=== PATIENT | female | born 1955 | race Caucasian/White ===

== ENCOUNTER → 2018-03-12 08:56 | Outpatient (CLI) | payer BC, SELFPAY ==
[2018-03-12 09:20] LABS: Absolute Neutrophil Count 3.8 X10^3/uL (2.0-7.7); Basophil# 0.16 X10^3/uL; Basophil% 2.2 % (0-1); Eosinophils% 18.2 % (0-5); Hematocrit 46.7 % (37-47); Hemoglobin 15.8 g/dl (12.0-15.0); Lymphocyte % 18.2 % (19-41); Mean Corp Hgb Conc 33.8 g/gl (32-36); Mean Corpuscular Hgb 32.2 pg (27.0-32.0); Mean Corpuscular Volume 95.1 fL (81-99); Mean Platelet Vol. 8.9 fl (6.2-12.0); Monocyte# 0.56 X10^3/uL; Monocyte% 7.9 % (0-10); Neutrophil % 53.4 % (47-70); POSITIVE COUNT NO; POSITIVE DIFFERENTIAL NO; POSITIVE MORPHOLOGY NO; Platelet Count 294 K/mm3 (150-450); RBC Distribution Width CV 12.6 % (11.6-14.6); RBC Distribution Width SD 42.9 fl (35.1-43.9); Red Blood Count 4.91 M/mm3 (4.2-5.4); White Blood Count 7.1 K/mm3 (4.4-11.0)
[2018-03-15 12:07] LABS: Alternaria tenuis <0.10 kU/L (Class 0); Ash, White <0.10 kU/L (Class 0); Aspergillus fumigatus <0.10 kU/L (Class 0); Bermuda Grass <0.10 kU/L (Class 0); Birch <0.10 kU/L (Class 0); Black Walnut <0.10 kU/L (Class 0); Cat Hair / Dander,Stand 0.15 kU/L (Class 0/I); Cedar, Mountain <0.10 kU/L (Class 0); Cladosporium herbarum <0.10 kU/L (Class 0); Cockroach, American <0.10 kU/L (Class 0); Cottonwood <0.10 kU/L (Class 0); D farinae Mite 0.23 kU/L (Class 0/I); D pteronyssinus 0.32 kU/L (Class I); Elm, American White <0.10 kU/L (Class 0); Immunoglobulin E 508 IU/mL (0-100); Maple/Box Elder <0.10 kU/L (Class 0); Mulberry, White <0.10 kU/L (Class 0); Oak, White <0.10 kU/L (Class 0); Pecan <0.10 kU/L (Class 0); Penicillium Notatum <0.10 kU/L (Class 0); Pigweed, Rough <0.10 kU/L (Class 0); Russian Thistle <0.10 kU/L (Class 0); Sheep Sorrel <0.10 kU/L (Class 0); Sycamore, American <0.10 kU/L (Class 0); Timothy Grass <0.10 kU/L (Class 0)
[2018-03-15 20:08] LABS: Aspirgillus flavus Negative (Neg:<1:1); Aspirgillus fumigatus Negative (Neg:<1:1); Aspirgillus niger Negative (Neg:<1:1)
[2018-03-17 11:45] LABS: Immunoglobulin E 531 IU/mL (0-100)
[2018-03-17 11:54] LABS: Mouse Urine <0.10 kU/L (Class 0)
== END ==
PROVIDERS: Family Provider Family Medicine; PCP Family Medicine; Referring Provider Internal Medicine Critical Care Medicine; Visit Provider Internal Medicine Critical Care Medicine
DX: J45.909 Unspecified asthma, uncomplicated (principal)
CPT/HCPCS: 36415; 82785; 85025; 86003; 86606

== ENCOUNTER → 2018-03-19 07:35 | Outpatient (CLI) | payer BC, SELFPAY ==
--- NOTE | 2018-03-19 13:18 | PFT ---
INTRODUCTION: The patient is a 62-year-old female that presents for pulmonary function testing secondary to a diagnosis of asthma. Respiratory therapy reports good patient effort. Bronchodilators were used during testing. INTERPRETATION: Forced expiration spirometry demonstrates the presence of a severe large airways obstructive ventilatory defect. There was a significant response to aerosolized bronchodilators. Spirograms are of good quality and do not plateau indicating slow emptying of the lungs. Body plethysmography was performed and reveals lung volumes to be within normal limits. Diffusing capacity by single breath CO is also within normal limits at 73% of predicted. IMPRESSION: These pulmonary function studies demonstrate the presence of a partially reversible severe large airways obstructive ventilatory defect. Lung volumes and diffusing capacity are within normal limits.
== END ==
PROVIDERS: Family Provider Family Medicine; PCP Family Medicine; Referring Provider Internal Medicine Critical Care Medicine; Visit Provider Internal Medicine Critical Care Medicine
DX: J45.909 Unspecified asthma, uncomplicated (principal)
CPT/HCPCS: 94060; 94726; 94729

== ENCOUNTER → 2018-04-08 08:50 | Outpatient (CLI) | payer BC, SELFPAY ==
[2018-03-12 08:05] VITALS: BMI 38.0
--- OUTSIDE RECORDS SUMMARY | 2018-06-04 09:25 | XMS RPT_ITS ---
:1955 Author Organization [facility] Care Team Providers Name Role Phone Dharmesh Ray D.O. Attending Unavailable STENCEL, ALBERT Referring Unavailable Dharmesh Ray D.O. Attending Unavailable Dharmesh Ray D.O. Referring Unavailable STENCEL, ALBERT Primary Care Unavailable Dharmesh Ray D.O. Attending Unavailable Dharmesh Ray D.O. Referring Unavailable STENCEL, ALBERT Primary Care Unavailable Dharmesh Ray D.O. Attending Unavailable Dharmesh Ray D.O. Referring Unavailable Yusuf Mccabe Attending Unavailable Estelle, Yusuf Referring Unavailable STENCEL, ALBERT Primary Care Unavailable Dharmesh Ray D.O. Attending Unavailable STENCEL, ALBERT Referring Unavailable Stencel, Albert Attending Unavailable Stencel, Albert Primary Care Unavailable Gatito Marcano Consulting Unavailable RosycelAlbert Admitting Unavailable Stencel, Albert Attending Unavailable Stencel, Albert Primary Care Unavailable Stencel, Albert Attending Unavailable Stencel, Albert Primary Care Unavailable Stencel, Albert Primary Care Unavailable Stencel, Albert Admitting Unavailable Stencel, Albert Attending Unavailable Gatito Marcano Attending Unavailable Stencel, Albert Referring Unavailable Stencel, Albert Primary Care Unavailable ThomaeGatito R Admitting Unavailable Stencel, Albert Attending Unavailable Stencel, Albert Primary Care Unavailable Furness, Harsh Beatty Attending Unavailable Stencel, Albert Primary Care Unavailable PROBLEMS PROBLEMS DATE TYPE CONDITION / CODE ATTENDING STATUS SOURCE 03/31/2018 Unknown J45.909 - Debra Gao Unspecified asthma, D.O. [facility] J45.909(ICD-10) Repository PROCEDURES PROCEDURES No Procedure Records FoundRESULTS RESULTS PULMONARY VISIT REPORT Observed: 04/10/2018 Status: F Source: [place] 2:23 PM [facility] REPOSITORY [facility] [place] [address] [place] [address] OFFICE VISIT Date of Service: 04/10/18 MR#: [id number] Acct: [id number] Name: SAMEER CHOWDHURY Rep #: [id number] : 1955 Provider: Dharmesh Ray D.O. Age/Sex: 62/F Location: [facility] Status: Signed Assessment AND Plan 1. Severe persistent asthma, unspecified whether complicated J45.50 Plan The patient has severe persistent asthma with frequent exacerbations and is already on maximal therapy. Her recent workup included an elevated peripheral eosinophil count along with a significantly elevated IgE level. Given the patient's lack of current control, I recommended that we proceed with adding Xolair to the patient's current treatment regimen. I would favor maintaining the patient on her current regimen for at least 3-6 months after being started on Xolair. After that time, I would strongly recommend the discontinuation of theophylline, if the patient is controlled. Paperwork has been submitted to obtain Xolair on the patient's behalf. She will have short interval follow-up with us accordingly. Plan Detail Other Medications New: Follow Up 3 Months (CSM) HPI HPI Comments Details: The patient is a 62-year-old female that presents to the clinic today for a routine scheduled follow-up office visit. If you recall, the patient initially presented to me in February 2018 for evaluation of asthma. She reported that she was initially diagnosed in her 20s. She also has allergic rhinitis and follows with Dr. Mccabe of ENT for weekly allergy shots. The patient reported that her asthma has never been under good control. At the time of her initial office visit, she was prescribed high-dose Advair, Singulair, pro-air and theophylline. She experiences a great deal of exacerbations throughout the year. The patient is a lifelong non-smoker, but does report some secondhand smoke exposure as a child. She does keep a parakeet as a pet in her home environment. She has hardwood floors throughout her home with little dust noted. Readily identifiable precipitating factors for worsening of her breathing quality include dust and exposure to strong odors and perfumes. Patient did have recent lab work done including CBC in February 2018 that had a noted white blood cell count of 8300 with 13% eosinophils noted on differential. Previous exhaled nitric oxide testing revealed a level of 19 ppb. Pulmonary function testing completed in March 2018 revealed evidence of a partially reversible severe large airways obstructive ventilatory defect with preserved lung volumes and diffusing capacity. Laboratory Tests WBC 7.1 Eos % (Auto) 18.2 H D. farinae Allergen 0.23 H D. pteronyssinus IgE 0.32 H Common Ragweed Allergen 3.30 H Today, the patient reports that she is currently receiving doxycycline by Dr. Mccabe for a sinus infection. She also has plans for upcoming repeat skin testing. She is currently utilizing her rescue inhaler on average 2 times per day. She does report the presence of clear/yellow nasal discharge. She continues to have shortness of breath with activity along with intermittent wheezing and chest tightness. She does have a cough which has been productive of clear to yellow sputum as well. Intake Vital Signs04/10/18 Height 5 ft 2 in 04/10/18 Weight: 205 lb Intake Visit Reasons: 1 M FU Network Technical Analyst Required: No Accompanied by: Self Is patient in pain?: No Allergies aspirin Adverse Reaction (Intermediate, Verified 04/10/18 13:51) asthma exacerbation cromolyn [From Intal] Adverse Reaction (Intermediate, Verified 04/10/18 13:51) asthma exacerbation levofloxacin [From Levaquin] Adverse Reaction (Intermediate, Verified 04/10/18 13:40) joint pain amoxicillin [From Augmentin] Adverse Reaction (Mild, Verified 04/10/18 13:40) itchy clavulanic acid [From Augmentin] Adverse Reaction (Mild, Verified 04/10/18 13:40) itchy Sulfa (Sulfonamide Antibiotics) Adverse Reaction (Mild, Verified 04/10/18 13:51) Rash Medications fluticasone 500 mcg-salmeterol 50 mcg/dose blistr powdr for inhalation 1 inh INHALATION BID 03/12/18 [History Confirmed 04/10/18] albuterol sulfate HFA 90 mcg/actuation aerosol inhaler 2 puff INHALATION Q6H PRN 04/10/18 [History Confirmed 04/10/18] doxycycline hyclate 100 mg capsule 100 mg PO BID 04/10/18 [History Confirmed 04/10/18] fluticasone 50 mcg/actuation nasal spray,suspension 2 spray INTRANASAL DAILY 04/10/18 [History Confirmed 04/10/18] irbesartan 150 mg tablet 150 mg PO DAILY 04/10/18 [History Confirmed 04/10/18] loratadine 10 mg tablet 10 mg PO DAILY 04/10/18 [History Confirmed 04/10/18] montelukast 10 mg tablet 10 mg PO QPM 04/10/18 [History Confirmed 04/10/18] multivitamin tablet 1 tab PO DAILY 04/10/18 [History Confirmed 04/10/18] theophylline ER 300 mg capsule,extended release 24 hr 300 mg PO BID cap 04/10/18 [History Confirmed 04/10/18] PFSH Medical History Asthma (Chronic) Surgical History History of hysterectomy (Resolved) History of sinus surgery (Resolved) Family History Father Sudden cardiac Social History Smoking Status: Never smoker Review of Systems Const CONSTITUTIONAL: Negative anorexia, body ache, chills, daytime sleepiness, fever(s), night sweats, oral thrush, stops breathing during sleep, weight loss, sleeping in chair, fatigue, weight loss, weight gain, frequent colds, seasonal allergies, other, headache(s) or orthopnea EETM Ear Nose Throat Mouth: Positive hearing normal and nasal discharge; negative hard of hearing, hoarseness, dry mouth in morning, change in vision, itchy eyes, eye pain, swallowing Difficulty, ear pain, nose bleed, headache(s), mouth pain, nasal congestion, post nasal drip, sinus pain, sinus pressure, sore throat or other Cardio Cardiovascular: Negative chest pain, chest pain at rest, chest pain with activity, irregular heart rhythm, edema, shortness of breath when lying down, palpitations, murmur or other Resp Respiratory: Positive as per HPI, shortness of breath, wheezing, cough cough: Positive productive color: Positive yellow and clear, chest tightness and inhalers; negative pain with cough, chest congestion, pain on inspiration, increase use of rescue inhalers, snoring, apnea or other Gastro Gastrointestional: Negative bloody stools, change in appetite, difficulty swallowing, reflux, hematemesis, melena stool, loose stool, constipation or other Genitourinary: Negative blood in urine, nocturia, pain with urination or other Musc Musculoskeletal: Negative body pain, back pain, neck pain or other Skin/Breast Skin/Breast: Negative dry skin, itching, rash, unusual bruising, breast lump or other Neuro Neurological: Negative restless legs, confusion, weakness or other Psych Psychocological: Negative abnormal sleep pattern, anxiety, thoughts of hurting self/others, hopelessness or other Lymph Lymphatic: Negative easy bleeding, easy bruising, swollen lymph nodes or other Exam Const Constitutional: Positive conversant, cooperative, in no acute respiratory distress, well developed, well nourished, good hygiene and obese Head Head: Positive normocephalic and atraumatic; negative cyanosis of lips/distal nose Eyes Eye: Positive clear conjunctiva; negative nystagmus or scleral abnormality Ears Ear: Positive hearing normal and external ears normal; negative hard of hearing Nose Nose: Positive external nose normal; negative epistaxis Mouth Mouth: Positive oral mucosae normal and posterior oropharynx is adequate; negative no lesions or post nasal drip Mallampati Score: II: Mallampati Score Neck Neck: Positive normal visual inspection and trachea midline; negative lymphadenopathy Chest Wall Chest: Positive symmetric chest movement Normal AP diameter. Resp lung sounds: Positive wheezes, rhonchi and good air exchange; negative rales Cardio Cardiac: Positive regular rate, regular rhythm, S1 normal and S2 normal; negative rub, gallop or murmur GI GI: Positive normal bowel sounds and obese Soft without distention Genitourinary: Positive deferred Musc Musculoskeletal: Positive steady gait Skin Pulmonary Skin Exam: Positive intact; negative lesion, ulcers, dermal atrophy or rash Pulses Pulse: Yes Pedal pulses present: Extremities Extremities: No clubbing, No cyanosis, No edema Neuro Neurologic: Yes conversant, Yes no focal neuro deficits, Yes cooperative Lymph Lymphatic: No lymphadenopathy Psych Appearance: Positive grossly normal Mental Status: Positive mental status grossly normal Mood: Positive congruent mood Affect: Positive normal affect Coding Level of Care Code Off vis,est,level 4 Diagnoses Severe persistent asthma, unspecified whether complicated J45.50 Asthma complication type: unspecified Asthma persistence: persistent Asthma severity: severe 04/10/18 1423 <Electronically signed by Dharmesh Ray DO> Date Dharmesh Ray DO Cosigner Signature: Date (if applicable) CC: Albert Maria MD Observed: 04/08/2018 Status: F Source: [place] CULTURE, NOSE 8:50 [facility] REPOSITORY Gram Stain Gram Stain 2+ White Blood Cells Rare Gram positive cocci Nasoph. Cult RESULTS CALLED TO [facility] 04/11/18 0751 Vaishali Alicea. Copy of report sent to Infection Control Printer [id number] 04/11/18 0752 CLAUS. ORGANISM 1: Meth. resistant Staph. aureus Amount Growth Rare Meth. resistant Staph. aureus: REACTION Benzylpenicillin NF >=0.5 R Cefoxitin *NF + Clindamycin $$ >=8 R Inducable Clindamycin Resistan - Erythromycin $ >=8 R Gentamicin $ <=0.5 S Levofloxacin $ >=8 R Linezolid $$$$ 2 S Oxacillin NF >=4 R Tigecycline $$$$ <=0.12 S Rifampin $$ <=0.5 S Tetracycline NF <=1 S Trimethoprim/Sulfametho $ <=10 S Vancomycin $ 1 S (NF) indicates non-formulary drug at [facility]. Approval by Infectious Disease Specialist required before non-formulary drugs may be ordered and/or dispensed. * CLSI guidelines does not recommend testing of cephalosporins. This interpretation is deduced from Beta-lactam/penicillin results. Performed By: #### M100.0900 #### [facility] [address] [place], [address] PULMONARY FUNCTION Observed: 03/19/2018 Status: F Source: [place] TEST 1:20 PM [facility] REPOSITORY [facility] Pulmonary Services/Neurology [address] [place] [address] MR#: [id number] Acct: [id number] Name: SAMEER CHOWDHURY Rep #: [id number] : 1955 62 From: Dharmesh Ray DO Referring Dr: Dharmesh Ray D.O. Status: REG CLI Ordering Dr: Date: Location: [facility] Sex: F C INTRODUCTION: The patient is a 62-year-old female that presents for pulmonary function testing secondary to a diagnosis of asthma. Respiratory therapy reports good patient effort. Bronchodilators were used during testing. INTERPRETATION: Forced expiration spirometry demonstrates the presence of a severe large airways obstructive ventilatory defect. There was a significant response to aerosolized bronchodilators. Spirograms are of good quality and do not plateau indicating slow emptying of the lungs. Body plethysmography was performed and reveals lung volumes to be within normal limits. Diffusing capacity by single breath CO is also within normal limits at 73% of predicted. IMPRESSION: These pulmonary function studies demonstrate the presence of a partially reversible severe large airways obstructive ventilatory defect. Lung volumes and diffusing capacity are within normal limits. 03/19/18 1320 <Electronically signed by Dharmesh Ray DO> Date Dharmesh Ray DO CC: Dharmesh Ray D.O.; Albert Maria MD Date Dictated: 03/19/181317 Date Transcribed: 03/19/181317 Account Auditor: ELENA Signed PULMONARY VISIT REPORT Observed: 03/12/2018 Status: F Source: [place] 9:17 AM [facility] REPOSITORY [facility] [place] [address] [place] [address] OFFICE VISIT Date of Service: 03/12/18 MR#: [id number] Acct: [id number] Name: SAMEER CHOWDHURY Rep #: [id number] : 1955 Provider: Dharmesh Ray D.O. Age/Sex: 62/F [place] [facility] Status: Signed Assessment AND Plan 1. Severe persistent asthma, unspecified whether complicated J45.50 Plan The patient has a history of severe persistent asthma, which has not been under optimal control. She is currently prescribed high-dose Advair, Singulair, theophylline and an albuterol rescue inhaler. Exhaled nitric oxide testing performed in office today revealed a level of 19. The patient did have a recent CBC with differential which did reveal an elevated eosinophil count. At this time, I would recommend that the patient go through pulmonary function testing. I am also going to obtain baseline laboratory values including serum IgE level, Aspergillus antibodies and zone 5 RAST. Patient will have short interval follow-up with me to discuss the results of her testing. My preference would be to discontinue her theophylline and potentially qualify her for some form of immunotherapy, including Xolair or Nucala, depending on the results of her laboratory testing. 2. Allergic rhinitis J30.9 Plan Continue Flonase and Singulair as prescribed. Continue follow- up with ENT for weekly allergy immunotherapy. Plan Detail Other Orders Orders: Follow Up 4-6 weeks w/ DMB HPI HPI Comments Details: The patient is a 62-year-old female who presents to the clinic today in referral for evaluation of asthma. The patient is currently followed by Dr. Maria at in [place]. The patient endorses a long-standing history of asthma, initially diagnosed in her 20s. She also has allergic rhinitis and follows with Dr. King of ENT for weekly allergy shots. The patient reports that her asthma has never been under great control. She is currently prescribed high-dose Advair Diskus, Singulair, pro-air, and theophylline. The experiences a great number of exacerbations throughout the year. She last received a prednisone burst several months ago. At the current time, her breathing quality is stable. She was previously trialed on both Breo and Dulera. The patient is a lifelong non-smoker, but does report some secondhand smoke exposure as a child. She does keep a parakeet as a pet in her home environment. She has hardwood floors throughout her home with little dust noted. Readily identifiable precipitating factors for worsening in her breathing quality include dust and exposure to strong odors and perfumes. She reports that she utilizes her rescue inhaler on a daily basis. She denies any nocturnal symptoms. She does have an intermittent nonproductive cough without significant chest tightness or wheezing. She denies the presence of exertional shortness of breath. The patient did have recent lab work done including CBC on February 10, 2018. The patient had a noted white blood cell count of 8300 with 13% eosinophils noted on differential. Her weight has been stable. She denies fevers, chills or night sweats. In office exhaled nitric oxide testing performed today revealed a level of 19. Intake Vital Signs03/12/18 Height 5 ft 2 in 03/12/18 Weight: 208 lb Intake Visit Reasons: Asthma Accompanied by: Self Medications fluticasone 500 mcg-salmeterol 50 mcg/dose blistr powdr for inhalation 1 inh INHALATION BID 03/12/18 [History Confirmed 03/12/18] [facility] Medical History Asthma (Chronic) Surgical History History of hysterectomy (Resolved) History of sinus surgery (Resolved) Family History Father Sudden cardiac Social History Smoking Status: Never smoker Review of Systems Const CONSTITUTIONAL: Positive fatigue and seasonal allergies; negative anorexia, body ache, chills, daytime sleepiness, fever(s), night sweats, oral thrush, stops breathing during sleep, weight loss, sleeping in chair, weight loss, weight gain, frequent colds, other, headache(s) or orthopnea EETM Ear Nose Throat Mouth: Positive hearing normal, ear pain (Currently has a tube in her Lt ear), nasal congestion and nasal discharge; negative hard of hearing, hoarseness, dry mouth in morning, change in vision, itchy eyes, eye pain, swallowing Difficulty, nose bleed, headache(s), mouth pain, post nasal drip, sinus pain, sinus pressure, sore throat or other Cardio Cardiovascular: Negative chest pain, chest pain at rest, chest pain with activity, irregular heart rhythm, edema, shortness of breath when lying down, palpitations, murmur or other Resp Respiratory: Positive as per HPI, shortness of breath shortness of breath: Positive with activity, wheezing, cough cough: Positive productive (upon rising ) color: Positive thick, white and clear and snoring; negative pain with cough, chest congestion, chest tightness, pain on inspiration, inhalers, increase use of rescue inhalers, apnea or other Gastro Gastrointestional: Negative bloody stools, change in appetite, difficulty swallowing, reflux, hematemesis, melena stool, loose stool, constipation or other Genitourinary: Negative blood in urine, nocturia, pain with urination or other Musc Musculoskeletal: Negative body pain, back pain, neck pain or other Skin/Breast Skin/Breast: Negative dry skin, itching, rash, unusual bruising, breast lump or other Neuro Neurological: Negative restless legs, confusion, weakness or other Psych Psychocological: Negative abnormal sleep pattern, anxiety, thoughts of hurting self/others, hopelessness or other Lymph Lymphatic: Negative easy bleeding, easy bruising, swollen lymph nodes or other Exam Const Constitutional: Positive conversant, cooperative, in no acute respiratory distress, well developed, well nourished and good hygiene Head Head: Positive normocephalic and atraumatic; negative cyanosis of lips/distal nose Eyes Eye: Positive clear conjunctiva; negative nystagmus or scleral abnormality Ears Ear: Positive hearing normal and external ears normal; negative hard of hearing Nose Nose: Positive external nose normal; negative epistaxis Mouth Mouth: Positive oral mucosae normal and posterior oropharynx is adequate; negative no lesions or post nasal drip Mallampati Score: II: Mallampati Score Neck Neck: Positive normal visual inspection and trachea midline; negative lymphadenopathy Chest Wall Chest: Positive symmetric chest movement Normal AP diameter. Resp lung sounds: Positive clear to auscultation, good air exchange and normal expiratory time; negative wheezes, rhonchi or rales Cardio Cardiac: Positive regular rate, regular rhythm, S1 normal and S2 normal; negative rub, gallop or murmur GI GI: Positive normal bowel sounds Soft without distention Genitourinary: Positive deferred Musc Musculoskeletal: Positive steady gait Skin Pulmonary Skin Exam: Positive intact; negative lesion, ulcers, dermal atrophy or rash Pulses Pulse: Yes Pedal pulses present: Extremities Extremities: No clubbing, No cyanosis, No edema Neuro Neurologic: Yes conversant, Yes no focal neuro deficits, Yes cooperative Lymph Lymphatic: No lymphadenopathy Psych Appearance: Positive grossly normal Mental Status: Positive mental status grossly normal Mood: Positive congruent mood Affect: Positive normal affect Office Procedures NIOX NIOX Result NIOX: 19 Coding Level of Care Code Off vis,new,level 4 Diagnoses Severe persistent asthma, unspecified whether complicated J45.50 Asthma severity: severe Asthma persistence: persistent Asthma complication type: unspecified Allergic rhinitis J30.9 03/12/18 0917 <Electronically signed by Dharmesh Ray DO> Date Dharmesh Ray DO Cosigner Signature: Date (if applicable) CC: Albert Maria MD CBC W/DIFF, AUTOMATED Collected: 03/12/2018 Status: F Source: [place] 9:04 AM [facility] REPOSITORY TYPE CODE TESTS RESULT OUT OF RANGE REFERENCE UNITS LAB L100.1000 4.4-11.0 K/mm3 Normal WBC 7.1 LAB L100.1200 4.2-5.4 M/mm3 Normal RBC 4.91 LAB L100.1300 12.0-15.0 g/dl High HGB 15.8 LAB L100.1400 37-47 % Normal HCT 46.7 LAB L100.1500 81-99 fL Normal MCV 95.1 LAB L100.1600 27.0-32.0 pg High MCH 32.2 LAB L100.1700 32-36 g/gl Normal MCHC 33.8 LAB L100.1810 11.6-14.6 % Normal RDW CV 12.6 LAB L100.1820 35.1-43.9 fl Normal RDW SD 42.9 LAB L100.1900 150-450 K/mm3 Normal PLT 294 LAB L100.2000 6.2-12.0 fl Normal MPV 8.9 LAB L100.2100 47-70 % Normal NEUT% 53.4 LAB L100.2200 19-41 % Low LY% 18.2 LAB L100.2300 0-10 % Normal MONO% 7.9 LAB L100.2400 0-5 % High EO% 18.2 LAB L100.2500 0-1 % High BASO% 2.2 LAB L100.2550 0.0-0.9 % Normal IM GRAN % 0.100 Result Comment: IG% - Immature Granulocytes (promyelocytes, myelocytes and metamyelocytes) > 1% indicates that a LEFT SHIFT is Present. LAB L100.2620 2.0-7.7 X10 3/uL Normal Absolute Neut 3.8 LAB L100.2720 0.83-4.51 X10 3/ul Normal Absolute Lymph 1.30 Performed By: #### L100.0100 #### [facility] [address] [place], [address] IMMUNOGLOBULIN E Collected: 03/12/2018 Status: F Source: [place] 9:04 [facility] REPOSITORY TYPE CODE TESTS RESULT OUT OF REFERENCE UNITS RANGE LAB L3200.1600 0-100 IU/mL High IMMUNO E 531 Result Comment: Performed at: [address] [id number] [employer] Contact Printer: Varsha Tucker MD, Phone: [phone] Performed By: #### L3200.1600, L3500.3600 #### [facility] (refer to report for specific site) refer to report for address and phone number ASPERGILLUS ANTIBODIES Collected: 03/12/2018 Status: F Source: [place] 9:04 [facility] REPOSITORY TYPE CODE TESTS RESULT OUT OF RANGE REFERENCE UNITS LAB L3500.3700 Neg:<1:1 Asp. Normal fumigatus Negative LAB L3500.3800 Neg:<1:1 Asp. Normal flavus Negative LAB L3500.3900 Neg:<1:1 Asp. Normal niger Negative Performed By: #### L3200.1600, L3500.3600 #### [facility] (refer to report for specific site) refer to report for address and phone number ALLERGEN RESP. AREA 5 Collected: 03/12/2018 Status: F Source: [place] 9:04 [facility] REPOSITORY Order Comment: Reason for Exam: Allergic Asthma Reason for exam? Allergic Asthma TYPE CODE TESTS RESULT OUT OF RANGE REFERENCE UNITS LAB L5500.8000 0-100 IU/mL High TOTAL igE 508 LAB L5500.9900 . Normal RAST COMMENT Comment Result Comment: Levels of Specific IgE Class Description of Class ----- < 0.10 0 Negative 0.10 - 0.31 0/I Equivocal/Low 0.32 - 0.55 I Low 0.56 - 1.40 II Moderate 1.41 - 3.90 III High 3.91 - 19.00 IV Very High 19.01 - 100.00 V Very High >100.00 Very High LAB L5510.0040 Class 0/I kU/L High CAT HAIR/DANDER 0.15 LAB L5510.0070 Class I kU/L High DOG EPITHELIA 0.50 LAB L5520.0020 Class 0/I kU/L High D FARINAE MITE 0.23 LAB L5520.0030 Class I kU/L High D PTERONYSSINUS 0.32 LAB L5540.0020 Class 0 kU/L BERMUDA GRASS Normal <0.10 LAB L5540.0190 Class 0 kU/L LISANDRA GRASS Normal <0.10 LAB L5550.0020 Class 0 kU/L ALTERNARIA TEN Normal <0.10 LAB L5550.0040 Class 0 kU/L ASPERGILLUS FUM Normal <0.10 LAB L5550.0140 Class 0 kU/L CLADOSPOR HERB Normal <0.10 LAB L5550.0340 Class 0 kU/L PEN Notatum Normal <0.10 LAB L5555.0380 Class 0 kU/L COCKROACH,AMER Normal <0.10 LAB L5555.0410 Class 0 kU/L Mouse Urine Normal <0.10 Result Comment: Performed at: [address] [id number] [employer] Contact Printer: Varsha Tucker MD, Phone: [phone] LAB L5560.0050 Class 0 kU/L ARIADNA, Normal WHITE <0.10 LAB L5560.0100 Class 0 kU/L BIRCH Normal <0.10 LAB L5560.0110 Class 0 kU/L CEDAR, Normal MOUNTAIN <0.10 LAB L5560.0140 Class 0 kU/L Normal COTTONWOOD <0.10 LAB L5560.0170 Class 0 kU/L ELM,AMER Normal WHITE <0.10 LAB L5560.0310 Class 0 kU/L Normal MAPLE/BOX ELDER <0.10 LAB L5560.0371 Class 0 kU/L Normal MULBERRY, WHITE <0.10 LAB L5560.0400 Class 0 kU/L OAK, Normal WHITE <0.10 LAB L5560.0440 Class 0 kU/L PECAN Normal <0.10 LAB L5560.0550 Class 0 kU/L Normal SYCAMORE, AMER <0.10 LAB L5560.0570 Class 0 kU/L BLACK Normal WALNUT <0.10 LAB L5580.0210 Class 0 kU/L PIGWEED, Normal ROUGH <0.10 LAB L5580.0260 Class III kU/L High RAGWEED SH/COM 3.30 LAB L5580.0320 Class 0 kU/L SHEEP Normal SORREL <0.10 LAB L5580.0360 Class 0 kU/L DOMINICAN Normal THISTLE <0.10 Performed By: #### L5500.0700 #### [facility] (refer to report for specific site) refer to report for address and phone number CBC W/ AUTO DIFF Collected: 02/10/2018 Status: F Source: [facility] 7:32 AM [facility] REPOSITORY TYPE CODE TESTS RESULT OUT OF RANGE REFERENCE UNITS LAB 34613796(L 3.6-11.0 E3/mcL OINC) Normal WBC 8.3 LAB 34093291(L 3.90-5.40 E6/mcL OINC) Normal RBC 4.60 LAB 13441199(L 12.0-16.0 G/DL OINC) Normal Hgb 15.0 LAB 68463244(L 36.0-48.0 % OINC) Normal Hct 44.1 LAB 11298769(L 11.5-14.5 % OINC) Normal RDW 12.8 LAB 39479486(L 27.0-31.0 pg OINC) High MCH 32.6 LAB 69660067(L 33.0-37.0 G/DL OINC) Normal MCHC 33.9 LAB 82332692(L 78.0-100.0 fL OINC) Normal MCV 96.0 LAB 21571584(L 7.4-11.0 fL OINC) Normal MPV 7.5 LAB 93889294(L 130-400 E3/mcL OINC) Normal Platelet 293 Performed By: #### [id number] #### RENNYDavon SheppardDanieldioni [address] [place] [address] AUTO DIFF Collected: 02/10/2018 Status: F Source: [facility] 7:32 AM [facility] REPOSITORY Order Comment: Order Added by Discern Expert. TYPE CODE TESTS RESULT OUT OF RANGE REFERENCE UNITS LAB 61804568(L 37.0-75.0 % OINC) Normal Neutro Auto 56.0 LAB 55996978(L 20.0-55.0 % OINC) Low Lymph Auto 19.1 LAB 70765274(L 0.0-10.0 % OINC) High Bee Auto 10.5 LAB 80260797(L 0.0-11.0 % OINC) High Eos Auto 13.0 LAB 29272207(L 0.0-2.0 % OINC) Normal Basophil Auto 1.4 LAB 21319103(L 1.4-6.5 E3/mcL OINC) Normal Neutro 4.6 Absolute LAB 04028261(L 1.2-3.4 E3/mcL OINC) Normal Lymph Absolute 1.6 LAB 57925977(L 0.0-0.7 E3/mcL OINC) High Bee Absolute 0.9 LAB 79717691(L 0.0-0.7 E3/mcL OINC) High Eos Absolute 1.1 LAB 72319960(L 0.0-0.2 E3/mcL OINC) Normal Basophil 0.1 Absolute Performed By: #### [id number] #### RENNYDavon SheppardHemdioni [address] [place], [place] [id number] CMP Collected: 02/10/2018 Status: C Source: [facility] 7:32 AM [facility] REPOSITORY TYPE CODE TESTS RESULT OUT OF RANGE REFERENCE UNITS LAB 87137717(L 70-99 mg/dL OINC) Glucose Normal Lvl 94 LAB 91516508(L 6-23 mg/dL OINC) BUN Normal 18 LAB 8079544(LO 0.6-1.3 mg/dL INC) Normal Creatinine 0.7 LAB 89422011(L 8.6-10.3 mg/dL OINC) Calcium Normal Lvl 9.3 LAB 98940970(L 136-145 mEq/L OINC) Sodium Normal Lvl 138 LAB 98051382(L 3.5-5.3 mEq/L OINC) Normal Potassium Lvl 4.1 LAB 29592877(L 98-107 mEq/L OINC) Chloride Normal 106 LAB 50639356(L 21.0-32.0 mEq/L OINC) CO2 Normal 26.0 LAB 04086768(L 33-136 Int._Unit/ OINC) L Alk Phos Normal 65 LAB 33670481(L 0.0-1.2 mg/dL OINC) Bili Normal Total 0.5 LAB 30025868(L 3.4-5.0 G/DL OINC) Albumin Normal Lvl 4.0 LAB 74127990(L 6.4-8.3 G/DL OINC) Total Normal Protein 6.4 LAB 33374049(L 7-45 Int._Unit/ OINC) L ALT Normal 19 LAB 40612581(L 9-39 Int._Unit/ OINC) L AST Normal 18 LAB 03335569(L 5.4-30.0 ratio OINC) Normal BUN/Creat Ratio 25.7 LAB 28742372(L 1.1-1.9 ratio OINC) A/G Normal Ratio 1.7 LAB 50121071(L 2.0-4.0 G/DL OINC) Globulin Normal 2.4 Performed By: #### [id number] #### RENNY [facility] [facility] [place] [address] EGFR Collected: 02/10/2018 Status: F Source: [facility] 7:32 AM [facility] REPOSITORY Order Comment: Order added by Discern Expert. TYPE CODE TESTS RESULT OUT OF RANGE REFERENCE UNITS LAB 41786824(LO mL/min/1.73 INC) m2 Normal eGFR >60 LAB 67918209(LO mL/min/1.73 INC) m2 Normal eGFR AA >60 Performed By: #### [id number] #### RENNY [employer] [address] [place] [address] LIPID PROFILE Collected: 02/10/2018 Status: F Source: [facility] 7:32 AM [facility] REPOSITORY TYPE CODE TESTS RESULT OUT OF RANGE REFERENCE UNITS LAB 83559527(LO 120-200 mg/dL INC) Normal Chol 193 LAB 41184058(LO mg/dL INC) Normal HDL 43 LAB 03733173(LO 0-130 mg/dL INC) Normal LDL 107 LAB 39375604(LO 0-150 mg/dL INC) High Trig 213 Result Comment: AGE DESIRABLE BORDELINE HIGH 91 D - 9 Y 0 - 74 75 - 99 > 100 10 - 19 Y 0 - 89 90 - 129 > 130 20 - 24 Y 0 - 114 115 - 149 > 150 > 25 Y 0 - 149 150 - 199 200 - 499 LAB 09299072(LOINC) Normal VLDL 43 Performed By: #### [id number] #### RENNY [facility] [place] [address] MA MAMM SCREEN W/CAD Observed: 08/20/2017 Status: F Source: MARILYN IF PERFORMED BILAT 11:33 AM [facility] REPOSITORY Exam Date/Time: 08/20/2017 11:50 EDT Reason for Exam: SCREENING;Screening Report BILATERAL DIGITAL SCREENING MAMMOGRAMS WITH CAD [employer] V2.1.3.1 HISTORY: Screening. COMPARISON: None. Baseline study. FINDINGS: The glandular pattern is bilaterally symmetrical. There is no spiculated density, clustered microcalcification, or mass lesion seen. No architectural distortion is seen. The skin thickness is normal. IMPRESSION: No evidence of a neoplastic process. No prior studies. BI-RADS 2 - Benign, no evidence of malignancy. Normal interval followup is recommended in 12 months. OVERALL ASSESSMENT- BENIGN A letter of notification will be sent to the patient regarding the results. Assessment / Recommendation: 2-1 Normal interval follow-up Breast density: Scattered Fibroglandular Density Recall interval: 012 months FINAL REPORT Dictated: 08/20/2017 5:35 pm Dre Reid MD Signed (Electronic Signature): 08/20/2017 5:35 pm Signed by: Dre Reid MD Technologist: AHMET Assessment: BI-RADS Category 2-Benign finding Recommendation: Normal interval follow-up ALLERGIES ALLERGIES DATE TYPE / NAME / CODE REACTION SEVERITY SOURCE CODE 04/10/2018 Drug Sulfa Rash [place] Allergy/41 (Sulfonamide Community 7289436(SN Antibiotics)/F[address]) 2118893(RXNORM) Repository 04/10/2018 Drug aspirin/V1747182 asthma [place] Allergy/41 87(RXNORM) exacerbation Community 4437456([facility]) Repository 04/10/2018 Drug clavulanic ITCHY [place] Allergy/41 acid/A221049206( Community 1393074( RXNORM) [facility]) Repository 04/10/2018 Drug amoxicillin/F006 ITCHY [place] Allergy/41 088293(RXNORM) Community 5805081([facility]) Repository 04/10/2018 Drug cromolyn/Q866201 asthma [place] Allergy/41 808(RXNORM) exacerbation Community 1345058([facility]) Repository 04/10/2018 Drug levofloxacin/F00 JOINT PAIN [place] Allergy/41 3924699(RXNORM) Community 9454915([facility]) Repository Drug/42531 aspirin 343958366 [place] 1003([facility]) System Repository Drug/80322 Cough Syrup [id number] [place] 1003([facility] -[id number] [facility]) System Repository Food/51249 Tomatoes Mild [place] 1000([facility]) System Repository Drug/80700 sulfa drugs 774044256 [place] 1003([facility]) System Repository Drug/49819 Augmentin [id number] [place] 1003([facility] -[id number] [facility]) System Repository Drug/70428 Ceftin 8918261911 [place] 1003([facility]) System Repository Drug/32280 Intal 480649164 [place] 1003([facility]) System Repository Drug/99011 Levaquin 88236927 [place] 1003([facility]) System Repository [facility] [place] [id number] Mild [place] t/75821173 [place], Melon -[id number] [place] [address](SNOMED and Vitamin E System CT) Repository ENCOUNTERS ENCOUNTERS ADMIT/DISCHARGE ACCOUNT NUMBER ADMITTING ENCOUNTER LOCATION SOURCE CLASS 04/10/2018/04/10/20 [id number] Ambulatory BMSBuilding:[place] 18 [place] Repository 04/08/2018 [id number] Ambulatory [facility] Hospital ing:LABSPEC Repository 03/21/2018/03/21/20 [id number] Ambulatory [facility] [place] [facility] [place]oc 03/19/2018 [id number] [facility] ing:PSN Repository 03/19/2018 [id number] Ambulatory BMSBuilding:W [facility] Repository 03/12/2018 [id number] Ambulatory [facility] Hospital ing:PAVLAB Repository 03/12/2018/03/12/20 [id number] Ambulatory BMSBuilding:B [place] 18 [place] Repository 02/17/2018/02/18/20 [id number] Ambulatory Medical [place] [address] [place] [address] [place] Repository Med Assoc 02/10/2018/02/11/20 [id number] [place], Ambulatory [place] [address] [place] [address] ing:[facility] Repository 02/10/2018 [id number] Ambulatory [address] [facility] Repository 11/11/2017/11/12/19 [id number] Ambulatory Medical [place] [facility] [place] Repository Med AssocRoom: Room 3 11/04/2017/11/05/19 [id number] Gatito Marcano Ambulatory [place] [facility] 11/04/2017 [id number] Ambulatory [address] [place] [address] Repository 08/20/2017/08/21/19 [id number] [place], Ambulatory [place] [address] [place] [address] ing:[facility] Repository 08/16/2017/08/17/19 [id number] Ambulatory Medical [place] 18 [facility] [place] Repository Med AssocRoom: Room 3 PAYERS PAYERS ENCOUNTER GUARANTOR PAYER SUBSCRIBER SOURCE 04/10/[id number] Insurance:ANTHEMPolic AmbroseDOB: Community [place], y Number: [id number] [facility] [address]Ygr: [id number] Repository Date:6117-26-24TR [address] () [address]HDNBNXT, [place] [address]LT: 04/10/2018 Secondary NOT GIVENUNK Monae Insurance:SELF PAY [facility] Number: Effective Repository Date:2018-04-07 04/08/2018 SAMEER J Primary SAMEER J [place] [id number] TR Insurance:ANTHEMPolic AMBROSEDOB: Community [address], y Number: [id number] Indian Medical Center [address]Jzk: [id number] Repository Date:0848-66-07XL [address] ) [address]KFKSICC, [place] [address]BD: 04/08/2018 Secondary NOT GIVENUNK [place] Insurance:SELF PAY [facility] Number: Effective Repository Date:2018-04-08 03/19/2018 SAMEER J Primary SAMEER J [place] [id number] TR Insurance:ANTHEMPolic AMBROSEDOB: Community [address], y Number: [id number] Indian Medical Center [address]Jlo: [id number] Repository Date:2558-99-97XN [address] () [address]90[address]DSFJBOI, [place] [address]GT: 03/19/2018 Secondary NOT GIVENUNK [place] Insurance:SELF PAY [facility] Number: Effective Repository Date:2018-03-12 03/19/2018 SAMEER J Primary SAMEER J [place] [id number] TR Insurance:ANTHEMPolic AMBROSEDOB: Community [address], y Number: [id number] Indian Medical Center [address]Gdt: [id number] Repository Date:7956-11-92CJ [address] () [address]AIFMXCT, [place] [address]JL: 03/19/2018 Secondary NOT GIVENUNK Mon[place] Insurance:SELF PAY [facility] Number: Effective Repository Date:2018-03-19 03/12/2018 SAMEER SHAHID Primary SAMEER Allenoster [id number] TR Insurance:ANTHEMPolic AMBROSEDOB: Community [facility] y Number: [id number] Indian Medical Center [address]Nux: [id number] Repository Date:6102-71-80ZZ [address] () [address]KYXBENS[address] [place] [address]SM: 03/12/2018 Secondary NOT GIVENUNK [place] Insurance:SELF PAY [facility] Number: Effective Repository Date:2018-03-12 03/12/2018 Bryant Primary Bryant Monae [id number] Insurance:ANTHEMPolic AmbroseDOB: [facility] y Number: [id number] Indian Medical Center [address]Ion: [id number] Repository Date:1356-36-31QR [address] () [address]SBQDKCB[address] [place] [address]ZK: 03/12/2018 Secondary NOT GIVENUNK [place] Insurance:SELF PAY [facility] Number: Effective Repository Date:2018-03-05 02/17/2018 SAMEER J Primary SAMEER J [place] AMBROSEDOB: Insurance:1500 AMBROSEDOB: [facility] ANTHEMPolicy Number: [id number] Effective [address] Repository [address], Date:2017-08-[place]103[place], [place] [id number]: [id number] [place] [id number]: Name:[id number] O () [address]JHOSRWCYONI STEPHEN ()Tel: [phone]: ([phone] 02/10/2018 SAMEER J Primary SAMEER J [place] AMBROSEDOB: Insurance:1500 AMBROSEDOB: [facility] ANTHEMPolicy Number: [id number] System [address] Effective [address] Repository [place], Date:2017-08-16 - [place] [id number]: [id number] [place] [id number]: Name:CD:[id number] O (HP) [address] [place] ()Tel: [phone]: (WP) [phone] 02/10/2018 [facility] AMBROSEDOB: Insurance:AnthemPolic AMBROSEDOB: Hospitals y Number: [id number] Repository [address] [id number] [address], Date:Plan Name:[facility] [address] [place] [id number]: [place] [id number]: () () 11/04/2017 [facility] AMBROSEDOB: Insurance:ANTHEMPolic AMBROSEDOB: [facility] y Number: Effective [id number] System [address] Date:2017-08-16 - [facility] Repository [place], [id number] [place] [id number]: Name:Lyle HookerBROWN DOMINIQUE [place] [id number]: YONI HICKEY (HP) [id number]: [phone]) (HP) [phone] (WP) 11/04/2017 [facility] AMBROSEDOB: Insurance:AnthemPolic AMBROSEDOB: [facility] y Number: [id number] Repository [address] [id number] [address], Date:Plan Name:[address] [id number]: [place] [id number]: (HP) (HP) 08/20/2017 SAMEER J Primary SAMEER J Marilyn GARCIAROSEDOB: Insurance:ANTHEMPolic AMBROSEDOB: [facility] y Number: Effective [id number] [facility] Date:2017-08-16 - [facility] [address] Repository [place], [id number] 210[place] [id number]: Name:Lyle Hooker [address] [place] [id number]: YONI HICKEY () [address]YR: [phone] (HP) [phone] (WP) 08/16/2017 SAMEER J Primary SAMEER J [place] AMBROSEDOB: Insurance:1500 AMBROSEDOB: [facility] ANTHEMPolicy Number: [id number] Effective [address] Repository [place]GEL, Date:2017-02-15 - [address] [id number]: [id number] [place] [id number]: Name:[id number] O () [address]SLUKIYV, [place] ()Tel: [phone]: ([phone]
== END ==
PROVIDERS: Family Provider Family Medicine; PCP Family Medicine; Referring Provider Otolaryngology; Visit Provider Otolaryngology
DX: J01.90 Acute sinusitis, unspecified (principal)
CPT/HCPCS: 87070; 87077; 87186; 87205

== ENCOUNTER → 2018-05-02 12:48 | Outpatient (CLI) | payer BC, SELFPAY ==
[2018-04-10 13:38] VITALS: BMI 37.5
--- NOTE | 2018-05-02 12:52 | CT_ITS ---
STUDY: CT MAXILLOFACIAL SINUSES REASON FOR EXAM: Female, 62 years old. Chronic sinusitis worse on the left with history of prior sinus surgery RADIATION DOSAGE (If Supplied By Facility): CTDIvol = ( 33.06 ) mGy, DLP = ( 813.19 ) mGycm TECHNIQUE: The patient was scanned in a multi detector CT scanner. High resolution axial imaging was performed without the administration of intravenous contrast material. Sagittal and coronal images were reconstructed. Individualized dose optimization techniques were used for this CT. COMPARISON: None. FINDINGS: FRONTAL SINUSES: There is mucosal thickening of the left more than right frontal sinuses. ETHMOIDAL SINUSES: There is mucosal thickening in the ethmoid air cells anteriorly. MAXILLARY SINUSES: Operative defects of the medial bilateral maxillary sinuses with significant mucoperiosteal thickening involving the left more than right maxillary sinuses. SPHENOIDAL SINUSES: Mild mucosal thickening of the sphenoid sinuses but no air-fluid levels are demonstrated. Portions of the middle turbinates have been surgically removed. Normal bilateral inferior turbinates. Normal midline nasal septum. There is patency of the bilateral nasal airways. The visualized osseous structures are normal. The visualized bilateral orbital contents are normal. Partially empty sella turcica noted with mild CSF expansion. There is mild fluid within the left mastoid air cells and inner ear chamber. CT/Sinus/Facial Bone IMPRESSION: 1. 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 2. Moderate chronic sinusitis predominantly involving the maxillary, ethmoid and frontal sinuses. No bertrand bony erosion identified. 3. Left mastoiditis with left inner ear effusion. Electronically Signed: Jan Parikh MD at 10:53 EST , Service support ,
== END ==
PROVIDERS: Family Provider Family Medicine; PCP Family Medicine; Referring Provider Otolaryngology; Visit Provider Otolaryngology
DX: J32.9 Chronic sinusitis, unspecified (principal)
CPT/HCPCS: 70486

== ENCOUNTER → 2020-06-20 10:16 | Outpatient (CLI) | payer MEDICARE, BC, SELFPAY ==
[2020-01-22 10:26] VITALS: BMI 36.6
[2020-06-20 10:27] VITALS: BP 148/93; PULSE 86; RESP 16; TEMP 36.7; O2SAT 98; BMI 38.4
[2020-06-20] MEDS: Omalizumab 150 MG/ML Syringe SQ ×2 (10:34)
[2020-06-20 10:40] VITALS: BP 146/86; PULSE 83; RESP 16; TEMP 36.6; O2SAT 96
== END ==
PROVIDERS: PCP Family Medicine; Referring Provider Nurse Practitioner Acute Care; Visit Provider Nurse Practitioner Acute Care
DX: J45.50 Severe persistent asthma, uncomplicated (principal)
CPT/HCPCS: 96372; J2357

== ENCOUNTER 2020-07-18 08:52 | Outpatient (CLI) | payer MEDICARE, BC, SELFPAY ==
[2020-01-22 10:26] VITALS: BMI 36.6
[2020-06-20 10:27] VITALS: BMI 38.4
[2020-07-18 09:03] VITALS: BP 156/87; PULSE 89; RESP 16; TEMP 36.2; O2SAT 96; BMI 36.6
[2020-07-18] MEDS: Omalizumab 150 MG/ML Syringe 300 MG SQ (09:08)
[2020-07-18 09:16] VITALS: BP 125/74; PULSE 83; RESP 16; TEMP 36.2; O2SAT 98
== END 2020-07-18 09:54 | disposition home or self-care (01) ==
LOC: MEDOUTP 08:56
PROVIDERS: PCP Family Medicine; Referring Provider Nurse Practitioner Acute Care; Visit Provider Nurse Practitioner Acute Care
DX: J45.50 Severe persistent asthma, uncomplicated (principal)
CPT/HCPCS: 96372; J2357

== ENCOUNTER 2020-08-16 08:51 | Outpatient (CLI) | payer MEDICARE, BC, SELFPAY ==
[2020-06-20 10:27] VITALS: BMI 38.4
[2020-08-16 08:57] VITALS: BP 163/75; PULSE 75; RESP 16; TEMP 36.4; O2SAT 97; BMI 36.6
[2020-08-16] MEDS: Omalizumab 150 MG/ML Syringe 300 MG SQ (09:02)
[2020-08-16 09:23] VITALS: BP 143/82; PULSE 71
== END 2020-08-16 11:00 | disposition home or self-care (01) ==
LOC: MEDOUTP 08:51
PROVIDERS: PCP Family Medicine; Referring Provider Nurse Practitioner Acute Care; Visit Provider Nurse Practitioner Acute Care
DX: J45.50 Severe persistent asthma, uncomplicated (principal)
CPT/HCPCS: 96372; J2357

== ENCOUNTER → 2020-09-13 08:46 | Outpatient (CLI) | payer MEDICARE, BC, SELFPAY ==
[2020-08-16 08:57] VITALS: BMI 36.6
[2020-09-13 08:51] VITALS: BP 153/85; PULSE 78; RESP 18; TEMP 35.7; O2SAT 95; BMI 36.6
[2020-09-13] MEDS: Omalizumab 150 MG/ML Syringe 300 MG SQ (09:01)
== END ==
PROVIDERS: PCP Family Medicine; Referring Provider Nurse Practitioner Acute Care; Visit Provider Nurse Practitioner Acute Care
DX: J45.50 Severe persistent asthma, uncomplicated (principal)
CPT/HCPCS: 96372; J2357

== ENCOUNTER → 2020-10-11 09:16 | Outpatient (CLI) | payer MEDICARE, BC, SELFPAY ==
[2020-09-13 08:51] VITALS: BMI 36.6
[2020-10-11] MEDS: Omalizumab 150 MG/ML Syringe 300 MG SQ (09:26)
[2020-10-11 09:30] VITALS: BP 147/80; PULSE 75; RESP 16; TEMP 36.2; O2SAT 98; BMI 36.6
== END ==
PROVIDERS: PCP Family Medicine; Referring Provider Nurse Practitioner Acute Care; Visit Provider Nurse Practitioner Acute Care
DX: J45.50 Severe persistent asthma, uncomplicated (principal)
CPT/HCPCS: 96372; J2357

== ENCOUNTER → 2020-11-10 09:24 | Outpatient (CLI) | payer MEDICARE, BC, SELFPAY ==
[2020-09-13 08:51] VITALS: BMI 36.6
[2020-10-11 09:30] VITALS: BMI 36.6
[2020-11-10 09:37] VITALS: BP 135/80; PULSE 77; RESP 16; TEMP 36.3; O2SAT 96; BMI 36.6
[2020-11-10] MEDS: Omalizumab 150 MG/ML Syringe 300 MG SQ (09:44)
== END ==
PROVIDERS: PCP Family Medicine; Referring Provider Nurse Practitioner Acute Care; Visit Provider Nurse Practitioner Acute Care
DX: J45.50 Severe persistent asthma, uncomplicated (principal)
CPT/HCPCS: 96372; J2357

== ENCOUNTER → 2020-12-08 09:17 | Outpatient (CLI) | payer MEDICARE, BC, SELFPAY ==
[2020-10-11 09:30] VITALS: BMI 36.6
[2020-11-10 09:37] VITALS: BMI 36.6
[2020-12-08 09:22] VITALS: BP 153/80; PULSE 77; RESP 16; TEMP 35.8; O2SAT 97; BMI 36.6
[2020-12-08] MEDS: Omalizumab 150 MG/ML Syringe 300 MG SQ (09:24)
== END ==
PROVIDERS: PCP Family Medicine; Referring Provider Nurse Practitioner Acute Care; Visit Provider Nurse Practitioner Acute Care
DX: J45.50 Severe persistent asthma, uncomplicated (principal)
CPT/HCPCS: 96372; J2357

== ENCOUNTER → 2021-01-05 09:20 | Outpatient (CLI) | payer MEDICARE, BC, SELFPAY ==
[2020-11-10 09:37] VITALS: BMI 36.6
[2021-01-05 09:25] VITALS: BP 147/76; PULSE 81; RESP 16; TEMP 35.9; O2SAT 96; BMI 36.6
[2021-01-05] MEDS: Omalizumab 150 MG/ML Syringe 300 MG SQ (09:29)
== END ==
PROVIDERS: PCP Family Medicine; Referring Provider Nurse Practitioner Acute Care; Visit Provider Nurse Practitioner Acute Care
DX: J45.50 Severe persistent asthma, uncomplicated (principal)
CPT/HCPCS: 96372; J2357

== ENCOUNTER → 2021-02-02 09:18 | Outpatient (CLI) | payer MEDICARE, BC, SELFPAY ==
[2021-02-02 09:23] VITALS: BP 129/60; PULSE 87; RESP 16; TEMP 36.2; O2SAT 96; BMI 36.6
[2021-02-02] MEDS: Omalizumab 150 MG/ML Syringe 300 MG SQ (09:46)
== END ==
PROVIDERS: PCP Family Medicine; Referring Provider Nurse Practitioner Acute Care; Visit Provider Nurse Practitioner Acute Care
DX: J45.50 Severe persistent asthma, uncomplicated (principal)
CPT/HCPCS: 96372; J2357

== ENCOUNTER → 2021-03-02 09:16 | Outpatient (CLI) | payer MEDICARE, BC, SELFPAY ==
[2021-03-02 09:24] VITALS: BP 150/83; PULSE 80; RESP 16; TEMP 36.3; O2SAT 96; BMI 37.5
[2021-03-02] MEDS: Omalizumab 150 MG/ML Syringe 300 MG SQ (09:31)
== END ==
PROVIDERS: PCP Family Medicine; Referring Provider Nurse Practitioner Acute Care; Visit Provider Nurse Practitioner Acute Care
DX: J45.50 Severe persistent asthma, uncomplicated (principal)
CPT/HCPCS: 96372; J2357

== ENCOUNTER → 2021-03-31 09:26 | Outpatient (CLI) | payer MEDICARE, BC, SELFPAY ==
[2021-03-31 09:35] VITALS: BP 124/81; PULSE 77; RESP 16; TEMP 35.7; O2SAT 97
[2021-03-31] MEDS: Omalizumab 150 MG/ML Syringe 300 MG SQ (09:38)
== END ==
PROVIDERS: PCP Family Medicine; Referring Provider Nurse Practitioner Acute Care; Visit Provider Nurse Practitioner Acute Care
DX: J45.50 Severe persistent asthma, uncomplicated (principal)
CPT/HCPCS: 96372; J2357

== ENCOUNTER → 2021-04-28 09:19 | Outpatient (CLI) | payer MEDICARE, BC, SELFPAY ==
[2021-04-28 09:22] VITALS: BP 155/81; PULSE 83; RESP 16; TEMP 36.4; O2SAT 97
[2021-04-28] MEDS: Omalizumab 150 MG/ML Syringe 300 MG SQ (09:26)
== END ==
PROVIDERS: PCP Family Medicine; Referring Provider Nurse Practitioner Acute Care; Visit Provider Nurse Practitioner Acute Care
DX: J45.50 Severe persistent asthma, uncomplicated (principal)
CPT/HCPCS: 96372; J2357

== ENCOUNTER 2021-05-26 09:23 | Outpatient (CLI) | payer MEDICARE, BC, SELFPAY ==
[2021-05-26 09:32] VITALS: BP 142/77; PULSE 76; RESP 18; TEMP 36.1; O2SAT 98; BMI 36.6
[2021-05-26] MEDS: Omalizumab 150 MG/ML Syringe 300 MG SQ (09:37)
== END 2021-05-26 23:59 | disposition short-term general hospital (02) ==
LOC: MEDOUTP 09:25
PROVIDERS: PCP Family Medicine; Referring Provider Nurse Practitioner Acute Care; Visit Provider Nurse Practitioner Acute Care
DX: J45.50 Severe persistent asthma, uncomplicated (principal)
CPT/HCPCS: 96372; J2357

== ENCOUNTER 2021-06-23 09:17 | Outpatient (CLI) | payer MEDICARE, BC, SELFPAY ==
[2021-06-23 09:24] VITALS: BP 146/79; PULSE 80; RESP 16; TEMP 35.8; O2SAT 95; BMI 36.6
[2021-06-23] MEDS: Omalizumab 150 MG/ML Syringe 300 MG SQ (09:34)
== END 2021-06-23 23:59 | disposition home or self-care (01) ==
LOC: MEDOUTP 09:17
PROVIDERS: PCP Family Medicine; Referring Provider Nurse Practitioner Acute Care; Visit Provider Nurse Practitioner Acute Care
DX: J45.50 Severe persistent asthma, uncomplicated (principal)
CPT/HCPCS: 96372; J2357

== ENCOUNTER 2021-07-20 15:06 | Outpatient (CLI) | payer MEDICARE, BC, SELFPAY | END 2021-07-20 23:59 | disposition home or self-care (01) | LOC: LABSPEC 15:08 | PROVIDERS: PCP Family Medicine; Visit Provider Otolaryngology | DX: J01.90 Acute sinusitis, unspecified (principal) | CPT/HCPCS: 87070; 87077; 87186; 87205 ==

== ENCOUNTER 2021-07-21 09:24 | Outpatient (CLI) | payer MEDICARE, BC, SELFPAY ==
[2021-07-21 09:28] VITALS: BP 130/71; PULSE 86; RESP 16; TEMP 36.1; O2SAT 96
[2021-07-21] MEDS: Omalizumab 150 MG/ML Syringe 300 MG SQ (09:32)
== END 2021-07-21 23:59 | disposition home or self-care (01) ==
LOC: MEDOUTP 09:24
PROVIDERS: PCP Family Medicine; Referring Provider Nurse Practitioner Acute Care; Visit Provider Nurse Practitioner Acute Care
DX: J45.50 Severe persistent asthma, uncomplicated (principal)
CPT/HCPCS: 96372; J2357

== ENCOUNTER 2021-08-18 08:49 | Outpatient (CLI) | payer MEDICARE, BC, SELFPAY ==
[2021-08-18 09:05] VITALS: BP 141/78; PULSE 85; RESP 12; TEMP 35.7; O2SAT 97; BMI 36.6
[2021-08-18] MEDS: Omalizumab 150 MG/ML Syringe 300 MG SQ (09:12)
== END 2021-08-18 23:59 | disposition home or self-care (01) ==
LOC: MEDOUTP 08:49
PROVIDERS: PCP Family Medicine; Referring Provider Nurse Practitioner Acute Care; Visit Provider Nurse Practitioner Acute Care
DX: J45.50 Severe persistent asthma, uncomplicated (principal)
CPT/HCPCS: 96372; J2357

== ENCOUNTER → 2021-09-15 | Outpatient (CLI) | payer MEDICARE, BC, SELFPAY ==
[2021-09-15 09:12] VITALS: BP 146/76; PULSE 84; RESP 16; TEMP 36.2; O2SAT 93
[2021-09-15] MEDS: Omalizumab 150 MG/ML Syringe 300 MG SQ (09:15)
== END | disposition home or self-care (01) ==
LOC: MEDOUTP 08:53
PROVIDERS: PCP Family Medicine; Referring Provider Nurse Practitioner Acute Care; Visit Provider Nurse Practitioner Acute Care
DX: J45.50 Severe persistent asthma, uncomplicated (principal)
CPT/HCPCS: 96372; J2357

== ENCOUNTER → 2021-10-13 | Outpatient (CLI) | payer MEDICARE, BC, SELFPAY ==
[2021-10-13 09:07] VITALS: BP 136/88; PULSE 81; RESP 16; TEMP 36.4; O2SAT 97; BMI 36.6
[2021-10-13] MEDS: Omalizumab 150 MG/ML Syringe 300 MG SQ (09:40)
[2021-10-13 09:44] VITALS: BP 132/80; PULSE 72; RESP 16; TEMP 36.2; O2SAT 97
== END | disposition home or self-care (01) ==
LOC: MEDOUTP 09:01
PROVIDERS: PCP Family Medicine; Referring Provider Nurse Practitioner Acute Care; Visit Provider Nurse Practitioner Acute Care
DX: J45.50 Severe persistent asthma, uncomplicated (principal)
CPT/HCPCS: 96372; J2357

== ENCOUNTER → 2021-11-10 | Outpatient (CLI) | payer MEDICARE, BC, SELFPAY ==
[2021-11-10 09:24] VITALS: BP 148/69; PULSE 83; RESP 12; TEMP 36.3; O2SAT 95; BMI 36.6
[2021-11-10] MEDS: Omalizumab 150 MG/ML Syringe 300 MG SQ (09:28)
== END | disposition home or self-care (01) ==
LOC: MEDOUTP 09:17
PROVIDERS: PCP Family Medicine; Referring Provider Nurse Practitioner Acute Care; Visit Provider Nurse Practitioner Acute Care
DX: J45.50 Severe persistent asthma, uncomplicated (principal)
CPT/HCPCS: 96372; J2357

== ENCOUNTER → 2021-12-08 | Outpatient (CLI) | payer MEDICARE, BC, SELFPAY ==
[2021-12-08] MEDS: Omalizumab 150 MG/ML Syringe 300 MG SQ (09:56)
[2021-12-08 10:04] VITALS: BP 133/73; PULSE 81; RESP 16; TEMP 36.1; O2SAT 95
== END | disposition home or self-care (01) ==
LOC: MEDOUTP 09:46
PROVIDERS: PCP Family Medicine; Referring Provider Nurse Practitioner Acute Care; Visit Provider Nurse Practitioner Acute Care
DX: J45.50 Severe persistent asthma, uncomplicated (principal)
CPT/HCPCS: 96372; J2357

== ENCOUNTER → 2022-01-05 | Outpatient (CLI) | payer MEDICARE, BC, SELFPAY ==
[2022-01-05 08:26] VITALS: BP 138/63; PULSE 80; RESP 16; TEMP 36; O2SAT 95; BMI 36.6
[2022-01-05] MEDS: Omalizumab 150 MG/ML Syringe 300 MG SQ (08:34)
== END | disposition home or self-care (01) ==
LOC: MEDOUTP 08:21
PROVIDERS: PCP Family Medicine; Referring Provider Nurse Practitioner Acute Care; Visit Provider Nurse Practitioner Acute Care
DX: J45.50 Severe persistent asthma, uncomplicated (principal)
CPT/HCPCS: 96372; J2357

== ENCOUNTER → 2022-02-02 | Outpatient (CLI) | payer MEDICARE, BC, SELFPAY ==
[2022-02-02 08:30] VITALS: BP 142/79; PULSE 80; TEMP 35.7; O2SAT 98
[2022-02-02] MEDS: Omalizumab 150 MG/ML Syringe 300 MG SQ (08:32)
--- NOTE | 2022-02-02 08:39 | NURSING ---
Pt. declines observation following Xolair injections.
== END | disposition home or self-care (01) ==
LOC: MEDOUTP 08:23
PROVIDERS: PCP Family Medicine; Referring Provider Nurse Practitioner Acute Care; Visit Provider Nurse Practitioner Acute Care
DX: J45.50 Severe persistent asthma, uncomplicated (principal)
CPT/HCPCS: 96372; J2357

== ENCOUNTER → 2022-03-01 | Outpatient (CLI) | payer MEDICARE, BC, SELFPAY ==
[2022-03-01 10:21] VITALS: BP 135/79; PULSE 65; RESP 16; TEMP 35.6; O2SAT 96
[2022-03-01] MEDS: Omalizumab 150 MG/ML Syringe 300 MG SC (10:28)
== END | disposition home or self-care (01) ==
LOC: MEDOUTP 10:18
PROVIDERS: PCP Family Medicine; Referring Provider Nurse Practitioner Acute Care; Visit Provider Nurse Practitioner Acute Care
DX: J45.50 Severe persistent asthma, uncomplicated (principal)
CPT/HCPCS: 96372; J2357

== ENCOUNTER → 2022-03-30 | Outpatient (CLI) | payer MEDICARE, BC, SELFPAY ==
[2022-03-30 10:17] VITALS: BP 123/86; PULSE 89; RESP 18; TEMP 35.6
[2022-03-30] MEDS: Omalizumab 150 MG/ML Syringe 300 MG SQ (10:19)
== END | disposition home or self-care (01) ==
LOC: MEDOUTP 10:07
PROVIDERS: PCP Family Medicine; Referring Provider Nurse Practitioner Acute Care; Visit Provider Nurse Practitioner Acute Care
DX: J45.50 Severe persistent asthma, uncomplicated (principal)
CPT/HCPCS: 96372; J2357

== ENCOUNTER → 2022-04-27 | Outpatient (CLI) | payer MEDICARE, BC, SELFPAY ==
[2022-04-27 10:29] VITALS: BP 160/80; PULSE 63; RESP 12; TEMP 36.1; O2SAT 99; BMI 36.6
[2022-04-27] MEDS: Omalizumab 150 MG/ML Syringe 300 MG SQ (10:34)
== END | disposition home or self-care (01) ==
LOC: MEDOUTP 10:16
PROVIDERS: PCP Family Medicine; Referring Provider Nurse Practitioner Acute Care; Visit Provider Nurse Practitioner Acute Care
DX: J45.50 Severe persistent asthma, uncomplicated (principal)
CPT/HCPCS: 96372; J2357

== ENCOUNTER → 2022-05-25 | Outpatient (CLI) | payer MEDICARE, BC, SELFPAY ==
[2022-05-25 10:29] VITALS: BP 130/77; PULSE 84; RESP 16; TEMP 36; BMI 36.6
[2022-05-25] MEDS: Omalizumab 150 MG/ML Syringe 300 MG SQ (10:33)
== END | disposition home or self-care (01) ==
LOC: MEDOUTP 10:23
PROVIDERS: PCP Family Medicine; Referring Provider Nurse Practitioner Acute Care; Visit Provider Nurse Practitioner Acute Care
DX: J45.50 Severe persistent asthma, uncomplicated (principal)
CPT/HCPCS: 96372; J2357

== ENCOUNTER → 2022-06-22 | Outpatient (CLI) | payer MEDICARE, BC, SELFPAY ==
[2022-06-22 10:46] VITALS: BP 136/73; PULSE 78; RESP 16; TEMP 36.1; O2SAT 98; BMI 36.6
[2022-06-22] MEDS: Omalizumab 150 MG/ML Syringe 300 MG SQ (10:49)
== END | disposition home or self-care (01) ==
LOC: MEDOUTP 10:39
PROVIDERS: PCP Family Medicine; Referring Provider Nurse Practitioner Acute Care; Visit Provider Nurse Practitioner Acute Care
DX: J45.50 Severe persistent asthma, uncomplicated (principal)
CPT/HCPCS: 96372; J2357

== ENCOUNTER → 2022-07-20 | Outpatient (CLI) | payer MEDICARE, BC, SELFPAY ==
[2022-07-20 10:50] VITALS: BP 141/84; PULSE 79; RESP 18; TEMP 35.8; O2SAT 97; BMI 36.6
[2022-07-20] MEDS: Omalizumab 150 MG/ML Syringe 300 MG SC (11:00)
== END | disposition home or self-care (01) ==
LOC: MEDOUTP 10:46
PROVIDERS: PCP Family Medicine; Referring Provider Nurse Practitioner Acute Care; Visit Provider Nurse Practitioner Acute Care
DX: J45.50 Severe persistent asthma, uncomplicated (principal)
CPT/HCPCS: 96372; J2357

== ENCOUNTER → 2022-08-17 | Outpatient (CLI) | payer MEDICARE, BC, SELFPAY ==
[2022-08-17 10:55] VITALS: BP 140/77; PULSE 75; RESP 16; TEMP 36.2; O2SAT 96; BMI 36.6
[2022-08-17] MEDS: Omalizumab 150 MG/ML Syringe 300 MG SQ (10:58)
== END | disposition home or self-care (01) ==
LOC: MEDOUTP 10:51
PROVIDERS: PCP Family Medicine; Referring Provider Nurse Practitioner Acute Care; Visit Provider Nurse Practitioner Acute Care
DX: J45.50 Severe persistent asthma, uncomplicated (principal)
CPT/HCPCS: 96372; J2357

== ENCOUNTER 2022-09-14 10:11 | Outpatient (CLI) | payer MEDICARE, BC, SELFPAY ==
[2022-09-14 10:20] VITALS: BP 132/70; PULSE 87; RESP 16; TEMP 35.9; O2SAT 96; BMI 36.6
[2022-09-14] MEDS: Omalizumab 150 MG/ML Syringe 300 MG SQ (10:23)
== END 2022-09-14 10:12 | disposition home or self-care (01) ==
LOC: MEDOUTP 10:12
PROVIDERS: PCP Family Medicine; Referring Provider Nurse Practitioner Acute Care; Visit Provider Nurse Practitioner Acute Care
DX: J45.50 Severe persistent asthma, uncomplicated (principal)
CPT/HCPCS: 96372; J2357

== ENCOUNTER 2022-10-12 10:25 | Outpatient (CLI) | payer MEDICARE, BC, SELFPAY ==
[2022-10-12 10:32] VITALS: BP 104/69; PULSE 81; RESP 16; TEMP 36.1; O2SAT 94; BMI 36.6
[2022-10-12] MEDS: Omalizumab 150 MG/ML Syringe 300 MG SQ (10:37)
== END 2022-10-12 10:26 | disposition home or self-care (01) ==
LOC: MEDOUTP 10:25
PROVIDERS: PCP Family Medicine; Referring Provider Nurse Practitioner Acute Care; Visit Provider Nurse Practitioner Acute Care
DX: J45.50 Severe persistent asthma, uncomplicated (principal)
CPT/HCPCS: 96372; J2357

== ENCOUNTER 2022-11-09 09:55 | Outpatient (CLI) | payer MEDICARE, BC, SELFPAY ==
[2022-11-09 10:25] VITALS: BP 140/77; PULSE 78; RESP 16; TEMP 36; O2SAT 97; BMI 36.6
[2022-11-09] MEDS: Omalizumab 150 MG/ML Syringe 300 MG SQ (10:35)
== END 2022-11-09 09:56 | disposition home or self-care (01) ==
LOC: MEDOUTP 09:55
PROVIDERS: PCP Family Medicine; Referring Provider Nurse Practitioner Acute Care; Visit Provider Nurse Practitioner Acute Care
DX: J45.50 Severe persistent asthma, uncomplicated (principal)
CPT/HCPCS: 96372; J2357

== ENCOUNTER 2022-12-07 10:17 | Outpatient (CLI) | payer MEDICARE, BC, SELFPAY ==
[2022-12-07 10:42] VITALS: BP 140/78; PULSE 80; RESP 16; TEMP 36; O2SAT 92; BMI 36.6
[2022-12-07] MEDS: Omalizumab 150 MG/ML Syringe 300 MG SQ (10:45)
== END 2022-12-07 10:18 | disposition home or self-care (01) ==
LOC: MEDOUTP 10:18
PROVIDERS: PCP Family Medicine; Referring Provider Nurse Practitioner Acute Care; Visit Provider Nurse Practitioner Acute Care
DX: J45.50 Severe persistent asthma, uncomplicated (principal)
CPT/HCPCS: 96372; J2357

== ENCOUNTER 2023-01-04 11:40 | Outpatient (CLI) | payer MEDICARE, BC, SELFPAY ==
[2023-01-04 12:13] VITALS: BP 119/73; PULSE 73; RESP 16; TEMP 35.6; O2SAT 95; BMI 36.6
[2023-01-04] MEDS: Omalizumab 150 MG/ML Syringe 300 MG SC (12:16)
== END 2023-01-04 11:41 | disposition home or self-care (01) ==
LOC: MEDOUTP 11:40
PROVIDERS: PCP Family Medicine; Referring Provider Nurse Practitioner Acute Care; Visit Provider Nurse Practitioner Acute Care
DX: J45.50 Severe persistent asthma, uncomplicated (principal)
CPT/HCPCS: 96372; J2357

== ENCOUNTER 2023-02-01 09:47 | Outpatient (CLI) | payer MEDICARE, BC, SELFPAY ==
[2023-02-01 09:58] VITALS: BP 123/73; PULSE 79; RESP 16; TEMP 36; O2SAT 96; BMI 36.6
[2023-02-01] MEDS: Omalizumab 150 MG/ML Syringe 300 MG SC (10:00)
== END 2023-02-01 09:48 | disposition home or self-care (01) ==
LOC: MEDOUTP 09:47
PROVIDERS: PCP Family Medicine; Referring Provider Nurse Practitioner Acute Care; Visit Provider Nurse Practitioner Acute Care
DX: J45.50 Severe persistent asthma, uncomplicated (principal)
CPT/HCPCS: 96372; J2357

== ENCOUNTER 2023-03-01 09:38 | Outpatient (CLI) | payer MEDICARE, BC, SELFPAY ==
[2023-03-01 10:02] VITALS: BP 129/62; PULSE 75; RESP 16; TEMP 36.1; O2SAT 93; BMI 36.6
[2023-03-01] MEDS: Omalizumab 150 MG/ML Syringe 300 MG SQ (10:04)
== END 2023-03-01 09:39 | disposition home or self-care (01) ==
LOC: MEDOUTP 09:38
PROVIDERS: PCP Family Medicine; Referring Provider Nurse Practitioner Acute Care; Visit Provider Nurse Practitioner Acute Care
DX: J45.50 Severe persistent asthma, uncomplicated (principal)
CPT/HCPCS: 96372; J2357

== ENCOUNTER 2023-03-29 10:22 | Outpatient (CLI) | payer MEDICARE, BC, SELFPAY ==
[2023-03-29 10:30] VITALS: BP 105/70; PULSE 89; RESP 16; TEMP 35.8; O2SAT 95
[2023-03-29] MEDS: Omalizumab 150 MG/ML Syringe 300 MG SQ (10:33)
== END 2023-03-29 10:23 | disposition home or self-care (01) ==
PROVIDERS: PCP Family Medicine; Referring Provider Nurse Practitioner Acute Care; Visit Provider Nurse Practitioner Acute Care
DX: J45.50 Severe persistent asthma, uncomplicated (principal)
CPT/HCPCS: 96372; J2357

== ENCOUNTER 2023-04-26 10:22 | Outpatient (CLI) | payer MEDICARE, BC, SELFPAY ==
[2023-04-26 10:57] VITALS: BP 121/76; PULSE 74; RESP 16; TEMP 36.2; O2SAT 97; BMI 36.6
[2023-04-26] MEDS: Omalizumab 150 MG/ML Syringe 300 MG SQ (11:09)
== END 2023-04-26 10:23 | disposition home or self-care (01) ==
LOC: MEDOUTP 10:22
PROVIDERS: PCP Family Medicine; Referring Provider Nurse Practitioner Acute Care; Visit Provider Nurse Practitioner Acute Care
DX: J45.50 Severe persistent asthma, uncomplicated (principal)
CPT/HCPCS: 96372; J2357

== ENCOUNTER 2023-05-24 10:21 | Outpatient (CLI) | payer MEDICARE, BC, SELFPAY ==
[2023-05-24 10:35] VITALS: BP 128/72; PULSE 88; RESP 16; TEMP 35.8; O2SAT 94; BMI 36.6
[2023-05-24] MEDS: Omalizumab 150 MG/ML Syringe 300 MG SQ (10:37)
--- OUTSIDE RECORDS SUMMARY | 2023-05-24 10:51 | XMS RPT_ITS | CCD ---
Author Name Unknown Address [id number] [place] [address] Organization [facility] Care Team Providers Care Supervisor Case Loading Name Role Phone Bruce Mead Unavailable Unavailable Bruce Mead Unavailable Unavailable Bruce Mead Unavailable [phone] Unavailable Unavailable Unavailable Unavailable Bruce Mead Referring Unavailab le Stencel, Bruce Mendoza Attending Unavailab le Stencel, Bruce Mendoza Primary Care Unavailab le Stencel, Bruce Mendoza Primary Care Unavailab le Stencel, Bruce Mendoza Referring Unavailab le Stencel, Bruce Mendoza Attending Unavailab le Stencel, Dr. Bruce Mendoza Referring Unava ilable Gatito Marcano Admitting Unavailable Gatito Marcano Attending Unavailable Stenpamela, Dr. Bruce Mendoza Primary Care Unava ilable Stencel, Dr. Bruce Mendoza Primary Care Unava ilable Stencel, Dr. Bruce Mendoza Attending Unava ilable Stencel, Dr. Bruce Mendoza Referring Unava ilable Stencel Bruce MÉNDEZ Primary Care Provider Bruce Mead MD Unavailable [phone] BRUCE MEAD Primary Care Unavailable Bruce Mead MD Primary Care Provider [phone] Bruce Mead MD Unavailable [phone] BRUCE MEAD Attending Unavailable BRUCE MEAD Referring Unavailable BRUCE MEAD Primary Care Unavailable BRUCE MEAD Attending Unavailable BRUCE MEAD Primary Care Unavailable BRUCE MEAD Referring Unavailable BRUCE MEAD Primary Care Unavailable Allergies Allergy Classification Reported Allergen(s) Allergy Type Date of Onset Reaction(s) Facility (10 sources) Amoxicillin / Clavulanate; Translations: [Augmentin] Drug Allergy [facility]: (15 sources) Aspirin; Translations: [aspirin] Drug Allergy 3 Shortness of breath [facility] Work Phone: (10 sources) Cefuroxime; Translations: [Ceftin] Drug Allergy [facility] Work Phone: (10 sources) Cromolyn; Translations: [Intal] Drug Allergy [facility] Work Phone: (10 sources) guaiFENesin; Translations: [Cough Syrup SYRP] Drug Allergy Wheezing [facility] Work Phone: (10 sources) levoFLOXacin; Translations: [Levaquin] Drug Allergy [facility] Work Phone: (10 sources) Sulfonamides (Antibiotic); Translations: [Sulfa Drugs] drug allergy [facility] Work Phone: (5 sources) Amoxicillin / Clavulanate; Translations: [AMOXICILLIN-POT CLAVULANATE] Drug Allergy 3 Itching [facility] (5 sources) Cefuroxime; Translations: [CEFUROXIME] Drug Allergy 3 Itching [facility] Work Phone: (5 sources) Cromolyn; Translations: [CROMOLYN] Drug Allergy 3 Unknown [facility] Work Phone: (5 sources) levoFLOXacin; Translations: [LEVOFLOXACIN] Drug Allergy 3 Other [facility] Work Phone: (5 sources) Sulfonamides (Antibiotic); Translations: [SULFA (SULFONAMIDE ANTIBIOTICS)] Drug Allergy 3 Hives [facility] Work Phone: Medications Current Medications Medication Drug Class(es) Dates Sig (Normalized) Sig (Original) [id number] 200 actuat albuterol 0.09 mg/actuat metered dose inhaler (12 sources) beta2-Adrenergic Agonist Start: 03-26-2018 take 2 puff(s) by inhalation every four hours albuterol 90 mcg/actuation inhaler Inhale 2 puffs every 4 hours if needed. 0 03/26/2018 Active Completed/Discontinued Medications Medication Drug Class(es) Dates Sig (Normalized) Sig (Original) Budesonide (10 sources) Corticosteroid Pulmicort SUSP U SE DIRECTED. Quantity: 0 Refills: 0 Ordered: 17-Feb-2019 DO Active Problems Active Problems Problem Classification Problem Date Documented Date Episodic/Chronic Asthma (16 sources) Asthma; Translations: [Asthma, unspecified type, unspecified] Onset: 11-22-2021 09-04-2022 Chronic Diverticulosis and diverticulitis (1 source) Diverticulosis of large intestine without perforation or abscess without bleeding; Translations: [Dvrtclos of lg int w/o perforation or abscess w/o bleeding] Onset: 11-22-2021 Chronic Essential hypertension (19 sources) Hypertensive disorder; Translations: [Unspecified essential hypertension] Onset: 11-22-2021 09-04-2022 Chronic Immunizations and screening for infectious disease (20 sources) Patient encounter status; Translations: [Other specified vaccination] Onset: 03-20-2023 03-20-2023 Episodic Other nutritional; endocrine; and metabolic disorders (14 sources) Obesity; Translations: [Obesity, unspecified] Onset: 09-04-2022 09-04-2022 Chronic Other nutritional; endocrine; and metabolic disorders (6 sources) Body mass index 30+ - obesity; Translations: [Body Mass Index 39.0-39.9, adult] Chronic Other screening for suspected conditions (not mental disorders or infectious disease) (10 sources) Encounter for screening mammogram for malignant neoplasm of breast; Translations: [Encounter for screening for malignant neoplasm of colon] Onset: 11-22-2021 Episodic Residual codes; unclassified (1 source) Menopause present; Translations: [Menopause] Chronic Residual codes; unclassified (6 sources) Menopause present; Translations: [Symptomatic menopausal or female climacteric states] Episodic Past or Other Problems Problem Classification Problem Date Documented Da te Episodic/Chronic Allergic reactions (1 source) Allergy status to sulfonamides status; Translations: [Allergy status to sulfonamides] Onset: 11-22-2021 Episodic Disorders of lipid metabolism (13 sources) Hyperlipidemia; Translations: [Other and unspecified hyperlipidemia] Onset: 11-22-2021 Resolved: 09-04-2022 09-04-2022 Chronic Other and unspecified benign neoplasm (3 sources) Personal history of colonic polyps; Translations: [Personal history of colonic polyps] Onset: 11-22-2021 Episodic Other and unspecified benign neoplasm (1 source) Benign neoplasm of sigmoid colon; Translations: [Benign neoplasm of sigmoid colon] Onset: 11-22-2021 Episodic Unclassified (1 source) Patient encounter status; Translations: [Screening for breast cancer] Unclassified (2 sources) Onset: 09-04-2022 09-04-2022 NEGATED: Highlighted row has not occurred!Residual codes; unclassified (3 sources) Disease Episodic Results Test Name Value Interpretation Reference Range Facil ity Vital Signs Date Time Vital Sign Value Performing Clinician Facility 03-20-2023 09:44-0500 Body height 157.5 cm Bruce Mead MD Work Phone: [facility] 03-20-2023 09:44-0500 Body mass index (BMI) [Ratio] 39.58 kg/m2 Bruce Mead MD Work Phone: [facility] 03-20-2023 09:44-0500 Body weight 98.16 kg Bruce Mead MD Work Phone: [facility] 03-20-2023 09:44-0500 Diastolic blood pressure 78 mm[Hg] Bruce Mead MD Work Phone: [facility] 03-20-2023 09:44-0500 Heart rate 62 /min Bruce Mead MD Work Phone: [facility] 03-20-2023 09:44-0500 SaO2% (BldA) [Mass fraction] 93 % Bruce Mead MD Work Phone: [facility] 03-20-2023 09:44-0500 Systolic blood pressure 126 mm[Hg] Bruce Mead MD Work Phone: [facility] 09-04-2022 09:07-0400 Body height 157.5 cm Bruce Mead MD Work Phone: [facility] 09-04-2022 09:07-0400 Body mass index (BMI) [Ratio] 39.36 kg/m2 Bruce Mead MD Work Phone: [facility] 09-04-2022 09:07-0400 Body weight 97.61 kg Bruce Mead MD Work Phone: [facility] 09-04-2022 09:07-0400 Diastolic blood pressure 80 mm[Hg] Bruce Mead MD Work Phone: [facility] 09-04-2022 09:07-0400 Heart rate 82 /min Bruce Mead MD Work Phone: [facility] 09-04-2022 09:07-0400 SaO2% (BldA) [Mass fraction] 95 % Bruce Mead MD Work Phone: [facility] 09-04-2022 09:07-0400 Systolic blood pressure 132 mm[Hg] Bruce Mead MD Work Phone: [facility] 02-28-2022 09:37-0400 Diastolic blood pressure 74 mm[Hg] Bruce Meda Work Phone: [facility] Work Phone: 02-28-2022 09:37-0400 Systolic blood pressure 118 mm[Hg] Bruce Mead Work Phone: [facility] Work Phone: 02-28-2022 09:04-0400 Body height 157.48 cm Bruce Mead Work Phone: [facility] Work Phone: 02-28-2022 09:04-0400 Body mass index (BMI) [Ratio] 39.18 kg/m2 Bruce Mead Work Phone: [facility] Work Phone: 02-28-2022 09:04-0400 Body surface area Derived from formula 1.97 m2 Bruce Gallegoscel Work Phone: [facility] Work Phone: 02-28-2022 09:04-0400 Body weight 97.16 kg Bruce Gallegoscel Work Phone: [facility] Work Phone: 02-28-2022 09:04-0400 Diastolic blood pressure 84 mm[Hg] Bruce Gallegoscel Work Phone: [facility] Work Phone: 02-28-2022 09:04-0400 Heart rate 75 /min Bruce Mead Work Phone: [facility] Work Phone: 02-28-2022 09:04-0400 SaO2% (BldA) [Mass fraction] 96 % Bruce Mead Work Phone: [facility] [facility] Work Phone: 02-28-2022 09:04-0400 Systolic blood pressure 148 mm[Hg] Bruce Gallegoscel Work Phone: [facility] Work Phone: 08-29-2021 09:04-0400 Body height 157.48 cm Bruce Mead Work Phone: [facility] Work Phone: 08-29-2021 09:04-0400 Body mass index (BMI) [Ratio] 38.96 kg/m2 Bruce Gallegoscel Work Phone: [facility] Work Phone: 08-29-2021 09:04-0400 Body surface area Derived from formula 1.96 m2 Bruce Gallegoscel Work Phone: [facility] Work Phone: 08-29-2021 09:04-0400 Body weight 96.62 kg Bruce Gallegoscel Work Phone: [facility] Work Phone: 08-29-2021 09:04-0400 Diastolic blood pressure 76 mm[Hg] Bruce Gallegoscel Work Phone: [facility] Work Phone: 08-29-2021 09:04-0400 Heart rate 83 /min Bruce Gallegoscel Work Phone: [facility] Work Phone: 08-29-2021 09:04-0400 SaO2% (BldA) [Mass fraction] 95 % Bruce Gallegoscel Work Phone: [facility] Work Phone: 08-29-2021 09:04-0400 Systolic blood pressure 132 mm[Hg] Bruce Gallegoscel Work Phone: [facility] Work Phone: 02-27-2021 09:42-0400 Diastolic blood pressure 76 mm[Hg] Bruce Gallegoscel Work Phone: [facility] Work Phone: 02-27-2021 09:42-0400 Systolic blood pressure 136 mm[Hg] Bruce Gallegoscel Work Phone: [facility] Work Phone: 02-27-2021 08:58-0400 Body height 157.48 cm Bruce Gallegoscel Work Phone: [facility] Work Phone: 02-27-2021 08:58-0400 Body mass index (BMI) [Ratio] 37.5 kg/m2 Bruce Gallegoscel Work Phone: [facility] Work Phone: 02-27-2021 08:58-0400 Body surface area Derived from formula 1.93 m2 Bruce Gallegoscel Work Phone: [facility] Work Phone: 02-27-2021 08:58-0400 Body temperature 96.9 [degF] Bruce Mead Work Phone: [facility] Work Phone: 02-27-2021 08:58-0400 Body weight 92.99 kg Bruce Mead Work Phone: [facility] Work Phone: 02-27-2021 08:58-0400 Diastolic blood pressure 88 mm[Hg] Bruce Mead Work Phone: [facility] Work Phone: 02-27-2021 08:58-0400 Heart rate 76 /min Bruce Mead Work Phone: [facility] Work Phone: 02-27-2021 08:58-0400 SaO2% (BldA) [Mass fraction] 92 % Bruce Mead Work Phone: [facility] Work Phone: 02-27-2021 08:58-0400 Systolic blood pressure 148 mm[Hg] Bruce Mead Work Phone: [facility] Work Phone: 02-25-2020 10:49-0400 BP Diastolic 88 mm[Hg] Bruce Mead [facility] Work Phone: 02-25-2020 10:49-0400 BP Systolic 138 mm[Hg] Bruce Mead [facility] Work Phone: 02-25-2020 10:43-0400 BMI (Body Mass Index) 40.24 kg/m2 Bruce Rosypamela [facility] Work Phone: 02-25-2020 10:43-0400 Body Temperature 95.7 [degF] Bruce Mead [facility] Work Phone: 02-25-2020 10:43-0400 Body weight 99.79 kg Bruce Mead [facility] Work Phone: 02-25-2020 10:43-0400 BSA (Body Surface Area) 1.99 m2 Bruce [facility] Work Phone: 02-25-2020 10:43-0400 Height 157.48 cm Bruce Mead [facility] Work Phone: 02-25-2020 10:43-0400 Pulse (Heart Rate) 82 /min Bruce Mead [facility] Work Phone: 02-25-2020 10:43-0400 Pulse Oximetry 92 % Bruce Mead [facility] Work Phone: 02-17-2019 10:09-0400 BMI (Body Mass Index) 38.57 kg/m2 Bruce Mead [facility] Work Phone: 02-17-2019 10:09-0400 Body weight 95.65 kg Bruce Mead [facility] Work Phone: 02-17-2019 10:09-0400 BP Diastolic 82 mm[Hg] Bruce Mead [facility] Work Phone: 02-17-2019 10:09-0400 BP Systolic 148 mm[Hg] Bruce Mead [facility] Work Phone: 02-17-2019 10:09-0400 BSA (Body Surface Area) 1.95 m2 Bruce Mead [facility] Work Phone: 02-17-2019 10:09-0400 Height 157.48 cm Bruce Mead [facility] Work Phone: 02-17-2019 10:09-0400 Pulse (Heart Rate) 68 /min Bruce Mead [facility] Work Phone: Encounters Encounter Date Encounter Type Care Provider Facility Start: 04-02-2023 End: 04-03-2023 ambulatory BRUCE MEAD [facility] Start: 03-20-2023 End: 03-20-2023 ambulatory BRUCE Arreguin [facility] Start: 03-20-2023 End: 03-20-2023 Office outpatient visit 25 minutes Bruce Mead MD Work Phone: [facility] Procedures Date Procedure Procedure Detail Performing Clinician Start: 04-02-2023 BI MAMMO BILATERAL SCREENING TOMOSYNTHESIS BRUCE MEAD Start: 03-20-2023 FOLLOW UP IN FAMILY MEDICINE BRUCE MEAD Start: 03-13-2023 CBC panel - Blood by Automated count BRUCE MEAD Start: 03-13-2023 Comprehensive metabo lic 2000 panel - Serum or Plasma BRUCE MEAD Start: 03-27-2022 Mammography Bruce Kim MD Work Phone: Start: 11-22-2021 End: 11-22-2021 Colonoscopy Bruce Mead Work Phone: Start: 02-20-2021 Lipid 1996 panel - S ruth or Plasma Bruce Mead MD Work Phone: Start: 02-25-2020 MG Breast screening Shaheed hatyrell Mead Start: 02-25-2020 Xray Bone Density, D exa 1 or More Sites Bruce Mead Colonoscopy Bruce Mead Plan of Treatment Date Care Activity Detail Author Start: 11-23-2031 Screening for malignant neoplasm of colon [facility] Start: 11-22-2026 Screening for malignant neoplasm of colon [facility] Start: 02-20-2026 Lipid panel Lipid Panel [facility] Start: 09-06-2023 Medicare Annual Wellness Visit Medicare Annual Wellness Visit (AWV) [facility] Start: 04-04-2023 COVID-19 Vaccine (6 - Moderna series) COVID-19 Vaccine (6 - Moderna series) [facility] Start: 03-27-2023 Screening for malignant neoplasm of breast Mammogram [facility] Start: 03-20-2023 End: 05-20-2024 DBT Breast - bilateral BI mammo bilateral screening tomosynthesis Imaging Routine Breast cancer screening by mammogram Expected: 03/20/2023, Expires: 05/20/2024 [facility] Service Area Work Phone: Immunizations Immunization Date Immunization Notes Care Provider Florence santo 03-08-2022 influenza virus vaccine, unspecified formulation Bruce Mead MD Work Phone: [facility] Work Phone: 02-06-2022 Moderna COVID-19 Vaccine 100 MCG/0.5ML Intramuscular Suspension Bruce Mead Work Phone: [facility] Work Phone: Payers Date Payer Category Payer Medicare [id number] 2020 Medicare MEDICARE MEDICAR E PART A AND B [id number] 2020-Present [address] [place] [address] [id number] 2020 Unknown 2020 Unknown [id number] 1955 Unknown [id number] 1955 Unknown [id number] 1955 Unknown [id number] 1955 Unknown [id number] 1955 Unknown [id number] 1955 Unknown [id number] 1955 Unknown [id number] 1955 Unknown [id number] Social History Date Type Detail Facility Start: 09-04-2022 End: 03-20-2023 No alcohol use No alcohol use [facility] Work Phone: Start: 09-04-2022 Tobacco smoking status NHIS Never smoked tobacco [facility] Start: 09-04-2022 Tobacco use and exposure Smokeless tobacco non-user [facility] Work Phone: Start: 09-04-2022 End: 03-20-2023 Alcohol intake Lifetime non-drinker (finding) [facility] Work Phone: Start: 09-04-2022 End: 03-20-2023 Tobacco use panel [facility] Work Phone: Start: 1955 Sex Assigned At Not on file [facility] Work Phone: Start: 08-25-2022 End: 03-20-2023 Exposure to SARS-CoV-2 (event) Not sure [facility] NEGATED: Highlighted row - - -[facility] Work Phone: Functional Status Date Assessment Result Facility NEGATED: Highlighted row Functional performance Functional status health issues are not documented [facility] Work Phone: Mental Status Date Assessment Result Facility NEGATED: Highlighted row Cognitive function [Interpretation] Cognitive status health issues are not documented [facility] Work Phone: History of Present illness Narrative 03-20-2023 Bruce Mead MD - 03/20/2023 9:20 AM EST Note Date & Type Note Facility 03-20-2023 History of Present illness Narrative Subjective Patient ID: Zaynab Chowdhury is a 67 y.o. female who presents for Follow-up (6 mo rev labs). HPI Since the last office visit there have been no interval operations, hospitalizations, important illnesses or injuries. HTN-Takes and tolerates meds without side effects. No alcohol. no tobacco. no exercise. low salt. Reviewed recommendation for 150 minutes of exercise per week including 2 days of weight training if over age 50 copd- no exacerbations since last ov. Got flu and covid. Review of Systems General-no fatigue weight to within 10 pounds ENT no problems with vision swallowing Cardiac no chest pains palpitations change in exercise tolerance or capacity Pulmonary no cough shortness of breath GI no heartburn or abdominal pain Musculoskeletal no joint pains Objective BP 126/78 Pulse 62 Ht 1.575 m (5' 2 ) Wt 98.2 kg (216 lb 6.4 oz) SpO2 93% BMI 39.58 kg/m Physical Exam General: Alert, No acute distress. Appears stated age Eye: Pupils are equal, round and reactive to light, Extraocular movements are intact, Normal conjunctiva. Neck: Supple, Non-tender, No carotid bruit, No jugular venous distention, No lymphadenopathy, No thyromegaly. Respiratory: Lungs are clear to auscultation, Respirations are non-labored, Breath sounds are equal. Cardiovascular: Normal rate, Regular rhythm, No murmur. Gastrointestinal: Soft, Non-tender, No organomegaly. No solid or pulsatile mass Integumentary: Warm, Dry. No concerning lesions on exposed areas Neurologic: Alert, Oriented. Gross and fine motor intact, CN 2-12 intact Psychiatric: Cooperative, Appropriate mood & affect. Assessment/Plan Problem List Items Addressed This Visit ICD-10-CM Hypertension - Primary I10 Encounter for screening mammogram for malignant neoplasm of breast Z12.31 Other Visit Diagnoses Codes Breast cancer screening by mammogram Z12.31 documented in this encounter [facility] Work Phone: History of Present illness Narrative 09-04-2022 Bruce Mead MD - 09/04/2022 9:00 AM EDT Note Date & Type Note Facility 09-04-2022 History of Present illness Narrative Subjective Reason for Visit: Zaynab Chowdhury is an 67 y.o. female here for a Medicare Wellness visit. Past Medical, Surgical, and Family History reviewed and updated in chart. Reviewed all medications by prescribing practitioner or clinical pharmacist (such as prescriptions, OTCs, herbal therapies and supplements) and documented in the medical record. HPI Asthma- no exacerbations, rare albuterol since xolair and immunotherapy HTN-Takes and tolerates meds without side effects. No alcohol. no tobacco. reg exercise. low salt. Reviewed recommendation for 150 minutes of exercise per week including 2 days of weight training if over age 50 Patient Care Team: Bruce Mead MD as PCP - General Bruce Mead [facility] Att[facility] Provider Review of Systems General-no fatigue weight to within 10 pounds ENT no problems with vision swallowing Cardiac no chest pains palpitations change in exercise tolerance or capacity Pulmonary no cough shortness of breath GI no heartburn or abdominal pain Musculoskeletal no joint pains Objective Vitals: BP 132/80 Pulse 82 Ht 1.575 m (5' 2 ) Wt 97.6 kg (215 lb 3.2 oz) SpO2 95% BMI 39.36 kg/m Physical Exam General: Alert, No acute distress. Appears stated age Eye: Pupils are equal, round and reactive to light, Extraocular movements are intact, Normal conjunctiva. Neck: Supple, Non-tender, No carotid bruit, No jugular venous distention, No lymphadenopathy, No thyromegaly. Respiratory: Lungs are clear to auscultation, Respirations are non-labored, Breath sounds are equal. Cardiovascular: Normal rate, Regular rhythm, No murmur. Gastrointestinal: Soft, Non-tender, No organomegaly. No solid or pulsatile mass Integumentary: Warm, Dry. No concerning lesions on exposed areas Neurologic: Alert, Oriented. Gross and fine motor intact, CN 2-12 intact Psychiatric: Cooperative, Appropriate mood & affect. Assessment/Plan Problem List Items Addressed This Visit Respiratory Asthma Circulatory Hypertension Other Visit Diagnoses Routine general medical examination at health care facility - Primary documented in this encounter [facility] Work Phone: Evaluation note Note Date & Type Note Facility documented in this encounter [facility] Work Phone: Evaluation note Note Date & Type Note Facility documented in this encounter [facility] Work Phone: History of Present illness Narrative Note Date & Type Note Facility History of Present illness Narrative Since the last office visit there have been no interval operations, hospitalizations, important illnesses or injuries.copd- no exacerbations since last ov. doing really good . sees dr self. huge diff [place]-Takes and tolerates meds without side effects. No alcohol. no tobacco. no exercise. low salt. Reviewed recommendation for 150 minutes of exercise per week including 2 days of weight training if over age 50.Hyperlipidemia- is not on statin and a prudent diet. [facility] Work Phone: History of Present illness Narrative Note Date & Type Note Facility History of Present illness Narrative The patient is being seen for the subsequent annual wellness visit.Past Medical, Surgical and Family History: reviewed and updated in chart.Interval History: Patient has not been hospitalized previously.Medications and Supplements: Review of all medications by a prescribing practitioner or clinical pharmacist (such as prescriptions, OTCs, herbal therapies and supplements) documented in the medical record.No, the patient is not using opioids.Patient Self Assessment of Health Status: good.Tobacco use: Non-UserAlcohol use: Non-User, As noted in social historyIllicit drug use: Non-UserCurrent diet: well balanced diet.Exercise Frequency: regularly.Depression/Suicide Screening: .During the past 2 weeks, the patient has not felt down, depressed or hopeless.During the past 2 weeks, the patient has not felt little interest or pleasure in doing things.Hearing Impairment: none.Cognitive Impairment: No cognitive impairment observed.Bathing: performs independently.Dressing: performs independently.Walking: performs independently.Toileting: performs independently.Feeding: performs independently.Personal Hygiene: performs independently.Bowels: continent.Bladder: continent.Managing Finances: performs independently.Shopping: performs independently.Managing Medications: performs independently.Housework / Basic Home Maintenance: performs independently.Handling Transportation: performs independently.Preparing Meals: performs independently.Using the Telephone/ Communication Devices: performs independently.Falls Risk Screening:. ZAYNAB has not fallen in the last 6 months.Home safety risk factors: no grab bars in the bathroom.Advance directives:. Advance Care Planning discussed and documented in the medical record, patient did not wish or was not able to name a surrogate decision maker or provide an advance care plan. Patient has no living will. Patient has no healthcare POA.Since the last office visit there have been no interval operations, hospitalizations, important illnesses or injuries.uses pulmicort in nasal saline irrigations, sinus dz remains aa challenge to control.HTN-Takes and tolerates meds without side effects. No alcohol. no tobacco. no exercise. low salt. Reviewed recommendation for 150 minutes of exercise per week including 2 days of weight training if over age 50currelt sinus inf, had doxy in jun. allergies noted. C+S fronm jun with SA doxy Sdue for 3 yr colon, if no call by november let me know [facility] Work Phone: History of Present illness Narrative Note Date & Type Note Facility History of Present illness Narrative Since the last office visit there have been no interval operations, hospitalizations, important illnesses or injuries.copd- no exacerbations since last ov.ear and sinus pressure and congestion L side only has sseen kelsey and toroen doxyHTN-Takes and tolerates meds without side effects. No alcohol. no tobacco. no exercise. low salt. Reviewed recommendation for 150 minutes of exercise per week including 2 days of weight training if over age 50 [facility] Work Phone: Reason for referral (narrative) Consultation (Routine) - Authorized Note Date & Type Note Facility Referral ID Status Reason Start Date Expiration Date V isits Requested Visits Authorized [id number] Authorized 09/04/2022 03/03/2023 1 1 [facility] Work Phone: Reason for referral (narrative) Consultation (Routine) - Authorized Note Date & Type Note Facility Referral ID Status Reason Start Date Expiration Date V isits Requested Visits Authorized [id number] Authorized 03/20/2023 03/19/2024 1 1 * Imaging (Routine) - Authorized Specialty Diagnoses / Procedures Referred By Contac t Referred To Contact Radiology Diagnoses Breast cancer screening by mammogram Procedures BI mammo bilateral screening tomosynthesis Bruce Mead MD [address] [place] [address] Referral ID Status Reason Start Date Expiration Date Visits Requested Visits Authorized [id number] Authorized Perform Procedure 03/20/2023 03/19/2024 1 1 [facility] Work Phone: Summary Purpose Family History No Family History Records Found Mother Name Dates Details Family history of asthma(V17 .5, Z82.5) Status:Active Father Name Dates Details Family history of hypertensi on(V17.49, Z82.49) Status:Active Family history of myocardial infarction(V17.3, Z82.49) Status:Active Family history of coronary a rtery disease(V17.3, Z82.49) Status:Active Brother Name Dates Details Family history of hypertensi on(V17.49, Z82.49) Status:Active Family history of diabetes m ellitus(V18.0, Z83.3) Status:Active Mother Name Dates Details Family history of asthma(V17 .5, Z82.5) Status:Active Father Name Dates Details Family history of hypertensi on(V17.49, Z82.49) Status:Active Family history of myocardial infarction(V17.3, Z82.49) Status:Active Family history of coronary a rtery disease(V17.3, Z82.49) Status:Active Brother Name Dates Details Family history of hypertensi on(V17.49, Z82.49) Status:Active Family history of diabetes m ellitus(V18.0, Z83.3) Status:Active Mother Name Dates Details Family history of asthma(V17 .5, Z82.5) Status:Active Father Name Dates Details Family history of hypertensi on(V17.49, Z82.49) Status:Active Family history of myocardial infarction(V17.3, Z82.49) Status:Active Family history of coronary a rtery disease(V17.3, Z82.49) Status:Active Brother Name Dates Details Family history of hypertensi on(V17.49, Z82.49) Status:Active Family history of diabetes m ellitus(V18.0, Z83.3) Status:Active Unknown Family Member Name Dates Details Family history of hypertensi on: Father, Brother(V17.49, Z82.49) Status:Active Family history of diabetes m ellitus: Brother(V18.0, Z83.3) Status:Active Family history of asthma: Mo ther(V17.5, Z82.5) Status:Active Family history of myocardial infarction: Father(V17.3, Z82.49) Status:Active Family history of coronary a rtery disease: Father(V17.3, Z82.49) Status:Active Unknown Family Member Name Dates Details Family history of hypertensi on: Father, Brother(V17.49, Z82.49) Status:Active Family history of diabetes m ellitus: Brother(V18.0, Z83.3) Status:Active Family history of asthma: Mo ther(V17.5, Z82.5) Status:Active Family history of myocardial infarction: Father(V17.3, Z82.49) Status:Active Family history of coronary a rtery disease: Father(V17.3, Z82.49) Status:Active Unknown Family Member Name Dates Details Family history of hypertensi on: Father, Brother(V17.49, Z82.49) Status:Active Family history of diabetes m ellitus: Brother(V18.0, Z83.3) Status:Active Family history of asthma: Mo ther(V17.5, Z82.5) Status:Active Family history of myocardial infarction: Father(V17.3, Z82.49) Status:Active Family history of coronary a rtery disease: Father(V17.3, Z82.49) Status:Active Unknown Family Member Name Dates Details Family history of hypertensi on: Father, Brother(V17.49, Z82.49) Status:Active Family history of diabetes m ellitus: Brother(V18.0, Z83.3) Status:Active Family history of asthma: Mo ther(V17.5, Z82.5) Status:Active Family history of myocardial infarction: Father(V17.3, Z82.49) Status:Active Family history of coronary a rtery disease: Father(V17.3, Z82.49) Status:Active Unknown Family Member Name Dates Details Family history of hypertensi on: Father, Brother(V17.49, Z82.49) Status:Active Family history of diabetes m ellitus: Brother(V18.0, Z83.3) Status:Active Family history of asthma: Mo ther(V17.5, Z82.5) Status:Active Family history of myocardial infarction: Father(V17.3, Z82.49) Status:Active Family history of coronary a rtery disease: Father(V17.3, Z82.49) Status:Active Unknown Family Member Name Dates Details Family history of hypertensi on: Father, Brother(V17.49, Z82.49) Status:Active Family history of diabetes m ellitus: Brother(V18.0, Z83.3) Status:Active Family history of asthma: Mo ther(V17.5, Z82.5) Status:Active Family history of myocardial infarction: Father(V17.3, Z82.49) Status:Active Family history of coronary a rtery disease: Father(V17.3, Z82.49) Status:Active Advance Directives No Advanced Directives Records FoundNo Advanced Directives Records FoundNo Advanced Directives Records FoundNo Advanced Directives Records FoundNo Advanced Directives Records FoundNo Advanced Directives Records FoundNo Advanced Directives Records Found Chief Complaint 6 MO HL HTN CK REV LABSMCW. 6 MO FU HTN, HL. HAS DRAINAGE, RUNNY NOSE, AND CONGESTION X 1 WK6 MO FU. REV LABS Additional Source Comments INFORMATION SOURCE (unrecogn ized section and content) DATE CREATED AUTHOR AUTHOR'S ORGANIZ ATION 03/05/2022 [facility] DATE CREATED AUTHOR AUTHOR'S ORGANIZ ATION 03/05/2022 [employer] DATE CREATED AUTHOR AUTHOR'S ORGANIZ ATION 08/05/2022 [facility] DATE CREATED AUTHOR AUTHOR'S ORGANIZ ATION 03/17/2023 [facility] DATE CREATED AUTHOR AUTHOR'S ORGANIZ ATION 03/21/2023 [facility] DATE CREATED AUTHOR AUTHOR'S ORGANIZ ATION 04/06/2023 [facility] Reason for Visit (unrecogniz ed section and content) Reason Comments Follow-up 6 mo rev labs Specialty Diagnoses / Procedures Referred By Contyeison t Referred To Contact Primary Care Diagnoses Primary hypertension Procedures Follow Up In Primary Care Bruce Mead MD [address] [place] [address] Referral ID Status Reason Start Date Expiration Date Visits Re quested Visits Authorized [id number] Closed 09/04/2022 03/03/2023 1 1 Care Teams (unrecognized sec tion and content) Supervisor Case Loading Relationship Specialty Start Date End Date Bruce Mead MD [address] [id number] PCP - General 01/13/19 Bruce Mead MD [address] [id number] PCP - MSSP ACO Attributed Provider 05/13/21 FOR RECORDS PERTAINING TO PATIENTS WHO ARE OR HAVE BEEN ENROLLED IN A CHEMICAL DEPENDENCY/SUBSTANCEABUSE PROGRAM, SOME INFORMATION MAY BE OMITTED. This clinical summary was aggregated from multiple sources. Caution should be exercised in using it in the provision of clinical care. This summary normalizes information from multiple sources, and as a consequence, information in this document may materially change the coding, format and clinical context of patient data. In addition, data may be omitted in some cases. CLINICAL DECISIONS SHOULD BE BASED ON THE PRIMARY CLINICAL RECORDS. [employer] provides no warranty or guarantee of the accuracy or completeness of information in this document.
== END 2023-05-24 10:22 | disposition home or self-care (01) ==
LOC: MEDOUTP 10:22
PROVIDERS: PCP Family Medicine; Referring Provider Nurse Practitioner Acute Care; Visit Provider Nurse Practitioner Acute Care
DX: J45.50 Severe persistent asthma, uncomplicated (principal)
CPT/HCPCS: 96372; J2357

== ENCOUNTER 2023-06-21 10:12 | Outpatient (CLI) | payer MEDICARE, BC, SELFPAY ==
[2023-06-21 10:37] VITALS: BP 142/77; PULSE 75; RESP 16; TEMP 35.9; O2SAT 95; BMI 36.6
[2023-06-21] MEDS: Omalizumab 150 MG/ML Syringe 300 MG SC (10:40)
== END 2023-06-21 10:13 | disposition home or self-care (01) ==
LOC: MEDOUTP 10:12
PROVIDERS: PCP Family Medicine; Referring Provider Nurse Practitioner Acute Care; Visit Provider Nurse Practitioner Acute Care
DX: J45.50 Severe persistent asthma, uncomplicated (principal)
CPT/HCPCS: 96372; J2357

== ENCOUNTER 2023-07-19 10:14 | Outpatient (CLI) | payer MEDICARE, BC, SELFPAY ==
[2023-07-19 10:22] VITALS: BP 123/68; PULSE 84; RESP 16; TEMP 35.5; O2SAT 97; BMI 36.6
[2023-07-19] MEDS: Omalizumab 150 MG/ML Syringe 300 MG SQ (10:27)
--- OUTSIDE RECORDS SUMMARY | 2023-07-19 10:30 | XMS RPT_ITS | CCD ---
Author Name Unknown Address [id number] [place] [address] Organization [facility] Care Team Providers Care Extruder Tender Name Role Phone Bruce Mead Unavailable Unavailable Bruce Mead Unavailable Unavailable Bruce Mead Unavailable [phone] Unavailable Unavailable Unavailable Unavailable Bruce Mead [...] ilable Stencel Bruce MÉNDEZ Primary Care Provider rBuce Mead MD Unavailable [phone] BRUCE MEAD Primary Care Unavailable Bruce Mead MD Primary Care Provider [phone] Bruce Mead MD Unavailable [phone] BRUCE MEAD Attending Unavailable BRUCE MEAD Referring Unavailable BRUCE MEAD Primary Care Unavailable BRUCE MEAD Attending Unavailable BRUCE MEAD Primary Care Unavailable BRUCE MEAD Referring Unavailable BRUCE MEAD Primary Care Unavailable Allergies Allergy Classification Reported Allergen(s) Allergy Type Date of Onset Reaction(s) Facility (10 sources) Amoxicillin / Clavulanate; Translations: [Augmentin] Drug Allergy [facility] Work Phone: (15 sources) Aspirin; Translations: [aspirin] Drug Allergy 3 Shortness of breath [facility] [place]: (10 sources) Cefuroxime; Translations: [Ceftin] Drug Allergy [facility] [place]: (10 sources) Cromolyn; Translations: [Intal] Drug Allergy [facility] [place]: (10 sources) guaiFENesin; Translations: [Cough Syrup SYRP] Drug Allergy Wheezing [facility] [place]: (10 sources) levoFLOXacin; Translations: [Levaquin] Drug Allergy [facility] [place]: (10 sources) Sulfonamides (Antibiotic); Translations: [Sulfa Drugs] drug allergy [facility] [place]: (5 sources) Amoxicillin / Clavulanate; Translations: [AMOXICILLIN-POT CLAVULANATE] Drug Allergy 3 Itching [facility] (5 sources) Cefuroxime; Translations: [CEFUROXIME] Drug Allergy 3 Itching [facility] Work Phone: (5 sources) Cromolyn; Translations: [CROMOLYN] Drug Allergy 3 Unknown [facility] Work Phone: (5 sources) levoFLOXacin; Translations: [LEVOFLOXACIN] Drug Allergy 3 Other [facility] Work Phone: (5 sources) Sulfonamides (Antibiotic); Translations: [SULFA (SULFONAMIDE ANTIBIOTICS)] Drug Allergy 3 Hives [facility] Work Phone: Medications Current Medications Medication Drug Class(es) Dates Sig (Normalized) Sig (Original) [id number] 200 actuat albuterol 0.09 mg/actuat metered dose [...] 157.5 cm Bruce Mead MD Work Phone: [facility] 03-20-2023 09:44-0500 Body mass index (BMI) [Ratio] 39.58 kg/m2 Bruce Mead MD Work Phone: [facility] 03-20-2023 09:44-0500 Body weight 98.16 kg Bruce Mead MD Work Phone: [facility] 03-20-2023 09:44-0500 Diastolic blood pressure 78 mm[Hg] Bruce Mead MD Work Phone: [facility] 03-20-2023 09:44-0500 Heart rate 62 /min Bruce Mead MD Work Phone: [facility] 03-20-2023 09:44-0500 SaO2% (BldA) [Mass fraction] 93 % Bruce Mead MD Work Phone: [facility] 03-20-2023 09:44-0500 Systolic blood pressure 126 mm[Hg] Bruce Mead MD Work Phone: [facility] 09-04-2022 09:07-0400 Body height 157.5 cm Bruce Mead MD Work Phone: [facility] 09-04-2022 09:07-0400 Body mass index (BMI) [Ratio] 39.36 kg/m2 Bruce Mead MD Work Phone: [facility] 09-04-2022 09:07-0400 Body weight 97.61 kg Bruce Mead MD Work Phone: [facility] 09-04-2022 09:07-0400 Diastolic blood pressure 80 mm[Hg] Bruce Mead MD Work Phone: [facility] 09-04-2022 09:07-0400 Heart rate 82 /min Bruce Mead MD Work Phone: [facility] 09-04-2022 09:07-0400 SaO2% (BldA) [Mass fraction] 95 % Bruce Mead MD Work Phone: [facility] 09-04-2022 09:07-0400 Systolic blood pressure 132 mm[Hg] Bruce Mead MD Work Phone: [facility] 02-28-2022 09:37-0400 Diastolic blood pressure 74 mm[Hg] Bruce Mead Work Phone: [facility] Work Phone: 02-28-2022 09:37-0400 Systolic blood pressure 118 mm[Hg] Bruce Mead Work Phone: [facility] Work Phone: 02-28-2022 09:04-0400 Body height 157.48 cm Bruce Mead Work Phone: [facility] Work Phone: 02-28-2022 09:04-0400 Body mass index (BMI) [Ratio] 39.18 kg/m2 Bruce Mead Work Phone: [facility] Work Phone: 02-28-2022 09:04-0400 Body surface area Derived from formula 1.97 m2 Bruce Gallegoscel Work Phone: [facility] Work Phone: 02-28-2022 09:04-0400 Body weight 97.16 kg Bruce Gallegoscel Work Phone: [facility] Work Phone: 02-28-2022 09:04-0400 Diastolic blood pressure 84 mm[Hg] Bruce Gallegoscel Work Phone: [facility] Work Phone: 02-28-2022 09:04-0400 Heart rate 75 /min Bruce Mead Work Phone: [facility] [facility] Work Phone: 02-28-2022 09:04-0400 SaO2% (BldA) [Mass fraction] 96 % Bruce Mead Work Phone: [facility] [employer] [facility] Work Phone: 02-28-2022 09:04-0400 Systolic blood pressure 148 mm[Hg] Bruce Gallegoscel Work Phone: [employer] Work Phone: 08-29-2021 09:04-0400 Body height 157.48 cm Bruce Mead Work Phone: [facility] [employer] [facility] Work Phone: 08-29-2021 09:04-0400 Body mass index (BMI) [Ratio] 38.96 kg/m2 Bruce Gallegoscel Work Phone: [facility] [employer] [facility] Work Phone: 08-29-2021 09:04-0400 Body surface area Derived from formula 1.96 m2 Bruce Gallegoscel Work Phone: [facility] Work Phone: 08-29-2021 09:04-0400 Body weight 96.62 kg Bruce Gallegoscel Work Phone: [facility] Work Phone: 08-29-2021 09:04-0400 Diastolic blood pressure 76 mm[Hg] Bruce Gallegoscel Work Phone: [facility] Work Phone: 08-29-2021 09:04-0400 Heart rate 83 /min Bruce Gallegoscel Work Phone: [facility] Work Phone: 08-29-2021 09:04-0400 SaO2% (BldA) [Mass fraction] 95 % Bruce Gallegoscel Work Phone: [facility] Work Phone: 08-29-2021 09:04-0400 Systolic blood pressure 132 mm[Hg] Bruce Gallegoscel Work Phone: [facility] Work Phone: 02-27-2021 09:42-0400 Diastolic blood pressure 76 mm[Hg] Bruce Gallegoscel Work Phone: [facility] Work Phone: 02-27-2021 09:42-0400 Systolic blood pressure 136 mm[Hg] Bruce Gallegoscel Work Phone: [facility] Work Phone: 02-27-2021 08:58-0400 Body height 157.48 cm Bruce Gallegoscel Work Phone: [facility] Work Phone: 02-27-2021 08:58-0400 Body mass index (BMI) [Ratio] 37.5 kg/m2 Bruce Gallegoscel Work Phone: [facility] Work Phone: 02-27-2021 08:58-0400 Body surface area Derived from formula 1.93 m2 Bruce Gallegoscel Work Phone: [facility] Work Phone: 02-27-2021 08:58-0400 Body temperature 96.9 [degF] Bruce Mead Work Phone: [facility] Work Phone: 02-27-2021 08:58-0400 Body weight 92.99 kg Bruce Mead Work Phone: [facility] Work Phone: 02-27-2021 08:58-0400 Diastolic blood pressure 88 mm[Hg] Bruce Mead Work Phone: [facility] Work Phone: 02-27-2021 08:58-0400 Heart rate 76 /min Bruce Mead Work Phone: [facility] Work Phone: 02-27-2021 08:58-0400 SaO2% (BldA) [Mass fraction] 92 % Bruce Mead Work Phone: [facility] Work Phone: 02-27-2021 08:58-0400 Systolic blood pressure 148 mm[Hg] Bruce Mead Work Phone: [facility] Work Phone: 02-25-2020 10:49-0400 BP Diastolic 88 mm[Hg] Bruce Mead [facility] Work Phone: 02-25-2020 10:49-0400 BP Systolic 138 mm[Hg] Bruce Mead [facility] Work Phone: 02-25-2020 10:43-0400 BMI (Body Mass Index) 40.24 kg/m2 Bruce Rosypamela [facility] Work Phone: 02-25-2020 10:43-0400 Body Temperature 95.7 [degF] Bruce Mead [facility] Work Phone: 02-25-2020 10:43-0400 Body weight 99.79 kg Bruce Mead [facility] Work Phone: 02-25-2020 10:43-0400 BSA (Body Surface Area) 1.99 m2 Bruce [facility] [employer] [facility] Work Phone: 02-25-2020 10:43-0400 Height 157.48 cm Bruce Mead [facility] Work Phone: 02-25-2020 10:43-0400 Pulse (Heart Rate) 82 /min Bruce Mead [facility] [employer] [facility] Work Phone: 02-25-2020 10:43-0400 Pulse Oximetry 92 % Bruce Mead [facility] Work Phone: 02-17-2019 10:09-0400 BMI (Body Mass Index) 38.57 kg/m2 Bruce Mead [facility] Work Phone: 02-17-2019 10:09-0400 Body weight 95.65 kg Bruce Mead [facility] Work Phone: 02-17-2019 10:09-0400 BP Diastolic 82 mm[Hg] Bruce Mead [facility] Work Phone: 02-17-2019 10:09-0400 BP Systolic 148 mm[Hg] Bruce Mead [facility] Work Phone: 02-17-2019 10:09-0400 BSA (Body Surface Area) 1.95 m2 Bruce Mead [facility] Work Phone: 02-17-2019 10:09-0400 Height 157.48 cm Bruce Mead [facility] Work Phone: 02-17-2019 10:09-0400 Pulse (Heart Rate) 68 /min Bruce Mead [facility] Work Phone: Encounters Encounter Date Encounter Type Care Provider Facility Start: 04-02-2023 End: 04-03-2023 ambulatory BRUCE MEAD [facility] Start: 03-20-2023 End: 03-20-2023 ambulatory BRUCE Arreguin ALYCE [facility] Start: 03-20-2023 End: 03-20-2023 Office outpatient visit 25 minutes Bruce Mead MD Work Phone: [facility] Procedures Date Procedure Procedure Detail Performing Clinician [...] 11-23-2031 Screening for malignant neoplasm of colon [facility] Start: 11-22-2026 Screening for malignant neoplasm of colon [facility] Start: 02-20-2026 Lipid panel Lipid Panel [facility] Start: 09-06-2023 Medicare Annual Wellness Visit Medicare Annual Wellness Visit (AWV) [facility] Start: 04-04-2023 COVID-19 Vaccine (6 - Moderna series) COVID-19 Vaccine (6 - Moderna series) [facility] Start: 03-27-2023 Screening for malignant neoplasm of breast Mammogram [facility] Start: 03-20-2023 End: 05-20-2024 DBT Breast - bilateral BI mammo bilateral screening tomosynthesis Imaging Routine Breast cancer screening by mammogram Expected: 03/20/2023, Expires: 05/20/2024 [facility] Service Area Work Phone: Immunizations Immunization Date Immunization Notes Care Provider Florence santo 03-08-2022 influenza virus vaccine, unspecified formulation Bruce Mead MD Work Phone: [facility] Work Phone: 02-06-2022 Moderna COVID-19 Vaccine 100 MCG/0.5ML Intramuscular Suspension Bruce Mead Work Phone: [facility] Work Phone: Payers Date Payer Category Payer Medicare [id number] 2020 Medicare MEDICARE MEDICAR E PART A AND B [id number] 2020-Present [address] [place] [address] [id number] 2020 Unknown 2020 Unknown [id number] 1955 Unknown [id number] 1955 Unknown [id number] 1955 Unknown [id number] 1955 Unknown [id number] 1955 Unknown [id number] 1955 Unknown [id number] 1955 Unknown [id number] 1955 Unknown [id number] Social History Date Type Detail Facility Start: 09-04-2022 End: 03-20-2023 No alcohol use No alcohol use [facility] Work Phone: Start: 09-04-2022 Tobacco smoking status NHIS Never smoked tobacco [facility] Start: 09-04-2022 Tobacco use and exposure Smokeless tobacco non-user [facility] Work Phone: Start: 09-04-2022 End: 03-20-2023 Alcohol intake Lifetime non-drinker (finding) [facility] Work Phone: Start: 09-04-2022 End: 03-20-2023 Tobacco use panel [facility] Work Phone: Start: 1955 Sex Assigned At Not on file [facility] Work Phone: Start: 08-25-2022 End: 03-20-2023 Exposure to SARS-CoV-2 (event) Not sure [facility] NEGATED: Highlighted row - - [facility] Work Phone: Functional Status Date Assessment Result Facility NEGATED: Highlighted row Functional performance Functional status health issues are not documented [facility] Work Phone: Mental Status Date Assessment Result Facility NEGATED: Highlighted row Cognitive function [Interpretation] Cognitive status health issues are not documented [facility] Work Phone: History of Present illness [...] by mammogram Z12.31 documented in this encounter [facility] Work Phone: History of Present illness Narrative [...] General Bruce Mead MD as PCP - [facility] Attributed Provider Review of Systems General-no [...] facility - Primary documented in this encounter [facility] Work Phone: Evaluation note Note Date & Type Note Facility documented in this encounter [facility] Work Phone: Evaluation note Note Date & Type Note Facility documented in this encounter [facility] Work Phone: History of Present illness Narrative [...] and a prudent diet. [facility] Work Phone: History of Present illness [...] no call by november let me know [facility] [facility] Work Phone: History of Present illness [...] of weight training if over age 50 [facility] [facility] Work Phone: Reason for referral (narrative) Consultation (Routine) - Authorized Note Date & Type Note Facility Referral ID Status Reason Start Date Expiration Date V isits Requested Visits Authorized [id number] Authorized 09/04/2022 03/03/2023 1 1 [facility] Work Phone: Reason for referral (narrative) Consultation (Routine) - Authorized Note Date & Type Note Facility Referral ID Status Reason Start Date Expiration Date V isits Requested Visits Authorized [id number] Authorized 03/20/2023 03/19/2024 1 1 * Imaging (Routine) - Authorized Specialty Diagnoses / Procedures Referred By Contac t Referred To Contact Radiology Diagnoses Breast cancer screening by mammogram Procedures BI mammo bilateral screening tomosynthesis Bruce Mead MD [address] [place] [address] Referral ID Status Reason Start Date Expiration Date Visits Requested Visits Authorized [id number] Authorized Perform Procedure 03/20/2023 03/19/2024 1 1 [facility] Work Phone: Summary Purpose Family History No [...] DATE CREATED AUTHOR AUTHOR'S ORGANIZ ATION 03/05/2022 [facility] DATE CREATED AUTHOR AUTHOR'S ORGANIZ ATION 03/05/2022 [facility] DATE CREATED AUTHOR AUTHOR'S ORGANIZ ATION 08/05/2022 [facility] DATE CREATED AUTHOR AUTHOR'S ORGANIZ ATION 03/17/2023 [facility] DATE CREATED AUTHOR AUTHOR'S ORGANIZ ATION 03/21/2023 [facility] DATE CREATED AUTHOR AUTHOR'S ORGANIZ ATION 04/06/2023 [facility] Reason for Visit (unrecogniz ed section and content) Reason Comments Follow-up 6 mo rev labs Specialty Diagnoses / Procedures Referred By Contyeison t Referred To Contact Primary Care Diagnoses Primary hypertension Procedures Follow Up In Primary Care Bruce Mead MD [address] [place] [address] Referral ID Status Reason Start Date Expiration Date Visits Re quested Visits Authorized [id number] Closed 09/04/2022 03/03/2023 1 1 Care Teams (unrecognized sec tion and content) Extruder Tender Relationship Specialty Start Date End Date Bruce Mead MD [id number] PCP - General 01/13/19 Bruce Mead MD [phone] PCP - [facility] Attributed Provider 05/13/21 [...] BE BASED ON THE PRIMARY CLINICAL RECORDS. [employer] provides no warranty or guarantee of the accuracy or completeness of information in this document.
== END 2023-07-19 10:15 | disposition home or self-care (01) ==
LOC: MEDOUTP 10:15
PROVIDERS: PCP Family Medicine; Referring Provider Nurse Practitioner Acute Care; Visit Provider Nurse Practitioner Acute Care
DX: J45.50 Severe persistent asthma, uncomplicated (principal)
CPT/HCPCS: 96372; J2357

== ENCOUNTER 2023-08-16 09:41 | Outpatient (CLI) | payer MEDICARE, BC, SELFPAY ==
[2023-08-16 09:58] VITALS: BP 130/73; PULSE 72; RESP 14; TEMP 36.4; O2SAT 97; BMI 36.6
[2023-08-16] MEDS: Omalizumab 150 MG/ML Syringe 300 MG SQ (10:11)
== END 2023-08-16 09:42 | disposition home or self-care (01) ==
LOC: MEDOUTP 09:41
PROVIDERS: PCP Family Medicine; Referring Provider Nurse Practitioner Acute Care; Visit Provider Nurse Practitioner Acute Care
DX: J45.50 Severe persistent asthma, uncomplicated (principal)
CPT/HCPCS: 96372; J2357

== ENCOUNTER 2023-09-13 09:47 | Outpatient (CLI) | payer MEDICARE, BC, SELFPAY ==
[2023-09-13 09:52] VITALS: BP 130/80; PULSE 79; RESP 16; TEMP 35.7; O2SAT 97
[2023-09-13] MEDS: Omalizumab 150 MG/ML Syringe 300 MG SC (09:54)
== END 2023-09-13 09:48 | disposition home or self-care (01) ==
LOC: MEDOUTP 09:47
PROVIDERS: PCP Family Medicine; Referring Provider Nurse Practitioner Acute Care; Visit Provider Nurse Practitioner Acute Care
DX: J45.50 Severe persistent asthma, uncomplicated (principal)
CPT/HCPCS: 96372; J2357

== ENCOUNTER 2023-10-11 09:43 | Outpatient (CLI) | payer MEDICARE, BC, SELFPAY ==
[2023-10-11 09:57] VITALS: BP 123/73; PULSE 75; RESP 16; TEMP 35.7; O2SAT 96; BMI 36.6
[2023-10-11] MEDS: Omalizumab 150 MG/ML Syringe 300 MG SQ (10:00)
== END 2023-10-11 23:59 | disposition home or self-care (01) ==
LOC: MEDOUTP 09:43
PROVIDERS: PCP Family Medicine; Referring Provider Nurse Practitioner Acute Care; Visit Provider Nurse Practitioner Acute Care
DX: J45.50 Severe persistent asthma, uncomplicated (principal)
CPT/HCPCS: 96372; J2357

== ENCOUNTER 2023-11-08 09:20 | Outpatient (CLI) | payer MEDICARE, BC, SELFPAY ==
[2023-11-08 09:34] VITALS: BP 130/65; PULSE 81; RESP 16; TEMP 35.5; O2SAT 97; BMI 36.6
[2023-11-08] MEDS: Omalizumab 150 MG/ML Syringe 300 MG SQ (09:35)
== END 2023-11-08 23:59 | disposition home or self-care (01) ==
LOC: MEDOUTP 09:20
PROVIDERS: PCP Family Medicine; Referring Provider Nurse Practitioner Acute Care; Visit Provider Nurse Practitioner Acute Care
DX: J45.50 Severe persistent asthma, uncomplicated (principal)
CPT/HCPCS: 96372; J2357

== ENCOUNTER 2023-12-06 09:24 | Outpatient (CLI) | payer MEDICARE, BC, SELFPAY ==
[2023-12-06 09:30] VITALS: BP 142/76; PULSE 77; RESP 16; TEMP 36.1; O2SAT 97
[2023-12-06] MEDS: Omalizumab 150 MG/ML Syringe 300 MG SQ (09:32)
== END 2023-12-06 23:59 | disposition home or self-care (01) ==
LOC: MEDOUTP 09:24
PROVIDERS: PCP Family Medicine; Referring Provider Nurse Practitioner Acute Care; Visit Provider Nurse Practitioner Acute Care
DX: J45.50 Severe persistent asthma, uncomplicated (principal)
CPT/HCPCS: 96372; J2357

== ENCOUNTER 2024-01-03 09:20 | Outpatient (CLI) | payer MEDICARE, BC, SELFPAY ==
[2024-01-03 09:29] VITALS: BP 140/90; PULSE 77; RESP 16; TEMP 35.9; O2SAT 93; BMI 36.6
[2024-01-03] MEDS: Omalizumab 150 MG/ML Syringe 300 MG SQ (09:36)
== END 2024-01-03 23:59 | disposition home or self-care (01) ==
LOC: MEDOUTP 09:20
PROVIDERS: PCP Family Medicine; Referring Provider Nurse Practitioner Acute Care; Visit Provider Nurse Practitioner Acute Care
DX: J45.50 Severe persistent asthma, uncomplicated (principal)
CPT/HCPCS: 96372; J2357

== ENCOUNTER 2024-01-31 09:17 | Outpatient (CLI) | payer MEDICARE, BC, SELFPAY ==
[2024-01-31 09:21] VITALS: BP 143/76; PULSE 74; RESP 16; TEMP 36.4; O2SAT 95; BMI 36.6
[2024-01-31] MEDS: Omalizumab 150 MG/ML Syringe 300 MG SQ (09:30)
== END 2024-01-31 23:59 | disposition home or self-care (01) ==
LOC: MEDOUTP 09:17
PROVIDERS: PCP Family Medicine; Referring Provider Nurse Practitioner Acute Care; Visit Provider Nurse Practitioner Acute Care
DX: J45.50 Severe persistent asthma, uncomplicated (principal)
CPT/HCPCS: 96372; J2357

== ENCOUNTER 2024-02-28 09:20 | Outpatient (CLI) | payer MEDICARE, BC, SELFPAY ==
[2024-02-28 09:26] VITALS: BP 129/75; PULSE 76; RESP 16; TEMP 36.3; O2SAT 97
[2024-02-28] MEDS: Omalizumab 150 MG/ML Syringe 300 MG SQ (09:37)
== END 2024-02-28 23:59 | disposition home or self-care (01) ==
LOC: MEDOUTP 09:20
PROVIDERS: PCP Family Medicine; Referring Provider Nurse Practitioner Acute Care; Visit Provider Nurse Practitioner Acute Care
DX: J45.50 Severe persistent asthma, uncomplicated (principal)
CPT/HCPCS: 96372; J2357

== ENCOUNTER 2024-03-27 09:21 | Outpatient (CLI) | payer MEDICARE, BC, SELFPAY ==
[2024-03-27 09:40] VITALS: BP 128/77; PULSE 93; RESP 16; TEMP 36.3; O2SAT 95
[2024-03-27] MEDS: Omalizumab 150 MG/ML Syringe 300 MG SQ (09:46)
== END 2024-03-27 23:59 | disposition home or self-care (01) ==
LOC: MEDOUTP 09:21
PROVIDERS: PCP Family Medicine; Referring Provider Nurse Practitioner Acute Care; Visit Provider Nurse Practitioner Acute Care
DX: J45.50 Severe persistent asthma, uncomplicated (principal)
CPT/HCPCS: 96372; J2357

== ENCOUNTER 2024-04-24 09:20 | Outpatient (CLI) | payer MEDICARE, BC, SELFPAY ==
[2024-04-24 09:42] VITALS: BP 129/80; PULSE 72; RESP 16; TEMP 35.7; O2SAT 100
[2024-04-24] MEDS: Omalizumab 150 MG/ML Syringe 300 MG SQ (09:48)
== END 2024-04-24 23:59 | disposition home or self-care (01) ==
LOC: MEDOUTP 09:20
PROVIDERS: PCP Family Medicine; Referring Provider Nurse Practitioner Acute Care; Visit Provider Nurse Practitioner Acute Care
DX: J45.50 Severe persistent asthma, uncomplicated (principal)
CPT/HCPCS: 96372; J2357

== ENCOUNTER 2024-05-22 09:19 | Outpatient (CLI) | payer MEDICARE, BC, SELFPAY ==
[2024-05-22 09:33] VITALS: BP 129/79; PULSE 78; RESP 16; TEMP 36.1; O2SAT 95
[2024-05-22] MEDS: Omalizumab 150 MG/ML Syringe 300 MG SQ (09:36)
== END 2024-05-22 23:59 | disposition home or self-care (01) ==
PROVIDERS: PCP Family Medicine; Referring Provider Nurse Practitioner Acute Care; Visit Provider Nurse Practitioner Acute Care
DX: J45.50 Severe persistent asthma, uncomplicated (principal)
CPT/HCPCS: 96372; J2357

== ENCOUNTER 2024-06-19 09:48 | Outpatient (CLI) | payer MEDICARE, BC, SELFPAY ==
[2024-06-19 10:04] VITALS: BP 127/74; PULSE 74; RESP 16; TEMP 36.1; O2SAT 96; BMI 36.6
[2024-06-19] MEDS: Omalizumab 150 MG/ML Syringe 300 MG SQ (10:05)
== END 2024-06-19 23:59 | disposition home or self-care (01) ==
LOC: MEDOUTP 09:48
PROVIDERS: PCP Family Medicine; Referring Provider Nurse Practitioner Acute Care; Visit Provider Nurse Practitioner Acute Care
DX: J45.50 Severe persistent asthma, uncomplicated (principal)
CPT/HCPCS: 96372; J2357

== ENCOUNTER 2024-07-17 09:52 | Outpatient (CLI) | payer MEDICARE, BC, SELFPAY ==
[2024-07-17 10:15] VITALS: BP 145/76; PULSE 72; RESP 16; TEMP 35.9; O2SAT 97
[2024-07-17] MEDS: Omalizumab 150 MG/ML Syringe 300 MG SQ (10:36)
== END 2024-07-17 23:59 | disposition home or self-care (01) ==
LOC: MEDOUTP 09:53
PROVIDERS: PCP Family Medicine; Referring Provider Nurse Practitioner Acute Care; Visit Provider Nurse Practitioner Acute Care
DX: J45.50 Severe persistent asthma, uncomplicated (principal)
CPT/HCPCS: 96372; J2357

== ENCOUNTER 2024-08-14 09:19 | Outpatient (CLI) | payer MEDICARE, BC, SELFPAY ==
[2024-08-14 09:23] VITALS: BP 142/84; PULSE 75; RESP 16; TEMP 35.9; O2SAT 97; BMI 36.6
[2024-08-14] MEDS: Omalizumab 150 MG/ML Syringe 300 MG SQ (09:36)
== END 2024-08-14 23:59 | disposition home or self-care (01) ==
LOC: MEDOUTP 09:19
PROVIDERS: PCP Family Medicine; Referring Provider Nurse Practitioner Acute Care; Visit Provider Nurse Practitioner Acute Care
DX: J45.50 Severe persistent asthma, uncomplicated (principal)
CPT/HCPCS: 96372; J2357

== ENCOUNTER 2024-09-11 09:32 | Outpatient (CLI) | payer MEDICARE, BC, SELFPAY ==
[2024-09-11 09:39] VITALS: BP 155/76; PULSE 74; RESP 16; TEMP 36; O2SAT 94; BMI 36.6
[2024-09-11] MEDS: Omalizumab 150 MG/ML Syringe 300 MG SQ (09:52)
== END 2024-09-11 23:59 | disposition home or self-care (01) ==
LOC: MEDOUTP 09:32
PROVIDERS: PCP Family Medicine; Referring Provider Nurse Practitioner Acute Care; Visit Provider Nurse Practitioner Acute Care
DX: J45.50 Severe persistent asthma, uncomplicated (principal)
CPT/HCPCS: 96372; J2357

== ENCOUNTER 2024-10-09 10:11 | Outpatient (CLI) | payer MEDICARE, BC, SELFPAY ==
[2024-10-09 10:21] VITALS: PULSE 74; RESP 16; TEMP 36.1; O2SAT 96; BMI 36.6
[2024-10-09] MEDS: Omalizumab 150 MG/ML Syringe 300 MG SQ (10:39)
== END 2024-10-09 23:59 | disposition home or self-care (01) ==
LOC: MEDOUTP 10:11
PROVIDERS: PCP Family Medicine; Referring Provider Nurse Practitioner Acute Care; Visit Provider Nurse Practitioner Acute Care
DX: J45.50 Severe persistent asthma, uncomplicated (principal)
CPT/HCPCS: 96372; J2357

== ENCOUNTER 2024-11-10 14:47 | Outpatient (CLI) | payer MEDICARE, BC, SELFPAY ==
[2024-11-10 15:20] VITALS: BP 126/74; PULSE 77; RESP 16; TEMP 35.8; O2SAT 95; BMI 36.6
== END 2024-11-10 23:59 | disposition home or self-care (01) ==
LOC: MEDOUTP 14:47
PROVIDERS: PCP Family Medicine; Referring Provider Nurse Practitioner Acute Care; Visit Provider Nurse Practitioner Acute Care
DX: J45.50 Severe persistent asthma, uncomplicated (principal)
CPT/HCPCS: 96372; J2357

== ENCOUNTER 2024-12-08 12:44 | Outpatient (CLI) | payer MEDICARE, BC, SELFPAY ==
[2024-12-08 13:06] VITALS: BP 129/72; PULSE 74; RESP 16; TEMP 35.7; O2SAT 96; BMI 36.6
== END 2024-12-08 23:59 | disposition home or self-care (01) ==
LOC: MEDOUTP 12:44
PROVIDERS: PCP Family Medicine; Referring Provider Nurse Practitioner Acute Care; Visit Provider Nurse Practitioner Acute Care
DX: J45.50 Severe persistent asthma, uncomplicated (principal)
CPT/HCPCS: 96372; J2357

== ENCOUNTER 2025-01-05 13:05 | Outpatient (CLI) | payer MEDICARE, BC, SELFPAY ==
[2025-01-05 13:16] VITALS: BP 157/83; PULSE 77; RESP 16; TEMP 35.7; O2SAT 97; BMI 36.6
--- OUTSIDE RECORDS SUMMARY | 2025-01-05 21:01 | XMS RPT_ITS | CCD ---
Author Organization [facility] Care Team Providers Care Co Supervisor [employer] Name Role Phone Albert Maria Unavailable Unavailable Albert Maria Unavailable Unavailable Crow, Albert Arreguin Unavailable [phone] Unavailable Unavailable Unavailable Unavailable Albert Maria Referring Unavailab le Stencel, Albert Mendoza Attending Unavailab le Stencel, Albert Mendoza Primary Care Unavailab le Stencel, Albert Mendoza Primary Care Unavailab le Stencel, Albert Mendoza Referring Unavailab le Stencel, Albert Mendoza Attending Unavailab le Stencamilla, Dr. Barrera Primary Care Provider [phone] Marcell PLATE CONDITIONER, PLATE CONDITIONER-C Macy Attending Provider [phone] Marcell PLATE CONDITIONER, PLATE CONDITIONER-C Macy Referring Provider Crow, Dr. Albert Mendoza Referring Unava ilable Gatito Purcell Admitting Unavailable Gatito Purcell Attending Unavailable Stencamilla, Dr. Albert Mendoza Primary Care Unava ilable Stencel, Dr. Albert Mendoza Primary Care Unava ilable Stencel, Dr. Albert Mendoza Attending Unava ilable Stencel, Dr. Albert Mendoza Referring Unava ilable Stencel Albert MÉNDEZ Primary Care Provider Albert Maria MD [phone] Albert Maria MD Primary Care Provider Albert Maria MD Unavailable [phone] Crow, Dr. Barrera Primary Care Provider Dr. Albert Maria Referring Provider [phone] Marcell PLATE CONDITIONER, PLATE CONDITIONER-C Macy Attending Provider ALBERT MARIA Primary Care Unavailable Albert Maria MD Primary Care Provider Albert Maria MD Unavailable [phone] Albert Maria MD Primary Care Provider [phone] ALBERT MARIA Referring Unavailable STENCEL, ALBERT Arreguin Primary Care Unavailable Dr. Albert Maria MD Primary Care Provider Marcell PLATE CONDITIONER-C, Macy Attending Provider Marcell PLATE CONDITIONER-C, Macy Referring Provider Dr. Albert Maria MD Referring Provider [phone] Kennedy PLATE CONDITIONER-C, Pricilla Díaz Attending Provider Dr. Albert Maria MD Primary Care Provider [phone] Marcell PLATE CONDITIONER-C, Macy Attending Provider Marcell PLATE CONDITIONER-C, Macy Referring Provider Dr. Albert Maria MD Referring Provider [phone] Kennedy PLATE CONDITIONER-C, Pricilla Díaz Attending Provider Albert Maria MD Unavailable [phone] Albert Maria MD Primary Care Provider [phone] ALBERT MARIA Attending Unavailable STENCEL, ALBERT Arreguin Referring Unavailable STENCEL, ALBERT Arreguin Primary Care Unavailable STENCEL, ALBERT Arreguin Attending Unavailable STENCEL, ALBERT Arreguin Referring Unavailable STENCEL, ALBERT Arreguin Primary Care Unavailable Dr. Albert Maria MD Primary Care Provider Marcell PLATE CONDITIONER-C, Macy Attending Provider Marcell PLATE CONDITIONER-C, Macy Referring Provider Dr. Albert Maria MD Primary Care Provider Marcell PLATE CONDITIONER-C, Macy Attending Provider Marcell PLATE CONDITIONER-C, Macy Referring Provider Dr. Albert Maria MD Primary Care Provider Marcell PLATE CONDITIONER-C, Macy Attending Provider Marcell PLATE CONDITIONER-C, Macy Referring Provider Marcell PLATE CONDITIONER, Macy Attending Unavailable Marcell PLATE CONDITIONER, Macy Referring Unavailable Stencamilla, Albert Primary Care Unavailable Marcell PLATE CONDITIONER, Macy Attending Unavailable Marcell PLATE CONDITIONER, Macy Referring Unavailable Stencel, Albert Primary Care Unavailable Faith PLATE CONDITIONER, Macy Attending Unavailable Faith PLATE CONDITIONER, Macy Referring Unavailable Stencel, Albert Primary Care Unavailable Pricilla Benavides Attending Unavailable Stencel, Albert Referring Unavailable Stencel, Albert Primary Care Unavailable Faith PLATE CONDITIONER, Macy Attending Unavailable Stencel, Albert Primary Care Unavailable Faith PLATE CONDITIONER, Macy Referring Unavailable Faith PLATE CONDITIONER, Macy Attending Unavailable Stencel, Albert Primary Care Unavailable Faith PLATE CONDITIONER, Macy Referring Unavailable Faith PLATE CONDITIONER, Macy Attending Unavailable Stencel, Albert Primary Care Unavailable Faith PLATE CONDITIONER, Macy Referring Unavailable Faith PLATE CONDITIONER, Macy Referring Unavailable Faith PLATE CONDITIONER, Macy Attending Unavailable Stencel, Albert Primary Care Unavailable Faith PLATE CONDITIONER, Macy Referring Unavailable Stencel, Albert Primary Care Unavailable Faith PLATE CONDITIONER, Macy Attending Unavailable Faith PLATE CONDITIONER, Macy Referring Unavailable Stencel, Albert Primary Care Unavailable Faith PLATE CONDITIONER, Macy Attending Unavailable Faith PLATE CONDITIONER, Macy Attending Unavailable Faith PLATE CONDITIONER, Macy Referring Unavailable Stencel, Albert Primary Care Unavailable Faith PLATE CONDITIONER, Macy Attending Unavailable Faith PLATE CONDITIONER, Macy Referring Unavailable Stencel, Albert Primary Care Unavailable Faith PLATE CONDITIONER, Macy Attending Unavailable Faith PLATE CONDITIONER, Macy Referring Unavailable Stencel, Albert Primary Care Unavailable Faith PLATE CONDITIONER, Macy Attending Unavailable Faith PLATE CONDITIONER, Macy Referring Unavailable Stencel, Albert Primary Care Unavailable Faith PLATE CONDITIONER, Macy Referring Unavailable Stencel, Albert Primary Care Unavailable Faith PLATE CONDITIONER, Macy Attending Unavailable Allergies Allergy Classification Reported Allergen(s) Allergy Type Date of Onset Reaction(s) Facility (10 sources) Amoxicillin / Clavulanate; Translations: [Augmentin] Drug Allergy [facility] [place]: (20 sources) Aspirin; Translations: [aspirin] Drug Allergy 2 Shortness of breath [facility] (10 sources) Cefuroxime; Translations: [Ceftin] Drug Allergy [facility] [place] Work Phone: (10 sources) Cromolyn; Translations: [Intal] Drug Allergy [facility] [place] Work Phone: (10 sources) guaiFENesin; Translations: [Cough Syrup SYRP] Drug Allergy Wheezing [facility] [place] Work Phone: (10 sources) levoFLOXacin; Translations: [Levaquin] Drug Allergy [facility] [place] Work Phone: (10 sources) Sulfonamides (Antibiotic); Translations: [Sulfa Drugs] drug allergy [facility] [place] Work Phone: (20 sources) Amoxicillin Drug Allergy 2 itchy [facility] (20 sources) Clavulanate Drug Allergy 2 itchy [facility] (20 sources) Cromolyn; Translations: [CROMOLYN] Drug Allergy 2 Unknown [facility] (20 sources) levoFLOXacin; Translations: [LEVOFLOXACIN] Drug Allergy 2 Other [facility] (20 sources) Sulfonamides (Antibiotic); Translations: [SULFA (SULFONAMIDE ANTIBIOTICS)] Propensity to adverse reactions 2 Hives [facility] (9 sources) Amoxicillin / Clavulanate; Translations: [AMOXICILLIN-POT CLAVULANATE] Drug Allergy 3 Itching [facility] (9 sources) Cefuroxime; Translations: [CEFUROXIME] Drug Allergy 3 Itching [facility] Work Phone: (1 source) Amoxicillin Drug Allergy 5 [facility] Repository (1 source) Clavulanate Drug Allergy 5 [facility] Repository (1 source) Cromolyn Drug Allergy 5 [facility] Repository (1 source) levoFLOXacin Drug Allergy 5 [facility] Repository Medications Current Medications Medication Drug Class(es) Dates Sig (Normalized) Sig (Original) Albuterol Sulfate (20 sources) beta2-Adrenergic Agonist Start: 04-10-2018 take 1 puff(s) by inhalation every six hours Albuterol Sulfate (Ventolin Hfa) 90 mcg/actuation HFA aerosol inhaler Active 2 PUFF INHALATION EVERY 6 HOURS April 10, 2018 2:43pm Start: 04-10-2018 Albuterol Sulf ate (Ventolin Hfa) 90 mcg/actuation HFA aerosol inhaler Active 2 NMA INHALATION EVERY 6 HOURS as needed for Asthma April 10, 2018 1:00am Start: 04-10-2018 take 1 puff(s) by in halation every six hours Albuterol Sulfate (Ventolin Hfa) 90 mcg/actuation HFA aerosol inhaler Active 2 PUFF INHALATION EVERY 6 HOURS April 10, 2018 1:00am Start: 03-26-2018 take 2 puff(s) by in halation every four hours albuterol 90 mcg/actuation inhaler Inhale 2 puffs every 4 hours if needed. 03/26/2018 Active Start: 03-26-2018 take 2 puff(s) by in halation every four hours as needed Albuterol Sulfate HFA 108 (90 Base) MCG/ACT Inhalation Aerosol Solution INHALE 2 PUFFS EVERY 4 HOURS NEEDED Quantity: 1 Refills: 3 Ordered: 27-Feb-2021 Albert Maria MD Start : 26-Mar-2018 Active Start: 03-26-2018 take 2 puff(s) by in halation every four hours as needed ProAir HFA 108 (90 Base) MCG/ACT Inhalation Aerosol Solution INHALE 2 PUFFS EVERY 4 HOURS NEEDED Refills: 0 Start : 26-Mar-2018 Active 8.5 GM Inhaler azelastine hydrochloride 0.206 mg/actuat metered dose nasal spray (19 sources) Histamine-1 Receptor Antagonist Start: 05-20-2018 take 2 spray(s) nasal route once daily azelastine 205.5 mcg (0.15 %) spray,non-aerosol Administer 2 sprays into affected nostril(s) once daily. 05/20/2018 Active Start: 05-20-2018 Azelastine HCl - 0.15 % Nasal Solution 2 sprays nasal daily for allergy symptoms Quantity: 0 Refills: 0 Ordered: 20-May-2018 DO Start : 20-May-2018 Active Start: 05-20-2018 Azelastine HCl - 0.15 % Nasal Solution 2 sprays nasal daily for allergy symptoms Refills: 0 Start : 20-May-2018 Active 30 ML Grady Btl Start: 05-20-2018 Azelastine HCl - 0.15 % Nasal Solution 2 sprays nasal daily for allergy symptoms Refills: 0 Start : 20-May-2018 Active 30 ML Grady Btl take 2 spray(s) nasa l route once daily Azelastine HCl SOLN INSTILL 2 SPRAYS IN EACH NOSTRIL ONCE DAILY Refills: 0 Active 30 ML Bottle cetirizine hydrochloride 10 mg oral tablet (13 sources) Histamine-1 Receptor Antagonist take 1 tablet by mouth once daily cetirizine (ZyrTEC) 10 mg tablet Take 1 tablet (10 mg) by mouth once daily. Active Zyrtec TABS Leandro tity: 0 Refills: 0 Ordered: 25-Feb-2020 DO Active Zyrtec TABS Refi lls: 0 Active doxycycline hyclate 100 mg oral tablet (20 sources) Tetracycline-class Drug Start: 08-29-2021 take 1 tablet by mouth every twelve hours doxycycline (Vibra-Tabs) 100 mg tablet Take 1 tablet (100 mg) by mouth every 12 hours. 08/29/2021 Active Start: 08-29-2021 take 1 tablet by tj th every twelve hours doxycycline (Vibra-Tabs) 100 mg tablet Take 1 tablet (100 mg) by mouth in the morning and 1 tablet (100 mg) in the evening. 08/29/2021 Active Start: 02-02-2021 take 100 mg by mouth twice daily Doxycycline Hyclate Active 100 MG PO TWICE A DAY February 02, 2021 9:20am Start: 04-10-2018 End: 10-21-2018 take 1 capsule by mouth twice daily Doxycycline Hyclate 100 mg capsule Discontinued 100 mg PO TWICE A DAY April 10, 2018 1:00am October 21, 2018 8:29am fluticasone propionate 0.05 mg/actuat metered dose nasal spray (20 sources) Corticosteroid Start: 02-28-2022 take 2 spray(s) nasal route once daily fluticasone (Flonase) 50 mcg/actuation nasal spray Administer 2 sprays into affected nostril(s) once daily. 02/28/2022 Active Start: 02-28-2022 take 2 spray(s) nasa l route once daily Fluticasone Propionate 50 MCG/ACT Nasal Suspension USE 2 SPRAYS IN EACH NOSTRIL ONCE DAILY Quantity: 1 Refills: 11 Ordered: 28-Feb-2022 Albert Maria MD Start : 28-Feb-2022 Active Start: 04-10-2018 Fluticasone Pr opionate (Flonase Allergy Relief) 50 mcg/actuation spray,suspension Active 2 NMA INTRANASAL DAILY April 10, 2018 1:00am Start: 04-10-2018 Fluticasone Pr opionate (Flonase Allergy Relief) 50 mcg/actuation spray,suspension Active 2 SPRAY INTRANASAL DAILY April 10, 2018 1:00am Start: 03-26-2018 take 2 spray(s) nasa l route twice daily Fluticasone Propionate 50 MCG/ACT Nasal Suspension USE 2 SPRAYS IN EACH NOSTRIL TWICE DAILY. Quantity: 3 Refills: 3 Albert Maria MD Start : 26-Mar-2018 Active 9.9 ML Bottle Fluticasone Propion-Salmeterol (20 sources) Corticosteroid, beta2-Adrenergic Agonist Start: 05-27-2024 Fluticasone Propion-Salmeterol 500-50 mcg/dose blister with device Active 1 NMA INHALATION TWICE A DAY 3 May 27, 2024 11:44am Start: 05-27-2024 Fluticasone Pr opion-Salmeterol 500-50 mcg/dose blister with device Active 1 NMA INHALATION TWICE A DAY May 27, 2024 11:44am Start: 05-27-2024 Fluticasone Pr opion-Salmeterol 500-50 mcg/dose blister with device Active 1 NMA INHALATION TWICE A DAY May 27, 2024 10:44am Start: 06-03-2023 take 1 puff(s) by in halation twice daily fluticasone propion-salmeteroL (Advair Diskus) 500-50 mcg/dose diskus inhaler Indications: Severe persistent asthma without complication (Multi) Inhale 1 puff 2 times a day. 3 each 3 06/03/2023 Active Start: 06-03-2023 End: 06-02-2024 take 1 puff(s) by inhalation twice daily fluticasone propion-salmeteroL (Advair Diskus) 500-50 mcg/dose diskus inhaler Indications: Severe persistent asthma without complication (Multi) Inhale 1 puff 2 times a day. 3 each 3 06/03/2023 06/02/2024 Active Start: 09-04-2022 End: 09-04-2023 take 1 puff(s) by inhalation in the morning fluticasone propion-salmeteroL (Advair Diskus) 500-50 mcg/dose diskus inhaler Indications: Severe persistent asthma without complication Inhale 1 puff in the morning and 1 puff in the evening. 3 each 3 09/04/2022 09/04/2023 Active Start: 06-20-2020 take 1 puff(s) by in halation twice daily Fluticasone Propion-Salmeterol Active 1 PUFF INHALATION TWICE A DAY June 20, 2020 11:30am Start: 06-20-2020 End: 05-27-2024 take 1 dose by inhalation twice daily Fluticasone Propion-Salmeterol 1 EACH blister with device Discontinued 1 NMA INHALATION TWICE A DAY June 20, 2020 1:00am May 27, 2024 5:14pm Start: 06-20-2020 End: 05-27-2024 take 1 dose by inhalation twice daily Fluticasone Propion-Salmeterol 1 EACH blister with device Discontinued 1 NMA INHALATION TWICE A DAY June 20, 2020 12:00am May 27, 2024 4:14pm Start: 06-20-2020 take 1 puff(s) by in halation twice daily Fluticasone Propion-Salmeterol Active 1 PUFF INHALATION TWICE A DAY June 20, 2020 12:00am Start: 06-20-2020 take 1 puff(s) by in halation twice daily Fluticasone Propion-Salmeterol Active 1 PUFF INHALATION TWICE A DAY June 20, 2020 1:00am Start: 03-12-2018 Fluticasone Pr opion-Salmeterol (Advair Diskus) 500-50 mcg/dose blister with device Active 1 INH INHALATION TWICE A DAY March 12, 2018 8:18am Start: 03-12-2018 End: 05-27-2024 Fluticasone Propion-Salmeter ol (Advair Diskus) 500-50 mcg/dose blister with device Discontinued 1 NMA INHALATION TWICE A DAY March 12, 2018 12:00am May 27, 2024 11:11am Start: 03-12-2018 End: 05-27-2024 Fluticasone Propion-Salmeter ol (Advair Diskus) 500-50 mcg/dose blister with device Discontinued 1 NMA INHALATION TWICE A DAY March 11, 2018 11:00pm May 27, 2024 10:11am Start: 03-12-2018 Fluticasone Pr opion-Salmeterol (Advair Diskus) 500-50 mcg/dose blister with device Active 1 INH INHALATION TWICE A DAY March 11, 2018 11:00pm Start: 03-12-2018 Fluticasone Pr opion-Salmeterol (Advair Diskus) 500-50 mcg/dose blister with device Active 1 INH INHALATION TWICE A DAY March 12, 2018 12:00am Start: 03-05-2018 End: 09-04-2022 take 1 puff(s) by inhalation in the morning fluticasone propion-salmeteroL (Advair Diskus) 500-50 mcg/dose diskus inhaler Inhale 1 puff in the morning and 1 puff in the evening. 0 03/05/2018 09/04/2022 Discontinued (Reorder) Start: 03-05-2018 take 1 puff(s) by in halation twice daily Wixela Inhub 500-50 MCG/ACT Inhalation Aerosol Powder Breath Activated INHALE ONE PUFF TWICE A DAY Quantity: 3 Refills: 3 Ordered: 29-Aug-2021 Albert Maria MD Start : 05-Mar-2018 Active 12 hr guaiFENesin 600 mg extended release oral tablet (5 sources) Start: 05-27-2024 take 1 tablet by mouth every twelve hours as needed for cough Guaifenesin 600 mg tablet extended release 12hr Active 600 mg PO Q12H as needed for cough May 27, 2024 1:00am irbesartan 150 mg oral tablet (20 sources) Angiotensin 2 Receptor Dorita Start: 03-26-2018 End: 05-28-2025 take 1 tablet by mouth once daily Irbesartan (Avapro) 150 mg tablet Active 150 mg PO DAILY April 10, 2018 1:00am Multivitamin (Multiple Vitamins) tablet (20 sources) Start: 04-10-2018 take 1 tablet by mouth once daily Multivitamin (Multiple Vitamins) tablet Active 1 TABLET PO DAILY April 10, 2018 2:43pm Start: 04-10-2018 Multivitamin ( Multiple Vitamins) tablet Active 1 {tbl} PO DAILY April 10, 2018 1:00am Start: 04-10-2018 Multivitamin ( Multiple Vitamins) tablet Active 1 {tbl} PO DAILY April 10, 2018 12:00am Start: 04-10-2018 take 1 tablet by tj th once daily Multivitamin (Multiple Vitamins) tablet Active 1 TABLET PO DAILY April 10, 2018 12:00am Start: 04-10-2018 take 1 tablet by tj th once daily Multivitamin (Multiple Vitamins) tablet Active 1 TABLET PO DAILY April 10, 2018 1:00am Completed/Discontinued Medications Medication Drug Class(es) Dates Sig (Normalized) Sig (Original) Budesonide (10 sources) Corticosteroid Pulmicort SUSP U SE DIRECTED. Quantity: 0 Refills: 0 Ordered: 17-Feb-2019 DO Active Pulmicort SUSP U SE DIRECTED. Refills: 0 Active 30 x 2 ML Plas Cont loratadine 10 mg oral tablet (20 sources) Start: 04-10-2018 End: 03-21-2023 take 1 tablet by mouth once daily Loratadine (Claritin) 10 mg tablet Discontinued 10 mg PO DAILY April 10, 2018 1:00am March 21, 2023 11:19am montelukast 10 mg oral tablet (20 sources) Leukotriene Receptor Antagonist Start: 03-26-2018 End: 06-02-2024 take 1 tablet by mouth once daily in the evening Montelukast (Singulair) 10 mg tablet Discontinued 10 mg PO EVERY EVENING April 10, 2018 1:00am May 27, 2024 5:14pm omalizumab 150 mg injection (20 sources) Anti-IgE Start: 05-23-2020 End: 05-23-2020 inject 150 mg by subcutaneous injection once omalizumab 150 mg subcutaneous solution Discontinued 150 MG SC ONCE May 23, 2020 9:46am May 23, 2020 10:13am Start: 04-25-2020 End: 04-25-2020 inject 150 mg by subcutaneous injection once omalizumab 150 mg subcutaneous solution Discontinued 150 MG SC ONCE April 25, 2020 10:49am April 25, 2020 12:54pm Start: 03-18-2020 End: 03-18-2020 inject 150 mg by subcutaneous injection once omalizumab 150 mg subcutaneous solution Discontinued 150 MG SC ONCE March 18, 2020 10:00am March 18, 2020 10:08am Start: 02-19-2020 End: 02-19-2020 inject 150 mg by subcutaneous injection once omalizumab 150 mg subcutaneous solution Discontinued 150 MG SC ONCE February 19, 2020 8:51am February 19, 2020 9:14am Start: 01-22-2020 End: 01-22-2020 inject 150 mg by subcutaneous injection once omalizumab 150 mg subcutaneous solution Discontinued 150 MG SC ONCE January 22, 2020 9:45am January 22, 2020 10:26am Start: 12-25-2019 End: 12-25-2019 inject 150 mg by subcutaneous injection once omalizumab 150 mg subcutaneous solution Discontinued 150 MG SC ONCE December 25, 2019 8:51am December 25, 2019 9:34am Start: 11-27-2019 End: 11-27-2019 inject 150 mg by subcutaneous injection once omalizumab 150 mg subcutaneous solution Discontinued 150 MG SC ONCE November 27, 2019 8:45am November 27, 2019 9:25am Start: 10-30-2019 End: 10-30-2019 inject 150 mg by subcutaneous injection once omalizumab 150 mg subcutaneous solution Discontinued 150 MG SC ONCE October 30, 2019 8:47am October 30, 2019 9:07am Start: 10-02-2019 End: 10-02-2019 inject 150 mg by subcutaneous injection once omalizumab 150 mg subcutaneous solution Discontinued 150 MG SC ONCE October 02, 2019 8:49am October 02, 2019 9:09am Start: 09-04-2019 End: 09-04-2019 inject 150 mg by subcutaneous injection once omalizumab 150 mg subcutaneous solution Discontinued 150 MG SC ONCE September 04, 2019 8:49am September 04, 2019 9:08am Start: 08-07-2019 End: 08-07-2019 inject 150 mg by subcutaneous injection once omalizumab 150 mg subcutaneous solution Discontinued 150 MG SC ONCE August 07, 2019 8:48am August 07, 2019 9:13am Start: 07-10-2019 End: 07-10-2019 inject 150 mg by subcutaneous injection once omalizumab 150 mg subcutaneous solution Discontinued 150 MG SC ONCE July 10, 2019 9:51am July 10, 2019 10:16am Start: 06-12-2019 End: 06-12-2019 inject 150 mg by subcutaneous injection once omalizumab 150 mg subcutaneous solution Discontinued 150 MG SC ONCE June 12, 2019 9:54am June 12, 2019 10:27am Start: 05-15-2019 End: 05-15-2019 inject 150 mg by subcutaneous injection once omalizumab 150 mg subcutaneous solution Discontinued 150 MG SC ONCE May 15, 2019 9:49am May 15, 2019 10:31am Start: 04-14-2019 End: 04-14-2019 inject 150 mg by subcutaneous injection once omalizumab 150 mg subcutaneous solution Discontinued 300 MG SC ONCE April 14, 2019 10:00am April 14, 2019 9:40am Start: 04-14-2019 End: 04-14-2019 inject 150 mg by subcutaneous injection once omalizumab 150 mg subcutaneous solution Discontinued 300 MG SC ONCE April 14, 2019 10:00am April 14, 2019 9:40am Start: 04-14-2019 End: 04-14-2019 inject 150 mg by subcutaneous injection once omalizumab 150 mg subcutaneous solution Discontinued 300 MG SC ONCE April 14, 2019 10:00am April 14, 2019 9:40am Start: 04-14-2019 End: 04-14-2019 inject 150 mg by subcutaneous injection once omalizumab 150 mg subcutaneous solution Discontinued 300 MG SC ONCE April 14, 2019 10:00am April 14, 2019 9:40am Start: 03-17-2019 End: 03-17-2019 inject 150 mg by subcutaneous injection once omalizumab 150 mg subcutaneous solution Discontinued 300 MG SC ONCE March 17, 2019 10:00am March 17, 2019 9:40am Start: 03-17-2019 End: 03-17-2019 inject 150 mg by subcutaneous injection once omalizumab 150 mg subcutaneous solution Discontinued 300 MG SC ONCE March 17, 2019 10:00am March 17, 2019 9:40am Start: 03-17-2019 End: 03-17-2019 inject 150 mg by subcutaneous injection once omalizumab 150 mg subcutaneous solution Discontinued 300 MG SC ONCE March 17, 2019 10:00am March 17, 2019 9:40am Start: 03-17-2019 End: 03-17-2019 inject 150 mg by subcutaneous injection once omalizumab 150 mg subcutaneous solution Discontinued 300 MG SC ONCE March 17, 2019 10:00am March 17, 2019 9:40am Start: 02-11-2019 End: 02-11-2019 inject 150 mg by subcutaneous injection once omalizumab 150 mg subcutaneous solution Discontinued 150 MG SC ONCE February 11, 2019 8:51am February 11, 2019 9:21am Start: 01-13-2019 End: 01-13-2019 inject 150 mg by subcutaneous injection once omalizumab 150 mg subcutaneous solution Discontinued 300 MG SC ONCE January 13, 2019 9:00am January 13, 2019 7:52am Start: 01-13-2019 End: 01-13-2019 inject 150 mg by subcutaneous injection once omalizumab 150 mg subcutaneous solution Discontinued 300 MG SC ONCE January 13, 2019 9:00am January 13, 2019 7:52am Start: 01-13-2019 End: 01-13-2019 inject 150 mg by subcutaneous injection once omalizumab 150 mg subcutaneous solution Discontinued 300 MG SC ONCE January 13, 2019 9:00am January 13, 2019 7:52am Start: 01-13-2019 End: 01-13-2019 inject 150 mg by subcutaneous injection once omalizumab 150 mg subcutaneous solution Discontinued 300 MG SC ONCE January 13, 2019 9:00am January 13, 2019 7:52am Start: 12-16-2018 End: 12-16-2018 inject 150 mg by subcutaneous injection once omalizumab 150 mg subcutaneous solution Discontinued 150 MG SC ONCE December 16, 2018 9:00am December 16, 2018 8:16am Start: 12-16-2018 End: 12-16-2018 inject 150 mg by subcutaneous injection once omalizumab 150 mg subcutaneous solution Discontinued 150 MG SC ONCE December 16, 2018 9:00am December 16, 2018 8:16am Start: 12-16-2018 End: 12-16-2018 inject 150 mg by subcutaneous injection once omalizumab 150 mg subcutaneous solution Discontinued 150 MG SC ONCE December 16, 2018 9:00am December 16, 2018 8:16am Start: 12-16-2018 End: 12-16-2018 inject 150 mg by subcutaneous injection once omalizumab 150 mg subcutaneous solution Discontinued 150 MG SC ONCE December 16, 2018 9:00am December 16, 2018 8:16am Start: 11-18-2018 End: 11-18-2018 inject 150 mg by subcutaneous injection once omalizumab 150 mg subcutaneous solution Discontinued 300 MG SC ONCE November 18, 2018 9:00am November 18, 2018 7:06am Start: 11-18-2018 End: 11-18-2018 inject 150 mg by subcutaneous injection once omalizumab 150 mg subcutaneous solution Discontinued 300 MG SC ONCE November 18, 2018 9:00am November 18, 2018 7:06am Start: 11-18-2018 End: 11-18-2018 inject 150 mg by subcutaneous injection once omalizumab 150 mg subcutaneous solution Discontinued 300 MG SC ONCE November 18, 2018 9:00am November 18, 2018 7:06am Start: 11-18-2018 End: 11-18-2018 inject 150 mg by subcutaneous injection once omalizumab 150 mg subcutaneous solution Discontinued 300 MG SC ONCE November 18, 2018 9:00am November 18, 2018 7:06am Start: 10-21-2018 End: 10-21-2018 inject 150 mg by subcutaneous injection once omalizumab 150 mg subcutaneous solution Discontinued 300 MG SC ONCE October 21, 2018 9:00am October 21, 2018 8:35am Start: 10-21-2018 End: 10-21-2018 inject 150 mg by subcutaneous injection once omalizumab 150 mg subcutaneous solution Discontinued 300 MG SC ONCE October 21, 2018 9:00am October 21, 2018 8:35am Start: 10-21-2018 End: 10-21-2018 inject 150 mg by subcutaneous injection once omalizumab 150 mg subcutaneous solution Discontinued 300 MG SC ONCE October 21, 2018 9:00am October 21, 2018 8:35am Start: 10-21-2018 End: 10-21-2018 inject 150 mg by subcutaneous injection once omalizumab 150 mg subcutaneous solution Discontinued 300 MG SC ONCE October 21, 2018 9:00am October 21, 2018 8:35am Start: 09-23-2018 End: 09-23-2018 inject 150 mg by subcutaneous injection once omalizumab 150 mg subcutaneous solution Discontinued 300 MG SC ONCE September 23, 2018 7:15am September 23, 2018 6:13am Start: 09-23-2018 End: 09-23-2018 inject 150 mg by subcutaneous injection once omalizumab 150 mg subcutaneous solution Discontinued 300 MG SC ONCE September 23, 2018 7:15am September 23, 2018 6:13am Start: 09-23-2018 End: 09-23-2018 inject 150 mg by subcutaneous injection once omalizumab 150 mg subcutaneous solution Discontinued 300 MG SC ONCE September 23, 2018 7:15am September 23, 2018 6:13am Start: 09-23-2018 End: 09-23-2018 inject 150 mg by subcutaneous injection once omalizumab 150 mg subcutaneous solution Discontinued 300 MG SC ONCE September 23, 2018 7:15am September 23, 2018 6:13am Start: 08-25-2018 End: 08-25-2018 inject 150 mg by subcutaneous injection once omalizumab 150 mg subcutaneous solution Discontinued 300 MG SC ONCE August 25, 2018 9:00am August 25, 2018 8:22am Start: 08-25-2018 End: 08-25-2018 inject 150 mg by subcutaneous injection once omalizumab 150 mg subcutaneous solution Discontinued 300 MG SC ONCE August 25, 2018 9:00am August 25, 2018 8:22am Start: 08-25-2018 End: 08-25-2018 inject 150 mg by subcutaneous injection once omalizumab 150 mg subcutaneous solution Discontinued 300 MG SC ONCE August 25, 2018 9:00am August 25, 2018 8:22am Start: 08-25-2018 End: 08-25-2018 inject 150 mg by subcutaneous injection once omalizumab 150 mg subcutaneous solution Discontinued 300 MG SC ONCE August 25, 2018 9:00am August 25, 2018 8:22am Start: 07-28-2018 End: 07-28-2018 inject 150 mg by subcutaneous injection once omalizumab 150 mg subcutaneous solution Discontinued 300 MG SC ONCE July 28, 2018 9:00am July 28, 2018 7:50am Start: 07-28-2018 End: 07-28-2018 inject 150 mg by subcutaneous injection once omalizumab 150 mg subcutaneous solution Discontinued 300 MG SC ONCE July 28, 2018 9:00am July 28, 2018 7:50am Start: 07-28-2018 End: 07-28-2018 inject 150 mg by subcutaneous injection once omalizumab 150 mg subcutaneous solution Discontinued 300 MG SC ONCE July 28, 2018 9:00am July 28, 2018 7:50am Start: 07-28-2018 End: 07-28-2018 inject 150 mg by subcutaneous injection once omalizumab 150 mg subcutaneous solution Discontinued 300 MG SC ONCE July 28, 2018 9:00am July 28, 2018 7:50am Start: 06-30-2018 End: 06-30-2018 inject 150 mg by subcutaneous injection once omalizumab 150 mg subcutaneous solution Discontinued 300 MG SC ONCE June 30, 2018 10:08am June 30, 2018 10:57am Start: 06-06-2018 End: 06-06-2018 inject 150 mg by subcutaneous injection once omalizumab 150 mg subcutaneous solution Discontinued 300 MG SC ONCE June 06, 2018 11:00am June 06, 2018 9:25am Start: 06-06-2018 End: 06-06-2018 inject 150 mg by subcutaneous injection once omalizumab 150 mg subcutaneous solution Discontinued 300 MG SC ONCE June 06, 2018 11:00am June 06, 2018 9:25am Start: 06-06-2018 End: 06-06-2018 inject 150 mg by subcutaneous injection once omalizumab 150 mg subcutaneous solution Discontinued 300 MG SC ONCE June 06, 2018 11:00am June 06, 2018 9:25am Start: 06-06-2018 End: 06-06-2018 inject 150 mg by subcutaneous injection once omalizumab 150 mg subcutaneous solution Discontinued 300 MG SC ONCE June 06, 2018 11:00am June 06, 2018 9:25am Start: 05-29-2018 omalizumab (Xo lair) 150 mg injection Inject 150 mg under the skin every 28 (twenty-eight) days. INJECT 150 MG SUBCUTANEOUSLY EVERY 4 WEEKS 05/29/2018 Active Start: 05-29-2018 Xolair 150 MG Subcutaneous Solution Reconstituted INJECT 150 MG SUBCUTANEOUSLY EVERY 4 WEEKS. Quantity: 0 Refills: 0 Ordered: 29-May-2018 DO Start : 29-May-2018 Active Start: 05-07-2018 End: 05-07-2018 inject 150 mg by subcutaneous injection once omalizumab 150 mg subcutaneous solution Discontinued 300 MG SC ONCE May 07, 2018 11:00am May 07, 2018 11:02am theophylline 300 mg extended release oral capsule (20 sources) Methylxanthine Start: 04-10-2018 End: 09-23-2018 take 1 capsule by mouth twice daily Theophylline 300 mg capsule,extended release 24hr Discontinued 300 mg PO TWICE A DAY April 10, 2018 1:00am September 23, 2018 7:34am Problems Active Problems Problem Classification Problem Date Documented Date Episodic/Chronic Asthma (20 sources) Asthma; Translations: [Asthma, unspecified type, unspecified] Onset: 11-22-2021 Chronic Diverticulosis and diverticulitis (1 source) Diverticulosis of large intestine without perforation or abscess without bleeding; Translations: [Dvrtclos of lg int w/o perforation or abscess w/o bleeding] Onset: 11-22-2021 Chronic Essential hypertension (20 sources) Hypertensive disorder; Translations: [Unspecified essential hypertension] [...] [Body Mass Index 39.0-39.9, adult] Chronic Other nutritional; endocrine; and metabolic disorders (6 sources) Morbid obesity; Translations: [Morbid (severe) obesity due to excess calories] Onset: 09-04-2022 09-18-2023 Chronic Residual codes; unclassified (1 source) Menopause present; Translations: [Menopause] Chronic Residual codes; unclassified (6 sources) Menopause present; Translations: [Symptomatic menopausal or female climacteric states] Episodic Residual codes; unclassified (20 sources) History of nasal sinus surgery; Translations: [Other specified postprocedural states] 03-12-2018 Episodic Unclassified (5 sources) Patient encounter status; Translations: [Screening for breast cancer] 03-23-2024 Past or Other Problems Problem Classification Problem Date Documented Da te Episodic/Chronic Allergic reactions (1 source) Allergy status to sulfonamides status; Translations: [Allergy status to sulfonamides] Onset: 11-22-2021 Episodic Disorders of lipid metabolism (17 sources) Hyperlipidemia; Translations: [Other and unspecified hyperlipidemia] Onset: 11-22-2021 Resolved: 09-04-2022 09-04-2022 Chronic Other and unspecified benign neoplasm (3 sources) Personal history of colonic polyps; Translations: [Personal history of colonic polyps] Onset: 11-22-2021 Episodic Other and unspecified benign neoplasm (1 source) Benign neoplasm of sigmoid colon; Translations: [Benign neoplasm of sigmoid colon] Onset: 11-22-2021 Episodic Other screening for suspected conditions (not mental disorders or infectious disease) (10 sources) Encounter for screening mammogram for malignant neoplasm of breast; Translations: [Encounter for screening for malignant neoplasm of colon] Onset: 11-22-2021 Episodic Unclassified (6 sources) Onset: 09-04-2022 Resolved: 09-21-2024 09-04-2022 NEGATED: Highlighted row has not occurred!Residual codes; unclassified (3 sources) Disease Episodic Results Test Name Value Interpretation Reference Range Facility Pulmonary Visit Reporton Pulmonary Visit Report [facility] of [address] [place] [address] OFFICE VISIT Date of Service: 05/27/24 MR#: [id number] Acct: [id number] Name: SAMEER CHOWDHURY Rep #: [id number] : 1955 Provider: Pricilla Benavides NP Age/Sex: 68/F [place] [facility] [place] Status: Signed Assessment and Plan Assessment and Plan (1) Severe persistent asthma: Status: Chronic Qualifiers: Asthma complication type: uncomplicated Qualified Code(s): J45.50 - Severe persistent asthma, uncomplicated Plan: Last PFT was from 2018. I recommend repeating at this time, the patient does not want to proceed. She would like to consider decreasing her Advair dosing but I do not feel comfortable proceeding with de-escalating therapy without a current PFT. The patient reports understanding. I have recommended continuing with all maintenance medications, including Xolair injections. Refills were provided today. Use albuterol on an as-needed basis. The sick policy was reviewed with patient today and she understands to contact the office with any signs of new or worsening symptoms. RSV vaccine was discussed at length with patient today and is recommended. Medications: New montelukast (Singulair) 10 mg PO QPM 90 tabs 3RF Changed From fluticasone propion-salmeterol 500-50 mcg/dose 1 puff inhalation BID To fluticasone propion-salmeterol 500-50 mcg/dose 1 ea inhalation BID 3 ea 3RF Plan Details Follow Up: 1 Year (LMR) HPI HPI Comments Details: This 68 year old female patient presents to the office today for follow-up of her severe persistent asthma. She is ambulatory and currently on room air. She has not been seen in the ED or urgent care for respiratory illness. She has required antibiotics for sinus infection and did not have respiratory symptoms. She did not require prednisone for any breathing problems. She continues with use of Advair twice daily. She denies any medication side effect such as sore throat or thrush as she is rinsing her mouth out after use. She is also compliant with Flonase, Claritin, Singulair daily and Xolair monthly injections. She has not had difficulty with injection site reaction. 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 She has not recently needed to use her albuterol rescue inhaler. She denies shortness of breath, cough. She denies any wheezing, chest tightness, chest pain or palpitations. She denies fever, chills or body aches. She denies headache but does experience occasional dry mouth. She has received her COVID and influenza vaccine. [employer] Rx [facility] Intake Vital Signs 03/21/23 09:10 11/08/23 09:34 03/27/24 09:40 05/22/24 09:33 05/27/24 06:26 Height 5 ft 2 in 5 ft 2 in 5 ft 2 in 5 ft 2 in 5 ft 2 in Weight: 216 lb BMI 39.4 BP 121/72 H Blood Pressure Location Lt brachial Position Sitting Respiration 14 Pulse 85 Pulse Source Monitor Temp 97.3 F L Temperature Source Temporal Artery Pulse Oximetry (%) 99 Oxygen Delivery Method room air Intake Visit Reasons: 1 Y FU Supervisor Chemical Required: No DME Vendor: None Accompanied by: Self Is patient in pain?: No Allergies aspirin Adverse Reaction (Intermediate, Verified 05/27/24 10:11) asthma exacerbation cromolyn (From Intal) Adverse Reaction (Intermediate, Verified 05/27/24 10:11) asthma exacerbation levofloxacin (From Levaquin) Adverse Reaction (Intermediate, Verified 05/27/24 10:11) joint pain amoxicillin (From Augmentin) Adverse Reaction (Mild, Verified 05/27/24 10:11) itchy clavulanic acid (From Augmentin) Adverse Reaction (Mild, Verified 05/27/24 10:11) itchy Sulfa (Sulfonamide Antibiotics) Adverse Reaction (Mild, Verified 05/27/24 10:11) Rash Medications ???Medication ???Instructions ???Recorded ???Confirmed ???Type albuterol sulfate 90 mcg/actuation 2 puff inhalation Q6H PRN Asthma 04/10/18 05/27/24 History aerosol inhaler (Ventolin HFA) fluticasone propionate 50 2 spray intranasal DAILY 04/10/18 05/27/24 History mcg/actuation nasal spray,suspension (Flonase Allergy Relief) irbesartan 150 mg tablet (Avapro) 150 mg PO DAILY 04/10/18 05/27/24 History multivitamin (Multiple Vitamins 1 tab PO DAILY 04/10/18 05/27/24 History tablet) fluticasone 500 mcg-salmeterol 50 1 ea inhalation BID #3 ea 05/27/24 05/27/24 Rx mcg/dose blistr powdr for inhalation guaifenesin 600 mg tablet, 600 mg PO Q12H PRN 05/27/24 05/27/24 History extended release 12 hr montelukast 10 mg tablet 10 mg PO QPM #90 tabs 05/27/24 05/27/24 Rx (Singulair) Have you fallen in the past year?: No PFSH Medical History Severe persistent asthma Asthma Surgical History (Re (more content not included)... Normal [facility] BI MAMMO BILATERAL SCREENING TOMOSYNTHESISon 04-13-2024 BI MAMMO BILATERAL SCREENING TOMOSYNTHESIS Interpreted By: Mickie Gutierrez, STUDY: BI MAMMO BILATERAL SCREENING TOMOSYNTHESIS; 04/13/2024 8:53 am ACCESSION NUMBER(S): [id number] ORDERING CLINICIAN: ALBERT MARIA INDICATION: Screening. COMPARISON: Digital mammograms dated 04/02/2023 FINDINGS: CC and MLO 2D digital mammograms and digital breast tomosynthesis images were obtained of the bilateral breasts. 3-D volume images were reconstructed in 4 views at an independent workstation as 1 mm slices through the breasts in both the CC and MLO projections. Density: There are scattered areas of fibroglandular density. No discrete mass or focal asymmetry is identified. No suspicious microcalcifications or foci of architectural distortion are seen. There has been no significant change. This study was interpreted with CAD. IMPRESSION: No mammographic evidence of malignancy. BI-RADS CATEGORY: BI-RADS Category: 1 Negative. Recommendation: Annual Screening. Recommended Date: 1 Year. Laterality: Bilateral. MACRO: None Signed by: Mickie Gutierrez 04/13/2024 10:40 AM Dictation workstation: [id number] [facility] DBT Breast - bilateralon No mammographic evidence of malignancy. BI-RADS CATEGORY: BI-RADS Category: 1 Negative. Recommendation: Annual Screening. Recommended Date: 1 Year. Laterality: Bilateral. MACRO: None Signed by: Mickie Gutierrez 04/13/2024 10:40 AM Dictation workstation: [id number] MMODAL Interpreted By: Mickie Gutierrez, STUDY: BI MAMMO BILATERAL SCREENING TOMOSYNTHESIS; 04/13/2024 8:53 am ACCESSION NUMBER(S): [id number] ORDERING CLINICIAN: ALBERT MARIA INDICATION: Screening. COMPARISON: Digital mammograms dated 04/02/2023 FINDINGS: CC and MLO 2D digital mammograms and digital breast tomosynthesis images were obtained of the bilateral breasts. 3-D volume images were reconstructed in 4 views at an independent workstation as 1 mm slices through the breasts in both the CC and MLO projections. Density: There are scattered areas of fibroglandular density. No discrete mass or focal asymmetry is identified. No suspicious microcalcifications or foci of architectural distortion are seen. There has been no significant change. This study was interpreted with CAD. [facility] MMODAL Mickie Gutierrez MD - 04/13/2024 Interpreted By: Mickie Gutierrez, STUDY: BI MAMMO BILATERAL SCREENING TOMOSYNTHESIS; 04/13/2024 8:53 am ACCESSION NUMBER(S): [id number] ORDERING CLINICIAN: ALBERT MARIA INDICATION: Screening. COMPARISON: Digital mammograms dated 04/02/2023 FINDINGS: CC and MLO 2D digital mammograms and digital breast tomosynthesis images were obtained of the bilateral breasts. 3-D volume images were reconstructed in 4 views at an independent workstation as 1 mm slices through the breasts in both the CC and MLO projections. Density: There are scattered areas of fibroglandular density. No discrete mass or focal asymmetry is identified. No suspicious microcalcifications or foci of architectural distortion are seen. There has been no significant change. This study was interpreted with CAD. IMPRESSION: No mammographic evidence of malignancy. BI-RADS CATEGORY: BI-RADS Category: 1 Negative. Recommendation: Annual Screening. Recommended Date: 1 Year. Laterality: Bilateral. MACRO: None Signed by: Mickie Gutierrez 04/13/2024 10:40 AM Dictation workstation: [id number] [facility] Work Phone: Radiology Study observation (narrative) [facility] Work Phone: DBT Breast - bilateralOrdere d By: Mickie Gutierrez on 04-13-2024 [facility] Work Phone: CBC panel Auto (Bld)on 03-17 Erythrocyte distribution width (RBC) [Ratio] 12.7 % Normal 11.5-14.5 [facility] Comment on above: Performed By: #### 5 8410-2 #### YOLIS YOUNG ([id number]) [facility] ([facility]) [address] [place] [address] 45624 Hematocrit (Bld) [Volume fraction] 47.1 % High 36.0-46.0 [facility] Comment on above: Performed By: #### 5 8410-2 #### YOLIS YOUNG ([id number]) [facility] ([facility]) [address] [place] [address] 88481 Hemoglobin (Bld) [Mass/Vol] 14.9 g/dL Normal 12.0-16.0 [facility] Comment on above: Performed By: #### 5 8410-2 #### YOLIS YOUNG ([id number]) [facility] ([facility]) [address] [place] [address] 30653 MCH (RBC) [Entitic mass] 31.4 pg Normal 26.0-34.0 [facility] Comment on above: Performed By: #### 5 8410-2 #### YOLIS YOUNG ([id number]) [facility] ([facility]) [address] [place] [address] 68776 MCHC (RBC) [Mass/Vol] 31.6 g/dL Low 32.0-36.0 [facility] Comment on above: Performed By: #### 5 8410-2 #### YOLIS YOUNG ([id number]) [facility] ([facility]) [address] [place] [address] 50530 MCV (RBC) [Entitic vol] 99 fL Normal 80-100 [facility] Comment on above: Performed By: #### 5 8410-2 #### YOLIS YOUNG ([id number]) [facility] ([facility]) [address] [place] [address] 85898 Nucleated RBC/100 WBC (Bld) [Ratio] 0.0 /100 WBCs Normal 0.0-0.0 [facility] Comment on above: Performed By: #### 5 8410-2 #### YOLIS YOUNG ([id number]) [facility] ([facility]) [address] [place] [address] 64883 Platelets (Bld) [#/Vol] 276 x10*3/uL Normal 150-450 [facility] Comment on above: Performed By: #### 5 8410-2 #### YOLIS YOUNG ([id number]) [facility] ([facility]) [address] [place] [address] 47018 RBC (Bld) [#/Vol] 4.75 x10*6/uL Normal 4.00-5.20 [facility] Comment on above: Performed By: #### 5 8410-2 #### YOLIS YOUNG ([id number]) [facility] ([facility]) [address] [place] [address] 62068 WBC (Bld) [#/Vol] 6.6 x10*3/uL Normal 4.4-11.3 [facility] Comment on above: Performed By: #### 5 8410-2 #### YOLIS YOUNG ([id number]) [facility] ([facility]) [address] [place] [address] Comprehensive metabolic 2000 panelon 03-17-2024 Albumin BCP dye [Mass/Vol] 4.0 g/dL Normal 3.4-5.0 [facility] Comment on above: Performed By: #### 2 4323-8 #### YOLIS YOUNG ([id number]) [facility] ([facility]) [address] [place] [address] 71244 ALP [Catalytic activity/Vol] 56 U/L Normal 33-136 [facility] Comment on above: Performed By: #### 2 4323-8 #### YOLIS YOUNG ([id number]) [facility] ([facility]) [address] [place] [address] 47791 ALT With P-5'-P [Catalytic activity/Vol] 25 U/L Normal 7-45 [facility] Comment on above: Result Comment: Monie ents treated with Sulfasalazine may generate falsely decreased results for ALT. Performed By: #### 2 4323-8 #### YOLIS YOUNG ([id number]) [facility] ([facility]) [address] [place] [address] 85461 Anion gap [Moles/Vol] 10 mmol/L Normal 10-20 [facility] Comment on above: Performed By: #### 2 4323-8 #### YOLIS YOUNG ([id number]) [facility] ([facility]) [address] [place] [address] 79781 AST With P-5'-P [Catalytic activity/Vol] 23 U/L Normal 9-39 [facility] Comment on above: Performed By: #### 2 4323-8 #### YOLIS YOUNG ([id number]) [facility] ([facility]) [address] [place] [address] 12501 Bilirubin [Mass/Vol] 0.7 mg/dL Normal 0.0-1.2 [facility] Comment on above: Performed By: #### 2 4323-8 #### YOLIS YOUNG ([id number]) [facility] ([facility]) [address] [place] [address] 86255 Calcium [Mass/Vol] 9.0 mg/dL Normal 8.6-10.3 [facility] Comment on above: Performed By: #### 2 4323-8 #### YOLIS YOUNG ([id number]) [facility] ([facility]) [address] [place] [address] 20341 Chloride [Moles/Vol] 105 mmol/L Normal 98-107 [facility] Comment on above: Performed By: #### 2 4323-8 #### YOLIS YOUNG ([id number]) [facility] ([facility]) [address] [place] [address] 81303 CO2 [Moles/Vol] 28 mmol/L Normal 21-32 [facility] Comment on above: Performed By: #### 2 4323-8 #### YOLIS YOUNG ([id number]) [facility] ([facility]) [address] [place] [address] 18934 Creatinine [Mass/Vol] 0.72 mg/dL Normal 0.50-1.05 [facility] Comment on above: Performed By: #### 2 4323-8 #### YOLIS YOUNG ([id number]) [facility] ([facility]) [address] [place] [address] 51208 GFR/1.73 sq M.predicted MDRD (S/P/Bld) [Vol rate/Area] mL/min/{1.73_m2} Normal >60 [facility] Comment on above: Result Comment: Calc ulations of estimated GFR are performed using the 2020 CKD-EPI Study Refit equation without the race variable for the IDMS-Traceable creatinine methods. https://jasn.asnjournals.org/content//ASN.8682243 988 Performed By: #### 2 4323-8 #### YOLIS YOUNG ([id number]) [facility] ([facility]) [address] [place] [address] 51402 Glucose [Mass/Vol] 91 mg/dL Normal 74-99 [facility] Comment on above: Performed By: #### 2 4323-8 #### YOLIS YOUNG ([id number]) [facility] ([facility]) [address] [place] [address] 61378 Potassium [Moles/Vol] 4.2 mmol/L Normal 3.5-5.3 [facility] Comment on above: Performed By: #### 2 4323-8 #### YOLIS YOUNG ([id number]) [facility] ([facility]) [address] [place] [address] 59245 Protein [Mass/Vol] 6.3 g/dL Low 6.4-8.2 [facility] Comment on above: Performed By: #### 2 4323-8 #### YOLIS YOUNG ([id number]) [facility] ([facility]) [address] [place] [address] 52506 Sodium [Moles/Vol] 139 mmol/L Normal 136-145 [facility] Comment on above: Performed By: #### 2 4323-8 #### YOLIS YOUNG ([id number]) [facility] ([facility]) [address] [place] [address] 09049 Urea nitrogen [Mass/Vol] 18 mg/dL Normal 6-23 [facility] Comment on above: Performed By: #### 2 4323-8 #### YOLIS YOUNG ([id number]) [facility] ([facility]) [address] [place] [address] 43763 Mamm - Screening Mammogram w / Tomosynthesison 03-27-2022 MG Breast Screening Normal [facility] Work Phone: Office Visit (Primary Care T xt/Forms)on 02-28-2022 Follow-up visit Diagnoses/Problems Assessed Encounter for immunization (V03.89) (Z23) Breast cancer screening by mammogram (V76.12) (Z12.31) Asthma (493.90) (J45.909) Hypertension (401.9) (I10) Class 2 obesity with body mass index (BMI) of 39.0 to 39.9 in adult (278.00,V85.39) (E66.9,Z68.39) Orders Asthma Start: Fluticasone Propionate 50 MCG/ACT Nasal Suspension; USE 2 SPRAYS IN EACH NOSTRIL ONCE DAILY Renew: Albuterol Sulfate HFA 108 (90 Base) MCG/ACT Inhalation Aerosol Solution (ProAir HFA); INHALE 2 PUFFS EVERY 4 HOURS NEEDED Breast cancer screening by mammogram Mamm - Screening Mammogram w/ Tomosynthesis; Status:Hold For - Scheduling; Requested for:[id number]; Radiologist to Determine Optimal Study : Y What are the patient's signs and symptoms ? : Annual Screening Mammogram Patient Discussion/Summary 6 month appointment Chief Complaint 6 MO FU. REV LABS History of Present Illness Since the last office visit there have been no interval operations, hospitalizations, important illnesses or injuries. copd- no exacerbations since last ov. ear and sinus pressure and congestion L side only has aysha cole and heber russell HTN-Takes and tolerates meds without side effects. No alcohol. no tobacco. no exercise. low salt. Reviewed recommendation for 150 minutes of exercise per week including 2 days of weight training if over age 50 Review of Systems General-no fatigue weight to within 10 pounds ENT no problems with vision swallowing Cardiac no chest pains palpitations change in exercise tolerance or capacity Pulmonary no cough shortness of breath GI no heartburn or abdominal pain Musculoskeletal no joint pains Active Problems Problems Asthma (493.90) (J45.909) Body mass index (BMI) of 39.0 to 39.9 in adult (V85.39) (Z68.39) Breast cancer screening by mammogram (V76.12) (Z12.31) Encounter for immunization (V03.89) (Z23) Extreme obesity (278.00) (E66.8) Hyperlipemia (272.4) (E78.5) Hypertension (401.9) (I10) Menopause (627.2) (Z78.0) Screening for breast cancer (V76.10) (Z12.39) Surgical History Problems History of Colonoscopy History of Hysterectomy History of Myringotomy History of Sinus surgery History of Surgery Family History Mother Family history of asthma (V17.5) (Z82.5) Father Family history of coronary artery disease (V17.3) (Z82.49) Family history of hypertension (V17.49) (Z82.49) Family history of myocardial infarction (V17.3) (Z82.49) Brother Family history of diabetes mellitus (V18.0) (Z83.3) Family history of hypertension (V17.49) (Z82.49) Social History Problems Denied: History of Drug use Never a smoker Never smoked cigarettes (V49.89) (Z78.9) No alcohol use Current Meds Medication NameInstruction Albuterol Sulfate HFA 108 (90 Base) MCG/ACT Inhalation Aerosol SolutionINHALE 2 PUFFS EVERY 4 HOURS NEEDED Azelastine HCl - 0.15 % Nasal Solution2 sprays nasal daily for allergy symptoms Doxycycline Hyclate 100 MG Oral TabletTAKE 1 TABLET EVERY 12 HOURS DAILY. Irbesartan 150 MG Oral TabletTAKE 1 TABLET DAILY. Montelukast Sodium 10 MG Oral TabletTAKE 1 TABLET DAILY. Pulmicort SUSPUSE DIRECTED. Wixela Inhub 500-50 MCG/ACT Inhalation Aerosol Powder Breath ActivatedINHALE ONE PUFF TWICE A DAY Xolair 150 MG Subcutaneous Solution ReconstitutedINJECT 150 MG SUBCUTANEOUSLY EVERY 4 WEEKS. Zyrtec TABS Allergies Medication Cough Syrup SYRP aspirin Augmentin Ceftin Intal Levaquin Sulfa Drugs Vitals Vital Signs Recorded: 28Feb2022 09:37AM Systolic: 118 Diastolic: 74 Recorded: [id number] 09:04AM Heart Rate: 75 Systolic: 148 Diastolic: 84 Height: 5 ft 2 in Weight: 214 lb 3 oz BMI Calculated: 39.18 kg/m2 BSA Calculated: 1.97 Tobacco Use: b) No Falls Screening (Age 18+): a) No falls within the last year O2 Saturation: 96 Physical Exam General: Alert, No acute distress. Appears stated age Eye: Pupils are equal, round and reactive to light, Extraocular movements are intact, Normal conjunctiva. Neck: Supple, Non-tender, No carotid bruit, No jugular venous distention, No lymphadenopathy, No thyromegaly. Respiratory: Lungs few wheezes auscultation, Respirations are non-labored, Breath sounds are equal. Cardiovascular: Normal rate, Regular rhythm, No murmur. Gastrointestinal: Soft, Non-tender, No organomegaly. No solid or pulsatile mass Integumentary: Warm, Dry. No concerning lesions on exposed areas Neurologic: Alert, Oriented. Gross and fine motor intact, CN 2-12 intact Psychiatric: Cooperative, Appropriate mood AND affect. Results/Data cbc cmp Signatures Electronically signed by : Albert Maria MD; Feb 28 2022 9:44AM EST (Author) Normal [employer] Tobacco Screening.on 022 Fall risk assessment a) No falls within the last year [facility] Work Phone: Tobacco use status CPHS b) No [facility] Work Phone: CBCon 02-12-2022 Erythrocyte distribution width (RBC) [Ratio] 13.1 % Normal 11.5 - 14.5 [facility] Comment on above: Performed By: #### C BC #### [address] [address] Hematocrit (Bld) [Volume fraction] 45.0 % Normal 36.0 - 46.0 [facility] Comment on above: Performed By: #### C BC #### [address] [address] Hemoglobin (Bld) [Mass/Vol] 14.9 g/dL Normal 12.0 - 16.0 [facility] Comment on above: Performed By: #### C BC #### [address] [address] MCHC (RBC) [Mass/Vol] 33.2 g/dL Normal 32.0 - 36.0 [facility] Comment on above: Performed By: #### C BC #### [address] [address] MCV (RBC) [Entitic vol] 96 fL Normal 80 - 100 [facility] Comment on above: Performed By: #### C BC #### [address] [address] Platelets (Bld) [#/Vol] 286 10*3/uL Normal 150 - 450 [facility] Comment on above: Performed By: #### C BC #### [address] [address] RBC 4.69 x10E12/L Normal 4.00 - 5.20 [facility] Comment on above: Performed By: #### C BC #### [address] [address] WBC (Bld) [#/Vol] 7.7 10*3/uL Normal 4.4 - 11.3 [facility] Comment on above: Performed By: #### C BC #### [address] [address] COMPREHENSIVE PANELon 2021 Albumin [Mass/Vol] 4.1 g/dL Normal 3.4 - 5.0 [facility] Comment on above: Performed By: #### C MP #### [address] [address] ALP [Catalytic activity/Vol] 68 U/L Normal 33 - 136 [facility] Comment on above: Performed By: #### C MP #### [address] [address] ALT [Catalytic activity/Vol] 24 U/L Normal 7 - 45 [facility] Comment on above: Result Comment: Monie ents treated with Sulfasalazine may generate falsely decreased results for ALT. Performed By: #### C MP #### [address] [address] Anion gap [Moles/Vol] 11 mmol/L Normal 10 - 20 [facility] Comment on above: Performed By: #### C MP #### [address] [address] AST [Catalytic activity/Vol] 21 U/L Normal 9 - 39 [facility] Comment on above: Performed By: #### C MP #### [address] [address] Bilirubin [Mass/Vol] 0.6 mg/dL Normal 0.0 - 1.2 [facility] [place] Comment on above: Performed By: #### C MP #### [address] [address] Calcium [Mass/Vol] 9.1 mg/dL Normal 8.6 - 10.3 [facility] Comment on above: Performed By: #### C MP #### [address] [address] Chloride [Moles/Vol] 105 mmol/L Normal 98 - 107 [facility] [place] Comment on above: Performed By: #### C MP #### [address] [address] Creatinine [Mass/Vol] 0.62 mg/dL Normal 0.50 - 1.05 [facility] Comment on above: Performed By: #### C MP #### [address] [address] eGFR FEMALE >90 Normal >90 [facility] Comment on above: Result Comment: CALC ULATIONS OF ESTIMATED GFR ARE PERFORMED USING THE 2020 CKD-EPI STUDY REFIT EQUATION WITHOUT THE RACE VARIABLE FOR THE IDMS-TRACEABLE CREATININE METHODS. https://jasn.asnjournals.org/content/early//ASN.6319369 988 Performed By: #### C MP #### [address] [address] Glucose [Mass/Vol] 88 mg/dL Normal 74 - 99 [facility] Comment on above: Performed By: #### C MP #### [address] [address] HCO3 (Bld) [Moles/Vol] 29 mmol/L Normal 21 - 32 [facility] Comment on above: Performed By: #### C MP #### [address] [address] Potassium [Moles/Vol] 4.5 mmol/L Normal 3.5 - 5.3 [facility] Comment on above: Performed By: #### C MP #### [address] [address] Protein [Mass/Vol] 7.0 g/dL Normal 6.4 - 8.2 [facility] Comment on above: Performed By: #### C MP #### [address] [address] Sodium [Moles/Vol] 140 mmol/L Normal 136 - 145 [facility] Comment on above: Performed By: #### C MP #### [address] [place] [address] Urea nitrogen [Mass/Vol] 22 mg/dL Normal 6 - 23 [facility] Comment on above: Performed By: #### C #### [address] [address] Laboratory - Chemistry and C hemistry - challengeon 02-12-2022 Albumin BCP dye [Mass/Vol] 4.1 g/dL 3.4 - 5.0 [facility] Work Phone: ALP [Catalytic activity/Vol] 68 U/L 33 - 136 [facility] Work Phone: ALT With P-5'-P [Catalytic activity/Vol] 24 U/L 7 - 45 [facility] Work Phone: Comment on above: Patients treated wit h Sulfasalazine may generate falsely decreased results for ALT. Anion gap [Moles/Vol] 11 mmol/L 10 - 20 [facility] Work Phone: AST With P-5'-P [Catalytic activity/Vol] 21 U/L 9 - 39 [facility] Work Phone: Bilirubin [Mass/Vol] 0.6 mg/dL 0.0 - 1.2 [facility] Work Phone: Calcium [Mass/Vol] 9.1 mg/dL 8.6 - 10.3 [employer] [facility] Work Phone: Chloride [Moles/Vol] 105 mmol/L 98 - 107 [employer] [facility] Work Phone: CO2 [Moles/Vol] 29 mmol/L 21 - 32 [employer] [facility] Work Phone: Creatinine [Mass/Vol] 0.62 mg/dL See Below [facility] Work Phone: Comment on above: Reference Range: 0.5 0 - 1.05 Glucose [Mass/Vol] 88 mg/dL 74 - 99 [employer] [facility] Work Phone: Potassium [Moles/Vol] 4.5 mmol/L 3.5 - 5.3 [facility] Work Phone: Protein [Mass/Vol] 7.0 g/dL 6.4 - 8.2 [facility] Work Phone: Sodium [Moles/Vol] 140 mmol/L 136 - 145 [facility] Work Phone: Urea nitrogen [Mass/Vol] 22 mg/dL 6 - 23 [facility] Work Phone: Laboratory - Hematology and Cell countson 02-12-2022 Erythrocyte distribution width (RBC) [Ratio] 13.1 % See Below [facility] Work Phone: Comment on above: Reference Range: 11. 5 - 14.5 Hematocrit (Bld) [Volume fraction] 45.0 % See Below [facility] Work Phone: Comment on above: Reference Range: 36. 0 - 46.0 Hemoglobin (Bld) [Mass/Vol] 14.9 g/dL See Below [facility] Work Phone: Comment on above: Reference Range: 12. 0 - 16.0 MCHC (RBC) [Mass/Vol] 33.2 g/dL See Below [facility] Work Phone: Comment on above: Reference Range: 32. 0 - 36.0 MCV (RBC) [Entitic vol] 96 fL 80 - 100 [facility] Work Phone: Platelets (Bld) [#/Vol] 286 10*3/uL 150 - 450 [facility] [employer] [facility] Work Phone: RBC (Bld) [#/Vol] 4.69 {x10E12/L} See Below [facility] Work Phone: Comment on above: Reference Range: 4.0 0 - 5.20 WBC (Bld) [#/Vol] 7.7 10*3/uL 4.4 - 11.3 [facility] [place] [facility] Work Phone: No Panel Informationon 02-12 >90 >90 [employer] Work Phone: Comment on above: CALCULATIONS OF NERISSA MATED GFR ARE PERFORMED USING THE 2020 CKD-EPI STUDY REFIT EQUATION WITHOUT THE RACE VARIABLE FOR THE IDMS-TRACEABLE CREATININE METHODS.https://jasn.asnjournals.org/content/early//ASN .0888201426 Colonoscopyon 11-22-2021 Colonoscopy PATIENTNAME Patient Name: Sameer Chowdhury EXAMDATE Procedure Date: 11/22/2021 9:11 AM PATIENTID PATIENTACCOUNTNUM PATIENTDOB Date of : 1955 ADMITTYPE Admit Type: Outpatient PATIENTROOM Site: [place] [address] ETHNICITY Ethnicity: Not or RACE Race: White PROVDR Attending MD: Gatito Purcell DO ENDOPROCEDURENAME Procedure: Colonoscopy INDICATION Indications: Surveillance: Personal history of colonic polyps (unknown histology) on last colonoscopy more than 3 years ago PRIMARYPROVIDER Providers: Gatito Purcell DO (Doctor), Brook Wilde RN (Nurse), Tracie Bush RN (Nurse) EDREFPROVIDER Referring: Albert Maria MD CURRENT_MEDS Medicines: Midazolam 5 mg IV, Meperidine 50 mg IV COMPLIC Complications: No immediate complications. ENDOPROCEDURETEXT Procedure: Pre-Anesthesia Assessment: - Prior to the procedure, a History and Physical was performed, and patient medications and allergies were reviewed. The patient is competent. The risks and benefits of the procedure and the sedation options and risks were discussed with the patient. All questions were answered and informed consent was obtained. Patient identification and proposed procedure were verified by the physician in the pre-procedure area. Mental Status Examination: alert and oriented. Airway Examination: normal oropharyngeal airway and neck mobility. Respiratory Examination: clear to auscultation. CV Examination: normal. Prophylactic Antibiotics: The patient does not require prophylactic antibiotics. Prior Anticoagulants: The patient has taken no anticoagulant or antiplatelet agents. ASA Grade Assessment: II - A patient with mild systemic disease. After reviewing the risks and benefits, the patient was deemed in satisfactory condition to undergo the procedure. The anesthesia plan was to use moderate sedation / analgesia (conscious sedation). Immediately prior to administration of medications, the patient was re-assessed for adequacy to receive sedatives. The heart rate, respiratory rate, oxygen saturations, blood pressure, adequacy of pulmonary ventilation, and response to care were monitored throughout the procedure. The physical status of the patient was re-assessed after the procedure. After I obtained informed consent, the scope was passed under direct vision. Throughout the procedure, the patient's blood pressure, pulse, and oxygen saturations were monitored continuously. The pediatric colonoscope was introduced through the anus and advanced to the cecum, identified by appendiceal orifice and ileocecal valve. The colonoscopy was performed without difficulty. The patient tolerated the procedure well. The quality of the bowel preparation was excellent. The ileocecal valve, appendiceal orifice, and rectum were photographed. FINDING Findings: The perianal and digital rectal examinations were normal. Pertinent negatives include normal sphincter tone and no palpable rectal lesions. Three sessile polyps were found in the sigmoid colon. The polyps were 3 to 6 mm in size. These polyps were removed with a hot snare. Resection and retrieval were complete. Many small-mouthed diverticula were found in the sigmoid colon and descending colon. No additional abnormalities were found on retroflexion. SEDATION Moderate Sedation: Moderate (conscious) sedation was administered by the endoscopy nurse and supervised by the endoscopist. The following parameters were monitored: oxygen saturation, heart rate, blood pressure, and response to care. Total physician intraservice time was 22 minutes. EBL Estimated Blood Loss: Estimated blood loss: none. IMPRESS Impression: - Three 3 to 6 mm polyps in the sigmoid colon, removed with a hot snare. Resected and retrieved. - Diverticulosis in the sigmoid colon and in the descending colon. ENDORECOMMENDATION Recommendation: - Patient has a contact number available for emergencies. The signs and symptoms of potential delayed complications were discussed with the patient. Return to normal activities tomorrow. Written discharge instructions were provided to the patient. - Resume previous diet. - Continue present medications. - Repeat colonoscopy in 5 years for surveillance based on pathology results. CPT_CODES Procedure Code(s): --- Professional --- 49538, Colonoscopy, flexible; with removal of tumor(s), polyp(s), or other lesion(s) by snare technique G0500, Moderate sedation services provided by the same physician or other qualified health healthcare representative performing a gastrointestinal endoscopic service that sedation supports, requiring the presence of an independent trained observer to assist in the monitoring of the patient's level of consciousness and physiological status; initial 15 minutes of intra-service time; patient age 5 y (more content not included)... Normal [facility] No Panel Informationon 11-22 [facility] Work Phone: [email or web address] [facility] Work Phone: [facility] Surgical Pathology Depar tmenton 11-22-2021 [facility] Surgical Pathology Department Name SAMEER CHOWDHURY Pathologist: MAURICE JARAMILLO MD Date of Procedure: 11/22/2021 Date Received: 11/22/2021 Date Reported 11/24/2021 Submitting Physician: GATITO PURCELL DO Location: [facility] Copy To/Referring/Attending: ALBERT MARIA MD Other External # FINAL DIAGNOSIS A. SIGMOID COLON, POLYPECTOMY MOVED TO BOTTOM --FRAGMENTS OF TUBULAR ADENOMA.: Electronically Signed Out By MAURICE JARAMILLO MD/[facility] By the signature on this report, the individual or group listed as making the Final Interpretation/Diagnosi s certifies that they have reviewed this case. Diagnostic interpretation performed at [facility] [address] [facility] [address] Clinical History: Physician Contact Number: [phone] Fixative (A): Formalin Clinical Diagnosis History PERSONL HX COLON POLYPS Specimens Submitted As: A: SIGMOID COLON POLYP Gross Description: Received in formalin, labeled with the patient's name and hospital number and sigmoid colon, are multiple fragments of saleem, soft tissue aggregating to 1.5 x 0.2 x 0.2 cm. The specimen is submitted in toto in one cassette. [facility]/11/23/2021 [facility] Department of Pathology [address] [place] [address] Normal [facility] Comment on above: Performed By: #### U [facility] #### [facility] Surgical Pathology Department [id number] [place] [address] Medicare Annual Wellness Vis glennn 08-29-2021 Medicare Annual Wellness Visit *Chief Complaint MCW. 6 MO FU HTN, HL. HAS DRAINAGE, RUNNY NOSE, AND CONGESTION X 1 WK History of Present Illness The patient is being seen for the subsequent annual wellness visit. Past Medical, Surgical and Family History: reviewed and updated in chart. Interval History: Patient has not been hospitalized previously. Medications and Supplements: Review of all medications by a prescribing practitioner or clinical pharmacist (such as prescriptions, OTCs, herbal therapies and supplements) documented in the medical record. No, the patient is not using opioids. Patient Self Assessment of Health Status: good. Tobacco use: Non-User Alcohol use: Non-User, As noted in social history Illicit drug use: Non-User Current diet: well balanced diet. Exercise Frequency: regularly. Depression/Suicide Screening: . During the past 2 weeks, the patient has not felt down, depressed or hopeless. During the past 2 weeks, the patient has not felt little interest or pleasure in doing things. Hearing Impairment: none. Cognitive Impairment: No cognitive impairment observed. Bathing: performs independently. Dressing: performs independently. Walking: performs independently. Toileting: performs independently. Feeding: performs independently. Personal Hygiene: performs independently. Bowels: continent. Bladder: continent. Managing Finances: performs independently. Shopping: performs independently. Managing Medications: performs independently. Housework / Basic Home Maintenance: performs independently. Handling Transportation: performs independently. Preparing Meals: performs independently. Using the Telephone/ Communication Devices: performs independently. Falls Risk Screening:. SAMEER has not fallen in the last 6 months. Home safety risk factors: no grab bars in the bathroom. Advance directives:. Advance Care Planning discussed and documented in the medical record, patient did not wish or was not able to name a surrogate decision maker or provide an advance care plan. Patient has no living will. Patient has no healthcare POA. Since the last office visit there have been no interval operations, hospitalizations, important illnesses or injuries. uses pulmicort in nasal saline irrigations, sinus dz remains aa challenge to control. HTN-Takes and tolerates meds without side effects. No alcohol. no tobacco. no exercise. low salt. Reviewed recommendation for 150 minutes of exercise per week including 2 days of weight training if over age 50 currelt sinus inf, had doxy in jun. allergies noted. C+S fronm jun with SA doxy S due for 3 yr colon, if no call by november let me know Review of Systems General-no fatigue weight to within 10 pounds ENT no problems with vision swallowing Cardiac no chest pains palpitations change in exercise tolerance or capacity Pulmonary no cough shortness of breath GI no heartburn or abdominal pain Musculoskeletal no joint pains *Active Problems Asthma (493.90) (J45.909) Body mass index (BMI) of 39.0 to 39.9 in adult (V85.39) (Z68.39) Breast cancer screening by mammogram (V76.12) (Z12.31) Encounter for immunization (V03.89) (Z23) Extreme obesity (278.00) (E66.8) Hyperlipemia (272.4) (E78.5) Hypertension (401.9) (I10) Menopause (627.2) (Z78.0) Screening for breast cancer (V76.10) (Z12.39) Surgical History History of Colonoscopy 2018 dr purcell History of Hysterectomy History of Myringotomy History of Sinus surgery x3 History of Surgery Family History Family history of asthma (V17.5) (Z82.5) Family history of coronary artery disease (V17.3) (Z82.49) Family history of hypertension (V17.49) (Z82.49) Family history of myocardial infarction (V17.3) (Z82.49) Family history of diabetes mellitus (V18.0) (Z83.3) Family history of hypertension (V17.49) (Z82.49) Social History Denied: History of Drug use Never a smoker Never smoked cigarettes (V49.89) (Z78.9) No alcohol use *Allergies Cough Syrup SYRP Wheezing;; Recorded By: Tere Santiago; 02/17/2019 8:11:59 AM Additional reactions - Dyspnea.... allergic to the dyes aspirin Recorded By: Tere Santiago; 02/17/2019 8:11:59 AM Additional reactions - Exacerbation of asthma Augmentin Recorded By: Tere Santiago; 02/17/2019 8:11:59 AM Additional reactions - Itching.... Ceftin Recorded By: Tere Santiago; 02/17/2019 8:11:59 AM Additional reactions - Pruritus Intal Recorded By: Tere Santiago; 02/17/2019 8:11:59 AM Additional reactions - Exacerbation of asthma Levaquin Recorded By: Tere Santiago; 02/17/2019 8:12:00 AM Additional reactions - Tendon pain Sulfa Drugs Recorded By: Tere Santiago; 02/17/2019 8:12:00 AM Additional reactions - Pruritus of skin *Current Meds Medication NameInstruction Albuterol Sulfate HFA 108 (90 Base) MCG/ACT Inhalation Aerosol SolutionINHALE 2 PUFFS EVERY 4 HOURS NEEDED Azelastine HCl - 0.15 % Nasal Solution2 sprays nasal daily for allergy s (more content not included)... Normal [employer] Tobacco Screening.on 022 Adult depression screening assessment No [facility] Work Phone: Fall risk assessment a) No falls within the last year [facility] Work Phone: Tobacco use status CPHS b) No [facility] Work Phone: Gram stain for investigation of transfusion reactionon 07-20-2021 Microscopic observation Gram stain Nom (Unsp spec) [facility] Work Phone: No Panel Informationon 07-20 Nasopharyngeal Culture Staphylococcus aureus [facility] Work Phone: Mamm - Screening Mammogram w / Tomosynthesison 03-17-2021 MG Breast Screening FINAL REPORT Interpreted by: MICKIE GUTIERREZ CHRISTOPHER, MD 03/17/21 09:09 Patient Name: SAMEER CHOWDHURY STUDY: Digital mammography screening with grace; 03/17/2021 9:06 am ACCESSION NUMBER(S): [id number] ORDERING CLINICIAN: AISHA RAMIRES Normal [facility] Work Phone: Tobacco Screening.on 021 Fall risk assessment a) No falls within the last year -[facility] [employer] [facility] Work Phone: Tobacco use status CPHS b) No -[employer] [facility] Work Phone: Laboratory - Chemistry and C hemistry - challengeon 02-20-2021 Albumin BCP dye [Mass/Vol] 3.7 g/dL 3.4 - 5.0 [employer] [facility] Work Phone: ALP [Catalytic activity/Vol] 64 U/L 33 - 136 [employer] [facility] Work Phone: ALT With P-5'-P [Catalytic activity/Vol] 21 U/L 7 - 45 [employer] [facility] Work Phone: Comment on above: Patients treated wit h Sulfasalazine may generate falsely decreased results for ALT. Anion gap [Moles/Vol] 8 mmol/L below low threshold 10 - 20 [facility] Work Phone: AST With P-5'-P [Catalytic activity/Vol] 23 U/L 9 - 39 [facility] Work Phone: Bilirubin [Mass/Vol] 0.7 mg/dL 0.0 - 1.2 [employer] [facility] Work Phone: Calcium [Mass/Vol] 9.0 mg/dL 8.6 - 10.3 [employer] [facility] Work Phone: Chloride [Moles/Vol] 107 mmol/L 98 - 107 [employer] [facility] Work Phone: CO2 [Moles/Vol] 28 mmol/L 21 - 32 [employer] [facility] Work Phone: Creatinine [Mass/Vol] 0.67 mg/dL See Below [employer] [facility] Work Phone: Comment on above: Reference Range: 0.5 0 - 1.05 Glucose [Mass/Vol] 84 mg/dL 74 - 99 [employer] [facility] Work Phone: Potassium [Moles/Vol] 4.4 mmol/L 3.5 - 5.3 [facility] Work Phone: Protein [Mass/Vol] 6.4 g/dL 6.4 - 8.2 [facility] Work Phone: Sodium [Moles/Vol] 139 mmol/L 136 - 145 [facility] Work Phone: Urea nitrogen [Mass/Vol] 16 mg/dL 6 - 23 [facility] Work Phone: Laboratory - Hematology and Cell countson 02-20-2021 Erythrocyte distribution width (RBC) [Ratio] 13.0 % See Below [facility] [place] Work Phone: Comment on above: Reference Range: 11. 5 - 14.5 Hematocrit (Bld) [Volume fraction] 43.7 % See Below [facility] Work Phone: Comment on above: Reference Range: 36. 0 - 46.0 Hemoglobin (Bld) [Mass/Vol] 14.2 g/dL See Below [facility] [place] Work Phone: Comment on above: Reference Range: 12. 0 - 16.0 MCHC (RBC) [Mass/Vol] 32.6 g/dL See Below [facility] Work Phone: Comment on above: Reference Range: 32. 0 - 36.0 MCV (RBC) [Entitic vol] 96 fL 80 - 100 [facility] Work Phone: Platelets (Bld) [#/Vol] 353 10*3/uL 150 - 450 [facility] Work Phone: RBC (Bld) [#/Vol] 4.54 {x10E12/L} See Below [facility] Work Phone: Comment on above: Reference Range: 4.0 0 - 5.20 WBC (Bld) [#/Vol] 7.4 10*3/uL 4.4 - 11.3 [facility] [place]: Lipid Panelon 02-20-2021 Cholesterol [Mass/Vol] 193 mg/dL 0 - 199 [employer] [facility] Work Phone: Comment on above: . AGE DESIRABLE BORD DOMENIC HIGH HIGH 0-19 Y 0 - 169 170 - 199 >/= 200 20-24 Y 0 - 189 190 - 224 >/= 225 >24 Y 0 - 199 200 - 239 >/= 240 All ranges are based on fasting samples. Specific therapeutic targets will vary based on patient-specific cardiac risk.. Pediatric guidelines reference:Pediatrics 2011, 128(S5). Adult guidelines reference: NCEP ATPIII Guidelines, ROSALIO 2001, 258:2486-97. Venipuncture immediately after or during the administration of Metamizole may lead to falsely low results. Testing should be performed immediately prior to Metamizole dosing. Cholesterol in HDL [Mass/Vol] 40.0 mg/dL [employer] [facility] Work Phone: Comment on above: . AGE VERY LOW LOW N ORMAL HIGH 0-19 Y < 35 < 40 40-45 ---- 20- 24 Y ---- < 40 >45 ---- >24 Y ---- < 40 40-60 >60. Cholesterol in LDL [Mass/Vol] 103 mg/dL above high threshold 0 - 99 [facility] Work Phone: Comment on above: . NEAR BORD AGE EFREN RABLE OPTIMAL HIGH HIGH VERY HIGH 0-19 Y 0 - 109 --- 110-129 >/= 130 ---- 20-24 Y 0 - 119 --- 120-159 >/= 160 ---- >24 Y 0 - 99 100-129 130-159 160-189 >/=190. Cholesterol non HDL [Mass/Vol] 153 mg/dL [employer] [facility] Work Phone: Comment on above: AGE DESIRABLE BORDER LINE HIGH HIGH VERY HIGH 0-19 Y 0 - 119 120 - 144 >/= 145 >/= 160 20-24 Y 0 - 149 150 - 189 >/= 190 ---- >24 Y 30 MG/DL ABOVE LDL CHOLESTEROL GOAL. Cholesterol.total/Ch olesterol in HDL [Mass ratio] 4.8 {ratio} [employer] [facility] Work Phone: Comment on above: REF VALUESDESIRABLE < 3.4HIGH RISK > 5.0 Triglyceride [Mass/Vol] 249 mg/dL above high threshold 0 - 149 [facility] Work Phone: Comment on above: . AGE DESIRABLE BORD DOMENIC HIGH HIGH VERY HIGH 0 D-90 D 19 - 174 ---- ---- ----91 D- 9 Y 0 - 74 75 - 99 >/= 100 ---- 10-19 Y 0 - 89 90 - 129 >/= 130 ---- 20-24 Y 0 - 114 115 - 149 >/= 150 ---- >24 Y 0 - 149 150 - 199 200- 499 >/= 500. Venipuncture immediately after or during the administration of Metamizole may lead to falsely low results. Testing should be performed immediately prior to Metamizole dosing. Lipid Panel 50 mg/dL above high threshold 0 - 40 [facility] Work Phone: No Panel Informationon 02-20 >60 >60 [facility] Work Phone: Comment on above: CALCULATIONS OF NERISSA MATED GFR ARE PERFORMED USING THE MDRD STUDY EQUATION FOR THE IDMS-TRACEABLE CREATININE METHODS. CLIN CHEM 2007;53:766-72 Hematologyon 02-15-2020 Hematocrit (Bld) [Volume fraction] 47.2 % above high threshold See Below [facility] [facility] Work Phone: Comment on above: Reference Range: 36. 0 - 46.0 Hemoglobin (Bld) [Mass/Vol] 15.5 g/dL See Below [facility] [facility] Work Phone: Comment on above: Reference Range: 12. 0 - 16.0 MCV (RBC) [Entitic vol] 98 fL 80 - 100 [facility] Work Phone: Platelets (Bld) [#/Vol] 274 {x10E9/L} 150 - 450 [facility] Work Phone: RBC (Bld) [#/Vol] 4.84 {x10E12/L} See Below [facility] Work Phone: Comment on above: Reference Range: 4.0 0 - 5.20 WBC (Bld) [#/Vol] 6.5 {x10E9/L} 4.4 - 11.3 [employer] [facility] Work Phone: Lipid Panelon 02-15-2020 Cholesterol [Mass/Vol] 198 mg/dL 0 - 199 [facility] Work Phone: Comment on above: . AGE DESIRABLE BORD DOMENIC HIGH HIGH 0-19 Y 0 - 169 170 - 199 >/= 200 20-24 Y 0 - 189 190 - 224 >/= 225 >24 Y 0 - 199 200 - 239 >/= 240 All ranges are based on fasting samples. Specific therapeutic targets will vary based on patient-specific cardiac risk.. Pediatric guidelines reference:Pediatrics 2011, 128(S5). Adult guidelines reference: NCEP ATPIII Guidelines, ROSALIO 2001, 258:2486-97. Venipuncture immediately after or during the administration of Metamizole may lead to falsely low results. Testing should be performed immediately prior to Metamizole dosing. Cholesterol in HDL [Mass/Vol] 35.0 mg/dL Abnormal [employer] [facility] Work Phone: Comment on above: . AGE VERY LOW LOW N ORMAL HIGH 0-19 Y < 35 < 40 40-45 ---- 20- 24 Y ---- < 40 >45 ---- >24 Y ---- < 40 40-60 >60. Cholesterol in LDL [Mass/Vol] 112 mg/dL above high threshold 0 - 99 [employer] [facility] Work Phone: Comment on above: . NEAR BORD AGE EFREN RABLE OPTIMAL HIGH HIGH VERY HIGH 0-19 Y 0 - 109 --- 110-129 >/= 130 ---- 20-24 Y 0 - 119 --- 120-159 >/= 160 ---- >24 Y 0 - 99 100-129 130-159 160-189 >/=190. Cholesterol non HDL [Mass/Vol] 163 mg/dL [facility] Work Phone: Comment on above: AGE DESIRABLE BORDER LINE HIGH HIGH VERY HIGH 0-19 Y 0 - 119 120 - 144 >/= 145 >/= 160 20-24 Y 0 - 149 150 - 189 >/= 190 ---- >24 Y 30 MG/DL ABOVE LDL CHOLESTEROL GOAL. Cholesterol.total/Ch olesterol in HDL [Mass ratio] 5.7 {ratio} Abnormal [facility] Work Phone: Comment on above: REF VALUESDESIRABLE < 3.4HIGH RISK > 5.0 Triglyceride [Mass/Vol] 257 mg/dL above high threshold 0 - 149 [facility] Work Phone: Comment on above: . AGE DESIRABLE BORD DOMENIC HIGH HIGH VERY HIGH 0 D-90 D 19 - 174 ---- ---- ----91 D- 9 Y 0 - 74 75 - 99 >/= 100 ---- 10-19 Y 0 - 89 90 - 129 >/= 130 ---- 20-24 Y 0 - 114 115 - 149 >/= 150 ---- >24 Y 0 - 149 150 - 199 200- 499 >/= 500. Venipuncture immediately after or during the administration of Metamizole may lead to falsely low results. Testing should be performed immediately prior to Metamizole dosing. Lipid Panel 51 mg/dL above high threshold 0 - 40 [facility] Work Phone: Metabolic Panelon 02-15-2020 ALP [Catalytic activity/Vol] 60 U/L 33 - 136 [facility] Work Phone: Anion gap [Moles/Vol] 14 mmol/L 10 - 20 [employer] [facility] Work Phone: Bilirubin [Mass/Vol] 1.0 mg/dL 0.0 - 1.2 - [employer] [facility] Work Phone: Calcium [Mass/Vol] 8.0 mg/dL below low threshold 8.6 - 10.3 [facility] Work Phone: Chloride [Moles/Vol] 103 mmol/L 98 - 107 [facility] [employer] [facility] Work Phone: CO2 [Moles/Vol] 26 mmol/L 21 - 32 -[facility] Work Phone: Creatinine [Mass/Vol] 0.64 mg/dL See Below [facility] Work Phone: Comment on above: Reference Range: 0.5 0 - 1.05 Glucose [Mass/Vol] 77 mg/dL 74 - 99 [facility]ERT[facility] ical [employer] [facility] Work Phone: Potassium [Moles/Vol] 4.2 mmol/L 3.5 - 5.3 [facility] Work Phone: Protein [Mass/Vol] 6.6 g/dL 6.4 - 8.2 -[employer] [facility] Work Phone: Sodium [Moles/Vol] 139 mmol/L 136 - 145 [facility] [employer] [facility] Work Phone: Urea nitrogen [Mass/Vol] 14 mg/dL 6 - 23 [facility] Work Phone: Other 02-15-2020 Albumin BCP dye [Mass/Vol] 3.8 g/dL 3.4 - 5.0 [facility] Work Phone: ALT With P-5'-P [Catalytic activity/Vol] 22 U/L 7 - 45 [facility] Work Phone: Comment on above: Patients treated wit h Sulfasalazine may generate falsely decreased results for ALT. AST With P-5'-P [Catalytic activity/Vol] 18 U/L 9 - 39 [facility] Work Phone: Erythrocyte distribution width (RBC) [Ratio] 12.9 % See Below -[facility] [place] Work Phone: Comment on above: Reference Range: 11. 5 - 14.5 MCHC (RBC) [Mass/Vol] 32.8 g/dL See Below -[facility] [place] Work Phone: Comment on above: Reference Range: 32. 0 - 36.0 >60 >60 -[facility] [place] Work Phone: Comment on above: CALCULATIONS OF NERISSA MATED GFR ARE PERFORMED USING THE MDRD STUDY EQUATION FOR THE IDMS-TRACEABLE CREATININE METHODS. CLIN CHEM 2007;53:766-72 Auto Diffon 02-10-2019 Basophils (Bld) [#/Vol] 0.1 E3/mcL Normal 0.0-0.2 [facility] Comment on above: Order Comment: Order Added by Discern Expert. Performed By: #### 2 [id number] #### RENNY RemHemo [facility] [place] [address] Basophils/100 WBC (Bld) 1.4 % Normal 0.0-2.0 [facility] Comment on above: Order Comment: Order Added by Discern Expert. Performed By: #### 2 [id number] #### RENNY RemHemo [address] [place] [address] Eos Absolute 1.2 E3/mcL High 0.0-0.7 [facility] Comment on above: Order Comment: Order Added by Discern Expert. Performed By: #### 2 [id number] #### RENNY RemHemo [address] [place] [address] Eosinophils/100 WBC (Bld) 17.7 % High 0.0-11.0 [facility] Comment on above: Order Comment: Order Added by Discern Expert. Performed By: #### 2 [id number] #### RENNY RemHemo [facility] [place] [address] Lymphocytes (Bld) [#/Vol] 1.7 E3/mcL Normal 1.2-3.4 [facility] Comment on above: Order Comment: Order Added by Discern Expert. Performed By: #### 2 [id number] #### RENNY SheppardHemo [address] [place] [address] Lymphocytes/100 WBC (Bld) 24.2 % Normal 20.0-55.0 [facility] Comment on above: Order Comment: Order Added by Discern Expert. Performed By: #### 2 [id number] #### RENNY SheppardHemo [address] [place] [address] Iron Absolute 0.6 E3/mcL Normal 0.0-0.7 [facility] Comment on above: Order Comment: Order Added by Discern Expert. Performed By: #### 2 [id number] #### RENNY SheppardHemo [address] [place] [address] Monocytes/100 WBC (Bld) 8.1 % Normal 0.0-10.0 [facility] Comment on above: Order Comment: Order Added by Discern Expert. Performed By: #### 2 [id number] #### RENNY SheppardHemo [address] [place] [address] Neutro Absolute 3.3 E3/mcL Normal 1.4-6.5 [facility] Comment on above: Order Comment: Order Added by Discern Expert. Performed By: #### 2 [id number] #### RENNY SheppardHemo [address] [place] [address] Neutro Auto 48.6 % Normal 37.0-75.0 [facility] Comment on above: Order Comment: Order Added by Discern Expert. Performed By: #### 2 [id number] #### RENNY SheppardHemo [address] [place] [address] CBC w/ Auto Diffon Erythrocyte distribution width (RBC) [Ratio] 13.1 % Normal 11.5-14.5 [facility] Comment on above: Performed By: #### 2 [id number] #### RENNY SheppardHemo [facility] [place] [address] Hematocrit (Bld) [Volume fraction] 44.5 % Normal 36.0-48.0 [facility] Comment on above: Performed By: #### 2 [id number] #### RENNY ValarieHemo [facility] [place] [address] Hemoglobin (Bld) [Mass/Vol] 14.9 g/dL Normal 12.0-16.0 [facility] Comment on above: Performed By: #### 2 [id number] #### RENNY SheppardHemo [facility] [place] [address] MCH (RBC) [Entitic mass] 32.5 pg High 27.0-31.0 [facility] Comment on above: Performed By: #### 2 [id number] #### RENNY ValarieHemo [address] [place] [address] MCHC (RBC) [Mass/Vol] 33.6 g/dL Normal 33.0-37.0 [facility] Comment on above: Performed By: #### 2 [id number] #### RENNY ValarieHemo [address] [place] [address] MCV (RBC) [Entitic vol] 96.7 fL Normal 78.0-100.0 [facility] Comment on above: Performed By: #### 2 [id number] #### RENNY ValarieHemo [address] [place] [address] Platelet mean volume (Bld) [Entitic vol] 8.0 fL Normal 7.4-11.0 [facility] Comment on above: Performed By: #### 2 [id number] #### RENNY SheppardHemo [address] [place] [address] Platelets (Bld) [#/Vol] 260 E3/mcL Normal 130-400 [facility] Comment on above: Performed By: #### 2 [id number] #### RENNY ValarieHemo [address] [place] [address] RBC (Bld) [#/Vol] 4.60 E6/mcL Normal 3.90-5.40 [facility] Comment on above: Performed By: #### 2 [id number] #### RENNY RemHemo [facility] [place] [address] WBC (Bld) [#/Vol] 6.8 E3/mcL Normal 3.6-11.0 [facility] Comment on above: Performed By: #### 2 [id number] #### RENNY RemHemo [address] [place] [address] CMPon 02-10-2019 Albumin [Mass/Vol] 3.9 g/dL Normal 3.4-5.0 [facility] Comment on above: Performed By: #### 2 [id number] #### RENNY [employer] [address] [place] [address] Albumin/Globulin [Mass ratio] 1.4 {ratio} Normal 1.1-1.9 [facility] Comment on above: Performed By: #### 2 [id number] #### RENNY [employer] [address] [place] [address] Alk Phos 62 Int._Unit/L Normal 33-136 [facility] Comment on above: Performed By: #### 2 [id number] #### RENNY [employer] [address] [place], [place] [id number] ALT [Catalytic activity/Vol] 22 Int._Unit/L Normal 7-45 [facility] Comment on above: Performed By: #### 2 [id number] #### RENNY [employer] [address] [place], [place] [phone] Anion gap [Moles/Vol] 11 mmol/L Normal 10-20 [facility] Comment on above: Performed By: #### 2 [id number] #### [facility] [employer] [address] [place], [place] [phone] AST [Catalytic activity/Vol] 18 Int._Unit/L Normal 9-39 [facility] Comment on above: Performed By: #### 2 [id number] #### RENNY [employer] [address] [place] [address] Bili Total 0.94 mg/dL Normal 0.00-1.20 [facility] Comment on above: Performed By: #### 2 [id number] #### RENNY [employer] [address] [place] [address] Calcium [Mass/Vol] 9.3 mg/dL Normal 8.6-10.3 [facility] Comment on above: Performed By: #### 2 [id number] #### RENNY [employer] [address] [place] [address] Chloride [Moles/Vol] 106 mmol/L Normal 98-107 [facility] Comment on above: Performed By: #### 2 [id number] #### RENNY [employer] [address] [place] [address] CO2 [Moles/Vol] 28.0 mmol/L Normal 21.0-32.0 [facility] Comment on above: Performed By: #### 2 [id number] #### RENNY [employer] [address] [place] [address] Creatinine [Mass/Vol] 0.6 mg/dL Normal 0.5-1.1 [facility] Comment on above: Performed By: #### 2 [id number] #### RENNY [employer] [address] [place] [address] Globulin (S) [Mass/Vol] 3.0 g/dL Normal 2.0-4.0 [facility] Comment on above: Performed By: #### 2 [id number] #### RENNY [employer] [address] [place] [address]266 Glucose [Mass/Vol] 87 mg/dL Normal 70-99 [facility] Comment on above: Performed By: #### 2 [id number] #### RENNY [employer] [address] [place] [address] Potassium [Moles/Vol] 4.4 mmol/L Normal 3.5-5.3 [facility] Comment on above: Performed By: #### 2 [id number] #### [facility] [employer] [address] [place] [address] Protein [Mass/Vol] 6.6 g/dL Normal 6.4-8.2 [facility] Comment on above: Performed By: #### 2 [id number] #### RENNY [employer] [address] [place] [address] Sodium [Moles/Vol] 140 mmol/L Normal 136-145 [facility] Comment on above: Performed By: #### 2 [id number] #### RENNY [employer] [address] [place] [address] Urea nitrogen [Mass/Vol] 18 mg/dL Normal 6-23 [facility] Comment on above: Performed By: #### 2 [id number] #### RENNY [employer] [address] [place] [address] Urea nitrogen/Creatinine [Mass ratio] 30.0 ratio Normal 5.4-30.0 [facility] Comment on above: Performed By: #### 2 [id number] #### RENNY [employer] [address] [place] [address] eGFRon 02-10-2019 GFR/1.73 sq M predicted among non-blacks MDRD (S/P/Bld) [Vol rate/Area] mL/min/{1.73_m2} Normal [facility] Comment on above: Order Comment: Order added by Discern Expert. Performed By: #### 1 [id number] #### RENNY [employer] [facility] [place] [address] [place] Mamm Screen w/CAD if perf and 3D Bilon 12-04-2018 Bilirubin.direct [Mass/Vol] Exam Date/Time: 12/03/2018 11:15 EDT Reason for Exam: SCREENING 3D;Screening Report STUDY: Digital mammography screening with grace; 12/03/2018 11:15 am ACCESSION NUMBER(S): [id number] ORDERING CLINICIAN: Albert Maria INDICATION: Screening. COMPARISON: Comparison is made to prior digital mammograms dated08/20/2017 FINDINGS: CC and MLO 2D digital mammograms and digital breast tomosynthesis images were obtained of the bilateral breasts. 3-D volume images were reconstructed in 4 views at an independent workstation as 1 mm slices through the breasts in both the CC and MLO projections. There are areas of scattered fibroglandular tissue. No discrete mass or focal asymmetry is identified. No suspicious microcalcifications or foci of architectural distortion are seen. There has been no significant change. This study was interpreted with CAD. IMPRESSION: No mammographic evidence of malignancy. BI-RADS CATEGORY: Category: 1 - Negative. Recommendation: Normal Interval Follow-up, Over Age 40. Recall Interval: 12 Months. Breast Density: Scattered Fibroglandular Density. FINAL REPORT Dictated: 12/04/2018 8:31 am Mickie Gutierrez MD Signed (Electronic Signature): 12/04/2018 8:31 am Signed by: Mickie Gutierrez MD Technologist: JOSE Assessment: BI-RADS Category 1-Negative Recommendation: Normal interval follow-up Normal [facility] Gram stain for investigation of transfusion reaction Microscopic observation Gram stain Nom (Unsp spec) [facility] Work Phone: No Panel Information Nasopharyngeal Culture Staphylococcus aureus [facility] Work Phone: Vital Signs Date Time Vital Sign Value Performing Clinician Facility 12-08-2024 13:06-0400 Body height 157.[address] Albert Maria MD Work Phone: [facility] 12-08-2024 13:06-0400 Body mass index (BMI) [Ratio] 36.6 kg/m2 Dr. Albert Maria MD Work Phone: [facility] 12-08-2024 13:06-0400 Body temperature 96.3 [degF] Dr. Albert Maria MD Work Phone: 1(758)[phone] [place] [address] 12-08-2024 13:06-0400 Body weight 90.[address] Albert Maria MD Work Phone: 9(905)981-812220 [place] [address] 12-08-2024 13:06-0400 Diastolic blood pressure 72 mm[Hg] Dr. Albert Maria MD Work Phone: [facility] 12-08-2024 13:06-0400 Heart rate 74 /min Dr. Albert Maria MD Work Phone: [facility] 12-08-2024 13:06-0400 Respiratory rate 16 /min Dr. Albert Maria MD Work Phone: [facility] 12-08-2024 13:06-0400 SaO2% (BldA) [Mass fraction] 96 % Dr. Albert Maria MD Work Phone: [facility] 12-08-2024 13:06-0400 Systolic blood pressure 129 mm[Hg] Dr. Albert Maria MD Work Phone: [facility] 11-10-2024 15:20-0400 Body height 157.[address] Albert Maria MD Work Phone: [facility] 11-10-2024 15:20-0400 Body mass index (BMI) [Ratio] 36.6 kg/m2 Dr. Albert Maria MD Work Phone: [facility] 11-10-2024 15:20-0400 Body temperature 96.5 [degF] Dr. Albert Maria MD Work Phone: [facility] 11-10-2024 15:20-0400 Body weight 90.[address] Albert Maria MD Work Phone: [facility] 11-10-2024 15:20-0400 Diastolic blood pressure 74 mm[Hg] Dr. Albert Maria MD Work Phone: 7(650)300-416920 [place] [address] 11-10-2024 15:20-0400 Heart rate 77 /min Dr. Albert Maria MD Work Phone: 2(278)725-174720 [place] [address] 11-10-2024 15:20-0400 Respiratory rate 16 /min Dr. Albert Maria MD Work Phone: 8(497)[phone] [place] [address] 11-10-2024 15:20-0400 SaO2% (BldA) [Mass fraction] 95 % Dr. Albert Maria MD Work Phone: 7(171)[phone] [place] [address] 11-10-2024 15:20-0400 Systolic blood pressure 126 mm[Hg] Dr. Albert Maria MD Work Phone: 2(242)[phone] [place] [address] 10-09-2024 10:21-0400 Body height 157.[address] Albert Maria MD Work Phone: 9(277)[phone] [place] [address] 10-09-2024 10:21-0400 Body mass index (BMI) [Ratio] 36.6 kg/m2 Dr. Albert Maria MD Work Phone: [facility] 10-09-2024 10:21-0400 Body temperature 97 [degF] Dr. Albert Maria MD Work Phone: 3(505)298-928920 [place] [address] 10-09-2024 10:21-0400 Body weight 90.[address] Albert Maria MD Work Phone: [facility] 10-09-2024 10:21-0400 Heart rate 74 /min Dr. Albert Maria MD Work Phone: [facility] 10-09-2024 10:21-0400 Respiratory rate 16 /min Dr. Albert Maria MD Work Phone: [facility] 10-09-2024 10:21-0400 SaO2% (BldA) [Mass fraction] 96 % Dr. Albert Maria MD Work Phone: [facility] 09-21-2024 10:11-0400 Body height 157.5 cm Albert Maria MD Work Phone: [facility] 09-21-2024 10:11-0400 Body mass index (BMI) [Ratio] 39.03 kg/m2 Albert Maria MD Work Phone: [facility] 09-21-2024 10:11-0400 Body weight 96.8 kg Albert Maria MD Work Phone: [facility] 09-21-2024 10:11-0400 Diastolic blood pressure 72 mm[Hg] Albert Maria MD Work Phone: [facility] 09-21-2024 10:11-0400 Heart rate 70 /min Albert Maria MD Work Phone: [facility] 09-21-2024 10:11-0400 SaO2% (BldA) [Mass fraction] 96 % Albert Maria MD Work Phone: [facility] 09-21-2024 10:11-0400 Systolic blood pressure 126 mm[Hg] Albert Maria MD Work Phone: [facility] 09-11-2024 09:39-0400 Body mass index (BMI) [Ratio] 36.6 kg/m2 Dr. Albert Maria MD Work Phone: [facility] 09-11-2024 09:39-0400 Body temperature 96.8 [degF] Dr. Albert Maria MD Work Phone: [facility] 09-11-2024 09:39-0400 Body weight 90.[address] Albert Maria MD Work Phone: [facility] 09-11-2024 09:39-0400 Diastolic blood pressure 76 mm[Hg] Dr. Albert Maria MD Work Phone: [facility] 09-11-2024 09:39-0400 Heart rate 74 /min Dr. Albert Maria MD Work Phone: [facility] 09-11-2024 09:39-0400 Respiratory rate 16 /min Dr. Albert Maria MD Work Phone: [facility] 09-11-2024 09:39-0400 SaO2% (BldA) [Mass fraction] 94 % Dr. Albert Maria MD Work Phone: [facility] 09-11-2024 09:39-0400 Systolic blood pressure 155 mm[Hg] Dr. Albert Maria MD Work Phone: [facility] 08-14-2024 09:23-0400 Body height 157.[address] Albert Maria MD Work Phone: [facility] 08-14-2024 09:23-0400 Body mass index (BMI) [Ratio] 36.6 kg/m2 Dr. Albert Maria MD Work Phone: [facility] 08-14-2024 09:23-0400 Body temperature 96.7 [degF] Dr. Albert Maria MD Work Phone: [facility] 08-14-2024 09:23-0400 Body weight 90.[address] Albert Maria MD Work Phone: [facility] 08-14-2024 09:23-0400 Diastolic blood pressure 84 mm[Hg] Dr. Albert Maria MD Work Phone: [facility] 08-14-2024 09:23-0400 Heart rate 75 /min Dr. Albert Maria MD Work Phone: [facility] 08-14-2024 09:23-0400 Respiratory rate 16 /min Dr. Albert Maria MD Work Phone: [facility] 08-14-2024 09:23-0400 SaO2% (BldA) [Mass fraction] 97 % Dr. Albert Maria MD Work Phone: [facility] 08-14-2024 09:23-0400 Systolic blood pressure 142 mm[Hg] Dr. Albert Maria MD Work Phone: [facility] 07-17-2024 10:15-0500 Body height 157.[address] Albert Maria MD Work Phone: [facility] 07-17-2024 10:15-0500 Body temperature 96.6 [degF] Dr. Albert Maria MD Work Phone: 3(692)[phone] [place] [address] 07-17-2024 10:15-0500 Diastolic blood pressure 76 mm[Hg] Dr. Albert Maria MD Work Phone: 5(266)[phone] [place] [address] 07-17-2024 10:15-0500 Heart rate 72 /min Dr. Albert Maria MD Work Phone: 2(538)[phone] [place] [address] 07-17-2024 10:15-0500 Respiratory rate 16 /min Dr. Albert Maria MD Work Phone: 7(186)[phone] [place] [address] 07-17-2024 10:15-0500 SaO2% (BldA) [Mass fraction] 97 % Dr. Albert Maria MD Work Phone: [facility] 07-17-2024 10:15-0500 Systolic blood pressure 145 mm[Hg] Dr. Albert Maria MD Work Phone: [facility] 06-19-2024 10:04-0500 Body mass index (BMI) [Ratio] 36.6 kg/m2 Dr. Albert Maria MD Work Phone: [facility] 06-19-2024 10:04-0500 Body temperature 96.9 [degF] Dr. Albert Maria MD Work Phone: [facility] 06-19-2024 10:04-0500 Body weight 90.[address] Albert Maria MD Work Phone: [facility] 06-19-2024 10:04-0500 Diastolic blood pressure 74 mm[Hg] Dr. Albert Maria MD Work Phone: [facility] 06-19-2024 10:04-0500 Heart rate 74 /min Dr. Albert Maria MD Work Phone: [facility] 06-19-2024 10:04-0500 Respiratory rate 16 /min Dr. Albert Maria MD Work Phone: [facility] 06-19-2024 10:04-0500 SaO2% (BldA) [Mass fraction] 96 % Dr. Albert Maria MD Work Phone: [facility] 06-19-2024 10:04-0500 Systolic blood pressure 127 mm[Hg] Dr. Albert Maria MD Work Phone: [facility] 05-27-2024 06:26-0500 Body mass index (BMI) [Ratio] 39.4 kg/m2 Dr. Albert Maria MD Work Phone: [facility] 05-27-2024 06:26-0500 Body temperature 97.3 [degF] Dr. Albert Maria MD Work Phone: [facility] 05-27-2024 06:26-0500 Body weight 97.[address] Albert Maria MD Work Phone: [facility] 05-27-2024 06:26-0500 Diastolic blood pressure 72 mm[Hg] Dr. Albert Maria MD Work Phone: [facility] 05-27-2024 06:26-0500 Heart rate 85 /min Dr. Albert Maria MD Work Phone: [facility] 05-27-2024 06:26-0500 Respiratory rate 14 /min Dr. Albert Maria MD Work Phone: [facility] 05-27-2024 06:26-0500 SaO2% (BldA) [Mass fraction] 99 % Dr. Albert Maria MD Work Phone: [facility] 05-27-2024 06:26-0500 Systolic blood pressure 121 mm[Hg] Dr. Albert Maria MD Work Phone: [facility] 05-22-2024 09:33-0500 Body temperature 96.9 [degF] Dr. Albert Maria MD Work Phone: [facility] 05-22-2024 09:33-0500 Diastolic blood pressure 79 mm[Hg] Dr. Albert Maria MD Work Phone: [facility] 05-22-2024 09:33-0500 Heart rate 78 /min Dr. Albert Maria MD Work Phone: [facility] 05-22-2024 09:33-0500 Respiratory rate 16 /min Dr. Albert Maria MD Work Phone: [facility] 05-22-2024 09:33-0500 SaO2% (BldA) [Mass fraction] 95 % Dr. Albert Maria MD Work Phone: [facility] 05-22-2024 09:33-0500 Systolic blood pressure 129 mm[Hg] Dr. Albert Maria MD Work Phone: [facility] 04-24-2024 09:42-0500 Body temperature 96.3 [degF] Dr. Albert Maria MD Work Phone: [facility] 04-24-2024 09:42-0500 Diastolic blood pressure 80 mm[Hg] Dr. Albert Maria MD Work Phone: [facility] 04-24-2024 09:42-0500 Heart rate 72 /min Dr. Albert Maria MD Work Phone: [facility] 04-24-2024 09:42-0500 Respiratory rate 16 /min Dr. Albert Maria MD Work Phone: [facility] 04-24-2024 09:42-0500 SaO2% (BldA) [Mass fraction] 100 % Dr. Albert Maria MD Work Phone: [facility] 04-24-2024 09:42-0500 Systolic blood pressure 129 mm[Hg] Dr. Albert Maria MD Work Phone: [facility] 04-13-2024 08:53-0500 Body height 157.5 cm [facility] 04-13-2024 08:53-0500 Body mass index (BMI) [Ratio] 40.2 kg/m2 [facility] 04-13-2024 08:53-0500 Body weight 99.7 kg [facility] 03-27-2024 09:40-0500 Body temperature 97.4 [degF] Dr. Albert Maria MD Work Phone: [facility] 03-27-2024 09:40-0500 Diastolic blood pressure 77 mm[Hg] Dr. Albert Maria MD Work Phone: [facility] 03-27-2024 09:40-0500 Heart rate 93 /min Dr. Albert Maria MD Work Phone: 9([phone])[phone] [place] [address] 03-27-2024 09:40-0500 Respiratory rate 16 /min Dr. Albert Maria MD Work Phone: [facility] 03-27-2024 09:40-0500 SaO2% (BldA) [Mass fraction] 95 % Dr. Albert Maria MD Work Phone: [facility] 03-27-2024 09:40-0500 Systolic blood pressure 128 mm[Hg] Dr. Albert Maria MD Work Phone: [facility] 03-23-2024 09:20-0500 Body height 157.5 cm Albert Maria MD Work Phone: [facility] 03-23-2024 09:20-0500 Body mass index (BMI) [Ratio] 40.2 kg/m2 Albert Maria MD Work Phone: [facility] 03-23-2024 09:20-0500 Body weight 99.7 kg Albert Maria MD Work Phone: [facility] 03-23-2024 09:20-0500 Diastolic blood pressure 86 mm[Hg] Albert Maria MD Work Phone: [facility] 03-23-2024 09:20-0500 Heart rate 77 /min Albert Maria MD Work Phone: [facility] 03-23-2024 09:20-0500 SaO2% (BldA) [Mass fraction] 95 % Albert Maria MD Work Phone: [facility] 03-23-2024 09:20-0500 Systolic blood pressure 140 mm[Hg] Albert Maria MD Work Phone: 9(781)[phone] [place] [address] 09-18-2023 08:56-0400 Body height 157.5 cm Albert Maria MD Work Phone: [facility] 09-18-2023 08:56-0400 Body mass index (BMI) [Ratio] 39.56 kg/m2 Albert Maria MD Work Phone: 5(094)[phone] [place] [address] 09-18-2023 08:56-0400 Body weight 98.11 kg Albert Maria MD Work Phone: [facility] 09-18-2023 08:56-0400 Diastolic blood pressure 80 mm[Hg] Albert Maria MD Work Phone: [facility] 09-18-2023 08:56-0400 Heart rate 74 /min Albert Maria MD Work Phone: [facility] 09-18-2023 08:56-0400 SaO2% (BldA) [Mass fraction] 100 % Albert Maria MD Work Phone: [facility] 09-18-2023 08:56-0400 Systolic blood pressure 122 mm[Hg] Albert Maria MD Work Phone: [facility] 09-13-2023 09:52-0400 Body height 157.48 cm [facility] 09-13-2023 09:52-0400 Body temperature 96.3 [degF] [facility] 09-13-2023 09:52-0400 Diastolic blood pressure 80 mm[Hg] [facility] 09-13-2023 09:52-0400 Heart rate 79 /min [facility] 09-13-2023 09:52-0400 Respiratory rate 16 /min [facility] 09-13-2023 09:52-0400 SaO2% (BldA) [Mass fraction] 97 % [facility] 09-13-2023 09:52-0400 Systolic blood pressure 130 mm[Hg] [facility] 08-16-2023 09:58-0400 Body height 157.48 cm [facility] 08-16-2023 09:58-0400 Body mass index (BMI) [Ratio] 36.6 kg/m2 [facility] 08-16-2023 09:58-0400 Body temperature 97.6 [degF] [facility] 08-16-2023 09:58-0400 Body weight 90.71 kg [facility] 08-16-2023 09:58-0400 Diastolic blood pressure 73 mm[Hg] [facility] 08-16-2023 09:58-0400 Heart rate 72 /min [facility] 08-16-2023 09:58-0400 Respiratory rate 14 /min [facility] 08-16-2023 09:58-0400 SaO2% (BldA) [Mass fraction] 97 % [facility] 08-16-2023 09:58-0400 Systolic blood pressure 130 mm[Hg] [facility] 07-19-2023 10:22-0500 Body height 157.48 cm [facility] 07-19-2023 10:22-0500 Body mass index (BMI) [Ratio] 36.6 kg/m2 [facility] 07-19-2023 10:22-0500 Body temperature 96 [degF] [facility] 07-19-2023 10:22-0500 Body weight 90.71 kg [facility] 07-19-2023 10:22-0500 Diastolic blood pressure 68 mm[Hg] [facility] 07-19-2023 10:22-0500 Heart rate 84 /min [facility] 07-19-2023 10:22-0500 Respiratory rate 16 /min [facility] 07-19-2023 10:22-0500 SaO2% (BldA) [Mass fraction] 97 % [facility] 07-19-2023 10:22-0500 Systolic blood pressure 123 mm[Hg] [facility] 06-21-2023 10:37-0500 Body height 157.[address] Albert Maria Work Phone: [facility] 06-21-2023 10:37-0500 Body mass index (BMI) [Ratio] 36.6 kg/m2 Dr. Albert Maria Work Phone: [facility] 06-21-2023 10:37-0500 Body temperature 96.7 [degF] Dr. Albert Maria Work Phone: [facility] 06-21-2023 10:37-0500 Body weight 90.[address] Albert Maria Work Phone: [facility] 06-21-2023 10:37-0500 Diastolic blood pressure 77 mm[Hg] Dr. Albert Maria Work Phone: [facility] 06-21-2023 10:37-0500 Heart rate 75 /min Dr. Albert Maria Work Phone: [facility] 06-21-2023 10:37-0500 Respiratory rate 16 /min Dr. Albert Maria Work Phone: [facility] 06-21-2023 10:37-0500 SaO2% (BldA) [Mass fraction] 95 % Dr. Albert Maria Work Phone: [facility] 06-21-2023 10:37-0500 Systolic blood pressure 142 mm[Hg] Dr. Albert Maria Work Phone: [facility] 05-24-2023 10:35-0500 Body height 157.[address] Albert Maria Work Phone: [facility] 05-24-2023 10:35-0500 Body mass index (BMI) [Ratio] 36.6 kg/m2 Dr. Albert Maria Work Phone: [facility] 05-24-2023 10:35-0500 Body temperature 96.4 [degF] Dr. Albert Maria Work Phone: [facility] 05-24-2023 10:35-0500 Body weight 90.[address] Albert Maria Work Phone: [facility] 05-24-2023 10:35-0500 Diastolic blood pressure 72 mm[Hg] Dr. Albert Maria Work Phone: [facility] 05-24-2023 10:35-0500 Heart rate 88 /min Dr. Albert Maria Work Phone: [facility] 05-24-2023 10:35-0500 Respiratory rate 16 /min Dr. Albert Maria Work Phone: [facility] 05-24-2023 10:35-0500 SaO2% (BldA) [Mass fraction] 94 % Dr. Albert Maria Work Phone: [facility] 05-24-2023 10:35-0500 Systolic blood pressure 128 mm[Hg] Dr. Albert Maria Work Phone: [facility] 04-26-2023 10:57-0500 Body height 157.[address] Albert Maria Work Phone: [facility] 04-26-2023 10:57-0500 Body mass index (BMI) [Ratio] 36.6 kg/m2 Dr. Albert Maria Work Phone: [facility] 04-26-2023 10:57-0500 Body temperature 97.2 [degF] Dr. Albert Maria Work Phone: [facility] 04-26-2023 10:57-0500 Body weight 90.[address] Albert Maria Work Phone: [facility] 04-26-2023 10:57-0500 Diastolic blood pressure 76 mm[Hg] Dr. Albert Maria Work Phone: [facility] 04-26-2023 10:57-0500 Heart rate 74 /min Dr. Albert Maria Work Phone: [facility] 04-26-2023 10:57-0500 Respiratory rate 16 /min Dr. Albert Maria Work Phone: [facility] 04-26-2023 10:57-0500 SaO2% (BldA) [Mass fraction] 97 % Dr. Albert Maria Work Phone: [facility] 04-26-2023 10:57-0500 Systolic blood pressure 121 mm[Hg] Dr. Albert Maria Work Phone: [facility] 03-29-2023 10:30-0500 Body height 157.[address] Albert Maria Work Phone: [facility] 03-29-2023 10:30-0500 Body temperature 96.5 [degF] Dr. Albert Maria Work Phone: [facility] 03-29-2023 10:30-0500 Diastolic blood pressure 70 mm[Hg] Dr. Albert Maria Work Phone: [facility] 03-29-2023 10:30-0500 Heart rate 89 /min Dr. Albert Maria Work Phone: [facility] 03-29-2023 10:30-0500 Respiratory rate 16 /min Dr. Albert Maria Work Phone: [facility] 03-29-2023 10:30-0500 SaO2% (BldA) [Mass fraction] 95 % Dr. Albert Maria Work Phone: [facility] 03-29-2023 10:30-0500 Systolic blood pressure 105 mm[Hg] Dr. Albert Maria Work Phone: [facility] 03-20-2023 09:44-0500 Body height 157.5 cm Albert Maria MD Work Phone: [facility] 03-20-2023 09:44-0500 Body mass index (BMI) [Ratio] 39.58 kg/m2 Albert Maria MD Work Phone: [facility] 03-20-2023 09:44-0500 Body weight 98.16 kg Albert Maria MD Work Phone: [facility] 03-20-2023 09:44-0500 Diastolic blood pressure 78 mm[Hg] Albert Mraia MD Work Phone: [facility] 03-20-2023 09:44-0500 Heart rate 62 /min Albert Maria MD Work Phone: [facility] 03-20-2023 09:44-0500 SaO2% (BldA) [Mass fraction] 93 % Albert Maria MD Work Phone: [facility] 03-20-2023 09:44-0500 Systolic blood pressure 126 mm[Hg] Albert Maria MD Work Phone: [facility] 03-01-2023 10:02-0400 Body height 157.48 cm [facility] 03-01-2023 10:02-0400 Body mass index (BMI) [Ratio] 36.6 kg/m2 [facility] 03-01-2023 10:02-0400 Body temperature 96.9 [degF] [facility] 03-01-2023 10:02-0400 Body weight 90.71 kg [facility] 03-01-2023 10:02-0400 Diastolic blood pressure 62 mm[Hg] [facility] 03-01-2023 10:02-0400 Heart rate 75 /min [facility] 03-01-2023 10:02-0400 Respiratory rate 16 /min [facility] 03-01-2023 10:02-0400 SaO2% (BldA) [Mass fraction] 93 % [facility] 03-01-2023 10:02-0400 Systolic blood pressure 129 mm[Hg] [facility] 02-01-2023 09:58-0400 Body height 157.48 cm [facility] 02-01-2023 09:58-0400 Body mass index (BMI) [Ratio] 36.6 kg/m2 [facility] 02-01-2023 09:58-0400 Body temperature 96.8 [degF] [facility] 02-01-2023 09:58-0400 Body weight 90.71 kg [facility] 02-01-2023 09:58-0400 Diastolic blood pressure 73 mm[Hg] [facility] 02-01-2023 09:58-0400 Heart rate 79 /min [facility] 02-01-2023 09:58-0400 Respiratory rate 16 /min [facility] 02-01-2023 09:58-0400 SaO2% (BldA) [Mass fraction] 96 % [facility] 02-01-2023 09:58-0400 Systolic blood pressure 123 mm[Hg] [facility] 01-04-2023 12:13-0400 Body height 157.48 cm [facility] 01-04-2023 12:13-0400 Body mass index (BMI) [Ratio] 36.6 kg/m2 [facility] 01-04-2023 12:13-0400 Body temperature 96.1 [degF] [facility] 01-04-2023 12:13-0400 Body weight 90.71 kg [facility] 01-04-2023 12:13-0400 Diastolic blood pressure 73 mm[Hg] [facility] 01-04-2023 12:13-0400 Heart rate 73 /min [facility] 01-04-2023 12:13-0400 Respiratory rate 16 /min [facility] 01-04-2023 12:13-0400 SaO2% (BldA) [Mass fraction] 95 % [facility] 01-04-2023 12:13-0400 Systolic blood pressure 119 mm[Hg] [facility] 12-07-2022 10:42-0400 Body height 157.48 cm [facility] 12-07-2022 10:42-0400 Body mass index (BMI) [Ratio] 36.6 kg/m2 [facility] 12-07-2022 10:42-0400 Body temperature 96.8 [degF] [facility] 12-07-2022 10:42-0400 Body weight 90.71 kg [facility] 12-07-2022 10:42-0400 Diastolic blood pressure 78 mm[Hg] [facility] 12-07-2022 10:42-0400 Heart rate 80 /min [facility] 12-07-2022 10:42-0400 Respiratory rate 16 /min [facility] 12-07-2022 10:42-0400 SaO2% (BldA) [Mass fraction] 92 % [facility] 12-07-2022 10:42-0400 Systolic blood pressure 140 mm[Hg] [facility] 11-09-2022 10:25-0400 Body height 157.48 cm [facility] 11-09-2022 10:25-0400 Body mass index (BMI) [Ratio] 36.6 kg/m2 [facility] 11-09-2022 10:25-0400 Body temperature 96.8 [degF] [facility] 11-09-2022 10:25-0400 Body weight 90.71 kg [facility] 11-09-2022 10:25-0400 Diastolic blood pressure 77 mm[Hg] [facility] 11-09-2022 10:25-0400 Heart rate 78 /min [facility] 11-09-2022 10:25-0400 Respiratory rate 16 /min [facility] 11-09-2022 10:25-0400 SaO2% (BldA) [Mass fraction] 97 % [facility] 11-09-2022 10:25-0400 Systolic blood pressure 140 mm[Hg] [facility] 10-12-2022 10:32-0400 Body height 157.48 cm [facility] 10-12-2022 10:32-0400 Body mass index (BMI) [Ratio] 36.6 kg/m2 [facility] 10-12-2022 10:32-0400 Body temperature 96.9 [degF] [facility] 10-12-2022 10:32-0400 Body weight 90.71 kg [facility] 10-12-2022 10:32-0400 Diastolic blood pressure 69 mm[Hg] [facility] 10-12-2022 10:32-0400 Heart rate 81 /min [facility] 10-12-2022 10:32-0400 Respiratory rate 16 /min [facility] 10-12-2022 10:32-0400 SaO2% (BldA) [Mass fraction] 94 % [facility] 10-12-2022 10:32-0400 Systolic blood pressure 104 mm[Hg] [facility] 09-14-2022 10:20-0400 Body height 157.48 cm [facility] 09-14-2022 10:20-0400 Body mass index (BMI) [Ratio] 36.6 kg/m2 [facility] 09-14-2022 10:20-0400 Body temperature 96.7 [degF] [facility] 09-14-2022 10:20-0400 Body weight 90.71 kg [facility] 09-14-2022 10:20-0400 Diastolic blood pressure 70 mm[Hg] [facility] 09-14-2022 10:20-0400 Heart rate 87 /min [facility] 09-14-2022 10:20-0400 Respiratory rate 16 /min [facility] 09-14-2022 10:20-0400 SaO2% (BldA) [Mass fraction] 96 % [facility] 09-14-2022 10:20-0400 Systolic blood pressure 132 mm[Hg] [facility] 09-04-2022 09:07-0400 Body height 157.5 cm Albert Maria MD Work Phone: [facility] 09-04-2022 09:07-0400 Body mass index (BMI) [Ratio] 39.36 kg/m2 Albert Maria MD Work Phone: [facility] 09-04-2022 09:07-0400 Body weight 97.61 kg Albert Maria MD Work Phone: [facility] 09-04-2022 09:07-0400 Diastolic blood pressure 80 mm[Hg] Albert Maria MD Work Phone: [facility] 09-04-2022 09:07-0400 Heart rate 82 /min Albert Maria MD Work Phone: [facility] 09-04-2022 09:07-0400 SaO2% (BldA) [Mass fraction] 95 % Albert Maria MD Work Phone: [facility] 09-04-2022 09:07-0400 Systolic blood pressure 132 mm[Hg] Albert Maria MD Work Phone: [facility] 08-17-2022 10:55-0400 Body height 157.48 cm [facility] 08-17-2022 10:55-0400 Body mass index (BMI) [Ratio] 36.6 kg/m2 [facility] 08-17-2022 10:55-0400 Body temperature 97.1 [degF] [facility] 08-17-2022 10:55-0400 Body weight 90.71 kg [facility] 08-17-2022 10:55-0400 Diastolic blood pressure 77 mm[Hg] [facility] 08-17-2022 10:55-0400 Heart rate 75 /min [facility] 08-17-2022 10:55-0400 Respiratory rate 16 /min [facility] 08-17-2022 10:55-0400 SaO2% (BldA) [Mass fraction] 96 % [facility] 08-17-2022 10:55-0400 Systolic blood pressure 140 mm[Hg] [facility] 07-20-2022 10:50-0500 Body height 157.48 cm [facility] 07-20-2022 10:50-0500 Body mass index (BMI) [Ratio] 36.6 kg/m2 [facility] 07-20-2022 10:50-0500 Body temperature 96.4 [degF] [facility] 07-20-2022 10:50-0500 Body weight 90.71 kg [facility] 07-20-2022 10:50-0500 Diastolic blood pressure 84 mm[Hg] [facility] 07-20-2022 10:50-0500 Heart rate 79 /min [facility] 07-20-2022 10:50-0500 Respiratory rate 18 /min [facility] 07-20-2022 10:50-0500 SaO2% (BldA) [Mass fraction] 97 % [facility] 07-20-2022 10:50-0500 Systolic blood pressure 141 mm[Hg] [facility] 06-22-2022 10:46-0500 Body height 157.[address] Albert Maria Work Phone: [facility] 06-22-2022 10:46-0500 Body mass index (BMI) [Ratio] 36.6 kg/m2 Dr. Albert Maria Work Phone: [facility] 06-22-2022 10:46-0500 Body temperature 96.9 [degF] Dr. Albert Maria Work Phone: [facility] 06-22-2022 10:46-0500 Body weight 90.[address] Albert Maria Work Phone: [facility] 06-22-2022 10:46-0500 Diastolic blood pressure 73 mm[Hg] Dr. Albert Maria Work Phone: [facility] 06-22-2022 10:46-0500 Heart rate 78 /min Dr. Albert Maria Work Phone: [facility] 06-22-2022 10:46-0500 Respiratory rate 16 /min Dr. Albert Maria Work Phone: [facility] 06-22-2022 10:46-0500 SaO2% (BldA) [Mass fraction] 98 % Dr. Albert Maria Work Phone: [facility] 06-22-2022 10:46-0500 Systolic blood pressure 136 mm[Hg] Dr. Albert Maria Work Phone: [facility] 05-25-2022 10:29-0500 Body height 157.[address] Albert Maria Work Phone: [facility] 05-25-2022 10:29-0500 Body mass index (BMI) [Ratio] 36.6 kg/m2 Dr. Albert Maria Work Phone: [facility] 05-25-2022 10:29-0500 Body temperature 96.8 [degF] Dr. Albert Maria Work Phone: [facility] 05-25-2022 10:29-0500 Body weight 90.[address] Albert Maria Work Phone: [facility] 05-25-2022 10:29-0500 Diastolic blood pressure 77 mm[Hg] Dr. Albert Maria Work Phone: [facility] 05-25-2022 10:29-0500 Heart rate 84 /min Dr. Albert Maria Work Phone: [facility] 05-25-2022 10:29-0500 Respiratory rate 16 /min Dr. Albert Maria Work Phone: [facility] 05-25-2022 10:29-0500 Systolic blood pressure 130 mm[Hg] Dr. Albert Maria Work Phone: [facility] 04-27-2022 10:29-0500 Body height 157.[address] Albert Maria Work Phone: [facility] Work Phone: 04-27-2022 10:29-0500 Body mass index (BMI) [Ratio] 36.6 kg/m2 Dr. Albert Maria Work Phone: [facility] 04-27-2022 10:29-0500 Body temperature 96.9 [degF] Dr. Albert Maria Work Phone: [facility] 04-27-2022 10:29-0500 Body weight 90.[address] Albert Maria Work Phone: [facility] 04-27-2022 10:29-0500 Diastolic blood pressure 80 mm[Hg] Dr. Albert Maria Work Phone: [facility] 04-27-2022 10:29-0500 Heart rate 63 /min Dr. Albert Maria Work Phone: [facility] 04-27-2022 10:29-0500 Respiratory rate 12 /min Dr. Albert Maria Work Phone: [facility] 04-27-2022 10:29-0500 SaO2% (BldA) [Mass fraction] 99 % Dr. Albert Maria Work Phone: [facility] 04-27-2022 10:29-0500 Systolic blood pressure 160 mm[Hg] Dr. Albert Maria Work Phone: [facility] 03-30-2022 10:17-0500 Body height 157.[address] Albert Maria Work Phone: [facility] Work Phone: 03-30-2022 10:17-0500 Body temperature 96.1 [degF] Dr. Albert Maria Work Phone: [facility] 03-30-2022 10:17-0500 Diastolic blood pressure 86 mm[Hg] Dr. Albert Maria Work Phone: [facility] 03-30-2022 10:17-0500 Heart rate 89 /min Dr. Albert Maria Work Phone: [facility] 03-30-2022 10:17-0500 Respiratory rate 18 /min Dr. Albert Maria Work Phone: [facility] 03-30-2022 10:17-0500 Systolic blood pressure 123 mm[Hg] Dr. Albert Maria Work Phone: [facility] 03-23-2022 09:46-0500 Body mass index (BMI) [Ratio] 39.3 kg/m2 Dr. Albert Maria Work Phone: [facility] 03-23-2022 09:46-0500 Body temperature 97.5 [degF] Dr. Albert Maria Work Phone: [facility] 03-23-2022 09:46-0500 Body weight 97.[address] Albert Maria Work Phone: [facility] 03-23-2022 09:46-0500 Diastolic blood pressure 93 mm[Hg] Dr. Albert Maria Work Phone: [facility] 03-23-2022 09:46-0500 Heart rate 87 /min Dr. Albert Maria Work Phone: [facility] 03-23-2022 09:46-0500 Respiratory rate 18 /min Dr. Albert Maria Work Phone: [facility] 03-23-2022 09:46-0500 SaO2% (BldA) [Mass fraction] 98 % Dr. Albert Maria Work Phone: [facility] 03-23-2022 09:46-0500 Systolic blood pressure 151 mm[Hg] Dr. Albert Maria Work Phone: [facility] 03-01-2022 10:21-0400 Body height 157.48 cm [facility] Work Phone: 03-01-2022 10:21-0400 Body temperature 96 [degF] [facility] 03-01-2022 10:21-0400 Diastolic blood pressure 79 mm[Hg] [facility] 03-01-2022 10:21-0400 Heart rate 65 /min [facility] 03-01-2022 10:21-0400 Respiratory rate 16 /min [facility] 03-01-2022 10:21-0400 SaO2% (BldA) [Mass fraction] 96 % [facility] 03-01-2022 10:21-0400 Systolic blood pressure 135 mm[Hg] [facility] 02-28-2022 09:37-0400 Diastolic blood pressure 74 mm[Hg] Albert Maria Work Phone: [facility] Work Phone: 02-28-2022 09:37-0400 Systolic blood pressure 118 mm[Hg] Albert Maria Work Phone: [facility] Work Phone: 02-28-2022 09:04-0400 Body height 157.48 cm Albert Maria Work Phone: [facility] Work Phone: 02-28-2022 09:04-0400 Body mass index (BMI) [Ratio] 39.18 kg/m2 Albert Maria Work Phone: [facility] Work Phone: 02-28-2022 09:04-0400 Body surface area Derived from formula 1.97 m2 Albert Maria Work Phone: [facility] Work Phone: 02-28-2022 09:04-0400 Body weight 97.16 kg Albert Maria Work Phone: [facility] Work Phone: 02-28-2022 09:04-0400 Diastolic blood pressure 84 mm[Hg] Albert Maria Work Phone: [facility] Work Phone: 02-28-2022 09:04-0400 Heart rate 75 /min Albert Maria Work Phone: [facility] Work Phone: 02-28-2022 09:04-0400 SaO2% (BldA) [Mass fraction] 96 % Albert Maria Work Phone: [facility] Work Phone: 02-28-2022 09:04-0400 Systolic blood pressure 148 mm[Hg] Albert Maria Work Phone: [facility] Work Phone: 02-02-2022 08:30-0400 Body temperature 96.3 [degF] [facility] Work Phone: 02-02-2022 08:30-0400 Diastolic blood pressure 79 mm[Hg] [facility] Work Phone: 02-02-2022 08:30-0400 Heart rate 80 /min [facility] Work Phone: 02-02-2022 08:30-0400 SaO2% (BldA) [Mass fraction] 98 % [facility] Work Phone: 02-02-2022 08:30-0400 Systolic blood pressure 142 mm[Hg] [facility] Work Phone: 01-05-2022 08:26-0400 Body height 157.48 cm [facility] Work Phone: 01-05-2022 08:26-0400 Body mass index (BMI) [Ratio] 36.6 kg/m2 [facility] Work Phone: 01-05-2022 08:26-0400 Body temperature 96.8 [degF] [facility] Work Phone: 01-05-2022 08:26-0400 Body weight 90.71 kg [facility] Work Phone: 01-05-2022 08:26-0400 Diastolic blood pressure 63 mm[Hg] [facility] Work Phone: 01-05-2022 08:26-0400 Heart rate 80 /min [facility] Work Phone: 01-05-2022 08:26-0400 Respiratory rate 16 /min [facility] Work Phone: 01-05-2022 08:26-0400 SaO2% (BldA) [Mass fraction] 95 % [facility] Work Phone: 01-05-2022 08:26-0400 Systolic blood pressure 138 mm[Hg] [facility] Work Phone: 12-08-2021 10:04-0400 Body height 157.48 cm [facility] Work Phone: 12-08-2021 10:04-0400 Body temperature 97 [degF] [facility] Work Phone: 12-08-2021 10:04-0400 Diastolic blood pressure 73 mm[Hg] [facility] Work Phone: 12-08-2021 10:04-0400 Heart rate 81 /min [facility] Work Phone: 12-08-2021 10:04-0400 Respiratory rate 16 /min [facility] Work Phone: 12-08-2021 10:04-0400 SaO2% (BldA) [Mass fraction] 95 % [facility] Work Phone: 12-08-2021 10:04-0400 Systolic blood pressure 133 mm[Hg] [facility] Work Phone: 11-10-2021 09:24-0400 Body height 157.48 cm [facility] Work Phone: 11-10-2021 09:24-0400 Body mass index (BMI) [Ratio] 36.6 kg/m2 [facility] Work Phone: 11-10-2021 09:24-0400 Body temperature 97.4 [degF] [facility] Work Phone: 11-10-2021 09:24-0400 Body weight 90.71 kg [facility] Work Phone: 11-10-2021 09:24-0400 Diastolic blood pressure 69 mm[Hg] [facility] Work Phone: 11-10-2021 09:24-0400 Heart rate 83 /min [facility] Work Phone: 11-10-2021 09:24-0400 Respiratory rate 12 /min [facility] Work Phone: 11-10-2021 09:24-0400 SaO2% (BldA) [Mass fraction] 95 % [facility] Work Phone: 11-10-2021 09:24-0400 Systolic blood pressure 148 mm[Hg] [facility] Work Phone: 10-13-2021 09:44-0400 Body temperature 97.2 [degF] [facility] Work Phone: 10-13-2021 09:44-0400 Diastolic blood pressure 80 mm[Hg] [facility] Work Phone: 10-13-2021 09:44-0400 Heart rate 72 /min [facility] Work Phone: 10-13-2021 09:44-0400 Respiratory rate 16 /min [facility] Work Phone: 10-13-2021 09:44-0400 SaO2% (BldA) [Mass fraction] 97 % [facility] Work Phone: 10-13-2021 09:44-0400 Systolic blood pressure 132 mm[Hg] [facility] Work Phone: 10-13-2021 09:07-0400 Body height 157.48 cm [facility] Work Phone: 10-13-2021 09:07-0400 Body mass index (BMI) [Ratio] 36.6 kg/m2 [facility] Work Phone: 10-13-2021 09:07-0400 Body weight 90.71 kg [facility] Work Phone: 09-15-2021 09:12-0400 Body height 157.48 cm [facility] Work Phone: 09-15-2021 09:12-0400 Body temperature 97.2 [degF] [facility] Work Phone: 09-15-2021 09:12-0400 Diastolic blood pressure 76 mm[Hg] [facility] Work Phone: 09-15-2021 09:12-0400 Heart rate 84 /min [facility] Work Phone: 09-15-2021 09:12-0400 Respiratory rate 16 /min [facility] Work Phone: 09-15-2021 09:12-0400 SaO2% (BldA) [Mass fraction] 93 % [facility] Work Phone: 09-15-2021 09:12-0400 Systolic blood pressure 146 mm[Hg] [facility] Work Phone: 08-29-2021 09:04-0400 Body height 157.48 cm Albert Maria Work Phone: [facility] Work Phone: 08-29-2021 09:04-0400 Body mass index (BMI) [Ratio] 38.96 kg/m2 Albert Maria Work Phone: [facility] Work Phone: 08-29-2021 09:04-0400 Body surface area Derived from formula 1.96 m2 Albert Maria Work Phone: [facility] Work Phone: 08-29-2021 09:04-0400 Body weight 96.62 kg Albert Maria Work Phone: [facility] Work Phone: 08-29-2021 09:04-0400 Diastolic blood pressure 76 mm[Hg] Albert Maria Work Phone: [facility] Work Phone: 08-29-2021 09:04-0400 Heart rate 83 /min Albert Gallegoscel Work Phone: [facility] Work Phone: 08-29-2021 09:04-0400 SaO2% (BldA) [Mass fraction] 95 % Albert Gallegoscel Work Phone: [facility] Work Phone: 08-29-2021 09:04-0400 Systolic blood pressure 132 mm[Hg] Albert Gallegoscel Work Phone: [facility] Work Phone: 08-18-2021 09:05-0400 Body height 157.48 cm [facility] Work Phone: 08-18-2021 09:05-0400 Body mass index (BMI) [Ratio] 36.6 kg/m2 [facility] Work Phone: 08-18-2021 09:05-0400 Body temperature 96.3 [degF] [facility] Work Phone: 08-18-2021 09:05-0400 Body weight 90.71 kg [facility] Work Phone: 08-18-2021 09:05-0400 Diastolic blood pressure 78 mm[Hg] [facility] Work Phone: 08-18-2021 09:05-0400 Heart rate 85 /min [facility] Work Phone: 08-18-2021 09:05-0400 Respiratory rate 12 /min [facility] Work Phone: 08-18-2021 09:05-0400 SaO2% (BldA) [Mass fraction] 97 % [facility] Work Phone: 08-18-2021 09:05-0400 Systolic blood pressure 141 mm[Hg] [facility] Work Phone: 07-21-2021 09:28-0500 Body temperature 97 [degF] [facility] Work Phone: 07-21-2021 09:28-0500 Diastolic blood pressure 71 mm[Hg] [facility] Work Phone: 07-21-2021 09:28-0500 Heart rate 86 /min [facility] Work Phone: 07-21-2021 09:28-0500 Respiratory rate 16 /min [facility] Work Phone: 07-21-2021 09:28-0500 SaO2% (BldA) [Mass fraction] 96 % [facility] Work Phone: 07-21-2021 09:28-0500 Systolic blood pressure 130 mm[Hg] [facility] Work Phone: 07-21-2021 08:28-0500 Body height 157.48 cm [facility] Work Phone: 07-21-2021 08:28-0500 Body temperature 97 [degF] [facility] Work Phone: 07-21-2021 08:28-0500 Diastolic blood pressure 71 mm[Hg] [facility] Work Phone: 07-21-2021 08:28-0500 Heart rate 86 /min [facility] Work Phone: 07-21-2021 08:28-0500 Respiratory rate 16 /min [facility] Work Phone: 07-21-2021 08:28-0500 SaO2% (BldA) [Mass fraction] 96 % [facility] Work Phone: 07-21-2021 08:28-0500 Systolic blood pressure 130 mm[Hg] [facility] Work Phone: 06-23-2021 08:24-0500 Body mass index (BMI) [Ratio] 36.6 kg/m2 [facility] Work Phone: 06-23-2021 08:24-0500 Body temperature 96.4 [degF] [facility] Work Phone: 06-23-2021 08:24-0500 Body weight 90.71 kg [facility] Work Phone: 06-23-2021 08:24-0500 Diastolic blood pressure 79 mm[Hg] [facility] Work Phone: 06-23-2021 08:24-0500 Heart rate 80 /min [facility] Work Phone: 06-23-2021 08:24-0500 Respiratory rate 16 /min [facility] Work Phone: 06-23-2021 08:24-0500 SaO2% (BldA) [Mass fraction] 95 % [facility] Work Phone: 06-23-2021 08:24-0500 Systolic blood pressure 146 mm[Hg] [facility] Work Phone: 05-26-2021 08:32-0500 Body mass index (BMI) [Ratio] 36.6 kg/m2 [facility] Work Phone: 05-26-2021 08:32-0500 Body temperature 96.9 [degF] [facility] Work Phone: 05-26-2021 08:32-0500 Body weight 90.71 kg [facility] Work Phone: 05-26-2021 08:32-0500 Diastolic blood pressure 77 mm[Hg] [facility] Work Phone: 05-26-2021 08:32-0500 Heart rate 76 /min [facility] Work Phone: 05-26-2021 08:32-0500 Respiratory rate 18 /min [facility] Work Phone: 05-26-2021 08:32-0500 SaO2% (BldA) [Mass fraction] 98 % [facility] Work Phone: 05-26-2021 08:32-0500 Systolic blood pressure 142 mm[Hg] [facility] Work Phone: 04-28-2021 08:22-0500 Body temperature 97.6 [degF] [facility] Work Phone: 04-28-2021 08:22-0500 Diastolic blood pressure 81 mm[Hg] [facility] Work Phone: 04-28-2021 08:22-0500 Heart rate 83 /min [facility] Work Phone: 04-28-2021 08:22-0500 Respiratory rate 16 /min [facility] Work Phone: 04-28-2021 08:22-0500 SaO2% (BldA) [Mass fraction] 97 % [facility] Work Phone: 04-28-2021 08:22-0500 Systolic blood pressure 155 mm[Hg] [facility] Work Phone: 02-27-2021 09:42-0400 Diastolic blood pressure 76 mm[Hg] Albert Arreguin Stencel Work Phone: [facility] Work Phone: 02-27-2021 09:42-0400 Systolic blood pressure 136 mm[Hg] Albert D Stencel Work Phone: [facility] Work Phone: 02-27-2021 08:58-0400 Body height 157.48 cm Albert Arreguin Stencel Work Phone: [facility] Work Phone: 02-27-2021 08:58-0400 Body mass index (BMI) [Ratio] 37.5 kg/m2 Albert Arreguin Stencel Work Phone: [facility] Work Phone: 02-27-2021 08:58-0400 Body surface area Derived from formula 1.93 m2 Albert Arreguin Stencel Work Phone: [facility] Work Phone: 02-27-2021 08:58-0400 Body temperature 96.9 [degF] Albert Arreguin Stencel Work Phone: [facility] Work Phone: 02-27-2021 08:58-0400 Body weight 92.99 kg Albert Arreguin Stencel Work Phone: [facility] Work Phone: 02-27-2021 08:58-0400 Diastolic blood pressure 88 mm[Hg] Albert D Stencel Work Phone: [facility] Work Phone: 02-27-2021 08:58-0400 Heart rate 76 /min Albert Maria Work Phone: [facility] Work Phone: 02-27-2021 08:58-0400 SaO2% (BldA) [Mass fraction] 92 % Albert Maria Work Phone: [facility] Work Phone: 02-27-2021 08:58-0400 Systolic blood pressure 148 mm[Hg] Albert Maria Work Phone: [facility] Work Phone: 02-25-2020 10:49-0400 BP Diastolic 88 mm[Hg] Albert Gallegoscamilla [facility] Work Phone: 02-25-2020 10:49-0400 BP Systolic 138 mm[Hg] Albert Maria [facility] Work Phone: 02-25-2020 10:43-0400 BMI (Body Mass Index) 40.24 kg/m2 Albert Maria [facility] Work Phone: 02-25-2020 10:43-0400 Body Temperature 95.7 [degF] Albert Maria [facility] Work Phone: 02-25-2020 10:43-0400 Body weight 99.79 kg Albert Maria [facility] Work Phone: 02-25-2020 10:43-0400 BSA (Body Surface Area) 1.99 m2 Albert Maria [facility] Work Phone: 02-25-2020 10:43-0400 Height 157.48 cm [facility] Work Phone: 02-25-2020 10:43-0400 Pulse (Heart Rate) 82 /min Albert Gal[facility]oscamilla [facility] Work Phone: 02-25-2020 10:43-0400 Pulse Oximetry 92 % Albert [facility] Work Phone: 02-17-2019 10:09-0400 BMI (Body Mass Index) 38.57 kg/m2 Albert [facility] Work Phone: 02-17-2019 10:09-0400 Body weight 95.65 kg Albert [facility] Work Phone: 02-17-2019 10:09-0400 BP Diastolic 82 mm[Hg] [facility] Work Phone: 02-17-2019 10:09-0400 BP Systolic 148 mm[Hg] Albert Gallegoscamilla [facility] Work Phone: 02-17-2019 10:09-0400 BSA (Body Surface Area) 1.95 m2 Albert [facility]legoscamilla [facility] Work Phone: 02-17-2019 10:09-0400 Height 157.48 cm Albert Maria [facility] Work Phone: 02-17-2019 10:09-0400 Pulse (Heart Rate) 68 /min Albert [facility] Work Phone: Encounters Encounter Date Encounter Type Care Provider Facility Start: 01-05-2025 ambulatory Macy Faith NP Fac ility:[facility] Start: 12-08-2024 End: 12-08-2024 Patient encounter procedure Macy Faith NP-C [facility] Work Phone: Start: 12-08-2024 End: 12-08-[address] Albert Maria MD Work Phone: [facility] Start: 11-10-2024 End: 11-10-2024 Patient encounter procedure Macy Faith NP-C [facility] Work Phone: Start: 11-10-2024 End: 11-10-[address] Albert Marai MD Work Phone: [facility] Start: 10-09-2024 End: 10-09-2024 Patient encounter procedure Macy DILLONC [facility] Work Phone: Start: 10-09-2024 End: 10-09-[address] Albert Maria MD Work Phone: [facility] Work Phone: Start: 09-21-2024 End: 09-21-2024 Assay of hemosiderin, quant Albert Maria MD Work Phone: [facility] Work Phone: Start: 09-21-2024 End: 09-21-2024 Patient encounter procedure Albert Maria MD Work Phone: [facility] Comment on above: Routine general medi villa examination at health care facility (Primary Dx); Primary hypertension; Severe persistent asthma without complication (Multi); Breast cancer screening by mammogram; Obesity, morbid (Multi) Start: 09-21-2024 End: 09-21-2024 [facility] Start: 09-11-2024 End: 09-11-2024 Patient encounter procedure Macy DILLONC [facility] Work Phone: Start: 09-11-2024 End: 09-11-2024 ambulatory Macy Faith NP Facility:[facility] Start: 08-14-2024 End: 08-14-2024 Patient encounter procedure Macy Faith NP-C [facility] Work Phone: Start: 08-14-2024 End: 08-14-[address] Albert Maria MD Work Phone: [facility] Work Phone: Start: 07-17-2024 End: 07-17-2024 Patient encounter procedure Macy DILLONC [facility] Work Phone: Start: 07-17-2024 End: 07-17-[address] 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 Pricilla Benavides -[facility] Work Phone: Start: 05-27-2024 End: 05-27-2024 ambulatory Pricilla Benavides [place] [place]: 05-22-2024 End: 05-22-2024 Patient encounter procedure Macy Faith [employer] Work Phone: Start: 05-22-2024 End: 05-22-2024 ambulatory Macy Faith [employer]ER Facility:[facility] Start: 04-24-2024 End: 04-24-2024 Patient encounter procedure Macy Faith [employer]-C [facility] Work Phone: Start: 04-24-2024 End: 04-24-2024 ambulatory Macy Faith [employer] Facility:[facility] Start: 04-13-2024 End: 04-13-2024 [facility] Comment on above: Breast cancer screen ing by mammogram Start: 04-13-2024 End: 04-13-2024 ambulatory ALBERT MARIA [facility] Start: 03-27-2024 End: 03-27-2024 Patient encounter procedure Macy Faith [employer]-C [facility] Work Phone: Start: 03-27-2024 End: 03-27-2024 ambulatory Macy Faith [employer] Facility:[facility] Start: 03-23-2024 End: 03-23-2024 Office outpatient visit 25 minutes Albert Maria MD Work Phone: [facility] Comment on above: Primary hypertension (Primary Dx); Severe persistent asthma without complication (Multi); Breast cancer screening by mammogram Start: 03-23-2024 End: 03-23-2024 ambulatory ALBERT MARIA [facility] Start: 03-17-2024 End: 03-17-2024 ambulatory ALBERT MARIA [facility] Start: 02-28-2024 End: 02-28-2024 ambulatory Macy Faith [employer] Facility:[facility] Start: 01-31-2024 End: 01-31-2024 ambulatory Macy Faith [employer] Facility:[facility] Start: 01-03-2024 End: 01-03-2024 ambulatory Macy Faith PL[employer]ER Facility:[facility] Start: 09-18-2023 End: 09-18-2023 Assay of hemosiderin, quant Albert Maria MD Work Phone: [facility] Work Phone: Start: 09-18-2023 End: 09-18-2023 Patient encounter procedure Albert Maria MD Work Phone: [facility] Comment on above: Routine general medi villa examination at health care facility (Primary Dx); Primary hypertension; Severe persistent asthma without complication (Multi); Obesity, morbid (Multi) Start: 09-13-2023 End: 09-13-2023 [facility] [facility] Work Phone: Start: 09-13-2023 End: 09-13-2023 Patient encounter procedure [facility] Work Phone: Start: 08-16-2023 End: 08-16-2023 ambulatory [facility] Work Phone: Start: 08-16-2023 End: 08-16-2023 Patient encounter procedure [facility] Work Phone: Start: 07-19-2023 End: 07-19-2023 ambulatory [facility] Work Phone: Start: 07-19-2023 End: 07-19-2023 Patient encounter procedure [facility] Work Phone: Start: 06-21-2023 End: 06-21-[address] Albert Maria Work Phone: [facility] Work Phone: Start: 06-21-2023 End: 06-21-[address] [facility] Start: 05-24-2023 End: 05-24-[address] Albert Maria Work Phone: [facility] Work Phone: Start: 05-24-2023 End: 05-24-[address] [facility]: Start: 04-26-2023 End: 04-26-[address] Albert Maria Work Phone: [facility] Work Phone: Start: 04-26-2023 End: 04-26-[address] [facility]: Start: 03-29-2023 End: 03-29-[address] Albert Maria Work Phone: [facility] Work Phone: Start: 03-29-2023 End: 03-29-[address] Albert [facility]: Start: 03-21-2023 End: 03-21-[address] Albert Maria Work Phone: [facility] Work Phone: Start: 03-20-2023 End: 03-20-2023 Office outpatient visit 25 minutes Albert Maria MD Work Phone: [facility] Comment on above: Primary hypertension (Primary Dx); Breast cancer screening by mammogram; Encounter for screening mammogram for malignant neoplasm of breast Start: 03-01-2023 End: 03-01-2023 ambulatory [facility] Work Phone: Start: 03-01-2023 End: 03-01-2023 Patient encounter procedure [facility] Work Phone: Start: 02-01-2023 End: 02-01-2023 ambulatory [facility] Work Phone: Start: 02-01-2023 End: 02-01-2023 Patient encounter procedure [facility] Work Phone: Start: 01-04-2023 End: 01-04-2023 ambulatory [facility] Work Phone: Start: 01-04-2023 End: 01-04-2023 Patient encounter procedure [facility] Work Phone: Start: 12-07-2022 End: 12-07-2022 ambulatory [facility] Work Phone: Start: 12-07-2022 End: 12-07-2022 Patient encounter procedure [facility] Work Phone: Start: 11-09-2022 End: 11-09-2022 ambulatory [facility] Work Phone: Start: 11-09-2022 End: 11-09-2022 Patient encounter procedure [facility] Work Phone: Start: 10-12-2022 End: 10-12-2022 ambulatory [facility] Work Phone: Start: 10-12-2022 End: 10-12-2022 Patient encounter procedure [facility] Start: 09-14-2022 End: 09-14-2022 ambulatory [facility] Work Phone: Start: 09-14-2022 End: 09-14-2022 Patient encounter procedure [facility] Start: 09-04-2022 End: 09-04-2022 Assay of hemosiderin, quant Albert Maria MD Work Phone: [facility] Work Phone: Start: 09-04-2022 End: 09-04-2022 Patient encounter procedure Albert Maria MD Work Phone: [facility] Comment on above: Routine general medi villa examination at health care facility (Primary Dx); Severe persistent asthma without complication; Primary hypertension Start: 08-17-2022 End: 08-17-2022 ambulatory [facility] Work Phone: Start: 08-17-2022 End: 08-17-2022 Patient encounter procedure [facility] Start: 07-20-2022 End: 07-20-2022 ambulatory [facility] Work Phone: Start: 07-20-2022 End: 07-20-2022 Patient encounter procedure [facility] Start: 06-22-2022 End: 06-22-[address] Albert Maria Work Phone: [facility] Work Phone: Start: 06-22-2022 End: 06-22-[address] Albert Maria Work Phone: [facility] Start: 05-25-2022 End: 05-25-[address] Albert Maria Work Phone: [facility] Work Phone: Start: 05-25-2022 End: 05-25-[address] Albert Maria Work Phone: [facility] Start: 04-27-2022 End: 04-27-[address] Albert Maria Work Phone: [facility] Work Phone: Start: 04-27-2022 End: 04-27-[address] Albert Maria Work Phone: [facility] Start: 03-30-2022 End: 03-30-[address] Albert Maria Work Phone: [facility] Work Phone: Start: 03-30-2022 End: 03-30-[address] Albert Maria Work Phone: [facility] Start: 03-27-2022 Chart Update [facility] santiago [facility] Work Phone: Start: 03-27-[address] Albert Villalpando Facility:[id number] Start: 03-23-2022 End: 03-23-[address] [facility] Start: 03-01-2022 End: 03-01-2022 ambulatory [facility] Work Phone: Start: 03-01-2022 End: 03-01-2022 Patient encounter procedure [facility] Start: 02-28-2022 Office outpatient vi sit 25 minutes Albert Maria [facility] Work Phone: Start: 02-28-2022 ambulatory Albert Maria F acility:[id number] Start: 02-02-2022 End: 02-02-2022 ambulatory [facility] Work Phone: Start: 02-02-2022 End: 02-02-2022 Patient encounter procedure [facility] Start: 01-05-2022 End: 01-05-2022 ambulatory [facility] Work Phone: Start: 01-05-2022 End: 01-05-2022 Patient encounter procedure [facility] Start: 12-08-2021 End: 12-08-2021 Patient encounter procedure [facility] Start: 11-24-2021 Chart Update Albert santiago [facility] [id number] Work Phone: Start: 11-22-2021 End: 11-22-[address] Albert Maria Facility:[id number] Start: 11-10-2021 End: 11-10-2021 Patient encounter procedure [facility] Start: 10-13-2021 End: 10-13-2021 Patient encounter procedure [facility] Start: 09-15-2021 End: 09-15-2021 Patient encounter procedure [facility] Start: 08-29-2021 Adv care pln/ no alt dcsn mkr docd or refusal Albert Maria Work Phone: [facility] Work Phone: Start: 08-29-2021 ambulatory Albert Reji Maria F acility:[id number] Start: 08-18-2021 End: 08-18-2021 Patient encounter procedure [facility] Start: 07-21-2021 End: 07-21-2021 Patient encounter procedure [facility] Start: 07-20-2021 End: 07-20-2021 Patient encounter procedure [facility]Laboratory, Specimen Start: 06-23-2021 End: 06-23-2021 Patient encounter procedure [facility] Start: 05-26-2021 End: 05-26-2021 Patient encounter procedure [facility] Start: 04-28-2021 Patient encounter procedure [facility] Start: 03-17-2021 AUDIT Albert santiago Work Phone: [employer] [facility] Work Phone: Start: 02-27-2021 Office outpatient vi sit 25 minutes Albert Maria Work Phone: [facility] Work Phone: Start: 02-25-2020 Patient encounter procedure Albert Maria [facility] Work Phone: Start: 08-20-2019 Patient encounter procedure Albert Maria [facility] Work Phone: Start: 02-17-2019 Patient encounter procedure Albert Maria [facility] Work Phone: Procedures Date Procedure Procedure Detail Performing Clinician Start: 04-13-2024 End: 04-13-2024 Screening digital breast tomosynthesis bi Albert Maria MD Work Phone: Start: 04-02-2023 Mammography Albert Kim MD Work Phone: Start: 03-27-2022 Mammography Albert Kim MD Work Phone: Start: 11-22-2021 End: 11-22-2021 Colonoscopy Albert Maria Work Phone: Start: 07-20-2021 Investigation of transfusion reaction Start: 07-20-2021 Nasopharyngeal Culture Start: 02-20-2021 Lipid 1996 panel - S ruth or Plasma Albert Maria MD Work Phone: Start: 02-25-2020 MG Breast screening Shaheed hatyrell Maria Start: 02-25-2020 Xray Bone Density, D exa 1 or More Sites Albert Maria Colonoscopy Albert Maria Comment on above: 2019 dr purcell; H/O: hysterectomy History of hysterectomy Hysterectomy Albert Maria Investigation of transfusion reaction Nasal sinus procedure Annika Maria Comment on above: x3; Nasopharyngeal Culture Surgical procedure Albert Cook tencamilla Tympanotomy Albert Maria Plan of Treatment Date Care Activity Detail Author Start: 11-23-2031 Screening for malign ant neoplasm of colon [facility] Start: 11-22-2026 Screening for malign ant neoplasm of colon [facility] Start: 02-20-2026 Lipid panel Lipid Panel [facility] Start: 09-22-2025 Medicare Annual Wellness Visit Medicare Annual Wellness Visit (AWV) [facility] Start: 04-13-2025 Screening for malign ant neoplasm of breast Mammogram [facility] Start: 04-01-2025 End: 04-01-2025 Patient encounter procedure 04/01/2025 10:00 AM EST Office Visit [place] [id number] [id number] Albert Maria MD [facility] [address] [address] [facility] Start: 03-24-2025 End: 09-21-2025 CBC panel - Blood by Automated count CBC Lab Routine Primary hypertension Expected: 03/24/2025, Expires: 09/21/2025 [facility] Service Area Work Phone: Comment on above: Expected: 03/24/2025 , Expires: 09/21/2025 Start: 03-24-2025 End: 09-21-2025 Comprehensive metabolic 2000 panel - Serum or Plasma Comprehensive Metabolic Panel Lab Routine Primary hypertension Expected: 03/24/2025, Expires: 09/21/2025 [facility] Work Phone: Comment on above: Expected: 03/24/2025 , Expires: 09/21/2025 Start: 09-21-2024 End: 09-21-2024 Patient encounter procedure 09/21/2024 10:00 AM EDT Office Visit [address] [id number] Albert Maria MD [address] [place] [id number] [facility] Start: 09-18-2024 Medicare Annual Wellness Visit Medicare Annual Wellness Visit (AWV) [facility] Start: 09-09-2024 COVID-19 Vaccine ( season) COVID-19 Vaccine () [facility] Start: 04-13-2024 End: 04-13-2024 Patient encounter procedure 04/13/2024 9:00 AM EST Appointment [facility] [address] [facility] [address] [place] [id number] [facility] Start: 04-02-2024 Screening for malign ant neoplasm of breast Mammogram [facility] Start: 03-23-2024 End: 05-23-2025 DBT Breast - bilateral BI mammo bilateral screening tomosynthesis Imaging Routine Breast cancer screening by mammogram Expected: 03/23/2024, Expires: 05/23/2025 [facility] Service Area Work Phone: Comment on above: Expected: 03/23/2024 , Expires: 05/23/2025 Start: 03-23-2024 End: 03-23-2024 Patient encounter procedure 03/23/2024 9:20 AM EST Office Visit [facility] [address] [place] [id number] Albert Maria MD [address] [place] [address] [facility] Start: 01-12-2024 Influenza vaccination Influenz a Vaccine (Season Ended) [facility] Start: 09-18-2023 End: 09-17-2024 CBC panel - Blood by Automated count CBC Lab Routine Primary hypertension Severe persistent asthma without complication (Multi) Expected: 09/18/2023 (Approximate), Expires: 09/17/2024 [facility] Service Area Work Phone: Comment on above: Expected: 09/18/2023 (Approximate), Expires: 09/17/2024 Start: 09-18-2023 End: 09-17-2024 Comprehensive metabolic 2000 panel - Serum or Plasma Comprehensive Metabolic Panel Lab Routine Primary hypertension Severe persistent asthma without complication (Multi) Expected: 09/18/2023 (Approximate), Expires: 09/17/2024 [facility] Work Phone: Comment on above: Expected: 09/18/2023 (Approximate), Expires: 09/17/2024 Start: 09-06-2023 Medicare Annual Wellness Visit Medicare Annual Wellness Visit (AWV) [facility] Start: 06-09-2023 COVID-19 Vaccine ( season) COVID-19 Vaccine ( season) [facility] Start: 04-04-2023 COVID-19 Vaccine (6 - Moderna series) COVID-19 Vaccine (6 - Moderna series) [facility] Start: 03-27-2023 Screening for malign ant neoplasm of breast Mammogram [facility] Start: 03-20-2023 End: 05-20-2024 DBT Breast - bilateral BI mammo bilateral screening tomosynthesis Imaging Routine Breast cancer screening by mammogram Expected: 03/20/2023, Expires: 05/20/2024 [facility] Work Phone: Comment on above: Expected: 03/20/2023 , Expires: 05/20/2024 Start: 01-11-[address] [facility] Start: 09-04-2022 End: 09-05-2023 CBC panel - Blood by Automated count CBC Lab Routine Primary hypertension Expected: 09/04/2022 (Approximate), Expires: 09/05/2023 [facility] Work Phone: Comment on above: Expected: 09/04/2022 (Approximate), Expires: 09/05/2023 Start: 09-04-2022 End: 09-05-2023 Comprehensive metabolic 2000 panel - Serum or Plasma Comprehensive Metabolic Panel Lab Routine Primary hypertension Expected: 09/04/2022 (Approximate), Expires: 09/05/2023 [facility] Work Phone: Comment on above: Expected: 09/04/2022 (Approximate), Expires: 09/05/2023 Start: 09-04-2022 EPV, Provider: Albert Maria, Status: Pen, Time: 9:00 AM EPV, Provider: Albert Maria, Status: Pen, Time: 9:00 AM [employer] [facility] Work Phone: Start: 02-28-2022 EPV, Provider: Albert Maria, Status: Pen, Time: 9:00 AM EPV, Provider: Albert Maria, Status: Pen, Time: 9:00 AM [employer] [facility] Work Phone: Start: 08-29-2021 EPV, Provider: Albert Maria, Status: Pen, Time: 9:00 AM EPV, Provider: Albert Maria, Status: Pen, Time: 9:00 AM [employer] [facility] Work Phone: Start: 03-16-2020 MG Breast screening Mamm - Scr eening Mammogram w/ Tomosynthesis [employer] [facility] Work Phone: Start: 03-16-2020 Xray Bone Dens ity, Dexa 1 or More Sites [facility] Work Phone: Start: 04-09-2006 DTaP/Tdap/Td Vaccine s (1 - Tdap) DTaP/Tdap/Td Vaccines (1 - Tdap) [facility] Start: 1973 Diabetes mellitus screening Diabetes Screening [facility] Start: 1973 [facility] Medicare Annual Wellness Visit Medicare Annual Wellness Visit (AWV) [facility] Start: 1955 Screening for malign [facility] Work Phone: NEGATED: Highlighted row has been ruled out! Planned Goals not documented [employer] [facility] Work Phone: Immunizations Immunization Date Immunization Notes Care Provider Fa cilirosalia 04-01-2023 RESPIRATORY SYNCYTIA L VIRUS (RSV), ELIGIBLE PTS, 0.5 ML (ABRYSVO) Albert Maria MD Work Phone: [facility] Work Phone: 02-07-2023 Moderna COVID-19 vaccine, Fall 2022, 12 yeasrs and older (50mcg/0.5mL) Albert Maria MD Work Phone: [facility] Work Phone: 03-08-2022 Influenza, Seasonal, Quadrivalent, Adjuvanted Albert Maria MD Work Phone: [facility] Work Phone: 03-08-2022 influenza virus vacc ine, unspecified formulation Albert Maria MD Work Phone: [facility] Work Phone: 02-06-2022 Moderna COVID-19 Vac cine 100 MCG/0.5ML Intramuscular Suspension Albert Maria Work Phone: [employer] [facility] Work Phone: Comment on above: Series: 10-06-2021 Moderna COVID-19 Vac cine 100 MCG/0.5ML Intramuscular Suspension Albert Gallegoscel Work Phone: [facility] Work Phone: 03-17-2021 Moderna COVID-19 Vac cine 100 MCG/0.5ML Intramuscular Suspension Albert Gallegoscel Work Phone: [facility] Work Phone: 03-10-2021 influenza, seasonal, injectable Albert Maria Work Phone: [facility] Work Phone: Comment on above: Series: 03-10-2021 influenza virus vacc ine, unspecified formulation Albert Maria MD Work Phone: [facility] Work Phone: 08-26-2020 pneumococcal polysaccharide vaccine, 23 valent; Translations: [Pneumococcal polysaccharide vaccine, 23 valent] Albert Maria Work Phone: [facility] Work Phone: Comment on above: Series: 07-22-2020 Moderna COVID-19 Vac cine 100 MCG/0.5ML Intramuscular Suspension Albert Gallegoscamilla Work Phone: [facility] Work Phone: Comment on above: Series: 06-23-2020 Moderna COVID-19 Vac cine 100 MCG/0.5ML Intramuscular Suspension Albert Rodríguez Maria Work Phone: [facility] Work Phone: Comment on above: Series: 03-31-2020 zoster vaccine recombinant Albert D Stencel Work Phone: [facility] Work Phone: 03-23-2020 zoster vaccine recombinant Albert D Stencel Work Phone: [facility] Work Phone: Comment on above: Series: 01-22-2020 Flucelvax Quad 2020 (PF) (flu vac qs 2019(4 yr up)CD(PF)) 60 mcg (15 mcg x [facility] Work Phone: 01-12-2020 influenza, seasonal, injectable Albert Maria Work Phone: [facility] Work Phone: Comment on above: Series: 01-12-2020 influenza, seasonal, injectable Albert Maria [facility] Work Phone: 01-04-2020 zoster vaccine recombinant Albert Maria [facility] Work Phone: Comment on above: Series: 03-08-2016 zoster vaccine, live Albert Maria [facility] Work Phone: Comment on above: Series: 02-25-2015 pneumococcal conjuga te vaccine, 13 valent Albert Maria [facility] Work Phone: Comment on above: Series: 03-11-2009 novel influenza-H1N1 -09, preservative-free, injectable Albert Maria Work Phone: [facility] Work Phone: 04-08-2006 tetanus and diphther ia toxoids, adsorbed, preservative free, for adult use (2 Lf of tetanus toxoid and 2 Lf of diphtheria toxoid) Albert Maria Work Phone: [facility] Work Phone: Comment on above: Series: Payers Date Payer Category Payer Self-pay [id number] 2020 Medicare [id number] 2020 Medicare supplementa l policy (as second payer) [id number] 2020 Unknown 2020 Medicare [id number] 2020 Unknown [id number] 1955 Unknown [id number] 1955 Unknown [id number] [id number]6 1955 Unknown [id number] 2.16.840.1.790910.3.579.2.1069 1955 Unknown [id number] 2.16.840.1.452305.3.579.2.1069 1955 Unknown [id number] 2.16.840.1.554144.3.579.2.1245 1955 Unknown [id number] 2.16.840.1.872899.3.579.2.1243 1955 Unknown [id number] 2.16.840.1.341690.3.579.2.1244 1955 Unknown [id number] 2.16.840.1.688647.3.579.2.1244 Unknown [id number] 2.16.840.1.424364.3.579.2.462 Unknown [id number] 2.16.840.1.253023.3.579.2.462 Unknown [id number] 2.16.840.1.882427.3.579.2.462 Unknown [id number] 2.16.840.1.696704.3.579.2.462 Unknown [id number] 2.16.840.1.665849.3.579.2.462 Unknown [id number] 2.16.840.1.239816.3.579.2.462 Unknown [id number] 2.16.840.1.381188.3.579.2.462 Unknown [id number] 2.16.840.1.456082.3.579.2.462 Unknown [id number] 2.16.840.1.514116.3.579.2.462 Unknown [id number] 2.16.840.1.507408.3.579.2.462 Unknown [id number] 2.16.840.1.137979.3.579.2.462 Unknown [id number] 2.16.840.1.498170.3.579.2.462 Unknown [id number] 2.16.840.1.883942.3.579.2.462 Unknown [id number] [id number] Unknown [id number] Social History Date Type Detail Facility Start: 09-04-2022 End: 09-21-2024 No alcohol use No alcohol use [facility] Work Phone: Start: 03-23-2021 End: 03-21-2023 Tobacco smoking status PRIS Unknown if ever smoked [facility] Start: 1955 Sex Assigned At Female [facility] Start: 09-04-2022 End: 03-21-2023 Tobacco smoking status NHIS Never smoked tobacco [facility] Start: 09-04-2022 Tobacco use and exposure Smokeless tobacco non-user [facility] Work Phone: Start: 09-04-2022 End: 09-21-2024 Alcohol intake Lifetime non-drinker (finding) [facility] Work Phone: Start: 09-04-2022 End: 09-21-2024 Tobacco use panel [facility] Work Phone: Start: 1955 Sex Assigned At Not on file [facility] Work Phone: Start: 08-25-2022 End: 09-21-2024 Exposure to SARS-CoV-2 (event) Not sure [facility] Start: 07-18-2024 End: 08-15-2024 Sex Female (finding) [facility] NEGATED: Highlighted row - - [facility] Work Phone: Functional Status Date Assessment Result Facility 09-21-2024 Patient Health Questionnaire 2 item (PHQ-2) [Reported] [facility] NEGATED: Highlighted row Functional performance Functional status health issues are not documented Disease [facility] Work Phone: Mental Status Date Assessment Result Facility 12-08-2024 Cognitive function Voice/Name [facility] Work Phone: 11-10-2024 Cognitive function Awake;Alert;A ppropriate ;Follows [facility] Work Phone: 10-09-2024 Cognitive function Awake;Alert;A ppropriate ;Follows [facility] Work Phone: 09-11-2024 Cognitive function Voice/Name [facility] Work Phone: 08-14-2024 Cognitive function Voice/Name [facility] Work Phone: 07-17-2024 Cognitive function Awake;Alert;A ppropriate ;Follows [facility] Work Phone: 06-19-2024 Cognitive function Voice/Name [facility] Work Phone: 05-22-2024 Cognitive function Awake;Alert;A ppropriate ;Follows [facility] Work Phone: 04-24-2024 Cognitive function Awake;Alert;A ppropriate ;Follows [facility] Work Phone: 03-27-2024 Cognitive function Awake;Alert;A ppropriate ;Follows [facility] Work Phone: 09-13-2023 Cognitive function Awake;Alert;A ppropriate ;Follows [facility] Work Phone: 08-16-2023 Cognitive function Voice/Name [facility] Work Phone: 07-19-2023 Cognitive function Awake;Alert;A ppropriate ;[facility] [facility] Work Phone: 04-26-2023 Cognitive function Awake;Alert;A ppropriate ;Follows Commands [facility] Work Phone: 03-29-2023 Cognitive function Awake;Alert;A ppropriate ;Follows Commands [facility] Work Phone: 03-01-2023 Cognitive function Voice/Name [facility] Work Phone: 02-01-2023 Cognitive function Voice/Name [facility] Work Phone: 01-04-2023 Cognitive function Voice/Name [facility] Work Phone: 12-07-2022 Cognitive function Voice/Name [facility] Work Phone: 11-09-2022 Cognitive function Voice/Name [facility] Work Phone: 10-12-2022 Cognitive function Voice/Name [facility] Work Phone: 09-14-2022 Cognitive function Voice/Name [facility] Work Phone: 08-17-2022 Cognitive function Voice/Name [facility] Work Phone: 07-20-2022 Cognitive function Awake;Alert;Appropriat e [facility] Work Phone: 06-22-2022 Cognitive function Voice/Name [facility] Work Phone: 05-25-2022 Cognitive function Voice/Name [facility] Work Phone: 04-27-2022 Cognitive function Level Of Cons ciousness Awake;Alert [facility] Work Phone: 03-30-2022 Cognitive function Awake;Alert;A ppropriate ;Follows [facility] Work Phone: 03-01-2022 Cognitive function Voice/Name [facility] Work Phone: 02-02-2022 Cognitive function Level Of Cons ciousness Awake;Alert;Appropriate ;Follows [facility] Work Phone: 01-05-2022 Cognitive function Awake;Alert;A ppropriate ;Follows [facility] Work Phone: 12-08-2021 Cognitive function Awake;Alert;A ppropriate ;Follows [facility] Work Phone: 11-10-2021 Cognitive function Voice/Name [facility] Work Phone: 09-15-2021 Cognitive function Awake;Alert;A ppropriate ;Follows [facility] Work Phone: 08-18-2021 Cognitive function Level Of Cons ciousness Alert [facility] Work Phone: 07-21-2021 Cognitive function Voice/Name [facility] Work Phone: 06-23-2021 Cognitive function Awake;Alert;A ppropriate ;Follows [facility] Work Phone: 05-26-2021 Cognitive function Voice/Name [facility] Work Phone: 04-28-2021 Cognitive function Voice/Name [facility] Work Phone: NEGATED: Highlighted row Cognitive function [Interpretation] Cognitive status health issues are not documented [facility] Work Phone: Clinical Notes 09-04-2022 to 09-21-2024 Assessment & Plan Note - Albert Maria MD - 09/21/2024 10:00 AM EDTAssessment & Plan Note - Albert Maria MD - 09/21/2024 10:00 AM Irais Maria MD - 09/21/2024 10:00 AM EDT Note Date & Type Note Facility 09-21-2024 Evaluation + Plan note Associated Problem(s): Hypertension Orders: Follow Up In Primary Care Follow Up In Primary Care; Future CBC; Future Comprehensive Metabolic Panel; Future T [facility] Work Phone: 09-21-2024 Evaluation + Plan note Associated Problem(s): Asthma Orders: Follow Up In Primary Care [facility] Work Phone: 09-21-2024 Evaluation + Plan note Associated Problem(s): Obesity, morbid (Multi) T [facility] Work Phone: 09-21-2024 History of Presen t illness Narrative Subjective Reason for Visit: Sameer Chowdhury is an 69 y.o. female here for a Medicare Wellness visit. Past Medical, Surgical, and Family History reviewed and updated in chart. Reviewed all medications by prescribing practitioner or clinical pharmacist (such as prescriptions, OTCs, herbal therapies and supplements) and documented in the medical record. HPI since the last office visit there have been no interval operations, hospitalizations, important illnesses or injuries. HTN-Takes and tolerates meds without side effects. No alcohol. no tobacco. no exercise. low salt. Reviewed recommendation for 150 minutes of exercise per week including 2 days of weight training if over age 50 Asthma has had 2 exacerbations in the last year currently on Medrol and Doxy per pulmonary Patient Care Team: Albert Maria MD as PCP - General (Family Medicine) Albert Maria MD as PCP - MSSP ACO Attributed Provider Dr. Ray pulmonary Review of Systems General-no fatigue weight to within 10 pounds ENT no problems with vision swallowing Cardiac no chest pains palpitations change in exercise tolerance or capacity Pulmonary no cough shortness of breath GI no heartburn or abdominal pain Musculoskeletal no joint pains Objective Vitals: BP 126/72 Pulse 70 Ht 1.575 m (5' 2) Wt 96.8 kg (213 lb 6.4 oz) SpO2 96% BMI 39.03 kg/m Physical Exam General: Alert, No acute [...] intact Psychiatric: Cooperative, Appropriate mood & affect. Assessment & Plan Primary hypertension Orders: Follow Up In Primary Care Follow Up In Primary Care; Future CBC; Future Comprehensive Metabolic Panel; Future Severe persistent asthma without complication (Multi) Orders: Follow Up In Primary Care Breast cancer screening by mammogram Orders: Follow Up In Primary Care Routine general medical examination at health care facility Orders: 1 Year Follow Up In Primary Care - Wellness Exam; Future Obesity, morbid (Multi) documented in this encounter [facility] Work Phone: 09-21-2024 Miscellaneous Notes Associated Problem(s): Hypertension Orders: Follow Up In Primary Care Follow Up In Primary Care; Future CBC; Future Comprehensive Metabolic Panel; Future Associated Problem(s): Asthma Orders: Follow Up In Primary Care Associated Problem(s): Obesity, morbid (Multi) documented in this encounter [facility] Work Phone: 05-27-2024 Evaluation note Diagnosis Onset Date Resolution Severe persistent asthma chronic May 27 10:04am [facility] Work Phone: 1(160) 938-319511-11-2024 History of Present illness Narrative* Albert Maria MD - 03/23/2024 9:20 AM EST Subjective Patient ID: Sameer Chowdhury is a 68 y.o. female who presents for Follow-up (6 mo rev labs). HPI Since the last office visit there have been no interval operations, hospitalizations, important illnesses or injuries. copd- no exacerbations since last ov. No alb use since fair time. Xolair has been amazing. Flu+, covid+ Review of Systems General-no fatigue weight to within 10 pounds ENT no problems with vision swallowing Cardiac no chest pains palpitations change in exercise tolerance or capacity Pulmonary no cough shortness of breath GI no heartburn or abdominal pain Musculoskeletal occ kneer joint pains Objective BP 140/86 Pulse 77 Ht 1.575 m (5' 2) Wt 99.7 kg (219 lb 12.8 oz) SpO2 95% BMI 40.20 kg/m Physical Exam General: Alert, No acute [...] Problem List Items Addressed This Visit ICD-10-CM Asthma J45.909 Relevant Orders Follow Up In Primary Care Hypertension - Primary I10 Relevant Orders Follow Up In Primary Care Other Visit Diagnoses Codes Breast cancer screening by mammogram Z12.31 Relevant Orders BI mammo bilateral screening tomosynthesis Follow Up In Primary Care March labs reviewed documented in this [facility] Work Phone: 1(580) 588-944205-08-2024 History of Present illness Narrative* Albert Maria MD - 09/18/2023 9:00 AM EDT Subjective Reason for Visit: Sameer Chowdhury is an 68 y.o. female here for a Medicare Wellness visit. Past Medical, Surgical, and Family History reviewed and updated in chart. Reviewed all medications by prescribing practitioner or clinical pharmacist (such as prescriptions,OTCs, herbal therapies and supplements) and documented in the medical record. HPI Since the last office visit there have been no interval operations, hospitalizations, important illnesses or injuries. copd- no exacerbations since last ov. Took zpak and steroids for sinusitis HTN-Takes and tolerates meds without side effects. No alcohol. no tobacco. Was walking , now gardening exercise. low salt. Reviewed recommendation for 150 minutes of exercise per week including 2 days of weight training if over age 50 amada Griffith male tawana. Dr cole-immunotherapy Patient Care Team: Albert Maria MD as PCP - General Albert Maria MD as PCP - MSSP ACO Attributed Provider Review of Systems General-no fatigue weight to within 10 pounds ENT no problems with vision swallowing Cardiac no chest pains palpitations change in exercise tolerance or capacity Pulmonary no cough shortness of breath GI no heartburn or abdominal pain Musculoskeletal no joint pains Objective Vitals: BP 122/80 Pulse 74 Ht 1.575 m (5' 2) Wt 98.1 kg (216 lb 4.8 oz) SpO2 100% BMI 39.56 kg/m Physical Exam General: Alert, No acute [...] Assessment/Plan Problem List Items Addressed This Visit Asthma (HHS-HCC) Relevant Orders CBC Comprehensive Metabolic Panel Follow Up In Primary Care - Established Hypertension Relevant Orders CBC Comprehensive Metabolic Panel Follow Up In Primary Care - Established Other Visit Diagnoses Routine general medical examination at health care facility - [facility]: 1(642) 286-476711-08-2023 History of Present illness Narrative* Albert Maria MD - 03/20/2023 9:20 AM EST Subjective Patient ID: Sameer Chowdhury is a 67 y.o. female who presents for Follow-up (6 mo rev labs). HPI Since the last office visit there have been no interval operations, hospitalizations, importantillnesses or injuries. HTN-Takes and tolerates meds without [...] 126/78 Pulse 62 Ht 1.575 m (5' 2) Wt 98.2 kg (216 lb 6.4 oz) [...] screening by mammogram Z12.31 [facility]: 1(733) 616-192104-25-2023 History of Present illness Narrative* Albert Maria MD - 09/04/2022 9:00 AM EDT Subjective Reason for Visit: Sameer Chowdhury is an 67 y.o. female here for a Medicare Wellness visit. Past Medical, Surgical, and Family History reviewed and updated in chart. Reviewed all medications by prescribing practitioner or clinical pharmacist (such as prescriptions,OTCs, herbal therapies and supplements) and documented in the medical record. HPI Asthma- no exacerbations, rare albuterol since xolair and immunotherapy HTN-Takes and tolerates meds without side effects. No alcohol. no tobacco. reg exercise. low salt. Reviewed recommendation for 150 minutes of exercise per week including 2 days of weight training if over age 50 Patient Care Team: Albert Maria MD as PCP - General Albert Maria MD as PCP - MSSP ACO Attributed Provider Review of Systems General-no fatigue weight to within 10 pounds ENT no problems with vision swallowing Cardiac no chest pains palpitations change in exercise tolerance or capacity Pulmonary no cough shortness of breath GI no heartburn or abdominal pain Musculoskeletal no joint pains Objective Vitals: BP 132/80 Pulse 82 Ht 1.575 m (5' 2) Wt 97.6 kg (215 lb 3.2 oz) [...] care facility - [facility] Work Phone: Evaluation noteNo assessment information available [facility] Work Phone: Evaluation note* Diagnosis Onset Date Resolution Status Severe persistent asthma acu te [facility] Work Phone: Evaluation note* Diagnosis Routine general medical examination at health care facility- Primary Routine general medical examination at a health care facility Severe persistent asthma without complication Primary hypertension Unspecified essential hypertension documented in this encounter [facility] Work Phone: Evaluation note* Diagnosis Primary hypertension- Primary Unspecified essential hypertension Breast cancer screening by mammogram Encounter for screening mammogram for malignant neoplasm of breast documented in this encounter [facility] Work Phone: Evaluation note* Diagnosis Onset Date Resolution Status Severe persistent asthma chr onic [facility] Work Phone: Evaluation note* Diagnosis Routine general medical examination at health care facility- Primary Routine general medical examination at a health care facility Primary hypertension Unspecified essential hypertension Severe persistent asthma without complication (Multi) Obesity, morbid (Multi) Morbid obesity documented in this encounter [facility] Work Phone: Evaluation note* Diagnosis Primary hypertension- Primary Unspecified essential hypertension Severe persistent asthma without complication (Multi) Breast cancer screening by mammogram documented in this encounter [facility] Work Phone: Evaluation note* Diagnosis Breast cancer screening by mammogram documented in this encounter [facility] Work Phone: Evaluation note* Diagnosis Routine general medical examination at health care facility- Primary Routine general medical examination at a health care facility Primary hypertension Unspecified essential hypertension Severe persistent asthma without complication (Multi) Breast cancer screening by mammogram Obesity, morbid (Multi) Morbid obesity documented in this encounter [facility] Work Phone: History of Present illness Narrative* Since the last office visit there have been no interval operations, hospitalizations, important illnesses or injuries. * copd- no exacerbations since last ov. doing really good . sees dr ray. huge diff woth xolair * HTN-Takes and tolerates meds without side effects. No alcohol. no tobacco. no exercise. low salt. Reviewed recommendation for 150 minutes of exercise per week including 2 days of weight training if over age 50. * Hyperlipidemia- is not on statin and a prudent diet. [facility] Work Phone: History of Present illness Narrative* The patient is being seen for the subsequent annual wellness visit. * Past Medical, Surgical and Family History: reviewed and updated in chart. * Interval History: Patient has not been hospitalized previously. * Medications and Supplements: Review of all medications by a prescribing practitioner or clinical pharmacist (such as prescriptions, OTCs, herbal therapies and supplements) documented in the medical record. * No, the patient is not using opioids. * Patient Self Assessment of Health Status: good. * Tobacco use: Non-User * Alcohol use: Non-User, As noted in social history * Illicit drug use: Non-User * Current diet: well balanced diet. * Exercise Frequency: regularly. * Depression/Suicide Screening: . * During the past 2 weeks, the patient has not felt down, depressed or hopeless. * During the past 2 weeks, the patient has not felt little interest or pleasure in doing things. * Hearing Impairment: none. * Cognitive Impairment: No cognitive impairment observed. * Bathing: performs independently. * Dressing: performs independently. * Walking: performs independently. * Toileting: performs independently. * Feeding: performs independently. * Personal Hygiene: performs independently. * Bowels: continent. * Bladder: continent. * Managing Finances: performs independently. * Shopping: performs independently. * Managing Medications: performs independently. * Housework / Basic Home Maintenance: performs independently. * Handling Transportation: performs independently. * Preparing Meals: performs independently. * Using the Telephone/ Communication Devices: performs independently. * Falls Risk Screening:. SAMEER has not fallen in the last 6 months. * Home safety risk factors: no grab bars in the bathroom. * Advance directives:. Advance Care Planning discussed and documented in the medical record, patient did not wish or was not able to name a surrogate decision maker or provide an advance care plan. Patient has no living will. Patient has no healthcare POA. * Since the last office visit there have been no interval operations, hospitalizations, important illnesses or injuries. * uses pulmicort in nasal saline irrigations, sinus dz remains aa challenge to control. * HTN-Takes and tolerates meds without side effects. No alcohol. no tobacco. no exercise. low salt. Reviewed recommendation for 150 minutes of exercise per week including 2 days of weight training if over age 50 * currelt sinus inf, had doxy in jun. allergies noted. C+S fronm jun with SA doxy S * due for 3 yr colon, if no call by november let me know [facility] Work Phone: History of Present illness Narrative* Since the last office visit there have been no interval operations, hospitalizations, important illnesses or injuries. * copd- no exacerbations since last ov. * ear and sinus pressure and congestion L side only has sseen kelsey and goven doxy * HTN-Takes and tolerates meds without side effects. No alcohol. no tobacco. no exercise. low salt. Reviewed recommendation for 150 minutes of exercise per week including 2 days of weight training if over age 50 [facility] Work Phone: reason for referral (narrative)* Consultation (Routine) - Authorized Specialty Diagnoses / Procedures Referred By Marguerite quintero Referred To Contact Primary Care Diagnoses Primary hypertension Procedures Follow Up In Primary Care Albert Maria MD [address] [place] [address] Referral ID Status Reason Start Date Expiration Date V isits Requested Visits Authorized [id number] Authorized 09/04/2022 03/03/2023 1 1 [facility] Work Phone: Rernrj for referral (narrative)* Consultation (Routine) - Authorized Specialty Diagnoses / Procedures Referred By Contac t Referred To Contact Primary Care Diagnoses Primary hypertension Procedures Follow Up In Primary Care - Established Albert Maria MD [address] [place] [address] Referral ID Status Reason Start Date Expiration Date V isits Requested Visits Authorized [id number] Authorized 03/20/2023 03/19/2024 1 1 * Imaging (Routine) - Authorized Specialty Diagnoses / Procedures Referred By Contac t Referred To Contact Radiology Diagnoses Breast cancer screening by mammogram Procedures BI mammo bilateral screening tomosynthesis Albert Maria MD [address] [place] [address] Referral ID Status Reason Start Date Expiration Date Visits Requested Visits Authorized [id number] Authorized Perform Procedure 03/20/2023 03/19/2024 1 1 [facility] Work Phone: reason for referral (narrative)* Consultation (Routine) - Authorized Specialty Diagnoses / Procedures Referred By Contac t Referred To Contact Primary Care Diagnoses Primary hypertension Severe persistent asthma without complication (Multi) Procedures Follow Up In Primary Care - Established Albert Maria MD [address] [place] [address] Referral ID Status Reason Start Date Expiration Date V isits Requested Visits Authorized [id number] Authorized 09/18/2023 09/17/2024 1 1 [facility] Work Phone: Reason for referral (narrative)No reason for referral information [facility] Work Phone: Reason for visit Narrative* Imaging (Routine) - Authorized Specialty Diagnoses / Procedures Referred By Contac t Referred To Contact Radiology Diagnoses Breast cancer screening by mammogram Procedures BI mammo bilateral screening tomosynthesis Albert Maria MD [address] [place] [address] Phone: tel: fax: Referral ID Status Reason Start Date Expiration Date Visits Requested Visits Authorized [id number] Authorized Perform Procedure 4 03/23/2025 1 1 [facility] Work Phone: Summary Purpose Family [...] coronary a rtery disease: Father(V17.3, Z82.49) Status:Active Relationship Condition Age at Onset Recorded Date/T jennifer father Sudden cardiac Unknown Unknown Family Member Name Dates Details Family [...] X 1 WK6 MO FU. REV LABS Chief Complaint and Reason for Visit Chief Complaint XOLAIR 300MG XOLAIR 300MG XOLAIR 300MG ACUTE SINUSITIS XOLAIR 300MG Chief Complaint XOLAIR 300MG XOLAIR 300MG ACUTE SINUSITIS XOLAIR 300MG XOLAIR 300MG Chief Complaint XOLAIR 300MG XOLAIR 300MG ACUTE SINUSITIS XOLAIR 300MG XOLAIR 300MG XOLAIR 300MG Chief Complaint XOLAIR 300MG ACUTE SINUSITIS XOLAIR 300MG XOLAIR 300MG XOLAIR 300MG XOLAIR 300MG Chief Complaint ACUTE SINUSITIS XOLAIR 300MG XOLAIR 300MG XOLAIR 300MG XOLAIR 300MG XOLAIR 300MG Chief Complaint XOLAIR 300MG XOLAIR 300MG XOLAIR 300MG XOLAIR 300MG XOLAIR 300MG Chief Complaint XOLAIR 300MG XOLAIR 300MG XOLAIR 300MG 1 Y FU XOLAIR 300MG Reason for Visit Severe persistent as thma Chief Complaint XOLAIR 300MG XOLAIR 300MG 1 Y FU XOLAIR 300MG XOLAIR 300MG Reason for Visit Severe persistent as thma Chief Complaint XOLAIR 300MG 1 Y FU XOLAIR 300MG XOLAIR 300MG XOLAIR 300MG Reason for Visit Severe persistent as thma Chief Complaint 1 Y FU XOLAIR 300MG XOLAIR 300MG XOLAIR 300MG XOLAIR 300MG Reason for Visit Severe persistent as thma Chief Complaint XOLAIR 300MG XOLAIR 300MG XOLAIR 300MG XOLAIR 300MG Chief Complaint XOLAIR 300MG XOLAIR 300MG XOLAIR 300MG XOLAIR 300MG 1 Y FU XOLAIR 300MG Reason for Visit Severe persistent as thma Chief Complaint XOLAIR 300MG XOLAIR 300MG 1 Y FU XOLAIR 300MG XOLAIR 300MG XOLAIR 300MG Reason for Visit Severe persistent as thma Chief Complaint XOLAIR 300MG 1 Y FU XOLAIR 300MG XOLAIR 300MG XOLAIR 300MG XOLAIR 300MG Reason for Visit Severe persistent as thma Chief Complaint XOLAIR 300MG XOLAIR 300MG XOLAIR 300MG XOLAIR 300MG XOLAIR Chief Complaint XOLAIR 300MG XOLAIR 300MG XOLAIR 300MG XOLAIR XOLAIR Chief Complaint XOLAIR 300MG XOLAIR 300MG XOLAIR 300MG 1 Y FU XOLAIR 300MG XOLAIR 300MG Reason for Visit Severe persistent as thma Chief Complaint Admit Date XOLAIR March 27, 2024 9:21am XOLAIR April 24, 2024 9:20am XOLAIR May 22, 2024 9 :19am 1 Y FU May 27, 2024 1 0:04am XOLAIR June 19, 2024 9 :48am XOLAIR July 17, 2024 9:52 am Reason for Visit Admit Date Severe persistent asthma May 27, 2 025 10:04am Chief Complaint Admit Date XOLAIR April 24, 2024 9:20am XOLAIR May 22, 2024 9 :19am 1 Y FU May 27, 2024 1 0:04am XOLAIR June 19, 2024 9 :48am XOLAIR July 17, 2024 9:52 am XOLAIR August 14, 2024 9:19 am Chief Complaint Admit Date XOLAIR June 19, 2024 9 :48am XOLAIR July 17, 2024 9:52 am XOLAIR August 14, 2024 9:19 am XOLAIR September 11, 2024 9:32am XOLAIR October 09, 2024 10:11 am Chief Complaint Admit Date XOLAIR July 17, 2024 9:52 am XOLAIR August 14, 2024 9:19 am XOLAIR September 11, 2024 9:32am XOLAIR October 09, 2024 10:11 am XOLAIR November 10, 2024 2:47p m Chief Complaint Admit Date XOLAIR August 14, 2024 9:19 am XOLAIR September 11, 2024 9:32am XOLAIR October 09, 2024 10:11 am XOLAIR November 10, 2024 2:47p m XOLAIR December 08, 2024 12:4 4pm Additional Source Comments INFORMATION SOURCE (unrecogn ized section and content) DATE CREATED AUTHOR 02/11/2019 [facility] DATE CREATED AUTHOR AUTHOR'S ORGANIZ ATION 03/05/2022 [facility] DATE CREATED AUTHOR AUTHOR'S ORGANIZ ATION 03/05/2022 [employer] DATE CREATED AUTHOR AUTHOR'S ORGANIZ ATION 08/05/2022 [facility] DATE CREATED AUTHOR AUTHOR'S ORGANIZ ATION 03/23/2024 [facility] DATE CREATED AUTHOR AUTHOR'S ORGANIZ ATION 04/15/2024 [facility] DATE CREATED AUTHOR AUTHOR'S ORGANIZ ATION 09/21/2024 [facility] DATE CREATED AUTHOR AUTHOR'S ORGANIZ ATION 12/31/2024 [facility] Goals (unrecognized section and content) Goals may be documented in a n alternate sectionGoals may be documented in an alternate sectionGoals may be documented in an alternate sectionGoals may be documented in an alternate sectionGoals may be documented in an alternate sectionGoals may be documented in an alternate sectionGoals may be documented in an alternate sectionGoals may be documented in an alternate sectionGoals may be documented in an alternate sectionGoals may be documented in an alternate sectionGoals may be documented in an alternate sectionGoals may be documented in an alternate sectionGoals may be documented in an alternate sectionGoals may be documented in an alternate sectionGoals may be documented in an alternate sectionGoals may be documented in an alternate sectionGoals may be documented in an alternate sectionGoals may be documented in an alternate sectionGoals may be documented in an alternate sectionGoals may be documented in an alternate sectionGoals may be documented in an alternate sectionGoals may be documented in an alternate sectionGoals may be documented in an alternate sectionGoals may be documented in an alternate sectionGoals may be documented in an alternate sectionGoals may be documented in an alternate sectionGoals may be documented in an alternate sectionGoals may be documented in an alternate sectionGoals may be documented in an alternate sectionGoals may be documented in an alternate sectionGoals may be documented in an alternate sectionGoals may be documented in an alternate sectionGoals may be documented in an alternate sectionGoals may be documented in an alternate section Care Teams (unrecognized sec tion and content) Team Status: Active Member Role Status Dates Dr. Albert Maria MD Family Provider Active Dr. Albert Maria MD Primary Care Provider Active Team Status: Inactive Member Role Status Dates Dr. Albert Maria MD Primary Care Provider Active Macy Faith PLATE CONDITIONER, PLATE CONDITIONER-C Attending Provider, Mariam keen Provider Active [employer] Relationship Specialty Start Date End Date Albert Maria MD [address] [place] [address] PCP - General 01/13/19 Albert Maria MD [address] [place] [address] PCP - [facility] Attributed Provider 05/13/21 [employer] Relationship Specialty Start Date End Date Albert Maria MD [address] [place] [address] PCP - General 01/13/19 Albert Maria MD [address] [place] [address] PCP - [facility] Attributed Provider 05/13/21 Team Status: Inactive Member Role Status Dates Dr. Albert Maria MD Primary Care Provider, Referr ing Provider Active Macy Faith PLATE CONDITIONER, PLATE CONDITIONER-C Attending Provider Active [employer] Relationship Specialty Start Date End Date Albert Maria MD [address] [place] [address] PCP - General 01/13/19 Albert Maria MD [address] [facility] [place] [address] PCP - [facility]CO Attributed Provider 05/13/21 [employer] Relationship Specialty Start Date End Date Albert Maria MD PCP - General 01/13/19 Albert Maria MD [address] [place] [address], [place] [address] PCP - [facility] Attributed Provider 05/13/21 [employer] Relationship Specialty Start Date End Date Albert Maria MD [address] [place] [address] PCP - [facility] Attributed Provider 05/13/21 Albert Maria MD [address] [place] [address] PCP - General Family Medicine 03/24/24 Team Status: Active Member Role Status Dates Dr. Albert Maria MD Primary Care Provider Active Team Status: Inactive Member Role Status Dates Dr. Albert Maria MD Primary Care Provider Active Start: March 27, 2024 End: March 27, 2024 Macy Faith PLATE CONDITIONER, PLATE CONDITIONER-C Attending Provider Active Start: March 27, 2024 End: March 27, 2024 Macy Faith PLATE CONDITIONER, PLATE CONDITIONER-C Referring Provider Active Start: March 27, 2024 End: March 27, 2024 Team Status: Inactive Member Role Status Dates Dr. Albert Maria MD Primary Care Provider Active Start: April 24, 2024 End: April 24, 2024 Macy Faith PLATE CONDITIONER, PLATE CONDITIONER-C Attending Provider Active Start: April 24, 2024 End: April 24, 2024 Macy Faith PLATE CONDITIONER, PLATE CONDITIONER-C Referring Provider Active Start: April 24, 2024 End: April 24, 2024 Team Status: Inactive Member Role Status Dates Dr. Albert Maria MD Primary Care Provider Active Start: May 22, 2024 End: May 22, 2024 Macy Faith PLATE CONDITIONER, PLATE CONDITIONER-C Attending Provider Active Start: May 22, 2024 End: May 22, 2024 Macy Faith PLATE CONDITIONER, PLATE CONDITIONER-C Referring Provider Active Start: May 22, 2024 End: May 22, 2024 Team Status: Inactive Member Role Status Dates Dr. Albert Maria MD Primary Care Provider Active Start: May 27, 2024 End: May 27, 2024 Dr. lAbert Maria MD Referring Provider Active Start: May 27, 2024 End: May 27, 2024 Pricilla Benavides NP-C Attending Provider Active Start: May 27, 2024 End: May 27, 2024 Team Status: Inactive Member Role Status Dates Dr. Albert Maria MD Primary Care Provider Active Start: June 19, 2024 End: June 19, 2024 Macy Faith PLATE CONDITIONER, PLATE CONDITIONER-C Attending Provider Active Start: June 19, 2024 End: June 19, 2024 Macy Faith PLATE CONDITIONER, PLATE CONDITIONER-C Referring Provider Active Start: June 19, 2024 End: June 19, 2024 Team Status: Inactive Member Role Status Dates Dr. Albert Maria MD Primary Care Provider Active Start: July 17, 2024 End: July 17, 2024 Macy Faith PLATE CONDITIONER, PLATE CONDITIONER-C Attending Provider Active Start: July 17, 2024 End: July 17, 2024 Macy Faith PLATE CONDITIONER, PLATE CONDITIONER-C Referring Provider Active Start: July 17, 2024 End: July 17, 2024 Team Status: Inactive Member Role Status Dates Dr. Albert Maria MD Primary Care Provider Active Start: August 14, 2024 End: August 14, 2024 Macy Faith PLATE CONDITIONER, PLATE CONDITIONER-C Attending Provider Active Start: August 14, 2024 End: August 14, 2024 Macy Faith PLATE CONDITIONER, PLATE CONDITIONER-C Referring Provider Active Start: August 14, 2024 End: August 14, 2024 Co Supervisor [employer] Relationship Specialty Start Date End Date Albert Maria MD [address] [address] PCP - [facility]CO Attributed Provider 05/13/21 Albert Maria MD [address] [address] PCP - General Family Medicine 03/24/24 Team Status: Inactive Member Role Status Dates Dr. Albert Maria MD Primary Care Provider Active Start: September 11, 2024 End: September 11, 2024 Macy Faith PLATE CONDITIONER, PLATE CONDITIONER-C Attending Provider Active Start: September 11, 2024 End: September 11, 2024 Macy Faith PLATE CONDITIONER, PLATE CONDITIONER-C Referring Provider Active Start: September 11, 2024 End: September 11, 2024 Team Status: Inactive Member Role Status Dates Dr. Albert Maria MD Primary Care Provider Active Start: October 09, 2024 End: October 09, 2024 Macy Faith PLATE CONDITIONER, PLATE CONDITIONER-C Attending Provider Active Start: October 09, 2024 End: October 09, 2024 Macy Faith PLATE CONDITIONER, PLATE CONDITIONER-C Referring Provider Active Start: October 09, 2024 End: October 09, 2024 Team Status: Active Member Role/Relationship Status Dates Dr. Albert Maria MD Primary Care Provider Active Team Status: Inactive Member Role/Relationship Status Dates Dr. Albert Maria MD Primary Care Provider Active Start: July 17, 2024 End: July 17, 2024 Macy Faith PLATE CONDITIONER, PLATE CONDITIONER-C Attending Provider Active Start: July 17, 2024 End: July 17, 2024 Macy Faith PLATE CONDITIONER, PLATE CONDITIONER-C Referring Provider Active Start: July 17, 2024 End: July 17, 2024 Team Status: Inactive Member Role/Relationship Status Dates Dr. Albert Maria MD Primary Care Provider Active Start: August 14, 2024 End: August 14, 2024 Macy Faith PLATE CONDITIONER, PLATE CONDITIONER-C Attending Provider Active Start: August 14, 2024 End: August 14, 2024 Macy Faith PLATE CONDITIONER, PLATE CONDITIONER-C Referring Provider Active Start: August 14, 2024 End: August 14, 2024 Team Status: Inactive Member Role/Relationship Status Dates Dr. Albert Maria MD Primary Care Provider Active Start: September 11, 2024 End: September 11, 2024 Macy Faith PLATE CONDITIONER, PLATE CONDITIONER-C Attending Provider Active Start: September 11, 2024 End: September 11, 2024 Macy Faith PLATE CONDITIONER, PLATE CONDITIONER-C Referring Provider Active Start: September 11, 2024 End: September 11, 2024 Team Status: Inactive Member Role/Relationship Status Dates Dr. Albert Maria MD Primary Care Provider Active Start: October 09, 2024 End: October 09, 2024 Macy Faith PLATE CONDITIONER, PLATE CONDITIONER-C Attending Provider Active Start: October 09, 2024 End: October 09, 2024 Macy Faith PLATE CONDITIONER, PLATE CONDITIONER-C Referring Provider Active Start: October 09, 2024 End: October 09, 2024 Team Status: Inactive Member Role/Relationship Status Dates Dr. Albert Maria MD Primary Care Provider Active Start: November 10, 2024 End: November 10, 2024 Macy Faith PLATE CONDITIONER, PLATE CONDITIONER-C Attending Provider Active Start: November 10, 2024 End: November 10, 2024 Macy Faith PLATE CONDITIONER, PLATE CONDITIONER-C Referring Provider Active Start: November 10, 2024 End: November 10, 2024 Team Status: Inactive Member Role/Relationship Status Dates Dr. Albert Maria MD Primary Care Provider Active Start: August 14, 2024 End: August 14, 2024 Macy Faith PLATE CONDITIONER, PLATE CONDITIONER-C Attending Provider Active Start: August 14, 2024 End: August 14, 2024 Macy Faith PLATE CONDITIONER, PLATE CONDITIONER-C Referring Provider Active Start: August 14, 2024 End: August 14, 2024 Team Status: Inactive Member Role/Relationship Status Dates Dr. Albert Maria MD Primary Care Provider Active Start: September 11, 2024 End: September 11, 2024 Macy Faith PLATE CONDITIONER, PLATE CONDITIONER-C Attending Provider Active Start: September 11, 2024 End: September 11, 2024 Macy Faith PLATE CONDITIONER, PLATE CONDITIONER-C Referring Provider Active Start: September 11, 2024 End: September 11, 2024 Team Status: Inactive Member Role/Relationship Status Dates Dr. Albert Maria MD Primary Care Provider Active Start: October 09, 2024 End: October 09, 2024 Macy Faith PLATE CONDITIONER, PLATE CONDITIONER-C Attending Provider Active Start: October 09, 2024 End: October 09, 2024 Macy Faith PLATE CONDITIONER, PLATE CONDITIONER-C Referring Provider Active Start: October 09, 2024 End: October 09, 2024 Team Status: Inactive Member Role/Relationship Status Dates Dr. Albert Maria MD Primary Care Provider Active Start: November 10, 2024 End: November 10, 2024 Macy Faith PLATE CONDITIONER, PLATE CONDITIONER-C Attending Provider Active Start: November 10, 2024 End: November 10, 2024 Macy Faith PLATE CONDITIONER, PLATE CONDITIONER-C Referring Provider Active Start: November 10, 2024 End: November 10, 2024 Team Status: Inactive Member Role/Relationship Status Dates Dr. Albert Maria MD Primary Care Provider Active Start: December 08, 2024 End: December 08, 2024 Macy Faith PLATE CONDITIONER, PLATE CONDITIONER-C Attending Provider Active Start: December 08, 2024 End: December 08, 2024 Macy Faith PLATE CONDITIONER, PLATE CONDITIONER-C Referring Provider Active Start: December 08, 2024 End: December 08, 2024 Reason for Visit (unrecogniz ed section and content) Reason Comments Follow-up 6 mo fu , skin check Medicare Annual Wellness Visit Subsequen t Reason Comments Follow-up 6 mo rev labs Specialty Diagnoses / Procedures Referred By Marguerite quintero Referred To Contact Primary Care Diagnoses Primary hypertension Procedures Follow Up In Primary Care Albert Maria MD [address] [place] [address] Referral ID Status Reason Start Date Expiration Date Visits Re quested Visits Authorized [id number] Closed 09/04/2022 03/03/2023 1 1 Reason Comments Medicare Annual Wellness Visit Subsequen t 6 mo fu Specialty Diagnoses / Procedures Referred By Contac t Referred To Contact Primary Care Diagnoses Primary hypertension Procedures Follow Up In Primary Care - Established Albert Maria MD [address] [id number] Referral ID Status Reason Start Date Expiration Date V isits Requested Visits Authorized [id number] Authorized 03/20/2023 03/19/2024 1 1 Specialty Diagnoses / Procedures Referred By Contac t Referred To Contact Primary Care Diagnoses Primary hypertension Severe persistent asthma without complication (Multi) Procedures Follow Up In Primary Care - Established Albert Maria MD Phone: tel: fax: Referral ID Status Reason Start Date Expiration Date V isits Requested Visits Authorized [id number] Authorized 09/18/2023 09/17/2024 1 1 Reason Comments Medicare Annual Wellness Visit Subsequen t [facility]- 6 mo chk Specialty Diagnoses / Procedures Referred By Contac t Referred To Contact Primary Care Diagnoses Primary hypertension Severe persistent asthma without complication (Multi) Breast cancer screening by mammogram Procedures Follow Up In Primary Care Albert Maria MD [address] [address] Phone: tel: fax: Referral ID Status Reason Start Date Expiration Date V isits Requested Visits Authorized [id number] Authorized 03/23/2024 03/23/2025 1 1 FOR RECORDS PERTAINING TO PATIENTS WHO ARE [...] BE BASED ON THE PRIMARY CLINICAL RECORDS. [facility]. provides no warranty or guarantee of the accuracy or completeness of information in this document.
== END 2025-01-05 23:59 | disposition home or self-care (01) ==
PROVIDERS: PCP Family Medicine; Referring Provider Nurse Practitioner Acute Care; Visit Provider Nurse Practitioner Acute Care
DX: J45.50 Severe persistent asthma, uncomplicated (principal)
CPT/HCPCS: 96372; J2357

== ENCOUNTER 2025-02-02 13:20 | Outpatient (CLI) | payer MEDICARE, BC, SELFPAY ==
[2025-02-02 13:30] VITALS: BP 142/78; PULSE 70; RESP 16; TEMP 36.1; O2SAT 97
== END 2025-02-02 23:59 | disposition home or self-care (01) ==
LOC: MEDOUTP 13:20
PROVIDERS: PCP Family Medicine; Referring Provider Nurse Practitioner Acute Care; Visit Provider Nurse Practitioner Acute Care
DX: J45.50 Severe persistent asthma, uncomplicated (principal)
CPT/HCPCS: 96372; J2357

== ENCOUNTER 2025-03-05 08:49 | Outpatient (CLI) | payer MEDICARE, BC, SELFPAY ==
[2025-03-05 08:55] VITALS: BP 155/76; PULSE 78; RESP 16; TEMP 35.7; O2SAT 96; BMI 36.6
== END 2025-03-05 23:59 | disposition home or self-care (01) ==
LOC: MEDOUTP 08:50
PROVIDERS: PCP Family Medicine; Referring Provider Nurse Practitioner Acute Care; Visit Provider Nurse Practitioner Acute Care
DX: J45.50 Severe persistent asthma, uncomplicated (principal)
CPT/HCPCS: 96372; J2357

== ENCOUNTER → 2025-03-29 | Outpatient (CLI) | payer MEDICARE, BC, SELFPAY ==
--- OUTSIDE RECORDS SUMMARY | 2025-03-29 18:30 | XMS RPT_ITS | CCD ---
Author Organization [facility] CliniSynh Care Team Providers Care Product Developer Name Role Phone Albert Maria Unavailable Unavailable Albert Maria Unavailable Unavailable Crow, Albert Arreguin Unavailable [phone] Unavailable Unavailable Unavailable Unavailable Albert Maria Referring Unavailab le Stencel, Albert Mendoza Attending Unavailab le Stencel, Albert Mendoza Primary Care Unavailab le Stencel, Albert Mendoza Primary Care Unavailab le Stencel, Albert Mendoza Referring Unavailab le Stencel, Albert Mendoza Attending Unavailab le Stenpamela, Dr. Barrera Primary Care Provider [phone] Marcell POLISHER HAND, POLISHER HAND-C Macy Attending Provider Marcell POLISHER HAND, POLISHER HAND-C Macy Referring Provider Crow, Dr. Albert Mendoza Referring Unava ilable Gatito Purcell Admitting Unavailable Gatito Purcell Attending Unavailable Stenpamela, Dr. Albert Mendoza Primary Care Unava ilable Stencel, Dr. Albert Mendoza Primary Care Unava ilable Stencel, Dr. Albert Mendoza Attending Unava ilable Stencel, Dr. Albert Mendoza Referring Unava ilable Stencel Albert MÉNDEZ Primary Care Provider Albert Maria MD [phone] Albert Maria MD Primary Care Provider Albert Maria MD Unavailable [phone] Crow, Dr. Barrera Primary Care Provider Crow, Dr. Barrera Referring Provider [phone] Marcell POLISHER HAND, POLISHER HAND-C Macy Attending Provider ALBERT MARIA Primary Care Unavailable Albert Maria MD Primary Care Provider Albert Maria MD Unavailable [phone] Albert Maria MD Primary Care Provider [phone] ALBERT MARIA Referring Unavailable STENCEL, ALBERT Arreguin Primary Care Unavailable Crow MÉNDEZ, Dr. Barrera Primary Care Provider Marcell POLISHER HAND-C, Macy Attending Provider Marcell POLISHER HAND-C, Macy Referring Provider Dr. Albert Maria MD Referring Provider [phone] Kennedy POLISHER HAND-C, Pricilla Díaz Attending Provider Dr. Albert Maria MD Primary Care Provider Marcell POLISHER HAND-C, Macy Attending Provider Marcell POLISHER HAND-C, Macy Referring Provider Dr. Albert Maria MD Referring Provider [phone] Kennedy POLISHER HAND-C, Pricilla Díaz Attending Provider Albert Maria MD Unavailable Albert Maria MD Primary Care Provider [phone] ALBERT MARIA Attending Unavailable STENCEL, ALBERT Arreguin Referring Unavailable STENCEL, ALBERT Arreguin Primary Care Unavailable STENCEL, ALBERT Arreguin Attending Unavailable STENCEL, ALBERT Arreguin Referring Unavailable STENCEL, ALBERT Arreguin Primary Care Unavailable Dr. Albert Maria MD Primary Care Provider Marcell POLISHER HAND-C, Macy Attending Provider Marcell POLISHER HAND-C, Macy Referring Provider Dr. Albert Maria MD Primary Care Provider Marcell POLISHER HAND-C, Macy Attending Provider Marcell POLISHER HAND-C, Macy Referring Provider Dr. Albert Maria MD Primary Care Provider [phone] Marcell POLISHER HAND-C, Macy Attending Provider Marcell POLISHER HAND-C, Macy Referring Provider Dr. Albert Maria MD Primary Care Provider Marcell POLISHER HAND-C, Macy Attending Provider Faith POLISHER HAND-C, Macy Referring Provider Dr. Albert Maria MD Primary Care Physician Faith POLISHER HAND-C, Macy Attending Physician Faith POLISHER HAND-C, Macy Referring Provider Faith POLISHER HAND, Macy Attending Unavailable Faith POLISHER HAND, Macy Referring Unavailable Stencel, Albert Primary Care Unavailable Faith POLISHER HAND, Mayc Attending Unavailable Faith POLISHER HAND, Macy Referring Unavailable Stencel, Albert Primary Care Unavailable Faith POLISHER HAND, Macy Attending Unavailable Faith POLISHER HAND, Macy Referring Unavailable Stencel, Albert Primary Care Unavailable Faith POLISHER HAND, Macy Attending Unavailable Faith POLISHER HAND, Macy Referring Unavailable Stencel, Albert Primary Care Unavailable Pricilla Benavides Attending Unavailable Stencel, Albert Referring Unavailable Stencel, Albert Primary Care Unavailable Faith POLISHER HAND, Macy Attending Unavailable Faith POLISHER HAND, Macy Referring Unavailable Stencel, Albert Primary Care Unavailable Faith POLISHER HAND, Macy Attending Unavailable Faith POLISHER HAND, Macy Referring Unavailable Stencel, Albert Primary Care Unavailable Faith POLISHER HAND, Macy Attending Unavailable Faith POLISHER HAND, Macy Referring Unavailable Stencel, Albert Primary Care Unavailable Faith POLISHER HAND, Macy Attending Unavailable Faith POLISHER HAND, Macy Referring Unavailable Stencel, Albert Primary Care Unavailable Faith POLISHER HAND, Macy Attending Unavailable Stencel, Albert Primary Care Unavailable Faith POLISHER HAND, Macy Referring Unavailable Faith POLISHER HAND, Macy Attending Unavailable Stencel, Albert Primary Care Unavailable Faith POLISHER HAND, Macy Referring Unavailable Stencel, Albert Primary Care Unavailable Faith POLISHER HAND, Macy Attending Unavailable Faith POLISHER HAND, Macy Referring Unavailable Faith POLISHER HAND, Macy Attending Unavailable Faith POLISHER HAND, Macy Referring Unavailable Stencel, Albert Primary Care Unavailable Faith POLISHER HAND, Macy Attending Unavailable Faith POLISHER HAND, Macy Referring Unavailable Stencel, Albert Primary Care Unavailable Allergies Allergy Classification Reported Allergen(s) Allergy Type Date of Onset Reaction(s) Facility (10 sources) Amoxicillin / Clavulanate; Translations: [Augmentin] Drug Allergy [facility] Work Phone: (20 sources) Aspirin; Translations: [aspirin] Drug Allergy 2 Shortness of breath [facility] (10 sources) Cefuroxime; Translations: [Ceftin] Drug Allergy [facility] Work Phone: (10 sources) Cromolyn; Translations: [Intal] [facility] Work Phone: (10 sources) guaiFENesin; Translations: [Cough Syrup SYRP] Drug Allergy Whee[facility] Work Phone: (10 sources) levoFLOXacin; Translations: [Levaquin] Drug Allergy [facility] Work Phone: (10 sources) Sulfonamides (Antibiotic); Translations: [Sulfa Drugs] drug allergy [facility] Work Phone: (20 sources) Amoxicillin Drug Allergy 2 itchy [facility] (20 sources) Clavulanate Drug Allergy 2 itchy [facility] (20 sources) Cromolyn; Translations: [CROMOLYN] Drug Allergy 2 Unknown [facility] (20 sources) levoFLOXacin; Translations: [LEVOFLOXACIN] Drug Allergy 2 Other [facility] (20 sources) Sulfonamides (Antibiotic); Translations: [SULFA (SULFONAMIDE ANTIBIOTICS)] Propensity to adverse reactions 2 Hives [facility] (9 sources) Amoxicillin / Clavulanate; Translations: [AMOXICILLIN-POT CLAVULANATE] Drug Allergy 3 Itching [facility] (9 sources) Cefuroxime; Translations: [CEFUROXIME] Drug Allergy 3 Itching [facility] Work Phone: (1 source) Amoxicillin Drug Allergy 5 [facility] Repository (1 source) Clavulanate Drug Allergy 5 [facility] Repository (1 source) Cromolyn Drug Allergy 5 [facility] Repository (1 source) levoFLOXacin Drug Allergy 5 [facility] Repository Medications Current Medications Medication Drug Class(es) Dates Sig (Normalized) Sig (Original) Albuterol Sulfate (20 sources) beta2-Adrenergic Agonist Start: 04-10-2018 take 1 puff(s) by inhalation every six hours Albuterol Sulfate (Ventolin Hfa) 90 mcg/actuation HFA aerosol inhaler Active 2 PUFF INHALATION EVERY 6 HOURS April 10, 2018 2:43pm Start: 04-10-2018 Start: 04-10-2018 take 1 puff(s) by in [...] 0 Start : 20-May-2018 Active 30 ML Maud Btl Start: 05-20-2018 Azelastine HCl - 0.15 % Nasal Solution 2 sprays nasal daily for allergy symptoms Refills: 0 Start : 20-May-2018 Active 30 ML Maud Btl take 2 spray(s) nasa l route [...] MD Start : 28-Feb-2022 Active Start: 04-10-2018 Start: 04-10-2018 Fluticasone Pr opionate (Flonase Allergy Relief) 50 mcg/actuation spray,suspension Active 2 SPRAY INTRANASAL DAILY April 10, 2018 1:00am Start: 03-26-2018 take 2 spray(s) nasa l route twice daily Fluticasone Propionate 50 MCG/ACT Nasal Suspension USE 2 SPRAYS IN EACH NOSTRIL TWICE DAILY. Quantity: 3 Refills: 3 Albert Maria MD Start : 26-Mar-2018 Active 9.9 ML Bottle Fluticasone Propion-Salmeter ol (20 sources) Corticosteroid, beta2-Adrenergic Agonist Start: 05-27-2024 Start: 05-27-2024 Fluticasone Pr opion-Salmeterol 500-50 mcg/dose [...] guaiFENesin 600 mg extended release oral tablet (7 sources) Start: 05-27-2024 take 1 tablet by mouth every twelve hours as needed for cough irbesartan 150 mg oral tablet (20 sources) Angiotensin 2 Receptor Dorita Start: 03-26-2018 End: 05-28-2025 take 1 tablet by mouth once daily Multivitamin (Multiple Vitamins) tablet (20 sources) Start: 04-10-2018 take 1 tablet by mouth once daily Multivitamin (Multiple Vitamins) tablet Active 1 TABLET PO DAILY April 10, 2018 2:43pm Start: 04-10-2018 Start: 04-10-2018 Multivitamin ( Multiple Vitamins) tablet Active 1 {tbl} PO DAILY April 10, 2018 1:00am Start: 04-10-2018 Multivitamin ( Multiple Vitamins) tablet Active 1 {tbl} PO DAILY April 10, 2018 12:00am Start: 04-10-2018 take 1 tablet by tj once daily Multivitamin (Multiple Vitamins) tablet Active [...] Test Name Value Interpretation Reference Range Facility CBC (H/H, RBC, INDICES, WBC, PLT)on 03-24-2025 Erythrocyte distribution width (RBC) [Ratio] 12.4 % Normal 11.0-15.0 [facility] Comment on above: Performed By: #### 9 911, 1759 #### [facility] [place] [address] [employer] [employer]: Sam Conte MD Hematocrit (Bld) [Volume fraction] 46.7 % High 35.0-45.0 [facility] Comment on above: Performed By: #### 9 649, 175 #### [facility] [place] [address] [employer] [employer]: Sam Conte MD Hemoglobin (Bld) [Mass/Vol] 15.4 g/dL Normal 11.7-15.5 [facility] Comment on above: Performed By: #### 9 593, 1759 #### [facility] [place] [address] [employer] [employer]: Sam Conte MD MCH (RBC) [Entitic mass] 31.9 pg Normal 27.0-33.0 [facility] Comment on above: Performed By: #### 9 389, 1759 #### [facility] [place] [address] [employer] [employer]: Sam Conte MD MCHC (RBC) [Mass/Vol] 33.0 g/dL Normal 32.0-36.0 [facility] Comment on above: Result Comment: For adults, a slight decrease in the calculated MCHC value (in the range of 30 to 32 g/dL) is most likely not clinically significant; however, it should be interpreted with caution in correlation with other red cell parameters and the patient's clinical condition. Performed By: #### 9 374, 1759 #### [facility] of [address], [address] [place] [address] [employer]: Sam Conte MD MCV (RBC) [Entitic vol] 96.7 fL Normal 80.0-100.0 [facility] Comment on above: Performed By: #### 9 2664, 175 #### [facility] of [address], [address] [place] [address] [employer]: Sam Conte MD Platelet mean volume (Bld) [Entitic vol] 9.8 fL Normal 7.5-12.5 [facility] Comment on above: Performed By: #### 9 2664, 175 #### [facility] of [address], [address] [place] [address] [employer]: Sam Conte MD Platelets (Bld) [#/Vol] 268 10*3/uL Normal 140-400 [facility] Comment on above: Performed By: #### 9 2664, 175 #### [facility] of [place] [address] [employer]: Sam Conte MD RBC (Bld) [#/Vol] 4.83 10*6/uL Normal 3.80-5.10 [facility] Comment on above: Performed By: #### 9 2664, 175 #### [facility] of [address], [address] [place] [address] [employer]: Sam Conte MD WBC (Bld) [#/Vol] 6.5 10*3/uL Normal 3.8-10.8 [facility] Comment on above: Performed By: #### 9 2664, 175 #### [facility] of [place] [address] [employer] [employer]: Sam Conte MD COMPREHENSIVE METABOLIC PANE L W/ANION GAPon 03-24-2025 Albumin [Mass/Vol] 4.1 g/dL Normal 3.6-5.1 [facility] Comment on above: Order Comment: FASTI NG:YES FASTING: YES Performed By: #### 9 364, 175 #### [facility] [place] [address] [employer] [employer]: Sam Conte MD ALP [Catalytic activity/Vol] 65 U/L Normal 37-153 [facility] Comment on above: Order Comment: FASTI NG:YES FASTING: YES Performed By: #### 9 926, 175 #### [facility] [place] [address] [employer] [employer]: Sam Conte MD ALT [Catalytic activity/Vol] 21 U/L Normal 6-29 [facility] Comment on above: Order Comment: FASTI NG:YES FASTING: YES Performed By: #### 9 081, 175 #### [facility] [place] [address] [employer] [employer]: Sam Conte MD AST [Catalytic activity/Vol] 15 U/L Normal 10-35 [facility] Comment on above: Order Comment: FASTI NG:YES FASTING: YES Performed By: #### 9 505, 175 #### [facility] [place] [address] [employer] [employer]: Sam Conte MD Bilirubin [Mass/Vol] 0.7 mg/dL Normal 0.2-1.2 [facility] Comment on above: Order Comment: FASTI NG:YES FASTING: YES Performed By: #### 9 026, 175 #### [facility] [place] [address] [employer] [employer]: Sam Conte MD Calcium [Mass/Vol] 9.2 mg/dL Normal 8.6-10.4 [facility] Comment on above: Order Comment: FASTI NG:YES FASTING: YES Performed By: #### 9 4172, 175 #### [facility] [address], [address] [place] [address] [employer]: Sam Conte MD Chloride [Moles/Vol] 105 mmol/L Normal 98-110 [facility] Comment on above: Order Comment: FASTI NG:YES FASTING: YES Performed By: #### 9 428, 175 #### [facility] [address], [address] [place] [address] [employer]: Sam Conte MD CO2 [Moles/Vol] 25 mmol/L Normal 20-32 [facility] Comment on above: Order Comment: FASTI NG:YES FASTING: YES Performed By: #### 9 106, 175 #### [facility] [address], [address] [place] [address] [employer]: Sam Conte MD Creatinine [Mass/Vol] 0.69 mg/dL Normal 0.50-1.05 [facility] Comment on above: Order Comment: FASTI NG:YES FASTING: YES Performed By: #### 9 214, 175 #### [facility] [address], [address] [place] [address] [employer]: Sam Conte MD ELECTROLYTE BALANCE 10 mmol/L (calc) Normal 7-17 [facility] Comment on above: Order Comment: FASTI NG:YES FASTING: YES Performed By: #### 9 772, 175 #### [facility] [address], [address] [place] [address] [employer]: Sam Conte MD GFR/1.73 sq M.predicted among non-blacks MDRD (S/P/Bld) [Vol rate/Area] 94 mL/min/{1.73_m2} Normal > OR = 60 [facility] Comment on above: Order Comment: FASTI NG:YES FASTING: YES Performed By: #### 9 187, 175 #### [facility] of [address], [address] [place] [address] [employer]: Sam Conte MD Glucose [Mass/Vol] 91 mg/dL Normal 65-99 [facility] Comment on above: Order Comment: FASTI NG:YES FASTING: YES Result Comment: Fasting reference interval Performed By: #### 9 0998, 1759 #### [facility] [place] [address] [employer] [employer]: Sam Conte MD Potassium [Moles/Vol] 4.6 mmol/L Normal 3.5-5.3 [facility] Comment on above: Order Comment: FASTI NG:YES FASTING: YES Performed By: #### 9 142, 1759 #### [facility] [address], [address] [place] [address] [employer]: Sam Conte MD Protein [Mass/Vol] 6.9 g/dL Normal 6.1-8.1 [facility] Comment on above: Order Comment: FASTI NG:YES FASTING: YES Performed By: #### 9 8098, 1759 #### [facility] [address], [address] [place] [address] [employer]: Sam Conte MD Sodium [Moles/Vol] 140 mmol/L Normal 135-146 [facility] Comment on above: Order Comment: FASTI NG:YES FASTING: YES Performed By: #### 9 6152, 1759 #### [facility] [place] [address] [employer] [employer]: Sam Conte MD Urea nitrogen [Mass/Vol] 22 mg/dL Normal 7-25 [facility] Comment on above: Order Comment: FASTI NG:YES FASTING: YES Performed By: #### 9 7671, 1759 #### [facility] [address], [address] [place] [address] [employer]: Sam Conte MD Pulmonary Visit Reporton Pulmonary Visit Report [facility] Pulmonary Medicine of [address] [place] [address] OFFICE VISIT Date of Service: 05/27/24 MR#: [id number] Acct: [id number] Name: SAMEER CHOWDHURY #: [id number] : 1955 Provider: Pricilla Benavides NP Age/Sex: 68/F Location: [facility] Status: Signed Assessment and Plan Assessment and [...] site reaction. 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 She has not recently needed to use her albuterol rescue inhaler. She denies shortness of breath, cough. She denies any wheezing, chest tightness, chest pain or palpitations. She denies fever, chills or body aches. She denies headache but does experience occasional dry mouth. She has received her COVID and influenza vaccine. 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 [facility] BI MAMMO BILATERAL SCREENING TOMOSYNTHESISon 04-13-2024 BI MAMMO BILATERAL SCREENING TOMOSYNTHESIS Interpreted By: Mickie Gutierrez, STUDY: BI MAMMO BILATERAL SCREENING TOMOSYNTHESIS; 04/13/2024 8:53 am ACCESSION NUMBER(S): [id number] ORDERING CLINICIAN: ALBERT MARIA INDICATION: Screening. COMPARISON: [...] Mickie Gutierrez 04/13/2024 10:40 AM Dictation workstation: [id number] [facility] DBT Breast - bilateralon No mammographic evidence of malignancy. BI-RADS CATEGORY: BI-RADS Category: 1 Negative. Recommendation: Annual Screening. Recommended Date: 1 Year. Laterality: Bilateral. MACRO: None Signed by: Mickie Gutierrez 04/13/2024 10:40 AM Dictation workstation: [id number] MMODAL Interpreted By: Mickie Gutierrez, STUDY: BI MAMMO BILATERAL SCREENING TOMOSYNTHESIS; 04/13/2024 8:53 am ACCESSION NUMBER(S): [id number] ORDERING CLINICIAN: ALBERT MARIA INDICATION: Screening. COMPARISON: [...] SCREENING TOMOSYNTHESIS; 04/13/2024 8:53 am ACCESSION NUMBER(S): [id number] ORDERING CLINICIAN: ALBERT MARIA INDICATION: Screening. COMPARISON: [...] Mickie Gutierrez 04/13/2024 10:40 AM Dictation workstation: [id number] [facility] Work Phone: Radiology Study observation (narrative) [facility] Work Phone: DBT Breast - bilateralOrdere d By: Mickie Gutierrez on 04-13-2024 [facility] Work Phone: CBC panel Auto (Bld)on 03-17 Erythrocyte distribution width (RBC) [Ratio] 12.7 % Normal 11.5-14.5 [facility] Comment on above: Performed By: #### 5 8410-2 #### YOLIS YOUNG ([id number]) [facility] [address] [place] [address] Hematocrit (Bld) [Volume fraction] 47.1 % High 36.0-46.0 [facility] Comment on above: Performed By: #### 5 8410-2 #### YOLIS YOUNG ([id number]) [facility] [address] [place] [address] Hemoglobin (Bld) [Mass/Vol] 14.9 g/dL Normal 12.0-16.0 [facility] Comment on above: Performed By: #### 5 8410-2 #### YOLIS YOUNG ([id number]) [facility] [address] [place] [address]296 MCH (RBC) [Entitic mass] 31.4 pg Normal 26.0-34.0 [facility] Comment on above: Performed By: #### 5 8410-2 #### YOLIS YOUNG ([id number]) [facility] [address] [place] [address] MCHC (RBC) [Mass/Vol] 31.6 g/dL Low 32.0-36.0 [facility] Comment on above: Performed By: #### 5 8410-2 #### YOLIS YOUNG ([id number]) [facility] [address] [place] [address] 25863 MCV (RBC) [Entitic vol] 99 fL Normal 80-100 [facility] Comment on above: Performed By: #### 5 8410-2 #### YOLIS YOUNG ([id number]) [facility] [address] [place] [address] 93364 Nucleated RBC/100 WBC (Bld) [Ratio] 0.0 /100 WBCs Normal 0.0-0.0 [facility] Comment on above: Performed By: #### 5 8410-2 #### YOLIS YOUNG ([id number]) [facility] [address] [place] [address] 22879 Platelets (Bld) [#/Vol] 276 x10*3/uL Normal 150-450 [facility] Comment on above: Performed By: #### 5 8410-2 #### YOLIS YOUNG ([id number]) [facility] [address] [place] [address] RBC (Bld) [#/Vol] 4.75 x10*6/uL Normal 4.00-5.20 [facility] Comment on above: Performed By: #### 5 8410-2 #### YOLIS YOUNG ([id number]) [facility] [address] [place] [address] 69239 WBC (Bld) [#/Vol] 6.6 x10*3/uL Normal 4.4-11.3 [facility] Comment on above: Performed By: #### 5 8410-2 #### YOLIS YOUNG ([id number]) [facility] [address] [place] [address] Comprehensive metabolic 2000 panelon 03-17-2024 Albumin BCP dye [Mass/Vol] 4.0 g/dL Normal 3.4-5.0 [facility] Comment on above: Performed By: #### 2 4323-8 #### YOILS YOUNG ([id number]) [facility] [address] [place], [place] [id number] ALP [Catalytic activity/Vol] 56 U/L Normal 33-136 [facility] Comment on above: Performed By: #### 2 4323-8 #### YOLIS YOUNG ([id number]) [facility] [address] [place] [address] 17585 ALT With P-5'-P [Catalytic activity/Vol] 25 U/L Normal 7-45 [facility] Comment on above: Result Comment: Monie ents treated with Sulfasalazine may generate falsely decreased results for ALT. Performed By: #### 2 4323-8 #### YOLIS YOUNG ([id number]) [facility]) [facility] [place] [address] Anion gap [Moles/Vol] 10 mmol/L Normal 10-20 [facility] Comment on above: Performed By: #### 2 4323-8 #### YOLIS YOUNG ([id number]) [facility] [address] [place] [address] AST With P-5'-P [Catalytic activity/Vol] 23 U/L Normal 9-39 [facility] Comment on above: Performed By: #### 2 4323-8 #### YOLIS YOUNG ([id number]) [facility] [address] [place] [address] Bilirubin [Mass/Vol] 0.7 mg/dL Normal 0.0-1.2 [facility] Comment on above: Performed By: #### 2 432-8 #### YOLIS YOUNG ([id number]) [facility]) [address] [place] [address] Calcium [Mass/Vol] 9.0 mg/dL Normal 8.6-10.3 [facility] Comment on above: Performed By: #### 2 432-8 #### YOLIS YOUNG ([id number]) [facility] [address] [place] [address] 60687 Chloride [Moles/Vol] 105 mmol/L Normal 98-107 [facility] Comment on above: Performed By: #### 2 4323-8 #### YOLIS YOUNG ([id number]) [facility] [address] [place] [address]1228 CO2 [Moles/Vol] 28 mmol/L Normal 21-32 [facility] Comment on above: Performed By: #### 2 4323-8 #### YOLIS YOUNG ([id number]) [facility]) [address] [place] [address] Creatinine [Mass/Vol] 0.72 mg/dL Normal 0.50-1.05 [facility] Comment on above: Performed By: #### 2 4323-8 #### YOLIS YOUNG ([id number]) [facility] [address] [place] [address]207 GFR/1.73 sq M.predicted MDRD (S/P/Bld) [Vol rate/Area] mL/min/{1.73_m2} Normal >60 [facility] Comment on above: Result Comment: Calc ulations of estimated GFR are performed using the 2020 CKD-EPI Study Refit equation without the race variable for the IDMS-Traceable creatinine methods. https://jasn.asnjournals.org/content/early//ASN.5679474 988 Performed By: #### 2 432-8 #### YOLIS YOUNG ([id number]) [facility] [address] [place] [address]00 Glucose [Mass/Vol] 91 mg/dL Normal 74-99 [facility] Comment on above: Performed By: #### 2 432-8 #### YOLIS YOUNG ([id number]) [facility] [address] [place] [address]7 Potassium [Moles/Vol] 4.2 mmol/L Normal 3.5-5.3 [facility] Comment on above: Performed By: #### 2 4323-8 #### YOLIS YOUNG ([id number]) [facility] [address] [place] [address] Protein [Mass/Vol] 6.3 g/dL Low 6.4-8.2 [facility] Comment on above: Performed By: #### 2 4323-8 #### YOLIS YOUNG ([id number]) [facility] [address] [place] [address]2594 Sodium [Moles/Vol] 139 mmol/L Normal 136-145 [facility] Comment on above: Performed By: #### 2 4323-8 #### YOLIS YOUNG ([id number]) [facility] [address] [place] [address] Urea nitrogen [Mass/Vol] 18 mg/dL Normal 6-23 [facility] Comment on above: Performed By: #### 2 4323-8 #### YOLIS YOUNG ([id number]) [facility] [address] [place] [address] Mamm - Screening Mammogram w / Tomosynthesison 03-27-2022 MG Breast Screening Normal [facility] Work Phone: Office Visit (Primary Care T [...] w/ Tomosynthesis; Status:Hold For - Scheduling; Requested for:28Feb2022; Radiologist to Determine Optimal Study : Y [...] 28Feb2022 09:37AM Systolic: 118 Diastolic: 74 Recorded: 28Feb2022 09:04AM Heart Rate: 75 Systolic: 148 Diastolic: [...] Feb 28 2022 9:44AM EST (Author) Normal [employer] Tobacco Screening.on 022 Fall risk assessment a) No falls within the last year [employer] Work Phone: Tobacco use status CP b) No [employer] [facility] Work Phone: CBCon 02-12-2022 Erythrocyte distribution width (RBC) [Ratio] 13.1 % Normal 11.5 - 14.5 [facility] Comment on above: Performed By: #### C BC #### [address] [address] Hematocrit (Bld) [Volume fraction] 45.0 % Normal 36.0 - 46.0 [facility] Comment on above: Performed By: #### C BC #### [address] [address] Hemoglobin (Bld) [Mass/Vol] 14.9 g/dL Normal 12.0 - 16.0 [facility] Comment on above: Performed By: #### C BC #### [address] [address] MCHC (RBC) [Mass/Vol] 33.2 g/dL Normal 32.0 - 36.0 [facility] Comment on above: Performed By: #### C BC #### [address] [address] MCV (RBC) [Entitic vol] 96 fL Normal 80 - 100 [facility] Comment on above: Performed By: #### C BC #### [address] [address] Platelets (Bld) [#/Vol] 286 10*3/uL Normal 150 - 450 [facility] Comment on above: Performed By: #### C BC #### [address] [address] RBC 4.69 x10E12/L Normal 4.00 - 5.20 [facility] [place] Comment on above: Performed By: #### C BC #### [address] [address] WBC (Bld) [#/Vol] 7.7 10*3/uL Normal 4.4 - 11.3 [facility] [place] Comment on above: Performed By: #### C BC #### [address] [address] COMPREHENSIVE PANELon 2021 Albumin [Mass/Vol] 4.1 g/dL Normal 3.4 - 5.0 [facility] [place] Comment on above: Performed By: #### C MP #### [address] [address] ALP [Catalytic activity/Vol] 68 U/L Normal 33 - 136 [facility] Comment on above: Performed By: #### C MP #### [address] [address] ALT [Catalytic activity/Vol] 24 U/L Normal 7 - 45 [facility] Comment on above: Result Comment: Monie ents treated with Sulfasalazine may generate falsely decreased results for ALT. Performed By: #### C MP #### [address] [address] Anion gap [Moles/Vol] 11 mmol/L Normal 10 - 20 [facility] Comment on above: Performed By: #### C MP #### [address] [address] AST [Catalytic activity/Vol] 21 U/L Normal 9 - 39 [facility] Comment on above: Performed By: #### C MP #### [address] [address] Bilirubin [Mass/Vol] 0.6 mg/dL Normal 0.0 - 1.2 [facility] Comment on above: Performed By: #### C MP #### [address] [address] Calcium [Mass/Vol] 9.1 mg/dL Normal 8.6 - 10.3 [facility] [place] Comment on above: Performed By: #### C MP #### [address] [address] Chloride [Moles/Vol] 105 mmol/L Normal 98 - 107 [facility] Comment on above: Performed By: #### C MP #### [address] [address] Creatinine [Mass/Vol] 0.62 mg/dL Normal 0.50 - 1.05 [facility] Comment on above: Performed By: #### C MP #### [address] [address] eGFR FEMALE >90 Normal >90 [facility] Comment on above: Result Comment: CALC ULATIONS OF ESTIMATED GFR ARE PERFORMED USING THE 2020 CKD-EPI STUDY REFIT EQUATION WITHOUT THE RACE VARIABLE FOR THE IDMS-TRACEABLE CREATININE METHODS. https://jasn.asnjournals.org/content/early//ASN.2810840 988 Performed By: #### C MP #### [address] [address] Glucose [Mass/Vol] 88 mg/dL Normal 74 - 99 [facility] [place] Comment on above: Performed By: #### C MP #### [address] [address] HCO3 (Bld) [Moles/Vol] 29 mmol/L Normal 21 - 32 [facility] Comment on above: Performed By: #### C MP #### [address] [address] Potassium [Moles/Vol] 4.5 mmol/L Normal 3.5 - 5.3 [facility] Comment on above: Performed By: #### C MP #### [address] [address] Protein [Mass/Vol] 7.0 g/dL Normal 6.4 - 8.2 [facility] [place] Comment on above: Performed By: #### C MP #### [address] [address] Sodium [Moles/Vol] 140 mmol/L Normal 136 - 145 [facility] [place] Comment on above: Performed By: #### C MP #### [address] [address] Urea nitrogen [Mass/Vol] 22 mg/dL Normal 6 - 23 [facility] Comment on above: Performed By: #### C MP #### [address] [address] Laboratory - Chemistry and C hemistry - challengeon 02-12-2022 Albumin BCP dye [Mass/Vol] 4.1 g/dL 3.4 - 5.0 -[facility] Work Phone: ALP [Catalytic activity/Vol] 68 U/L 33 - 136 [facility] Work Phone: ALT With P-5'-P [Catalytic activity/Vol] 24 U/L 7 - 45 [facility] Work Phone: Comment on above: Patients treated wit h Sulfasalazine may generate falsely decreased results for ALT. Anion gap [Moles/Vol] 11 mmol/L 10 - 20 -[facility] Work Phone: AST With P-5'-P [Catalytic activity/Vol] 21 U/L 9 - 39 [facility] Work Phone: Bilirubin [Mass/Vol] 0.6 mg/dL 0.0 - 1.2 -[facility] Work Phone: Calcium [Mass/Vol] 9.1 mg/dL 8.6 - 10.3 -[facility] Work Phone: Chloride [Moles/Vol] 105 mmol/L 98 - 107 - [facility] Work Phone: CO2 [Moles/Vol] 29 mmol/L 21 - 32 [facility] Work Phone: Creatinine [Mass/Vol] 0.62 mg/dL See Below [facility] Work Phone: Comment on above: Reference Range: 0.5 0 - 1.05 Glucose [Mass/Vol] 88 mg/dL 74 - 99 -[facility] Work Phone: Potassium [Moles/Vol] 4.5 mmol/L 3.5 - 5.3 [facility] Work Phone: Protein [Mass/Vol] 7.0 g/dL 6.4 - 8.2 [facility] Work Phone: Sodium [Moles/Vol] 140 mmol/L 136 - 145 [facility] Work Phone: Urea nitrogen [Mass/Vol] 22 mg/dL 6 - 23 -[facility] Work Phone: Laboratory - Hematology and Cell countson 02-12-2022 Erythrocyte distribution width (RBC) [Ratio] 13.1 % See Below [facility] Work Phone: Comment on above: Reference Range: 11. 5 - 14.5 Hematocrit (Bld) [Volume fraction] 45.0 % See Below [facility] Work Phone: Comment on above: Reference Range: 36. 0 - 46.0 Hemoglobin (Bld) [Mass/Vol] 14.9 g/dL See Below [facility] SERVICESZoomInfo [facility] Work Phone: Comment on above: Reference Range: 12. 0 - 16.0 MCHC (RBC) [Mass/Vol] 33.2 g/dL See Below [facility] SERVICESZoom[facility] Work Phone: Comment on above: Reference Range: 32. 0 - 36.0 MCV (RBC) [Entitic vol] 96 fL 80 - 100 [employer] [facility] Work Phone: Platelets (Bld) [#/Vol] 286 10*3/uL 150 - 450 [facility] [employer] [facility] Work Phone: RBC (Bld) [#/Vol] 4.69 {x10E12/L} See Below [facility] Work Phone: Comment on above: Reference Range: 4.0 0 - 5.20 WBC (Bld) [#/Vol] 7.7 10*3/uL 4.4 - 11.3 [facility] [employer] [facility] Work Phone: No Panel Informationon 02-12 >90 >90 [facility] Work Phone: Comment on above: CALCULATIONS OF NERISSA MATED GFR ARE PERFORMED USING THE 2020 CKD-EPI STUDY REFIT EQUATION WITHOUT THE RACE VARIABLE FOR THE IDMS-TRACEABLE CREATININE METHODS.https://jasn.asnjournals.org/content/early//ASN .4597570774 Colonoscopyon 11-22-2021 Colonoscopy PATIENTNAME Patient Name: Sameer Chowdhury EXAMDATE Procedure Date: 11/22/2021 9:11 AM PATIENTID PATIENTACCOUNTNUM PATIENTDOB Date of : 1955 ADMITTYPE Admit Type: Outpatient PATIENTROOM Site: [facility] Proc RM 1 ETHNICITY Ethnicity: Not or RACE Race: White [...] results. CPT_CODES Procedure Code(s): --- Professional --- 10283, Colonoscopy, flexible; with removal of tumor(s), polyp(s), or other lesion(s) by snare technique G0500, Moderate sedation services provided by the same physician or other qualified health mall plant caretaker performing a gastrointestinal endoscopic service that sedation supports, requiring the presence of an independent trained observer to assist in the monitoring of the patient's level of consciousness and physiological status; initial 15 minutes of intra-service time; patient age 5 y (more content not included)... Normal [facility] No Panel Informationon 11-22 [facility] Work Phone: [email or web address]} [facility] Work Phone: [facility] Surgical Pathology Depar tmenton 11-22-2021 [facility] Surgical Pathology Department Name SAMEER CHOWDHURY Pathologist: MAURICE JARAMILLO MD Date of Procedure: 11/22/2021 Date Received: 11/22/2021 Date Reported 11/24/2021 Submitting Physician: GATITO PURCELL DO Location: [facility] Copy To/Referring/Attending : ALBERT MARIA MD Other External # FINAL DIAGNOSIS A. 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 Diagnostic interpretation performed at [address] [place] [address] Clinical History: Physician Contact Number: [phone] Fixative (A): Formalin Clinical Diagnosis History PERSONL HX COLON POLYPS Specimens Submitted As: A: SIGMOID COLON POLYP Gross Description: Received in formalin, labeled with the patient's name and hospital number and sigmoid colon, are multiple fragments of saleem, soft tissue aggregating to 1.5 x 0.2 x 0.2 cm. The specimen is submitted in toto in one cassette. [facility]/11/23/2021 [facility] Department of Pathology [address] [place] [address] Normal [facility] Comment on above: Performed By: #### U [facility] #### [facility] Surgical Pathology Department [address] [place] [address] Medicare Annual Wellness Vis iton 08-29-2021 Medicare Annual Wellness Visit *Chief Complaint [...] allergy s (more content not included)... Normal [employer] Tobacco Screening.on 022 Adult depression screening assessment No [facility] Work Phone: Fall risk assessment a) No falls within the last year [facility] Work Phone: Tobacco use status CPHS b) No [employer] [facility] Work Phone: Gram stain for investigation of transfusion reactionon 07-20-2021 Microscopic observation Gram stain Nom (Unsp spec) [facility] Work Phone: No Panel Informationon 07-20 Nasopharyngeal Culture Staphylococcus aureus [facility] Work Phone: Mamm - Screening Mammogram w / Tomosynthesison 03-17-2021 MG Breast Screening FINAL REPORT Interpreted by: MICKIE GUTIERREZ CHRISTOPHER, MD 03/17/21 09:09 Patient Name: SAMEER CHOWDHURY STUDY: Digital mammography screening with grace; 03/17/2021 9:06 am ACCESSION NUMBER(S): [id number] ORDERING CLINICIAN: AISHA Tran [employer] Work Phone: Tobacco Screening.on Fall risk assessment a) No falls within the last year [employer] Work Phone: Tobacco use status CPHS b) No [employer] [facility] Work Phone: Laboratory - Chemistry and C hemistry - challengeon 02-20-2021 Albumin BCP dye [Mass/Vol] 3.7 g/dL 3.4 - 5.0 [employer] [facility] Work Phone: ALP [Catalytic activity/Vol] 64 U/L 33 - 136 [employer] [facility] Work Phone: ALT With P-5'-P [Catalytic activity/Vol] 21 U/L 7 - 45 [employer] [facility] Work Phone: Comment on above: Patients treated wit h Sulfasalazine may generate falsely decreased results for ALT. Anion gap [Moles/Vol] 8 mmol/L below low threshold 10 - 20 [employer] [facility] Work Phone: AST With P-5'-P [Catalytic activity/Vol] 23 U/L 9 - 39 [facility] Work Phone: Bilirubin [Mass/Vol] 0.7 mg/dL 0.0 - 1.2 -[facility] Work Phone: Calcium [Mass/Vol] 9.0 mg/dL 8.6 - 10.3 -[facility] Work Phone: Chloride [Moles/Vol] 107 mmol/L 98 - 107 - [facility] Work Phone: CO2 [Moles/Vol] 28 mmol/L 21 - 32 [facility] l [facility] Work Phone: Creatinine [Mass/Vol] 0.67 mg/dL See Below [facility] Work Phone: Comment on above: Reference Range: 0.5 0 - 1.05 Glucose [Mass/Vol] 84 mg/dL 74 - 99 -[facility] Work Phone: Potassium [Moles/Vol] 4.4 mmol/L 3.5 - 5.3 -[facility] Work Phone: Protein [Mass/Vol] 6.4 g/dL 6.4 - 8.2 -[facility] Work Phone: Sodium [Moles/Vol] 139 mmol/L 136 - 145 [facility] Work Phone: Urea nitrogen [Mass/Vol] 16 mg/dL 6 - 23 -[facility] Work Phone: Laboratory - Hematology and Cell countson 02-20-2021 Erythrocyte distribution width (RBC) [Ratio] 13.0 % See Below [facility] Work Phone: Comment on above: Reference Range: 11. 5 - 14.5 Hematocrit (Bld) [Volume fraction] 43.7 % See Below [employer] [facility] Work Phone: Comment on above: Reference Range: 36. 0 - 46.0 Hemoglobin (Bld) [Mass/Vol] 14.2 g/dL See Below [facility] SERVICESZoom[facility] Work Phone: Comment on above: Reference Range: 12. 0 - 16.0 MCHC (RBC) [Mass/Vol] 32.6 g/dL See Below [facility] SERVICESZoom[facility] Work Phone: Comment on above: Reference Range: 32. 0 - 36.0 MCV (RBC) [Entitic vol] 96 fL 80 - 100 [facility] SERVICES[facility] Work Phone: Platelets (Bld) [#/Vol] 353 10*3/uL 150 - 450 [facility] [employer] [facility] Work Phone: RBC (Bld) [#/Vol] 4.54 {x10E12/L} See Below [facility] Work Phone: Comment on above: Reference Range: 4.0 0 - 5.20 WBC (Bld) [#/Vol] 7.4 10*3/uL 4.4 - 11.3 [facility] [employer] [facility] Work Phone: Lipid Panelon 02-20-2021 Cholesterol [Mass/Vol] 193 mg/dL 0 - 199 [facility] SERVICES[facility] Work Phone: Comment on above: . AGE [...] dosing. Cholesterol in HDL [Mass/Vol] 40.0 mg/dL [employer] [facility] Work Phone: Comment on above: . AGE VERY LOW LOW N ORMAL HIGH 0-19 Y < 35 < 40 40-45 ---- 20- 24 Y ---- < 40 >45 ---- >24 Y ---- < 40 40-60 >60. Cholesterol in LDL [Mass/Vol] 103 mg/dL above high threshold 0 - 99 [employer] [facility] Work Phone: Comment on above: . NEAR BORD AGE EFREN RABLE OPTIMAL HIGH HIGH VERY HIGH 0-19 Y 0 - 109 --- 110-129 >/= 130 ---- 20-24 Y 0 - 119 --- 120-159 >/= 160 ---- >24 Y 0 - 99 100-129 130-159 160-189 >/=190. Cholesterol non HDL [Mass/Vol] 153 mg/dL [employer] [facility] Work Phone: Comment on above: AGE DESIRABLE BORDER LINE HIGH HIGH VERY HIGH 0-19 Y 0 - 119 120 - 144 >/= 145 >/= 160 20-24 Y 0 - 149 150 - 189 >/= 190 ---- >24 Y 30 MG/DL ABOVE LDL CHOLESTEROL GOAL. Cholesterol.total/Ch olesterol in HDL [Mass ratio] 4.8 {ratio} [employer] [facility] Work Phone: Comment on above: REF VALUESDESIRABLE < 3.4HIGH RISK > 5.0 Triglyceride [Mass/Vol] 249 mg/dL above high threshold 0 - 149 [employer] [facility] Work Phone: Comment on above: . AGE [...] mg/dL above high threshold 0 - 40 [employer] [facility] Work Phone: No Panel Informationon 02-20 >60 >60 [facility] [employer] [facility] Work Phone: Comment on above: CALCULATIONS OF NERISSA MATED GFR ARE PERFORMED USING THE MDRD STUDY EQUATION FOR THE IDMS-TRACEABLE CREATININE METHODS. CLIN CHEM 2007;53:766-72 Hematologyon 02-15-2020 Hematocrit (Bld) [Volume fraction] 47.2 % above high threshold See Below [employer] [facility] Work Phone: Comment on above: Reference Range: 36. 0 - 46.0 Hemoglobin (Bld) [Mass/Vol] 15.5 g/dL See Below [facility] SERVICESZoom[facility] Work Phone: Comment on above: Reference Range: 12. 0 - 16.0 MCV (RBC) [Entitic vol] 98 fL 80 - 100 [facility] SERVICES[facility] Work Phone: Platelets (Bld) [#/Vol] 274 {x10E9/L} 150 - 450 [facility] [employer] [facility] Work Phone: RBC (Bld) [#/Vol] 4.84 {x10E12/L} See Below [facility] Work Phone: Comment on above: Reference Range: 4.0 0 - 5.20 WBC (Bld) [#/Vol] 6.5 {x10E9/L} 4.4 - 11.3 [facility] [employer] [facility] Work Phone: Lipid Panelon 02-15-2020 Cholesterol [Mass/Vol] 198 mg/dL 0 - 199 [facility] [employer] [facility] Work Phone: Comment on above: . AGE [...] Cholesterol in HDL [Mass/Vol] 35.0 mg/dL Abnormal [employer] [facility] Work Phone: Comment on above: . AGE VERY LOW LOW N ORMAL HIGH 0-19 Y < 35 < 40 40-45 ---- 20- 24 Y ---- < 40 >45 ---- >24 Y ---- < 40 40-60 >60. Cholesterol in LDL [Mass/Vol] 112 mg/dL above high threshold 0 - 99 [employer] [facility] Work Phone: Comment on above: . NEAR BORD AGE EFREN RABLE OPTIMAL HIGH HIGH VERY HIGH 0-19 Y 0 - 109 --- 110-129 >/= 130 ---- 20-24 Y 0 - 119 --- 120-159 >/= 160 ---- >24 Y 0 - 99 100-129 130-159 160-189 >/=190. Cholesterol non HDL [Mass/Vol] 163 mg/dL [employer] [facility] Work Phone: Comment on above: AGE DESIRABLE BORDER LINE HIGH HIGH VERY HIGH 0-19 Y 0 - 119 120 - 144 >/= 145 >/= 160 20-24 Y 0 - 149 150 - 189 >/= 190 ---- >24 Y 30 MG/DL ABOVE LDL CHOLESTEROL GOAL. Cholesterol.total/Ch olesterol in HDL [Mass ratio] 5.7 {ratio} Abnormal [employer] Work Phone: Comment on above: REF VALUESDESIRABLE < 3.4HIGH RISK > 5.0 Triglyceride [Mass/Vol] 257 mg/dL above high threshold 0 - 149 [employer] Work Phone: Comment on above: . AGE [...] mg/dL above high threshold 0 - 40 [employer] Work Phone: Metabolic Panelon 02-15-2020 ALP [Catalytic activity/Vol] 60 U/L 33 - 136 [employer] [facility] Work Phone: Anion gap [Moles/Vol] 14 mmol/L 10 - 20 [employer] [facility] Work Phone: Bilirubin [Mass/Vol] 1.0 mg/dL 0.0 - 1.2 [employer] [facility] Work Phone: Calcium [Mass/Vol] 8.0 mg/dL below low threshold 8.6 - 10.3 [employer] [facility] Work Phone: Chloride [Moles/Vol] 103 mmol/L 98 - 107 [employer] [facility] Work Phone: CO2 [Moles/Vol] 26 mmol/L 21 - 32 [employer] [facility] Work Phone: Creatinine [Mass/Vol] 0.64 mg/dL See Below [employer] [facility] Work Phone: Comment on above: Reference Range: 0.5 0 - 1.05 Glucose [Mass/Vol] 77 mg/dL 74 - 99 [employer] [facility] Work Phone: Potassium [Moles/Vol] 4.2 mmol/L 3.5 - 5.3 [employer] [facility] Work Phone: Protein [Mass/Vol] 6.6 g/dL 6.4 - 8.2 [facility] Work Phone: Sodium [Moles/Vol] 139 mmol/L 136 - 145 [facility] Work Phone: Urea nitrogen [Mass/Vol] 14 mg/dL 6 - 23 [facility] Work Phone: Otheron 02-15-2020 Albumin BCP dye [Mass/Vol] 3.8 g/dL 3.4 - 5.0 [facility] Work Phone: ALT With P-5'-P [Catalytic activity/Vol] 22 U/L 7 - 45 [facility] Work Phone: Comment on above: Patients treated wit h Sulfasalazine may generate falsely decreased results for ALT. AST With P-5'-P [Catalytic activity/Vol] 18 U/L 9 - 39 [facility] Work Phone: Erythrocyte distribution width (RBC) [Ratio] 12.9 % See Below [facility] Work Phone: Comment on above: Reference Range: 11. 5 - 14.5 MCHC (RBC) [Mass/Vol] 32.8 g/dL See Below [facility] [place] Work Phone: Comment on above: Reference Range: 32. 0 - 36.0 >60 >60 [facility] [place] Work Phone: Comment on above: CALCULATIONS OF NERISSA MATED GFR ARE PERFORMED USING THE MDRD STUDY EQUATION FOR THE IDMS-TRACEABLE CREATININE METHODS. CLIN CHEM 2007;53:766-72 Auto Diffon 02-10-2019 Basophils (Bld) [#/Vol] 0.1 E3/mcL Normal 0.0-0.2 [facility] Comment on above: Order Comment: Order Added by Discern Expert. Performed By: #### 2 [id number] #### RENNY RemHemo [address] [place] [address] Basophils/100 WBC (Bld) 1.4 % Normal 0.0-2.0 [facility] Comment on above: Order Comment: Order Added by Discern Expert. Performed By: #### 2 [id number] #### RENNY RemHemo [address] [place] [address] Eos Absolute 1.2 E3/mcL High 0.0-0.7 [facility] Comment on above: Order Comment: Order Added by Discern Expert. Performed By: #### 2 [id number] #### RENNY RemHemo [address] [place] [address] Eosinophils/100 WBC (Bld) 17.7 % High 0.0-11.0 [facility] Comment on above: Order Comment: Order Added by Discern Expert. Performed By: #### 2 [id number] #### RENNY RemHemo [address] [place] [address] Lymphocytes (Bld) [#/Vol] 1.7 E3/mcL Normal 1.2-3.4 [facility] Comment on above: Order Comment: Order Added by Discern Expert. Performed By: #### 2 [id number] #### RENNY RemHemo [address] [place] [address] Lymphocytes/100 WBC (Bld) 24.2 % Normal 20.0-55.0 [facility] Comment on above: Order Comment: Order Added by Discern Expert. Performed By: #### 2 [id number] #### RENNY RemHemo [address] [place] [address] Benson Absolute 0.6 E3/mcL Normal 0.0-0.7 [facility] Comment on above: Order Comment: Order Added by Discern Expert. Performed By: #### 2 [id number] #### RENNY RemHemo [address] [place] [address] Monocytes/100 WBC (Bld) 8.1 % Normal 0.0-10.0 [facility] Comment on above: Order Comment: Order Added by Discern Expert. Performed By: #### 2 [id number] #### RENNY RemHemo [address] [place] [address] Neutro Absolute 3.3 E3/mcL Normal 1.4-6.5 [facility] Comment on above: Order Comment: Order Added by Discern Expert. Performed By: #### 2 [id number] #### RENNY Banueloso [facility] [place] [address] Neutro Auto 48.6 % Normal 37.0-75.0 [facility] Comment on above: Order Comment: Order Added by Discern Expert. Performed By: #### 2 [id number] #### RENNY Villasenor [address] [place], [place] [id number] CBC w/ Auto Diffon 9 Erythrocyte distribution width (RBC) [Ratio] 13.1 % Normal 11.5-14.5 [facility] Comment on above: Performed By: #### 2 [id number] #### RENNY Villasenor [address] [place], [place] [id number] Hematocrit (Bld) [Volume fraction] 44.5 % Normal 36.0-48.0 [facility] Comment on above: Performed By: #### 2 [id number] #### RENNY Villasenor [address] [place] [address] 28587 Hemoglobin (Bld) [Mass/Vol] 14.9 g/dL Normal 12.0-16.0 [facility] Comment on above: Performed By: #### 2 [id number] #### RENNY Banueloso [address] [place] [address] 37806 MCH (RBC) [Entitic mass] 32.5 pg High 27.0-31.0 [facility] Comment on above: Performed By: #### 2 [id number] #### RENNY Banueloso [address] [place] [address] 21462 MCHC (RBC) [Mass/Vol] 33.6 g/dL Normal 33.0-37.0 [facility] Comment on above: Performed By: #### 2 125118 #### RENNY SheppardHemo [address] [place] [address] 46900 MCV (RBC) [Entitic vol] 96.7 fL Normal 78.0-100.0 [facility] Comment on above: Performed By: #### 2 605631 #### RENNY SheppardHemo [address] [place] [address] 10096 Platelet mean volume (Bld) [Entitic vol] 8.0 fL Normal 7.4-11.0 [facility] Comment on above: Performed By: #### 2 200634 #### RENNY SheppardHemo [address] [place], [place] [id number] Platelets (Bld) [#/Vol] 260 E3/mcL Normal 130-400 [facility] Comment on above: Performed By: #### 2 [id number] #### RENNY ValarieHemo [address] [place], [place] [id number] RBC (Bld) [#/Vol] 4.60 E6/mcL Normal 3.90-5.40 [facility] Comment on above: Performed By: #### 2 [id number] #### RENNYDavon SheppardHemo [address] [place], [place] [id number] WBC (Bld) [#/Vol] 6.8 E3/mcL Normal 3.6-11.[address] [facility] Comment on above: Performed By: #### 2 [id number] #### RENNY ValarieHemo [address] [place], [place] [id number] CMPon 02-10-2019 Albumin [Mass/Vol] 3.9 g/dL Normal 3.4-5.0 [facility] Comment on above: Performed By: #### 2 [id number] #### RENNY [place] [id number] Albumin/Globulin [Mass ratio] 1.4 {ratio} Normal 1.1-1.9 [facility] Comment on above: Performed By: #### 2 [id number] #### RENNY [employer] [address] [place], [place] [id number] Alk Phos 62 Int._Unit/L Normal 33-136 [facility] Comment on above: Performed By: #### 2 [id number] #### RENNY [employer] [address] [place], [place] [id number] ALT [Catalytic activity/Vol] 22 Int._Unit/L Normal 7-45 [facility] Comment on above: Performed By: #### 2 [id number] #### [facility] [employer] [address] [place], [place] [id number] Anion gap [Moles/Vol] 11 mmol/L Normal 10-20 [facility] Comment on above: Performed By: #### 2 [id number] #### [facility] [employer] [address] [place] [address] 52173 AST [Catalytic activity/Vol] 18 Int._Unit/L Normal 9-39 [facility] Comment on above: Performed By: #### 2 196187 #### RENNY [employer] [address] [place] [address] 60467 Bili Total 0.94 mg/dL Normal 0.00-1.20 [facility] Comment on above: Performed By: #### 2 943812 #### RENNY [employer] [address] [place] [address] 75731 Calcium [Mass/Vol] 9.3 mg/dL Normal 8.6-10.3 [facility] Comment on above: Performed By: #### 2 262435 #### [facility] [employer] [address] [place] [address] 59513 Chloride [Moles/Vol] 106 mmol/L Normal 98-107 [facility] Comment on above: Performed By: #### 2 605939 #### RENNY [employer] [address] [place] [address] 15782 CO2 [Moles/Vol] 28.0 mmol/L Normal 21.0-32.0 [facility] Comment on above: Performed By: #### 2 923735 #### [facility] [employer] [address] [place] [address] 64804 Creatinine [Mass/Vol] 0.6 mg/dL Normal 0.5-1.1 [facility] Comment on above: Performed By: #### 2 [id number] #### RENNY [employer] [address] [place] [address] 42718 Globulin (S) [Mass/Vol] 3.0 g/dL Normal 2.0-4.0 [facility] Comment on above: Performed By: #### 2 301461 #### RENNY [employer] [address] [place] [address] 01999 Glucose [Mass/Vol] 87 mg/dL Normal 70-99 [facility] Comment on above: Performed By: #### 2 043515 #### RENNY [employer] [address] [place] [address] 90568 Potassium [Moles/Vol] 4.4 mmol/L Normal 3.5-5.3 [facility] Comment on above: Performed By: #### 2 503341 #### RENNY [employer] [address] [place] [address] 52152 Protein [Mass/Vol] 6.6 g/dL Normal 6.4-8.2 [facility] Comment on above: Performed By: #### 2 424699 #### RENNY [employer] [address] [place] [address] 99369 Sodium [Moles/Vol] 140 mmol/L Normal 136-145 [facility] Comment on above: Performed By: #### 2 768951 #### RENNY [employer] [address] [place], [place] [id number] Urea nitrogen [Mass/Vol] 18 mg/dL Normal 6-23 [facility] Comment on above: Performed By: #### 2 143468 #### RENNY [employer] [address] [place], [place] [address] Urea nitrogen/Creatinine [Mass ratio] 30.0 ratio Normal 5.4-30.0 [facility] Comment on above: Performed By: #### 2 945094 #### RENNY [employer] [address] [place] [address] 08054 eGFRon 02-10-2019 GFR/1.73 sq M predicted among non-blacks MDRD (S/P/Bld) [Vol rate/Area] mL/min/{1.73_m2} Normal [facility] Comment on above: Order Comment: Order added by Discern Expert. Performed By: #### 1 [id number] #### RENNY [employer] [address] [place], [place] [id number] [place] Mamm Screen w/CAD if perf and 3D Bilon 12-04-2018 Bilirubin.direct [Mass/Vol] Exam Date/Time: 12/03/2018 11:15 EDT Reason for Exam: SCREENING 3D;Screening Report STUDY: Digital mammography screening with grace; 12/03/2018 11:15 am ACCESSION NUMBER(S): [id number] ORDERING CLINICIAN: Ablert Maria INDICATION: Screening. COMPARISON: Comparison is made [...] am Signed by: Mickie Gutierrez MD Technologist: CEC Assessment: BI-RADS Category 1-Negative Recommendation: Normal interval follow-up Normal [facility] Gram stain for investigation of transfusion reaction Microscopic observation Gram stain Nom (Unsp spec) [facility] Work Phone: No Panel Information Nasopharyngeal Culture Staphylococcus aureus [facility] Work Phone: Vital Signs Date Time Vital Sign Value Performing Clinician Facility 02-02-2025 13:30-0400 Body temperature 97 [degF] Dr. Albert Maria MD Work Phone: [facility] 02-02-2025 13:30-0400 Diastolic blood pressure 78 mm[Hg] Dr. Albert Maria MD Work Phone: [facility] 02-02-2025 13:30-0400 Heart rate 70 /min Dr. Albert Maira MD Work Phone: [facility] 02-02-2025 13:30-0400 Respiratory rate 16 /min Dr. Albert Maria MD Work Phone: [facility] 02-02-2025 13:30-0400 SaO2% (BldA) [Mass fraction] 97 % Dr. Albert Maria MD Work Phone: [facility] 02-02-2025 13:30-0400 Systolic blood pressure 142 mm[Hg] Dr. Albert Maria MD Work Phone: [facility] 01-05-2025 13:16-0400 Body height 157.[address] Albert Maria MD Work Phone: [facility] 01-05-2025 13:16-0400 Body mass index (BMI) [Ratio] 36.6 kg/m2 Dr. Albert Maria MD Work Phone: 6(712)084-664440 [place] [address] 01-05-2025 13:16-0400 Body temperature 96.3 [degF] Dr. Albert Maria MD Work Phone: 4(605)711-275840 [place] [address] 01-05-2025 13:16-0400 Body weight 90.[address] Albert Maria MD Work Phone: 8(049)281-248440 [place] [address] 01-05-2025 13:16-0400 Diastolic blood pressure 83 mm[Hg] Dr. Albert Maria MD Work Phone: 1(471)529-919340 [place] [address] 01-05-2025 13:16-0400 Heart rate 77 /min Dr. Albert Maria MD Work Phone: 8(098)681-856740 [place] [address] 01-05-2025 13:16-0400 Respiratory rate 16 /min Dr. Albert Maria MD Work Phone: [facility] 01-05-2025 13:16-0400 SaO2% (BldA) [Mass fraction] 97 % Dr. Albert Maria MD Work Phone: [facility] 01-05-2025 13:16-0400 Systolic blood pressure 157 mm[Hg] Dr. Albert Maria MD Work Phone: 0(386)065-400940 [place] [address] 12-08-2024 13:06-0400 Body height 157.[address] Albert Maria MD Work Phone: [facility] 12-08-2024 13:06-0400 Body mass index (BMI) [Ratio] 36.6 kg/m2 Dr. Albert Maria MD Work Phone: 4(726)727-055040 [place] [address] 12-08-2024 13:06-0400 Body temperature 96.3 [degF] Dr. Albert Maria MD Work Phone: [facility] 12-08-2024 13:06-0400 Body weight 90.[address] Albert Maria MD Work Phone: [facility] 12-08-2024 13:06-0400 Diastolic blood pressure 72 mm[Hg] Dr. Albert Maria MD Work Phone: [facility] 12-08-2024 13:06-0400 Heart rate 74 /min Dr. Albert Maria MD Work Phone: [facility] 12-08-2024 13:06-0400 Respiratory rate 16 /min Dr. Albert Maria MD Work Phone: [facility] 12-08-2024 13:06-0400 SaO2% (BldA) [Mass fraction] 96 % Dr. Albert Maria MD Work Phone: [facility] 12-08-2024 13:06-0400 Systolic blood pressure 129 mm[Hg] Dr. Albert Maria MD Work Phone: [facility] 11-10-2024 15:20-0400 Body height 157.[address] Albert Maria MD Work Phone: [facility] 11-10-2024 15:20-0400 Body mass index (BMI) [Ratio] 36.6 kg/m2 Dr. Albert Maria MD Work Phone: [facility] 11-10-2024 15:20-0400 Body temperature 96.5 [degF] Dr. Albert Maria MD Work Phone: [facility] 11-10-2024 15:20-0400 Body weight 90.[address] Albert Maria MD Work Phone: [facility] 11-10-2024 15:20-0400 Diastolic blood pressure 74 mm[Hg] Dr. Albert Maria MD Work Phone: [facility] 11-10-2024 15:20-0400 Heart rate 77 /min Dr. Albert Maria MD Work Phone: [facility] 11-10-2024 15:20-0400 Respiratory rate 16 /min Dr. Albert Maria MD Work Phone: [facility] 11-10-2024 15:20-0400 SaO2% (BldA) [Mass fraction] 95 % Dr. Albert Maria MD Work Phone: [facility] 11-10-2024 15:20-0400 Systolic blood pressure 126 mm[Hg] Dr. Albert Maria MD Work Phone: [facility] 10-09-2024 10:21-0400 Body height 157.[address] Albert Maria MD Work Phone: [facility] 10-09-2024 10:21-0400 Body mass index (BMI) [Ratio] 36.6 kg/m2 Dr. Albert Maria MD Work Phone: [facility] 10-09-2024 10:21-0400 Body temperature 97 [degF] Dr. Albert Maria MD Work Phone: [facility] 10-09-2024 10:21-0400 Body weight 90.[address] Albert Maria MD Work Phone: [facility] 10-09-2024 10:21-0400 Heart rate 74 /min Dr. Albert Maria MD Work Phone: [facility] 10-09-2024 10:21-0400 Respiratory rate 16 /min Dr. Albert Maria MD Work Phone: [facility] 10-09-2024 10:21-0400 SaO2% (BldA) [Mass fraction] 96 % Dr. Albert Maria MD Work Phone: [facility] 09-21-2024 10:11-0400 Body height 157.5 cm Albert Maria MD Work Phone: [facility] 09-21-2024 10:11-0400 Body mass index (BMI) [Ratio] 39.03 kg/m2 Albert Maria MD Work Phone: [facility] 09-21-2024 10:11-0400 Body weight 96.8 kg Albert Maria MD Work Phone: [facility] 09-21-2024 10:11-0400 Diastolic blood pressure 72 mm[Hg] Albert Maria MD Work Phone: [facility] 09-21-2024 10:11-0400 Heart rate 70 /min Albert Maria MD Work Phone: [facility] 09-21-2024 10:11-0400 SaO2% (BldA) [Mass fraction] 96 % Albert Maria MD Work Phone: [facility] 09-21-2024 10:11-0400 Systolic blood pressure 126 mm[Hg] Albert Maria MD Work Phone: [facility] 09-11-2024 09:39-0400 Body mass index (BMI) [Ratio] 36.6 kg/m2 Dr. Albert Maria MD Work Phone: [facility] 09-11-2024 09:39-0400 Body temperature 96.8 [degF] Dr. Albert Maria MD Work Phone: [facility] 09-11-2024 09:39-0400 Body weight 90.[address] Albret Maria MD Work Phone: [facility] 09-11-2024 09:39-0400 Diastolic blood pressure 76 mm[Hg] Dr. Albert Maria MD Work Phone: [facility] 09-11-2024 09:39-0400 Heart rate 74 /min Dr. Albert Maria MD Work Phone: [facility] 09-11-2024 09:39-0400 Respiratory rate 16 /min Dr. Albert Maria MD Work Phone: [facility] 09-11-2024 09:39-0400 SaO2% (BldA) [Mass fraction] 94 % Dr. Albert Maria MD Work Phone: [facility] 09-11-2024 09:39-0400 Systolic blood pressure 155 mm[Hg] Dr. Albert Maria MD Work Phone: [facility] 08-14-2024 09:23-0400 Body height 157.[address] Albert Maria MD Work Phone: [facility] 08-14-2024 09:23-0400 Body mass index (BMI) [Ratio] 36.6 kg/m2 Dr. Albert Maria MD Work Phone: [facility] 08-14-2024 09:23-0400 Body temperature 96.7 [degF] Dr. Albert Maria MD Work Phone: [facility] 08-14-2024 09:23-0400 Body weight 90.[address] Albert Maria MD Work Phone: [facility] 08-14-2024 09:23-0400 Diastolic blood pressure 84 mm[Hg] Dr. Albert Maria MD Work Phone: [facility] 08-14-2024 09:23-0400 Heart rate 75 /min Dr. Albert Maria MD Work Phone: [facility] 08-14-2024 09:23-0400 Respiratory rate 16 /min Dr. Albert Maria MD Work Phone: [facility] 08-14-2024 09:23-0400 SaO2% (BldA) [Mass fraction] 97 % Dr. Albert Maria MD Work Phone: [facility] 08-14-2024 09:23-0400 Systolic blood pressure 142 mm[Hg] Dr. Albert Maria MD Work Phone: [facility] 07-17-2024 10:15-0500 Body height 157.[address] Albert Maria MD Work Phone: [facility] 07-17-2024 10:15-0500 Body temperature 96.6 [degF] Dr. Albert Maria MD Work Phone: [facility] 07-17-2024 10:15-0500 Diastolic blood pressure 76 mm[Hg] Dr. Albert Maria MD Work Phone: [facility] 07-17-2024 10:15-0500 Heart rate 72 /min Dr. Albert Maria MD Work Phone: [facility] 07-17-2024 10:15-0500 Respiratory rate 16 /min Dr. Albert Maria MD Work Phone: [facility] 07-17-2024 10:15-0500 SaO2% (BldA) [Mass fraction] 97 % Dr. Albert Maria MD Work Phone: [facility] 07-17-2024 10:15-0500 Systolic blood pressure 145 mm[Hg] Dr. Albert Maria MD Work Phone: [facility] 06-19-2024 10:04-0500 Body mass index (BMI) [Ratio] 36.6 kg/m2 Dr. Albert Maria MD Work Phone: [facility] 06-19-2024 10:04-0500 Body temperature 96.9 [degF] Dr. Albert Maria MD Work Phone: [facility] 06-19-2024 10:04-0500 Body weight 90.[address] Albert Maria MD Work Phone: [facility] 06-19-2024 10:04-0500 Diastolic blood pressure 74 mm[Hg] Dr. Albert Maria MD Work Phone: [facility] 06-19-2024 10:04-0500 Heart rate 74 /min Dr. Albert Maria MD Work Phone: [facility] 06-19-2024 10:04-0500 Respiratory rate 16 /min Dr. Albert Maria MD Work Phone: [facility] 06-19-2024 10:04-0500 SaO2% (BldA) [Mass fraction] 96 % Dr. Albert Maria MD Work Phone: [facility] 06-19-2024 10:04-0500 Systolic blood pressure 127 mm[Hg] Dr. Albert Maria MD Work Phone: [facility] 05-27-2024 06:26-0500 Body mass index (BMI) [Ratio] 39.4 kg/m2 Dr. Albert Maria MD Work Phone: [facility] 05-27-2024 06:26-0500 Body temperature 97.3 [degF] Dr. Albert Maria MD Work Phone: [facility] 05-27-2024 06:26-0500 Body weight 97.[address] Albert Maria MD Work Phone: 5(713)811-513140 [place] [address] 05-27-2024 06:26-0500 Diastolic blood pressure 72 mm[Hg] Dr. Albert Maria MD Work Phone: 8(286)815-026440 [place] [address] 05-27-2024 06:26-0500 Heart rate 85 /min Dr. Albert Maria MD Work Phone: [facility] 05-27-2024 06:26-0500 Respiratory rate 14 /min Dr. Albert Maria MD Work Phone: [facility] 05-27-2024 06:26-0500 SaO2% (BldA) [Mass fraction] 99 % Dr. Albert Maria MD Work Phone: [facility] 05-27-2024 06:26-0500 Systolic blood pressure 121 mm[Hg] Dr. Albert Maria MD Work Phone: [facility] 05-22-2024 09:33-0500 Body temperature 96.9 [degF] Dr. Albert Maria MD Work Phone: [facility] 05-22-2024 09:33-0500 Diastolic blood pressure 79 mm[Hg] Dr. Albert Maria MD Work Phone: [facility] 05-22-2024 09:33-0500 Heart rate 78 /min Dr. Albert Maria MD Work Phone: [facility] 05-22-2024 09:33-0500 Respiratory rate 16 /min Dr. Albert Maria MD Work Phone: [facility] 05-22-2024 09:33-0500 SaO2% (BldA) [Mass fraction] 95 % Dr. Albert Maria MD Work Phone: [facility] 05-22-2024 09:33-0500 Systolic blood pressure 129 mm[Hg] Dr. Albert Maria MD Work Phone: 5(604)044-600240 [place] [address] 04-24-2024 09:42-0500 Body temperature 96.3 [degF] Dr. Albert Maria MD Work Phone: 3(498)247-493840 [place] [address] 04-24-2024 09:42-0500 Diastolic blood pressure 80 mm[Hg] Dr. Albert Maria MD Work Phone: 0(400)615-297040 [place] [address] 04-24-2024 09:42-0500 Heart rate 72 /min Dr. Albert Maria MD Work Phone: 7(677)049-352140 [place] [address] 04-24-2024 09:42-0500 Respiratory rate 16 /min Dr. Albert Maria MD Work Phone: 4(776)361-087840 [place] [address] 04-24-2024 09:42-0500 SaO2% (BldA) [Mass fraction] 100 % Dr. Albert Maria MD Work Phone: [facility] 04-24-2024 09:42-0500 Systolic blood pressure 129 mm[Hg] Dr. Albert Maria MD Work Phone: [facility] 04-13-2024 08:53-0500 Body height 157.5 cm [facility] 04-13-2024 08:53-0500 Body mass index (BMI) [Ratio] 40.2 kg/m2 [facility] 04-13-2024 08:53-0500 Body weight 99.7 kg [facility] 03-27-2024 09:40-0500 Body temperature 97.4 [degF] Dr. Albert Maria MD Work Phone: 3(160)915-739540 [place] [address] 03-27-2024 09:40-0500 Diastolic blood pressure 77 mm[Hg] Dr. Albert Maria MD Work Phone: [facility] 03-27-2024 09:40-0500 Heart rate 93 /min Dr. Albert Maria MD Work Phone: [facility] 03-27-2024 09:40-0500 Respiratory rate 16 /min Dr. Albert Maria MD Work Phone: 0(296)263-256940 [place] [address] 03-27-2024 09:40-0500 SaO2% (BldA) [Mass fraction] 95 % Dr. Albert Maria MD Work Phone: [facility] 03-27-2024 09:40-0500 Systolic blood pressure 128 mm[Hg] Dr. Albert Maria MD Work Phone: 0(435)788-694140 [place] [address] 03-23-2024 09:20-0500 Body height 157.5 cm Albert Maria MD Work Phone: 0(675)295-257459 [place] [address] 03-23-2024 09:20-0500 Body mass index (BMI) [Ratio] 40.2 kg/m2 Albert Maria MD Work Phone: [facility] 03-23-2024 09:20-0500 Body weight 99.7 kg Albert Maria MD Work Phone: [facility] 03-23-2024 09:20-0500 Diastolic blood pressure 86 mm[Hg] Albert Maria MD Work Phone: [facility] 03-23-2024 09:20-0500 Heart rate 77 /min Albert Maria MD Work Phone: [facility] 03-23-2024 09:20-0500 SaO2% (BldA) [Mass fraction] 95 % Albert Maria MD Work Phone: [facility] 03-23-2024 09:20-0500 Systolic blood pressure 140 mm[Hg] Albert Maria MD Work Phone: 2(618)845-339259 [place] [address] 09-18-2023 08:56-0400 Body height 157.5 cm Albert Maria MD Work Phone: [facility] 09-18-2023 08:56-0400 Body mass index (BMI) [Ratio] 39.56 kg/m2 Albert Maria MD Work Phone: [facility] 09-18-2023 08:56-0400 Body weight 98.11 kg Albert Maria MD Work Phone: [facility] 09-18-2023 08:56-0400 Diastolic blood pressure 80 mm[Hg] Albert Maria MD Work Phone: [facility] 09-18-2023 08:56-0400 Heart rate 74 /min Albert Maria MD Work Phone: [facility] 09-18-2023 08:56-0400 SaO2% (BldA) [Mass fraction] 100 % Albert Maria MD Work Phone: [facility] 09-18-2023 08:56-0400 Systolic blood pressure 122 mm[Hg] Albert Maria MD Work Phone: [facility] 09-13-2023 09:52-0400 Body height 157.48 cm [facility] 09-13-2023 09:52-0400 Body temperature 96.3 [degF] [facility] 09-13-2023 09:52-0400 Diastolic blood pressure 80 mm[Hg] [facility] 09-13-2023 09:52-0400 Heart rate 79 /min [facility] 09-13-2023 09:52-0400 Respiratory rate 16 /min [facility] 09-13-2023 09:52-0400 SaO2% (BldA) [Mass fraction] 97 % [facility] 09-13-2023 09:52-0400 Systolic blood pressure 130 mm[Hg] [facility] 08-16-2023 09:58-0400 Body height 157.48 cm [facility] 08-16-2023 09:58-0400 Body mass index (BMI) [Ratio] 36.6 kg/m2 [facility] 08-16-2023 09:58-0400 Body temperature 97.6 [degF] [facility] 08-16-2023 09:58-0400 Body weight 90.71 kg [facility] 08-16-2023 09:58-0400 Diastolic blood pressure 73 mm[Hg] [facility] 08-16-2023 09:58-0400 Heart rate 72 /min [facility] 08-16-2023 09:58-0400 Respiratory rate 14 /min [facility] 08-16-2023 09:58-0400 SaO2% (BldA) [Mass fraction] 97 % [facility] 08-16-2023 09:58-0400 Systolic blood pressure 130 mm[Hg] [facility] 07-19-2023 10:22-0500 Body height 157.48 cm [facility] 07-19-2023 10:22-0500 Body mass index (BMI) [Ratio] 36.6 kg/m2 [facility] 07-19-2023 10:22-0500 Body temperature 96 [degF] [facility] 07-19-2023 10:22-0500 Body weight 90.71 kg [facility] 07-19-2023 10:22-0500 Diastolic blood pressure 68 mm[Hg] [facility] 07-19-2023 10:22-0500 Heart rate 84 /min [facility] 07-19-2023 10:22-0500 Respiratory rate 16 /min [facility] 07-19-2023 10:22-0500 SaO2% (BldA) [Mass fraction] 97 % [facility] 07-19-2023 10:22-0500 Systolic blood pressure 123 mm[Hg] [facility] 06-21-2023 10:37-0500 Body height 157.[address] Albert Maria Work Phone: [facility] 06-21-2023 10:37-0500 Body mass index (BMI) [Ratio] 36.6 kg/m2 Dr. Albert Maria Work Phone: [facility] 06-21-2023 10:37-0500 Body temperature 96.7 [degF] Dr. Albert Maria Work Phone: [facility] 06-21-2023 10:37-0500 Body weight 90.[address] Albert Maria Work Phone: [facility] 06-21-2023 10:37-0500 Diastolic blood pressure 77 mm[Hg] Dr. Albert Maria Work Phone: [facility] 06-21-2023 10:37-0500 Heart rate 75 /min Dr. Albert Maria Work Phone: [facility] 06-21-2023 10:37-0500 Respiratory rate 16 /min Dr. Albert Maria Work Phone: [facility] 06-21-2023 10:37-0500 SaO2% (BldA) [Mass fraction] 95 % Dr. Albert Maria Work Phone: [facility] 06-21-2023 10:37-0500 Systolic blood pressure 142 mm[Hg] Dr. Albert Maria Work Phone: [facility] 05-24-2023 10:35-0500 Body height 157.[address] Albert Maria Work Phone: [facility] 05-24-2023 10:35-0500 Body mass index (BMI) [Ratio] 36.6 kg/m2 Dr. Albert Maria Work Phone: [facility] 05-24-2023 10:35-0500 Body temperature 96.4 [degF] Dr. Albert Maria Work Phone: [facility] 05-24-2023 10:35-0500 Body weight 90.[address] Albert Maria Work Phone: [facility] 05-24-2023 10:35-0500 Diastolic blood pressure 72 mm[Hg] Dr. Albert Maria Work Phone: [facility] 05-24-2023 10:35-0500 Heart rate 88 /min Dr. Albert Maria Work Phone: [facility] 05-24-2023 10:35-0500 Respiratory rate 16 /min Dr. Albert Maria Work Phone: [facility] 05-24-2023 10:35-0500 SaO2% (BldA) [Mass fraction] 94 % Dr. Albert Maria Work Phone: [facility] 05-24-2023 10:35-0500 Systolic blood pressure 128 mm[Hg] Dr. Albert Maria Work Phone: [facility] 04-26-2023 10:57-0500 Body height 157.[address] Albert Maria Work Phone: [facility] 04-26-2023 10:57-0500 Body mass index (BMI) [Ratio] 36.6 kg/m2 Dr. Albert Maria Work Phone: [facility] 04-26-2023 10:57-0500 Body temperature 97.2 [degF] Dr. Albert Maria Work Phone: [facility] 04-26-2023 10:57-0500 Body weight 90.[address] Albert Maria Work Phone: [facility] 04-26-2023 10:57-0500 Diastolic blood pressure 76 mm[Hg] Dr. Albert Maria Work Phone: [facility] 04-26-2023 10:57-0500 Heart rate 74 /min Dr. Albert Maria Work Phone: [facility] 04-26-2023 10:57-0500 Respiratory rate 16 /min Dr. Albert Maria Work Phone: [facility] 04-26-2023 10:57-0500 SaO2% (BldA) [Mass fraction] 97 % Dr. Albert Maria Work Phone: [facility] 04-26-2023 10:57-0500 Systolic blood pressure 121 mm[Hg] Dr. Albert Maria Work Phone: [facility] 03-29-2023 10:30-0500 Body height 157.[address] Albert Maria Work Phone: [facility] 03-29-2023 10:30-0500 Body temperature 96.5 [degF] Dr. Albert Maria Work Phone: [facility] 03-29-2023 10:30-0500 Diastolic blood pressure 70 mm[Hg] Dr. Albert Maria Work Phone: [facility] 03-29-2023 10:30-0500 Heart rate 89 /min Dr. Albert Maria Work Phone: [facility] 03-29-2023 10:30-0500 Respiratory rate 16 /min Dr. Albert Maria Work Phone: [facility] 03-29-2023 10:30-0500 SaO2% (BldA) [Mass fraction] 95 % Dr. Albret Maria Work Phone: [facility] 03-29-2023 10:30-0500 Systolic blood pressure 105 mm[Hg] Dr. Albert Maria Work Phone: [facility] 03-20-2023 09:44-0500 Body height 157.5 cm Albret Maria MD Work Phone: [facility] 03-20-2023 09:44-0500 Body mass index (BMI) [Ratio] 39.58 kg/m2 Albert Maria MD Work Phone: [facility] 03-20-2023 09:44-0500 Body weight 98.16 kg Albert Maria MD Work Phone: [facility] 03-20-2023 09:44-0500 Diastolic blood pressure 78 mm[Hg] Albert Maria MD Work Phone: [facility] 03-20-2023 09:44-0500 Heart rate 62 /min Albert Maria MD Work Phone: [facility] 03-20-2023 09:44-0500 SaO2% (BldA) [Mass fraction] 93 % Albert Maria MD Work Phone: [facility] 03-20-2023 09:44-0500 Systolic blood pressure 126 mm[Hg] Albert Maria MD Work Phone: [facility] 03-01-2023 10:02-0400 Body height 157.48 cm [facility] 03-01-2023 10:02-0400 Body mass index (BMI) [Ratio] 36.6 kg/m2 [facility] 03-01-2023 10:02-0400 Body temperature 96.9 [degF] [facility] 03-01-2023 10:02-0400 Body weight 90.71 kg [facility] 03-01-2023 10:02-0400 Diastolic blood pressure 62 mm[Hg] [facility] 03-01-2023 10:02-0400 Heart rate 75 /min [facility] 03-01-2023 10:02-0400 Respiratory rate 16 /min [facility] 03-01-2023 10:02-0400 SaO2% (BldA) [Mass fraction] 93 % [facility] 03-01-2023 10:02-0400 Systolic blood pressure 129 mm[Hg] [facility] 02-01-2023 09:58-0400 Body height 157.48 cm [facility] 02-01-2023 09:58-0400 Body mass index (BMI) [Ratio] 36.6 kg/m2 [facility] 02-01-2023 09:58-0400 Body temperature 96.8 [degF] [facility] 02-01-2023 09:58-0400 Body weight 90.71 kg [facility] 02-01-2023 09:58-0400 Diastolic blood pressure 73 mm[Hg] [facility] 02-01-2023 09:58-0400 Heart rate 79 /min [facility] 02-01-2023 09:58-0400 Respiratory rate 16 /min [facility] 02-01-2023 09:58-0400 SaO2% (BldA) [Mass fraction] 96 % [facility] 02-01-2023 09:58-0400 Systolic blood pressure 123 mm[Hg] [facility] 01-04-2023 12:13-0400 Body height 157.48 cm [facility] 01-04-2023 12:13-0400 Body mass index (BMI) [Ratio] 36.6 kg/m2 [facility] 01-04-2023 12:13-0400 Body temperature 96.1 [degF] [facility] 01-04-2023 12:13-0400 Body weight 90.71 kg [facility] 01-04-2023 12:13-0400 Diastolic blood pressure 73 mm[Hg] [facility] 01-04-2023 12:13-0400 Heart rate 73 /min [facility] 01-04-2023 12:13-0400 Respiratory rate 16 /min [facility] 01-04-2023 12:13-0400 SaO2% (BldA) [Mass fraction] 95 % [facility] 01-04-2023 12:13-0400 Systolic blood pressure 119 mm[Hg] [facility] 12-07-2022 10:42-0400 Body height 157.48 cm [facility] 12-07-2022 10:42-0400 Body mass index (BMI) [Ratio] 36.6 kg/m2 [facility] 12-07-2022 10:42-0400 Body temperature 96.8 [degF] [facility] 12-07-2022 10:42-0400 Body weight 90.71 kg [facility] 12-07-2022 10:42-0400 Diastolic blood pressure 78 mm[Hg] [facility] 12-07-2022 10:42-0400 Heart rate 80 /min [facility] 12-07-2022 10:42-0400 Respiratory rate 16 /min [facility] 12-07-2022 10:42-0400 SaO2% (BldA) [Mass fraction] 92 % [facility] 12-07-2022 10:42-0400 Systolic blood pressure 140 mm[Hg] [facility] 11-09-2022 10:25-0400 Body height 157.48 cm [facility] 11-09-2022 10:25-0400 Body mass index (BMI) [Ratio] 36.6 kg/m2 [facility] 11-09-2022 10:25-0400 Body temperature 96.8 [degF] [facility] 11-09-2022 10:25-0400 Body weight 90.71 kg [facility] 11-09-2022 10:25-0400 Diastolic blood pressure 77 mm[Hg] [facility] 11-09-2022 10:25-0400 Heart rate 78 /min [facility] 11-09-2022 10:25-0400 Respiratory rate 16 /min [facility] 11-09-2022 10:25-0400 SaO2% (BldA) [Mass fraction] 97 % [facility] 11-09-2022 10:25-0400 Systolic blood pressure 140 mm[Hg] [facility] 10-12-2022 10:32-0400 Body height 157.48 cm [facility] 10-12-2022 10:32-0400 Body mass index (BMI) [Ratio] 36.6 kg/m2 [facility] 10-12-2022 10:32-0400 Body temperature 96.9 [degF] [facility] 10-12-2022 10:32-0400 Body weight 90.71 kg [facility] 10-12-2022 10:32-0400 Diastolic blood pressure 69 mm[Hg] [facility] 10-12-2022 10:32-0400 Heart rate 81 /min [facility] 10-12-2022 10:32-0400 Respiratory rate 16 /min [facility] 10-12-2022 10:32-0400 SaO2% (BldA) [Mass fraction] 94 % [facility] 10-12-2022 10:32-0400 Systolic blood pressure 104 mm[Hg] [facility] 09-14-2022 10:20-0400 Body height 157.48 cm [facility] 09-14-2022 10:20-0400 Body mass index (BMI) [Ratio] 36.6 kg/m2 [facility] 09-14-2022 10:20-0400 Body temperature 96.7 [degF] [facility] 09-14-2022 10:20-0400 Body weight 90.71 kg [facility] 09-14-2022 10:20-0400 Diastolic blood pressure 70 mm[Hg] [facility] 09-14-2022 10:20-0400 Heart rate 87 /min [facility] 09-14-2022 10:20-0400 Respiratory rate 16 /min [facility] 09-14-2022 10:20-0400 SaO2% (BldA) [Mass fraction] 96 % [facility] 09-14-2022 10:20-0400 Systolic blood pressure 132 mm[Hg] [facility] 09-04-2022 09:07-0400 Body height 157.5 cm Albert Maria MD Work Phone: [facility] 09-04-2022 09:07-0400 Body mass index (BMI) [Ratio] 39.36 kg/m2 Albert Maria MD Work Phone: [facility] 09-04-2022 09:07-0400 Body weight 97.61 kg Albert Maria MD Work Phone: [facility] 09-04-2022 09:07-0400 Diastolic blood pressure 80 mm[Hg] Albert Maria MD Work Phone: [facility] 09-04-2022 09:07-0400 Heart rate 82 /min Albert Maria MD Work Phone: [facility] 09-04-2022 09:07-0400 SaO2% (BldA) [Mass fraction] 95 % Albert Maria MD Work Phone: [facility] 09-04-2022 09:07-0400 Systolic blood pressure 132 mm[Hg] Albert Maria MD Work Phone: [facility] 08-17-2022 10:55-0400 Body height 157.48 cm [facility] 08-17-2022 10:55-0400 Body mass index (BMI) [Ratio] 36.6 kg/m2 [facility] 08-17-2022 10:55-0400 Body temperature 97.1 [degF] [facility] 08-17-2022 10:55-0400 Body weight 90.71 kg [facility] 08-17-2022 10:55-0400 Diastolic blood pressure 77 mm[Hg] [facility] 08-17-2022 10:55-0400 Heart rate 75 /min [facility] 08-17-2022 10:55-0400 Respiratory rate 16 /min [facility] 08-17-2022 10:55-0400 SaO2% (BldA) [Mass fraction] 96 % [facility] 08-17-2022 10:55-0400 Systolic blood pressure 140 mm[Hg] [facility] 07-20-2022 10:50-0500 Body height 157.48 cm [facility] 07-20-2022 10:50-0500 Body mass index (BMI) [Ratio] 36.6 kg/m2 [facility] 07-20-2022 10:50-0500 Body temperature 96.4 [degF] [facility] 07-20-2022 10:50-0500 Body weight 90.71 kg [facility] 07-20-2022 10:50-0500 Diastolic blood pressure 84 mm[Hg] [facility] 07-20-2022 10:50-0500 Heart rate 79 /min [facility] 07-20-2022 10:50-0500 Respiratory rate 18 /min [facility] 07-20-2022 10:50-0500 SaO2% (BldA) [Mass fraction] 97 % [facility] 07-20-2022 10:50-0500 Systolic blood pressure 141 mm[Hg] [facility] 06-22-2022 10:46-0500 Body height 157.[address] Albert Maria Work Phone: [facility] 06-22-2022 10:46-0500 Body mass index (BMI) [Ratio] 36.6 kg/m2 Dr. Albert Maria Work Phone: [facility] 06-22-2022 10:46-0500 Body temperature 96.9 [degF] Dr. Albert Maria Work Phone: [facility] 06-22-2022 10:46-0500 Body weight 90.[address] Albert Maria Work Phone: [facility] 06-22-2022 10:46-0500 Diastolic blood pressure 73 mm[Hg] Dr. Albert Maria Work Phone: [facility] 06-22-2022 10:46-0500 Heart rate 78 /min Dr. Albert Maria Work Phone: [facility] 06-22-2022 10:46-0500 Respiratory rate 16 /min Dr. Albert Maria Work Phone: [facility] 06-22-2022 10:46-0500 SaO2% (BldA) [Mass fraction] 98 % Dr. Albert Maria Work Phone: [facility] 06-22-2022 10:46-0500 Systolic blood pressure 136 mm[Hg] Dr. Albert Maria Work Phone: [facility] 05-25-2022 10:29-0500 Body height 157.[address] Albert Maria Work Phone: [facility] 05-25-2022 10:29-0500 Body mass index (BMI) [Ratio] 36.6 kg/m2 Dr. Albert Maria Work Phone: [facility] 05-25-2022 10:29-0500 Body temperature 96.8 [degF] Dr. Albert Maria Work Phone: [facility] 05-25-2022 10:29-0500 Body weight 90.[address] Albert Maria Work Phone: [facility] 05-25-2022 10:29-0500 Diastolic blood pressure 77 mm[Hg] Dr. Albert Maria Work Phone: [facility] 05-25-2022 10:29-0500 Heart rate 84 /min Dr. Albert aMria Work Phone: [facility] 05-25-2022 10:29-0500 Respiratory rate 16 /min Dr. Albert Maria Work Phone: [facility] 05-25-2022 10:29-0500 Systolic blood pressure 130 mm[Hg] Dr. Albert Maria Work Phone: [facility] 04-27-2022 10:29-0500 Body height 157.[address] Albert Maria Work Phone: [facility] Work Phone: 04-27-2022 10:29-0500 Body mass index (BMI) [Ratio] 36.6 kg/m2 Dr. Albert Maria Work Phone: [facility] 04-27-2022 10:29-0500 Body temperature 96.9 [degF] Dr. Albert Maria Work Phone: [facility] 04-27-2022 10:29-0500 Body weight 90.[address] Albert Maria Work Phone: [facility] 04-27-2022 10:29-0500 Diastolic blood pressure 80 mm[Hg] Dr. Albert Maria Work Phone: [facility] 04-27-2022 10:29-0500 Heart rate 63 /min Dr. Albert Maria Work Phone: [facility] 04-27-2022 10:29-0500 Respiratory rate 12 /min Dr. Albert Maria Work Phone: [facility] 04-27-2022 10:29-0500 SaO2% (BldA) [Mass fraction] 99 % Dr. Albert Maria Work Phone: [facility] 04-27-2022 10:29-0500 Systolic blood pressure 160 mm[Hg] Dr. Albert Maria Work Phone: [facility] 03-30-2022 10:17-0500 Body height 157.[address] Albert Maria Work Phone: [facility] Work Phone: 03-30-2022 10:17-0500 Body temperature 96.1 [degF] Dr. Albert Maria Work Phone: [facility] 03-30-2022 10:17-0500 Diastolic blood pressure 86 mm[Hg] Dr. Albert Maria Work Phone: [facility] 03-30-2022 10:17-0500 Heart rate 89 /min Dr. Albert Maria Work Phone: [facility] 03-30-2022 10:17-0500 Respiratory rate 18 /min Dr. Albert Maria Work Phone: [facility] 03-30-2022 10:17-0500 Systolic blood pressure 123 mm[Hg] Dr. Albert Maria Work Phone: [facility] 03-23-2022 09:46-0500 Body mass index (BMI) [Ratio] 39.3 kg/m2 Dr. Albert Maria Work Phone: [facility] 03-23-2022 09:46-0500 Body temperature 97.5 [degF] Dr. Albert Maria Work Phone: [facility] 03-23-2022 09:46-0500 Body weight 97.[address] Albert Maria Work Phone: [facility] 03-23-2022 09:46-0500 Diastolic blood pressure 93 mm[Hg] Dr. Albert Maria Work Phone: [facility] 03-23-2022 09:46-0500 Heart rate 87 /min Dr. Albert Maria Work Phone: [facility] 03-23-2022 09:46-0500 Respiratory rate 18 /min Dr. Albert Maria Work Phone: [facility] 03-23-2022 09:46-0500 SaO2% (BldA) [Mass fraction] 98 % Dr. Albert Maria Work Phone: [facility] 03-23-2022 09:46-0500 Systolic blood pressure 151 mm[Hg] Dr. Ablert Maria Work Phone: [facility] 03-01-2022 10:21-0400 Body height 157.48 cm [facility] Work Phone: 03-01-2022 10:21-0400 Body temperature 96 [degF] [facility] 03-01-2022 10:21-0400 Diastolic blood pressure 79 mm[Hg] [facility] 03-01-2022 10:21-0400 Heart rate 65 /min [facility] 03-01-2022 10:21-0400 Respiratory rate 16 /min [facility] 03-01-2022 10:21-0400 SaO2% (BldA) [Mass fraction] 96 % [facility] 03-01-2022 10:21-0400 Systolic blood pressure 135 mm[Hg] [facility] 02-28-2022 09:37-0400 Diastolic blood pressure 74 mm[Hg] Albert Maria Work Phone: [employer] Work Phone: 02-28-2022 09:37-0400 Systolic blood pressure 118 mm[Hg] Albert Maria Work Phone: [employer] [facility] Work Phone: 02-28-2022 09:04-0400 Body height 157.48 cm Albert Maria Work Phone: [facility] Work Phone: 02-28-2022 09:04-0400 Body mass index (BMI) [Ratio] 39.18 kg/m2 Albert Maria Work Phone: [employer] Work Phone: 02-28-2022 09:04-0400 Body surface area Derived from formula 1.97 m2 Albert Maria Work Phone: [employer] Work Phone: 02-28-2022 09:04-0400 Body weight 97.16 kg Albert Maria Work Phone: [facility] Work Phone: 02-28-2022 09:04-0400 Diastolic blood pressure 84 mm[Hg] Albert Maria Work Phone: [facility] Work Phone: 02-28-2022 09:04-0400 Heart rate 75 /min Albert Maria Work Phone: [facility] Work Phone: 02-28-2022 09:04-0400 SaO2% (BldA) [Mass fraction] 96 % Albert Maria Work Phone: [facility] Work Phone: 02-28-2022 09:04-0400 Systolic blood pressure 148 mm[Hg] Albert Maria Work Phone: [facility] Work Phone: 02-02-2022 08:30-0400 Body temperature 96.3 [degF] [facility] Work Phone: 02-02-2022 08:30-0400 Diastolic blood pressure 79 mm[Hg] [facility] Work Phone: 02-02-2022 08:30-0400 Heart rate 80 /min [facility] Work Phone: 02-02-2022 08:30-0400 SaO2% (BldA) [Mass fraction] 98 % [facility] Work Phone: 02-02-2022 08:30-0400 Systolic blood pressure 142 mm[Hg] [facility] Work Phone: 01-05-2022 08:26-0400 Body height 157.48 cm [facility] Work Phone: 01-05-2022 08:26-0400 Body mass index (BMI) [Ratio] 36.6 kg/m2 [facility] Work Phone: 01-05-2022 08:26-0400 Body temperature 96.8 [degF] [facility] Work Phone: 01-05-2022 08:26-0400 Body weight 90.71 kg [facility] Work Phone: 01-05-2022 08:26-0400 Diastolic blood pressure 63 mm[Hg] [facility] Work Phone: 01-05-2022 08:26-0400 Heart rate 80 /min [facility] Work Phone: 01-05-2022 08:26-0400 Respiratory rate 16 /min [facility] Work Phone: 01-05-2022 08:26-0400 SaO2% (BldA) [Mass fraction] 95 % [facility] Work Phone: 01-05-2022 08:26-0400 Systolic blood pressure 138 mm[Hg] [facility] Work Phone: 12-08-2021 10:04-0400 Body height 157.48 cm [facility] Work Phone: 12-08-2021 10:04-0400 Body temperature 97 [degF] [facility] Work Phone: 12-08-2021 10:04-0400 Diastolic blood pressure 73 mm[Hg] [facility] Work Phone: 12-08-2021 10:04-0400 Heart rate 81 /min [facility] Work Phone: 12-08-2021 10:04-0400 Respiratory rate 16 /min [facility] Work Phone: 12-08-2021 10:04-0400 SaO2% (BldA) [Mass fraction] 95 % [facility] Work Phone: 12-08-2021 10:04-0400 Systolic blood pressure 133 mm[Hg] [facility] Work Phone: 11-10-2021 09:24-0400 Body height 157.48 cm [facility] Work Phone: 11-10-2021 09:24-0400 Body mass index (BMI) [Ratio] 36.6 kg/m2 [facility] Work Phone: 11-10-2021 09:24-0400 Body temperature 97.4 [degF] [facility] Work Phone: 11-10-2021 09:24-0400 Body weight 90.71 kg [facility] Work Phone: 11-10-2021 09:24-0400 Diastolic blood pressure 69 mm[Hg] [facility] Work Phone: 11-10-2021 09:24-0400 Heart rate 83 /min [facility] Work Phone: 11-10-2021 09:24-0400 Respiratory rate 12 /min [facility] Work Phone: 11-10-2021 09:24-0400 SaO2% (BldA) [Mass fraction] 95 % [facility] Work Phone: 11-10-2021 09:24-0400 Systolic blood pressure 148 mm[Hg] [facility] Work Phone: 10-13-2021 09:44-0400 Body temperature 97.2 [degF] [facility] Work Phone: 10-13-2021 09:44-0400 Diastolic blood pressure 80 mm[Hg] [facility] Work Phone: 10-13-2021 09:44-0400 Heart rate 72 /min [facility] Work Phone: 10-13-2021 09:44-0400 Respiratory rate 16 /min [facility] Work Phone: 10-13-2021 09:44-0400 SaO2% (BldA) [Mass fraction] 97 % [facility] Work Phone: 10-13-2021 09:44-0400 Systolic blood pressure 132 mm[Hg] [facility] Work Phone: 10-13-2021 09:07-0400 Body height 157.48 cm [facility] Work Phone: 10-13-2021 09:07-0400 Body mass index (BMI) [Ratio] 36.6 kg/m2 [facility] Work Phone: 10-13-2021 09:07-0400 Body weight 90.71 kg [facility] Work Phone: 09-15-2021 09:12-0400 Body height 157.48 cm [facility] Work Phone: 09-15-2021 09:12-0400 Body temperature 97.2 [degF] [facility] Work Phone: 09-15-2021 09:12-0400 Diastolic blood pressure 76 mm[Hg] [facility] Work Phone: 09-15-2021 09:12-0400 Heart rate 84 /min [facility] Work Phone: 09-15-2021 09:12-0400 Respiratory rate 16 /min [facility] Work Phone: 09-15-2021 09:12-0400 SaO2% (BldA) [Mass fraction] 93 % [facility] Work Phone: 09-15-2021 09:12-0400 Systolic blood pressure 146 mm[Hg] [facility] Work Phone: 08-29-2021 09:04-0400 Body height 157.48 cm Albert Maria Work Phone: [facility] Work Phone: 08-29-2021 09:04-0400 Body mass index (BMI) [Ratio] 38.96 kg/m2 Albert Maria Work Phone: [facility] Work Phone: 08-29-2021 09:04-0400 Body surface area Derived from formula 1.96 m2 Albert Maria Work Phone: [facility] Work Phone: 08-29-2021 09:04-0400 Body weight 96.62 kg Albert Maria Work Phone: [facility] Work Phone: 08-29-2021 09:04-0400 Diastolic blood pressure 76 mm[Hg] Albert Maria Work Phone: [facility] Work Phone: 08-29-2021 09:04-0400 Heart rate 83 /min Albert Maria Work Phone: [facility] Work Phone: 08-29-2021 09:04-0400 SaO2% (BldA) [Mass fraction] 95 % Albert Maria Work Phone: [facility] Work Phone: 08-29-2021 09:04-0400 Systolic blood pressure 132 mm[Hg] Albert Maria Work Phone: [facility] Work Phone: 08-18-2021 09:05-0400 Body height 157.48 cm [facility] Work Phone: 08-18-2021 09:05-0400 Body mass index (BMI) [Ratio] 36.6 kg/m2 [facility] Work Phone: 08-18-2021 09:05-0400 Body temperature 96.3 [degF] [facility] Work Phone: 08-18-2021 09:05-0400 Body weight 90.71 kg [facility] Work Phone: 08-18-2021 09:05-0400 Diastolic blood pressure 78 mm[Hg] [facility] Work Phone: 08-18-2021 09:05-0400 Heart rate 85 /min [facility] Work Phone: 08-18-2021 09:05-0400 Respiratory rate 12 /min [facility] Work Phone: 08-18-2021 09:05-0400 SaO2% (BldA) [Mass fraction] 97 % [facility] Work Phone: 08-18-2021 09:05-0400 Systolic blood pressure 141 mm[Hg] [facility] Work Phone: 07-21-2021 09:28-0500 Body temperature 97 [degF] [facility] Work Phone: 07-21-2021 09:28-0500 Diastolic blood pressure 71 mm[Hg] [facility] Work Phone: 07-21-2021 09:28-0500 Heart rate 86 /min [facility] Work Phone: 07-21-2021 09:28-0500 Respiratory rate 16 /min [facility] Work Phone: 07-21-2021 09:28-0500 SaO2% (BldA) [Mass fraction] 96 % [facility] Work Phone: 07-21-2021 09:28-0500 Systolic blood pressure 130 mm[Hg] [facility] Work Phone: 07-21-2021 08:28-0500 Body height 157.48 cm [facility] Work Phone: 07-21-2021 08:28-0500 Body temperature 97 [degF] [facility] Work Phone: 07-21-2021 08:28-0500 Diastolic blood pressure 71 mm[Hg] [facility] Work Phone: 07-21-2021 08:28-0500 Heart rate 86 /min [facility] Work Phone: 07-21-2021 08:28-0500 Respiratory rate 16 /min [facility] Work Phone: 07-21-2021 08:28-0500 SaO2% (BldA) [Mass fraction] 96 % [facility] Work Phone: 07-21-2021 08:28-0500 Systolic blood pressure 130 mm[Hg] [facility] Work Phone: 06-23-2021 08:24-0500 Body mass index (BMI) [Ratio] 36.6 kg/m2 [facility] Work Phone: 06-23-2021 08:24-0500 Body temperature 96.4 [degF] [facility] Work Phone: 06-23-2021 08:24-0500 Body weight 90.71 kg [facility] Work Phone: 06-23-2021 08:24-0500 Diastolic blood pressure 79 mm[Hg] [facility] Work Phone: 06-23-2021 08:24-0500 Heart rate 80 /min [facility] Work Phone: 06-23-2021 08:24-0500 Respiratory rate 16 /min [facility] Work Phone: 06-23-2021 08:24-0500 SaO2% (BldA) [Mass fraction] 95 % [facility] Work Phone: 06-23-2021 08:24-0500 Systolic blood pressure 146 mm[Hg] [facility] Work Phone: 05-26-2021 08:32-0500 Body mass index (BMI) [Ratio] 36.6 kg/m2 [facility] Work Phone: 05-26-2021 08:32-0500 Body temperature 96.9 [degF] [facility] Work Phone: 05-26-2021 08:32-0500 Body weight 90.71 kg [facility] Work Phone: 05-26-2021 08:32-0500 Diastolic blood pressure 77 mm[Hg] [facility] Work Phone: 05-26-2021 08:32-0500 Heart rate 76 /min [facility] Work Phone: 05-26-2021 08:32-0500 Respiratory rate 18 /min [facility] Work Phone: 05-26-2021 08:32-0500 SaO2% (BldA) [Mass fraction] 98 % [facility] Work Phone: 05-26-2021 08:32-0500 Systolic blood pressure 142 mm[Hg] [facility] Work Phone: 04-28-2021 08:22-0500 Body temperature 97.6 [degF] [facility] Work Phone: 04-28-2021 08:22-0500 Diastolic blood pressure 81 mm[Hg] [facility] Work Phone: 04-28-2021 08:22-0500 Heart rate 83 /min [facility] Work Phone: 04-28-2021 08:22-0500 Respiratory rate 16 /min [facility] Work Phone: 04-28-2021 08:22-0500 SaO2% (BldA) [Mass fraction] 97 % [facility] Work Phone: 04-28-2021 08:22-0500 Systolic blood pressure 155 mm[Hg] [facility] Work Phone: 02-27-2021 09:42-0400 Diastolic blood pressure 76 mm[Hg] Albert Maria Work Phone: [facility] Work Phone: 02-27-2021 09:42-0400 Systolic blood pressure 136 mm[Hg] Albert Maria Work Phone: [facility] Work Phone: 02-27-2021 08:58-0400 Body height 157.48 cm Albert Maria Work Phone: [facility] Work Phone: 02-27-2021 08:58-0400 Body mass index (BMI) [Ratio] 37.5 kg/m2 Albert Maria Work Phone: [facility] Work Phone: 02-27-2021 08:58-0400 Body surface area Derived from formula 1.93 m2 Albert Maria Work Phone: [facility] Work Phone: 02-27-2021 08:58-0400 Body temperature 96.9 [degF] Albert Maria Work Phone: [facility] Work Phone: 02-27-2021 08:58-0400 Body weight 92.99 kg Albert Maria Work Phone: [facility] Work Phone: 02-27-2021 08:58-0400 Diastolic blood pressure 88 mm[Hg] Albert Maria Work Phone: [facility] Work Phone: 02-27-2021 08:58-0400 Heart rate 76 /min Albert Maria Work Phone: [facility] Work Phone: 02-27-2021 08:58-0400 SaO2% (BldA) [Mass fraction] 92 % Albert Maria Work Phone: [facility] Work Phone: 02-27-2021 08:58-0400 Systolic blood pressure 148 mm[Hg] Albert Arreguin Crow Work Phone: [facility] Work Phone: 02-25-2020 10:49-0400 BP Diastolic 88 mm[Hg] Albert Maria [facility] Work Phone: 02-25-2020 10:49-0400 BP Systolic 138 mm[Hg] Albert Maria [facility] Work Phone: 02-25-2020 10:43-0400 BMI (Body Mass Index) 40.24 kg/m2 Albert Maria [facility] Work Phone: 02-25-2020 10:43-0400 Body Temperature 95.7 [degF] Albert Crow [facility] Work Phone: 02-25-2020 10:43-0400 Body weight 99.79 kg Albert Maria [facility] Work Phone: 02-25-2020 10:43-0400 BSA (Body Surface Area) 1.99 m2 Albert Maria [facility] Work Phone: 02-25-2020 10:43-0400 Height 157.48 cm Albert Gallegospamela [facility] Work Phone: 02-25-2020 10:43-0400 Pulse (Heart Rate) 82 /min Albert Crow [facility] Work Phone: 02-25-2020 10:43-0400 Pulse Oximetry 92 % Albert Gallegospamela [facility] Work Phone: 02-17-2019 10:09-0400 BMI (Body Mass Index) 38.57 kg/m2 Albert Maria [facility] Work Phone: 02-17-2019 10:09-0400 Body weight 95.65 kg Albert Maria [facility] Work Phone: 02-17-2019 10:09-0400 BP Diastolic 82 mm[Hg] Albert Crow [facility] Work Phone: 02-17-2019 10:09-0400 BP Systolic 148 mm[Hg] Albert Crow [facility] Work Phone: 02-17-2019 10:09-0400 BSA (Body Surface Area) 1.95 m2 Albert Gallegospamela [facility] Work Phone: 02-17-2019 10:09-0400 Height 157.48 cm Albert Gallegospamela [facility] Work Phone: 02-17-2019 10:09-0400 Pulse (Heart Rate) 68 /min Albert Crow [facility] Work Phone: Encounters Encounter Date Encounter Type Care Provider Facility Start: 03-05-2025 End: 03-05-2025 ambulatory Albert Maria Facility:[facility] Start: 02-02-2025 End: 02-02-2025 Patient encounter procedure Macy BROWN [facility] Work Phone: Start: 02-02-2025 End: 02-02-[address] Albert Maria MD Work Phone: [facility] Start: 01-05-2025 End: 01-05-2025 Patient encounter procedure Macy BROWN [facility] Work Phone: Start: 01-05-2025 End: 01-05-[address] Albert Maria MD Work Phone: [facility] Start: 12-08-2024 End: 12-08-2024 Patient encounter procedure Macy BROWN [facility] Work Phone: Start: 12-08-2024 End: 12-08-[address] Albert Maria MD Work Phone: -[facility] Start: 11-10-2024 End: 11-10-2024 Patient encounter procedure Macy Faith [facility] Work Phone: Start: 11-10-2024 End: 11-10-[address] Albert Maria MD Work Phone: -[facility] Start: 10-09-2024 End: 10-09-2024 Patient encounter procedure Macy Faith [facility] Work Phone: Start: 10-09-2024 End: 10-09-[address] Albert Maria MD Work Phone: [facility] Work Phone: Start: 09-21-2024 End: 09-21-2024 Assay of hemosiderin, quant Albert Maria MD Work Phone: [facility] Work Phone: Start: 09-21-2024 End: 09-21-2024 Patient encounter procedure Albert Maria MD Work Phone: [facility] Comment on above: Routine general medi villa examination at health care facility (Primary Dx); Primary hypertension; Severe persistent asthma without complication (Multi); Breast cancer screening by mammogram; Obesity, morbid (Multi) Start: 09-21-2024 End: 09-21-2024 ambulatory ALBERT MARIA [facility] Ambulatory Start: 09-11-2024 End: 09-11-2024 Patient encounter procedure Macy Faith [facility] Work Phone: Start: 09-11-2024 End: 09-11-2024 ambulatory Macy Faith NP Facility:[facility] Start: 08-14-2024 End: 08-14-2024 Patient encounter procedure Macy Faith [facility] Work Phone: Start: 08-14-2024 End: 08-14-[address] Albert Maria MD Work Phone: [facility] Work Phone: Start: 07-17-2024 End: 07-17-2024 Patient encounter procedure Macy Faith NP-C -[facility] Work Phone: Start: 07-17-2024 End: 07-17-[address] Albert Maria MD Work Phone: [facility] Work Phone: Start: 06-19-2024 End: 06-19-2024 Patient encounter procedure Macy Faith [facility] Work Phone: Start: 06-19-2024 End: 06-19-2024 ambulatory Macy Faith [facility] Facility:[facility] Start: 05-27-2024 End: 05-27-2024 Patient encounter procedure [facility] Pricilla Benavides [facility] Work Phone: Start: 05-27-2024 End: 05-27-2024 ambulatory Pricilla Benavides Facility[facility] Start: 05-22-2024 End: 05-22-2024 Patient encounter procedure Macy Faith [facility] Work Phone: Start: 05-22-2024 End: 05-22-2024 ambulatory Macy Faith [facility] Facility:[facility] Start: 04-24-2024 End: 04-24-2024 Patient encounter procedure Macy Faith [facility] Work Phone: Start: 04-24-2024 End: 04-24-2024 ambulatory Macy Faith [facility] Facility:[facility] Start: 04-13-2024 End: 04-13-2024 Subsequent hospital visit by physician [address] Comment on above: Breast cancer screen ing by mammogram Start: 04-13-2024 End: 04-13-2024 ambulatory ALBERT MARIA [facility] Start: 03-27-2024 End: 03-27-2024 Patient encounter procedure Macy Faith [facility] Work Phone: Start: 03-27-2024 End: 03-27-2024 ambulatory Macy Faith [facility] Facility:[facility] Start: 03-23-2024 End: 03-23-2024 Office outpatient visit 25 minutes Albert Maria MD Work Phone: [facility] Comment on above: Primary hypertension (Primary Dx); Severe persistent asthma without complication (Multi); Breast cancer screening by mammogram Start: 03-23-2024 End: 03-23-2024 ambulatory ALBERT MARIA [facility] Ambulatory Start: 03-17-2024 End: 03-17-2024 ambulatory ALBERT MARIA [facility] Start: 09-18-2023 End: 09-18-2023 Assay of hemosiderin, quant Albert Maria MD Work Phone: [facility] Work Phone: Start: 09-18-2023 End: 09-18-2023 Patient encounter procedure Albert Maria MD Work Phone: [facility] Comment on above: Routine general medi villa examination at health care facility (Primary Dx); Primary hypertension; Severe persistent asthma without complication (Multi); Obesity, morbid (Multi) Start: 09-13-2023 End: 09-13-2023 ambulatory [facility] Work Phone: Start: 09-13-2023 End: 09-13-2023 Patient encounter procedure [facility] Work Phone: Start: 08-16-2023 End: 08-16-2023 ambulatory [facility] Work Phone: Start: 08-16-2023 End: 08-16-2023 Patient encounter procedure [facility] Work Phone: Start: 07-19-2023 End: 07-19-2023 ambulatory [facility] Work Phone: Start: 07-19-2023 End: 07-19-2023 Patient encounter procedure [facility] Work Phone: Start: 06-21-2023 End: 06-21-[address] Albert Maria Work Phone: [facility] Work Phone: Start: 06-21-2023 End: 06-21-[address] Albert Maria [facility] Start: 05-24-2023 End: 05-24-[address] Albert Maria Work Phone: [facility] Work Phone: Start: 05-24-2023 End: 05-24-[address] Albert Maria [facility]: Start: 04-26-2023 End: 04-26-[address] Albert Maria Work Phone: [facility] Work Phone: Start: 04-26-2023 End: 04-26-[address] Albert Maria [facility]: Start: 03-29-2023 End: 03-29-[address] Albert Maria Work Phone: [facility] Work Phone: Start: 03-29-2023 End: 03-29-[address] Albert Maria [facility]: Start: 03-21-2023 End: 03-21-[address] Albert Maria Work Phone: [facility] Work Phone: Start: 03-20-2023 End: 03-20-2023 Office outpatient visit 25 minutes Albert Maria MD Work Phone: [facility] Comment on above: Primary hypertension (Primary Dx); Breast cancer screening by mammogram; Encounter for screening mammogram for malignant neoplasm of breast Start: 03-01-2023 End: 03-01-2023 ambulatory [facility] Work Phone: Start: 03-01-2023 End: 03-01-2023 [facility]: Start: 02-01-2023 End: 02-01-2023 ambulatory [facility] Work Phone: Start: 02-01-2023 End: 02-01-2023 Patient encounter procedure [facility] Work Phone: Start: 01-04-2023 End: 01-04-2023 ambulatory [facility] Work Phone: Start: 01-04-2023 End: 01-04-2023 Patient encounter procedure [facility] Work Phone: Start: 12-07-2022 End: 12-07-2022 ambulatory [facility] Work Phone: Start: 12-07-2022 End: 12-07-2022 Patient encounter procedure [facility] Work Phone: Start: 11-09-2022 End: 11-09-2022 ambulatory [facility] Work Phone: Start: 11-09-2022 End: 11-09-2022 Patient encounter procedure [facility] Work Phone: Start: 10-12-2022 End: 10-12-2022 ambulatory [facility] Work Phone: Start: 10-12-2022 End: 10-12-2022 Patient encounter procedure [facility] Start: 09-14-2022 End: 09-14-2022 ambulatory [facility] Work Phone: Start: 09-14-2022 End: 09-14-2022 Patient encounter procedure [facility] Start: 09-04-2022 End: 09-04-2022 Assay of hemosiderin, quant Albert Maria MD Work Phone: [facility] Work Phone: Start: 09-04-2022 End: 09-04-2022 Patient encounter procedure Albert Maria MD Work Phone: [facility] Comment on above: Routine general medi villa examination at health care facility (Primary Dx); Severe persistent asthma without complication; Primary hypertension Start: 08-17-2022 End: 08-17-2022 ambulatory [facility] Work Phone: Start: 08-17-2022 End: 08-17-2022 [facility] Start: 07-20-2022 End: 07-20-2022 ambulatory [facility] Work Phone: Start: 07-20-2022 End: 07-20-2022 [facility] Start: 06-22-2022 End: 06-22-[address] Albert Maira Work Phone: [facility] Work Phone: Start: 06-22-2022 End: 06-22-[address] Albert Maria [facility] Start: 05-25-2022 End: 05-25-[address] Albert Maria Work Phone: [facility] Work Phone: Start: 05-25-2022 End: 05-25-[address] Albert Maria [facility] Start: 04-27-2022 End: 04-27-[address] Albert Maria Work Phone: [facility] Work Phone: Start: 04-27-2022 End: 04-27-[address] Albert Maria [facility] Start: 03-30-2022 End: 03-30-[address] Albert Maria Work Phone: [facility] Work Phone: Start: 03-30-2022 End: 03-30-[address] Albert Maria [facility] Start: 03-27-2022 Chart Update Albert santiago Work Phone: -[facility] Work Phone: Start: 03-27-[address] Albert Villalpando Facility:[id number] Start: 03-23-2022 End: 03-23-[address] Albert Maria Work Phone: [facility]-Pulmonary [facility] Start: 03-01-2022 End: 03-01-2022 ambulatory [facility] Work Phone: Start: 03-01-2022 End: 03-01-2022 Patient encounter procedure [facility] Start: 02-28-2022 Office outpatient vi sit 25 minutes Albert Maria Work Phone: [facility] Work Phone: Start: 02-28-2022 ambulatory Albert Maria F acility:[id number] Start: 02-02-2022 End: 02-02-2022 ambulatory [facility] Work Phone: Start: 02-02-2022 End: 02-02-2022 Patient encounter procedure [facility] Start: 01-05-2022 End: 01-05-2022 ambulatory [facility] Work Phone: Start: 01-05-2022 End: 01-05-2022 Patient encounter procedure [facility] Start: 12-08-2021 End: 12-08-2021 Patient encounter procedure [facility] Start: 11-24-2021 Chart Update Albert santiago [facility] [id number] Work Phone: Start: 11-22-2021 End: 11-22-[address] Albert Maria Facility:[id number] Start: 11-10-2021 End: 11-10-2021 Patient encounter procedure [facility] Start: 10-13-2021 End: 10-13-2021 Patient encounter procedure [facility] Start: 09-15-2021 End: 09-15-2021 Patient encounter procedure [facility] Start: 08-29-2021 Adv care pln/ no alt dcsn mkr docd or refusal Albert Maria Work Phone: -[facility] Work Phone: Start: 08-29-2021 ambulatory Albert Maria F acility:[id number] Start: 08-18-2021 End: 08-18-2021 Patient encounter procedure [facility] Out Start: 07-21-2021 End: 07-21-2021 Patient encounter procedure [facility] Out Start: 07-20-2021 End: 07-20-2021 Patient encounter procedure [facility]-Laboratory, Specimen Start: 06-23-2021 End: 06-23-2021 Patient encounter procedure [facility] Start: 05-26-2021 End: 05-26-2021 Patient encounter procedure [facility] Start: 04-28-2021 Patient encounter procedure [facility] Start: 03-17-2021 AUDIT Albert santiago Work Phone: -[facility] Work Phone: Start: 02-27-2021 Office outpatient vi sit 25 minutes Albert Maria Work Phone: -[facility] [facility] Work Phone: Start: 02-25-2020 Patient encounter procedure Albert Maria -[facility] Work Phone: Start: 08-20-2019 Patient encounter procedure Albert Maria -[facility] Work Phone: Start: 02-17-2019 Patient encounter procedure Albert Maria -[facility] Work Phone: Procedures Date Procedure Procedure Detail [...] Investigation of transfusion reaction Nasal sinus procedure Jasonae l Crow Comment on above: x3; Nasopharyngeal Culture Surgical procedure Albert Cook tenpamela Tympanotomy Albert Maria Plan of Treatment Date Care Activity Detail Author Start: 11-23-2031 Screening for malign ant neoplasm of colon [facility] Start: 11-22-2026 Screening for malign ant neoplasm of colon [facility] Start: 02-20-2026 Lipid panel Lipid Panel [facility] Start: 09-22-2025 Medicare Annual Wellness Visit Medicare Annual Wellness Visit (AWV) [facility] Start: 04-13-2025 Screening for malign ant neoplasm of breast Mammogram [facility] Start: 04-01-2025 End: 04-01-2025 Patient encounter procedure 04/01/2025 10:00 AM EST Office Visit [place] [address] [id number] Albert Maria MD Critical access hospital [address] [address] [facility] Start: 03-24-2025 End: 09-21-2025 CBC panel - Blood by Automated count CBC Lab Routine Primary hypertension Expected: 03/24/2025, Expires: 09/21/2025 [facility] Service Area Work Phone: Comment on above: Expected: 03/24/2025 , Expires: 09/21/2025 Start: 03-24-2025 End: 09-21-2025 Comprehensive metabolic 2000 panel - Serum or Plasma Comprehensive Metabolic Panel Lab Routine Primary hypertension Expected: 03/24/2025, Expires: 09/21/2025 [facility] Work Phone: Comment on above: Expected: 03/24/2025 , Expires: 09/21/2025 Start: 09-21-2024 End: 09-21-2024 Patient encounter procedure 09/21/2024 10:00 AM EDT Office Visit [place] [address] [phone] Albert Maria MD [address] [place] [id number] [facility] Start: 09-18-2024 Medicare Annual Wellness Visit Medicare Annual Wellness Visit (AWV) [facility] Start: 09-09-2024 COVID-19 Vaccine ( season) COVID-19 Vaccine () [facility] Start: 04-13-2024 End: 04-13-2024 Patient encounter procedure 04/13/2024 9:00 AM EST Appointment [facility] [address] [facility] [address] [place] [phone] [facility] Start: 04-02-2024 Screening for malign ant neoplasm of breast Mammogram [facility] Start: 03-23-2024 End: 05-23-2025 DBT Breast - bilateral BI mammo bilateral screening tomosynthesis Imaging Routine Breast cancer screening by mammogram Expected: 03/23/2024, Expires: 05/23/2025 [facility] Service Area Work Phone: Comment on above: Expected: 03/23/2024 , Expires: 05/23/2025 Start: 03-23-2024 End: 03-23-2024 Patient encounter procedure 03/23/2024 9:20 AM EST [facility] [address] [place] [phone] Albert Maria MD [address] [place] [address] [facility] Start: 01-12-2024 Influenza vaccination Influenz a Vaccine (Season Ended) [facility] Start: 09-18-2023 End: 09-17-2024 CBC panel - Blood by Automated count CBC Lab Routine Primary hypertension Severe persistent asthma without complication (Multi) Expected: 09/18/2023 (Approximate), Expires: 09/17/2024 [facility] Service Area Work Phone: Comment on above: Expected: 09/18/2023 (Approximate), Expires: 09/17/2024 Start: 09-18-2023 End: 09-17-2024 Comprehensive metabolic 2000 panel - Serum or Plasma Comprehensive Metabolic Panel Lab Routine Primary hypertension Severe persistent asthma without complication (Multi) Expected: 09/18/2023 (Approximate), Expires: 09/17/2024 [facility] Work Phone: Comment on above: Expected: 09/18/2023 (Approximate), Expires: 09/17/2024 Start: 09-06-2023 Medicare Annual Wellness Visit Medicare Annual Wellness Visit (AWV) [facility] Start: 06-09-2023 COVID-19 Vaccine ( season) COVID-19 Vaccine ( season) [facility] Start: 04-04-2023 COVID-19 Vaccine (6 - Moderna series) COVID-19 Vaccine (6 - Moderna series) [facility] Start: 03-27-2023 Screening for malign ant neoplasm of breast Mammogram [facility] Start: 03-20-2023 End: 05-20-2024 DBT Breast - bilateral BI mammo bilateral screening tomosynthesis Imaging Routine Breast cancer screening by mammogram Expected: 03/20/2023, Expires: 05/20/2024 [facility] Service Area Work Phone: Comment on above: Expected: 03/20/2023 , Expires: 05/20/2024 Start: 09-01-2023 Influenza vaccination [facility] Start: 09-04-2022 End: 09-05-2023 CBC panel - Blood by Automated count CBC Lab Routine Primary hypertension Expected: 09/04/2022 (Approximate), Expires: 09/05/2023 [facility] Service Area Work Phone: Comment on above: Expected: 09/04/2022 (Approximate), Expires: 09/05/2023 Start: 09-04-2022 End: 09-05-2023 Comprehensive metabolic 2000 panel - Serum or Plasma Comprehensive Metabolic Panel Lab Routine Primary hypertension Expected: 09/04/2022 (Approximate), Expires: 09/05/2023 [facility] Work Phone: Comment on above: Expected: 09/04/2022 (Approximate), Expires: 09/05/2023 Start: 09-04-2022 EPV, Provider: Albert Maria, Status: Pen, Time: 9:00 AM EPV, Provider: Albert Maria, Status: Pen, Time: 9:00 AM [facility] Work Phone: Start: 02-28-2022 EPV, Provider: Albert Maria, Status: Pen, Time: 9:00 AM EPV, Provider: Albert Maria, Status: Pen, Time: 9:00 AM [facility] Work Phone: Start: 08-29-2021 EPV, Provider: Albert Maria, Status: Pen, Time: 9:00 AM EPV, Provider: Albert Maria, Status: Pen, Time: 9:00 AM [facility] Work Phone: Start: 03-16-2020 MG Breast screening Mamm - Scr eening Mammogram w/ Tomosynthesis [facility] Work Phone: Start: 03-16-2020 Xray Bone Dens ity, Dexa 1 or More Sites [facility] Work Phone: Start: 04-09-2006 DTaP/Tdap/Td Vaccine s (1 - Tdap) DTaP/Tdap/Td Vaccines (1 - Tdap) [facility] Start: 1973 Diabetes mellitus screening Diabetes Screening [facility] Start: 1973 Hepatitis C screening Hepatitis C Ga isabel [facility] Start: 1955 Medicare Annual Wellness Visit Medicare Annual Wellness Visit (AWV) [facility] Start: 1955 Screening for malign ant neoplasm of colon [facility] Work Phone: NEGATED: Highlighted row has been ruled out! Planned Goals not documented [facility] Work Phone: Immunizations Immunization Date Immunization Notes Care Provider Fa hansa 04-01-2023 RESPIRATORY SYNCYTIA L VIRUS (RSV), ELIGIBLE PTS, 0.5 ML (ABRYSVO) Albert Maria MD Work Phone: [facility] Work Phone: 02-07-2023 Moderna COVID-19 vaccine, Fall 2022, 12 yeasrs and older (50mcg/0.5mL) Albert Maria MD Work Phone: [facility] Work Phone: 03-08-2022 Influenza, Seasonal, Quadrivalent, Adjuvanted Albert Maria MD Work Phone: [facility] Work Phone: 03-08-2022 influenza virus vacc ine, unspecified formulation Albert Maria MD Work Phone: [facility] Work Phone: 02-06-2022 Moderna COVID-19 Vac cine 100 MCG/0.5ML Intramuscular Suspension Albert Maria Work Phone: -[facility] Work Phone: Comment on above: Series: 10-06-2021 Moderna COVID-19 Vac cine 100 MCG/0.5ML Intramuscular Suspension Albert Maria Work Phone: -[facility] Work Phone: 03-17-2021 Moderna COVID-19 Vac cine 100 MCG/0.5ML Intramuscular Suspension Albert Rodríguez Maria Work Phone: [facility] Work Phone: 03-10-2021 influenza, seasonal, injectable Albert Maria Work Phone: [facility] Work Phone: Comment on above: Series: 03-10-2021 influenza virus vacc ine, unspecified formulation Albert Maria MD Work Phone: [facility] Work Phone: 08-26-2020 pneumococcal polysaccharide vaccine, 23 valent; Translations: [Pneumococcal polysaccharide vaccine, 23 valent] Albert Maria Work Phone: [facility] Work Phone: Comment on above: Series: 07-22-2020 Moderna COVID-19 Vac cine 100 MCG/0.5ML Intramuscular Suspension Albert Rodríguez Maria Work Phone: [facility] Work Phone: Comment on above: Series: 06-23-2020 Moderna COVID-19 Vac cine 100 MCG/0.5ML Intramuscular Suspension Albert Rodríguez Maria Work Phone: [facility] Work Phone: Comment on above: Series: 03-31-2020 zoster vaccine recombinant Albert Rodríguez Maria Work Phone: [facility] Work Phone: 03-23-2020 zoster vaccine recombinant Albert Maria Work Phone: [facility] Work Phone: Comment on above: Series: 01-22-2020 Flucelvax Quad 2020 (PF) (flu vac qs 2020(4 yr up)CD(PF)) 60 mcg (15 mcg x [facility] Work Phone: 01-12-2020 influenza, seasonal, injectable Albert Maria Work Phone: [facility] Work Phone: Comment on above: Series: 01-12-2020 influenza, seasonal, injectable Albert Maria [facility] Work Phone: 01-04-2020 zoster vaccine recombinant Albert Maria [facility] Work Phone: Comment on above: Series: 03-08-2016 zoster vaccine, live Albert Maria [facility] Work Phone: Comment on above: Series: 02-25-2015 pneumococcal conjuga te vaccine, 13 valent Albert Maria [facility] Work Phone: Comment on above: Series: 03-11-2009 novel influenza-H1N1 -09, preservative-free, injectable Albert Maria Work Phone: [facility] Work Phone: 04-08-2006 tetanus and diphther ia toxoids, adsorbed, preservative free, for adult use (2 Lf of tetanus toxoid and 2 Lf of diphtheria toxoid) Albert Maria Work Phone: [facility] Work Phone: Comment on above: Series: Payers Date Payer Category Payer Self-pay [id number] 2020 Medicare [id number] 2020 Medicare supplementa l policy (as second payer) [id number] 2020 Unknown 2020 Medicare [id number] 2020 Unknown [id number] 1955 Unknown [id number] 1955 Unknown [id number] [id number]6 1955 Unknown [id number] 2.16.840.1.954563.3.579.2.1069 1955 Unknown [id number] 2.16.840.1.000418.3.579.2.1069 1955 Unknown [id number] 2.16.840.1.961405.3.579.2.1245 1955 Unknown [id number] 2.16.840.1.673973.3.579.2.1243 1955 Unknown [id number] 2.16.840.1.816776.3.579.2.1244 1955 Unknown [id number] 2.16.840.1.764041.3.579.2.1244 Unknown [id number] 2.16.840.1.092816.3.579.2.462 Unknown [id number] 2.16.840.1.588068.3.579.2.462 Unknown [id number] 2.16.840.1.726964.3.579.2.462 Unknown [id number] 2.16.840.1.924925.3.579.2.462 Unknown [id number] 2.16.840.1.406047.3.579.2.462 Unknown [id number] 2.16.840.1.525886.3.579.2.462 Unknown [id number] 2.16.840.1.655129.3.579.2.462 Unknown [id number] 2.16.840.1.125639.3.579.2.462 Unknown [id number] 2.16.840.1.671972.3.579.2.462 Unknown [id number] 2.16.840.1.936105.3.579.2.462 Unknown [id number] 2.16.840.1.952084.3.579.2.462 Unknown [id number] [id number] Unknown [id number] [id number] Unknown [id number] [id number] Social History Date Type Detail Facility Start: 09-04-2022 End: 09-21-2024 No alcohol use No alcohol use [facility] Work Phone: Start: 03-23-2021 End: 03-21-2023 Tobacco smoking status NHIS Unknown if ever smoked [facility] Start: 1955 Sex Assigned At Female [facility] Start: 09-04-2022 End: 03-21-2023 Tobacco smoking status NHIS Never smoked tobacco [facility] Start: 09-04-2022 Tobacco use and exposure Smokeless tobacco non-user [facility] Work Phone: Start: 09-04-2022 End: 09-21-2024 Alcohol intake Lifetime non-drinker (finding) [facility] Work Phone: Start: 09-04-2022 End: 09-21-2024 Tobacco use panel [facility] Work Phone: Start: 1955 Sex Assigned At Not on file [facility] Work Phone: Start: 08-25-2022 End: 09-21-2024 Exposure to SARS-CoV-2 (event) Not sure [facility] Start: 07-18-2024 End: 08-15-2024 Sex Female (finding) [facility] NEGATED: Highlighted row - - [facility] Work Phone: Functional Status Date Assessment Result Facility 09-21-2024 Patient Health Questionnaire 2 item (PHQ-2) [Reported] [facility] NEGATED: Highlighted row Functional performance Functional status health issues are not documented Disease [facility] Work Phone: Mental Status Date Assessment Result Facility 02-02-2025 Cognitive function Awake [facility] Work Phone: 01-05-2025 Cognitive function Voice/Name [facility] Work Phone: 12-08-2024 Cognitive function Voice/Name [facility] Work Phone: 11-10-2024 Cognitive function Awake;Alert;A ppropriate ;Follows [facility] Work Phone: 10-09-2024 Cognitive function Awake;Alert;A ppropriate ;Follows [facility] Work Phone: 09-11-2024 Cognitive function Voice/Name [facility] Work Phone: 08-14-2024 Cognitive function Voice/Name [facility] Work Phone: 07-17-2024 Cognitive function Awake;Alert;A ppropriate ;Follows [facility] Work Phone: 06-19-2024 Cognitive function Voice/Name [facility] Work Phone: 05-22-2024 Cognitive function Awake;Alert;A ppropriate ;Follows [facility] Work Phone: 04-24-2024 Cognitive function Awake;Alert;A ppropriate ;Follows [facility] Work Phone: 03-27-2024 Cognitive function Awake;Alert;A ppropriate ;Follows [facility] Work Phone: 09-13-2023 Cognitive function Awake;Alert;A ppropriate ;Follows [facility] Work Phone: 08-16-2023 Cognitive function Voice/Name [facility] Work Phone: 07-19-2023 Cognitive function Awake;Alert;A ppropriate ;Follows [facility] Work Phone: 04-26-2023 Cognitive function Awake;Alert;A ppropriate ;Follows [employer] Work Phone: 03-29-2023 Cognitive function Awake;Alert;A ppropriate ;Follows Commands [facility] Work Phone: 03-01-2023 Cognitive function Voice/Name [facility] Work Phone: 02-01-2023 Cognitive function Voice/Name [facility] Work Phone: 01-04-2023 Cognitive function Voice/Name [facility] Work Phone: 12-07-2022 Cognitive function Voice/Name [facility] Work Phone: 11-09-2022 Cognitive function Voice/Name [facility] Work Phone: 10-12-2022 Cognitive function Voice/Name [facility] Work Phone: 09-14-2022 Cognitive function Voice/Name [facility] Work Phone: 08-17-2022 Cognitive function Voice/Name [facility] Work Phone: 07-20-2022 Cognitive function Awake;Alert;Appropriat e [facility] Work Phone: 06-22-2022 Cognitive function Voice/Name [facility] Work Phone: 05-25-2022 Cognitive function Voice/Name [facility] Work Phone: 04-27-2022 Cognitive function Level Of Cons ciousness Awake;Alert [facility] Work Phone: 03-30-2022 Cognitive function Awake;Alert;A ppropriate ;Follows [employer] [facility] Work Phone: 03-01-2022 Cognitive function Voice/Name [facility] Work Phone: 02-02-2022 Cognitive function Level Of Cons ciousness Awake;Alert;Appropriate ;Follows [facility] Work Phone: 01-05-2022 Cognitive function Awake;Alert;A ppropriate ;Follows [facility] Work Phone: 12-08-2021 Cognitive function Awake;Alert;A ppropriate ;Follows [employer] Work Phone: 11-10-2021 Cognitive function Voice/Name [facility] Work Phone: 09-15-2021 Cognitive function Awake;Alert;A ppropriate ;Follows [facility] Work Phone: 08-18-2021 Cognitive function Level Of Cons ciousness Alert [facility] Work Phone: 07-21-2021 Cognitive function Voice/Name [facility] Work Phone: 06-23-2021 Cognitive function Awake;Alert;A ppropriate ;Follows [facility] Work Phone: 05-26-2021 Cognitive function Voice/Name [facility] Work Phone: 04-28-2021 Cognitive function Voice/Name [facility] Work Phone: NEGATED: Highlighted row Cognitive function [Interpretation] Cognitive status health issues are not documented Disease [facility] Work Phone: Clinical Notes 09-04-2022 to 09-21-2024 Assessment & Plan Note - Albert Maria MD - 09/21/2024 10:00 AM EDTAssessment & Plan Note - Albert Maria MD - 09/21/2024 10:00 AM EDSana Maria MD - 09/21/2024 10:00 AM EDT Note Date & Type Note Facility 09-21-2024 Evaluation + Plan note Associated Problem(s): Hypertension Orders: Follow Up In Primary Care Follow Up In Primary Care; Future CBC; Future Comprehensive Metabolic Panel; Future [facility] Work Phone: 09-21-2024 Evaluation + Plan note Associated Problem(s): Asthma Orders: Follow Up In Primary Care T [facility] Work Phone: 09-21-2024 Evaluation + Plan note Associated Problem(s): Obesity, morbid (Multi) T [facility] Work Phone: 09-21-2024 History of Presen t [...] Medicine) Albert Maria [facility] Attributed Provider Dr. Ray pulmonary Review [...] Obesity, morbid (Multi) documented in this encounter [facility] Work Phone: 09-21-2024 Miscellaneous Notes Associated Problem(s): Hypertension Orders: Follow Up In Primary Care Follow Up In Primary Care; Future CBC; Future Comprehensive Metabolic Panel; Future Associated Problem(s): Asthma Orders: Follow Up In Primary Care Associated Problem(s): Obesity, morbid (Multi) documented in this encounter [facility] Work Phone: 05-27-2024 Evaluation note Diagnosis Onset Date Resolution Severe persistent asthma chronic May 27 10:04am [facility] Work Phone: 1(681) 873-207411-11-2024 History of Present illness Narrative* Albert Maria [...] Care March labs reviewed [facility]: 1(288) 568-262005-08-2024 History of Present illness Narrative* Albert Maria [...] of weight training if over age 50 Dr Ray, amada male tawana. Dr cole-immunotherapy Patient Care Team: Albert Maria MD as PCP - General Albert Maria MD [facility] - [facility] Attributed Provider Review of Systems General-no [...] care facility - [facility]: 1(973) 857-207211-08-2023 History of Present illness Narrative* Albert Maria [...] screening by mammogram Z12.31 [facility]: 1(277) 477-360304-25-2023 History of Present illness Narrative* Albert Maria [...] General Albert Maria MD as PCP - [facility] Attributed Provider Review of Systems General-no [...] care facility - [facility] Work [facility]: evaluation noteNo assessment information available [facility] Work Phone: Evaluation note* Diagnosis Onset Date Resolution Status Severe persistent asthma acu te [facility] Work Phone: Evaluation note* Diagnosis Routine general medical examination at health care facility- Primary Routine general medical examination at a health care facility Severe persistent asthma without complication Primary hypertension Unspecified essential hypertension documented in this encounter [facility] Work Phone: Evaluation note* Diagnosis Primary hypertension- Primary Unspecified essential hypertension Breast cancer screening by mammogram Encounter for screening mammogram for malignant neoplasm of breast documented in this encounter [facility] Work Phone: Evaluation note* Diagnosis Onset Date Resolution Status Severe persistent asthma chr onic [facility] Work Phone: Evaluation note* Diagnosis Routine general medical examination at health care facility- Primary Routine general medical examination at a health care facility Primary hypertension Unspecified essential hypertension Severe persistent asthma without complication (Multi) Obesity, morbid (Multi) Morbid obesity documented in this encounter [facility] Work Phone: Evaluation note* Diagnosis Primary hypertension- Primary Unspecified essential hypertension Severe persistent asthma without complication (Multi) Breast cancer screening by mammogram documented in this encounter [facility] Work Phone: Evaluation note* Diagnosis Breast cancer screening by mammogram documented in this encounter [facility] Work Phone: Evaluation note* Diagnosis Routine general medical examination at health care facility- Primary Routine general medical examination at a health care facility Primary hypertension Unspecified essential hypertension Severe persistent asthma without complication (Multi) Breast cancer screening by mammogram Obesity, morbid (Multi) Morbid obesity documented in this encounter [facility] Work Phone: History of Present illness Narrative* [...] and a prudent diet. [facility] Work Phone: History of Present illness Narrative* [...] no call by november let me know [facility] Work Phone: History of Present [...] of weight training if over age 50 [facility] Work Phone: reason for referral (narrative)* Consultation (Routine) - Authorized Specialty Diagnoses / Procedures Referred By Marguerite quintero Referred To Contact Primary Care Diagnoses Primary hypertension Procedures Follow Up In Primary Care Albert Maria MD [address] [place] [address] Referral ID Status Reason Start Date Expiration Date V isits Requested Visits Authorized [id number] Authorized 09/04/2022 03/03/2023 1 1 [facility] Work Phone: Repxin for referral (narrative)* Consultation (Routine) - Authorized Specialty Diagnoses / Procedures Referred By Contac t Referred To Contact Primary Care Diagnoses Primary hypertension Procedures Follow Up In Primary Care - Established Albert Maria MD [address] [place] [address] Referral ID Status Reason Start Date Expiration Date V isits Requested Visits Authorized [id number] Authorized 03/20/2023 03/19/2024 1 1 * Imaging (Routine) - Authorized Specialty Diagnoses / Procedures Referred By Contac t Referred To Contact Radiology Diagnoses Breast cancer screening by mammogram Procedures BI mammo bilateral screening tomosynthesis Albert Maria MD [address] [place] [address] Referral ID Status Reason Start Date Expiration Date Visits Requested Visits Authorized [id number] Authorized Perform Procedure 03/20/2023 03/19/2024 1 1 [facility] Work Phone: Retixj for referral (narrative)* Consultation (Routine) - Authorized Specialty Diagnoses / Procedures Referred By Contac t Referred To Contact Primary Care Diagnoses Primary hypertension Severe persistent asthma without complication (Multi) Procedures Follow Up In Primary Care - Established Albert Maria MD [address] [place] [address] Referral ID Status Reason Start Date Expiration Date V isits Requested Visits Authorized [id number] Authorized 09/18/2023 09/17/2024 1 1 [facility] Work Phone: Reason for referral (narrative)No reason for referral information [facility] Work [facility]: Reason for visit Narrative* Imaging (Routine) - Authorized Specialty Diagnoses / Procedures Referred By Contyeison t Referred To Contact Radiology Diagnoses Breast cancer screening by mammogram Procedures BI mammo bilateral screening tomosynthesis Albert Maria MD [address] [place] [address] Phone: tel: fax: Referral ID Status Reason Start Date Expiration Date Visits Requested Visits Authorized [id number] Authorized Perform Procedure 4 03/23/2025 1 1 [facility] Work Phone: Summary Purpose Family History No [...] m XOLAIR December 08, 2024 12:4 4pm Chief Complaint Admit Date XOLAIR September 11, 2024 9:32am XOLAIR October 09, 2024 10:11 am XOLAIR November 10, 2024 2:47p m XOLAIR December 08, 2024 12:4 4pm XOLAIR January 05, 2025 1: 05pm Chief Complaint Admit Date XOLAIR November 10, 2024 2:47p m XOLAIR December 08, 2024 12:4 4pm XOLAIR January 05, 2025 1: 05pm XOLAIR February 02, 2025 1:20pm Additional Source Comments INFORMATION SOURCE (unrecogn ized section and content) DATE CREATED AUTHOR 02/11/2019 [facility] DATE CREATED AUTHOR AUTHOR'S ORGANIZ ATION 03/05/2022 [facility] DATE CREATED AUTHOR AUTHOR'S ORGANIZ ATION 03/05/2022 [facility] DATE CREATED AUTHOR AUTHOR'S ORGANIZ ATION 08/05/2022 [facility] DATE CREATED AUTHOR AUTHOR'S ORGANIZ ATION 03/23/2024 [facility] DATE CREATED AUTHOR AUTHOR'S ORGANIZ ATION 04/15/2024 [facility] DATE CREATED AUTHOR AUTHOR'S ORGANIZ ATION 09/21/2024 [facility] DATE CREATED AUTHOR AUTHOR'S ORGANIZ ATION 03/21/2025 [facility] DATE CREATED AUTHOR AUTHOR'S ORGANIZ ATION 03/25/2025 [facility] Goals (unrecognized section and content) Goals may [...] MD Primary Care Provider Active Macy Faith [employer]ISHER HAND, POLISHER HAND-C Attending Provider, Referrin g Provider Active Product Developer Relationship Specialty Start Date End Date Albert Maria MD [address] [place] [address] PCP - General 01/13/19 Albert Maria MD [address] [place] [address] PCP - [facility] Attributed Provider 05/13/21 Product Developer Relationship Specialty Start Date End Date Albert Maria MD [address] [place] [address] PCP - General 01/13/19 Albert Maria MD [address] [place] [address] [facility] Attributed Provider 05/13/21 Team Status: Inactive Member Role Status Dates Dr. Albert Maria MD Primary Care Provider, Referr ing Provider Active Macy Faith [employer]ER HAND, POLISHER HAND-C Attending Provider Active Product Developer Relationship Specialty Start Date End Date Ablert Maria MD [address] [place] [address] PCP - General 01/13/19 Albert Maria MD [address] [place] [address] PCP - [facility] Attributed Provider 05/13/21 Product Developer Relationship Specialty Start Date End Date Albert Maria MD PCP - General 01/13/19 Albert Maria MD [address] [address] PCP - [facility] Attributed Provider 05/13/21 Product Developer Relationship Specialty Start Date End Date Albert Maria MD [address] [address] PCP - [facility] Attributed Provider 05/13/21 Albert Maria MD [address] [address] PCP - General Family Medicine 03/24/24 Team Status: Active Member Role Status Dates Dr. Albert Maria MD Primary Care Provider Active Team Status: Inactive Member Role Status Dates Dr. Albert Maria MD Primary Care Provider Active Start: March 27, 2024 End: March 27, 2024 Macy Faith POLISHER HAND, POLISHER HAND-C Attending Provider Active Start: March 27, 2024 End: March 27, 2024 Macy Faith POLISHER HAND, POLISHER HAND-C Referring Provider Active Start: March 27, 2024 End: March 27, 2024 Team Status: Inactive Member Role Status Dates Dr. Albert Maria MD Primary Care Provider Active Start: April 24, 2024 End: April 24, 2024 Macy Faith POLISHER HAND, POLISHER HAND-C Attending Provider Active Start: April 24, 2024 End: April 24, 2024 Macy Faith POLISHER HAND, POLISHER HAND-C Referring Provider Active Start: April 24, 2024 End: April 24, 2024 Team Status: Inactive Member Role Status Dates Dr. Albert Maria MD Primary Care Provider Active Start: May 22, 2024 End: May 22, 2024 Macy Faith NP, POLISHER HAND-C Attending Provider Active Start: May 22, 2024 End: May 22, 2024 Macy Faith POLISHER HAND, POLISHER HAND-C Referring Provider Active Start: May 22, 2024 End: May 22, 2024 Team Status: Inactive Member Role Status Dates Dr. Albert Maria MD Primary Care Provider Active Start: May 27, 2024 End: May 27, 2024 Dr. Albert Maria MD Referring Provider Active Start: May 27, 2024 End: May 27, 2024 Pricilla Benavides NP-C Attending Provider Active Start: May 27, 2024 End: May 27, 2024 Team Status: Inactive Member Role Status Dates Dr. Albert Maria MD Primary Care Provider Active Start: June 19, 2024 End: June 19, 2024 Macy Faith POLISHER HAND, POLISHER HAND-C Attending Provider Active Start: June 19, 2024 End: June 19, 2024 Macy Faith POLISHER HAND, POLISHER HAND-C Referring Provider Active Start: June 19, 2024 End: June 19, 2024 Team Status: Inactive Member Role Status Dates Dr. Albert Maria MD Primary Care Provider Active Start: July 17, 2024 End: July 17, 2024 Macy Faith POLISHER HAND, POLISHER HAND-C Attending Provider Active Start: July 17, 2024 End: July 17, 2024 Macy Faith POLISHER HAND, POLISHER HAND-C Referring Provider Active Start: July 17, 2024 End: July 17, 2024 Team Status: Inactive Member Role Status Dates Dr. Albert Maria MD Primary Care Provider Active Start: August 14, 2024 End: August 14, 2024 Macy Faith POLISHER HAND, POLISHER HAND-C Attending Provider Active Start: August 14, 2024 End: August 14, 2024 Macy Faith POLISHER HAND, POLISHER HAND-C Referring Provider Active Start: August 14, 2024 End: August 14, 2024 Product Developer Relationship Specialty Start Date End Date Albert Maria MD [address] [id number] PCP - [facility] Attributed Provider 05/13/21 Albert Maria MD [address] [address] PCP - General Family Medicine 03/24/24 Team Status: Inactive Member Role Status Dates Dr. Albert Maria MD Primary Care Provider Active Start: September 11, 2024 End: September 11, 2024 Macy Faith NP, POLISHER HAND-C Attending Provider Active Start: September 11, 2024 End: September 11, 2024 Macy Faith POLISHER HAND, POLISHER HAND-C Referring Provider Active Start: September 11, 2024 End: September 11, 2024 Team Status: Inactive Member Role Status Dates Dr. Albert Maria MD Primary Care Provider Active Start: October 09, 2024 End: October 09, 2024 Macy Faith POLISHER HAND, POLISHER HAND-C Attending Provider Active Start: October 09, 2024 End: October 09, 2024 Macy Faith POLISHER HAND, POLISHER HAND-C Referring Provider Active Start: October 09, 2024 End: October 09, 2024 Team Status: Active Member Role/Relationship Status Dates Dr. Albert Maria MD Primary Care Provider Active Team Status: Inactive Member Role/Relationship Status Dates Dr. Albert Maria MD Primary Care Provider Active Start: July 17, 2024 End: July 17, 2024 Macy Faith POLISHER HAND, POLISHER HAND-C Attending Provider Active Start: July 17, 2024 End: July 17, 2024 Macy Faith POLISHER HAND, POLISHER HAND-C Referring Provider Active Start: July 17, 2024 End: July 17, 2024 Team Status: Inactive Member Role/Relationship Status Dates Dr. Albert Maria MD Primary Care Provider Active Start: August 14, 2024 End: August 14, 2024 Macy Faith POLISHER HAND, POLISHER HAND-C Attending Provider Active Start: August 14, 2024 End: August 14, 2024 Macy Faith POLISHER HAND, POLISHER HAND-C Referring Provider Active Start: August 14, 2024 End: August 14, 2024 Team Status: Inactive Member Role/Relationship Status Dates Dr. Albert Maria MD Primary Care Provider Active Start: September 11, 2024 End: September 11, 2024 Macy Faith POLISHER HAND, POLISHER HAND-C Attending Provider Active Start: September 11, 2024 End: September 11, 2024 Macy Faith POLISHER HAND, POLISHER HAND-C Referring Provider Active Start: September 11, 2024 End: September 11, 2024 Team Status: Inactive Member Role/Relationship Status Dates Dr. Albert Maria MD Primary Care Provider Active Start: October 09, 2024 End: October 09, 2024 Macy Faith POLISHER HAND, POLISHER HAND-C Attending Provider Active Start: October 09, 2024 End: October 09, 2024 Macy Faith POLISHER HAND, POLISHER HAND-C Referring Provider Active Start: October 09, 2024 End: October 09, 2024 Team Status: Inactive Member Role/Relationship Status Dates Dr. Albert Maria MD Primary Care Provider Active Start: November 10, 2024 End: November 10, 2024 Macy Faith POLISHER HAND, POLISHER HAND-C Attending Provider Active Start: November 10, 2024 End: November 10, 2024 Macy Faith POLISHER HAND, POLISHER HAND-C Referring Provider Active Start: November 10, 2024 End: November 10, 2024 Team Status: Inactive Member Role/Relationship Status Dates Dr. Albert Maria MD Primary Care Provider Active Start: August 14, 2024 End: August 14, 2024 Macy Faith POLISHER HAND, POLISHER HAND-C Attending Provider Active Start: August 14, 2024 End: August 14, 2024 Macy Faith POLISHER HAND, POLISHER HAND-C Referring Provider Active Start: August 14, 2024 End: August 14, 2024 Team Status: Inactive Member Role/Relationship Status Dates Dr. Albert Maria MD Primary Care Provider Active Start: September 11, 2024 End: September 11, 2024 Macy Faith POLISHER HAND, POLISHER HAND-C Attending Provider Active Start: September 11, 2024 End: September 11, 2024 Macy Faith POLISHER HAND, POLISHER HAND-C Referring Provider Active Start: September 11, 2024 End: September 11, 2024 Team Status: Inactive Member Role/Relationship Status Dates Dr. Albert Maria MD Primary Care Provider Active Start: October 09, 2024 End: October 09, 2024 Macy Faith POLISHER HAND, POLISHER HAND-C Attending Provider Active Start: October 09, 2024 End: October 09, 2024 Macy Faith POLISHER HAND, POLISHER HAND-C Referring Provider Active Start: October 09, 2024 End: October 09, 2024 Team Status: Inactive Member Role/Relationship Status Dates Dr. Albert Maria MD Primary Care Provider Active Start: November 10, 2024 End: November 10, 2024 Macy Faith POLISHER HAND, POLISHER HAND-C Attending Provider Active Start: November 10, 2024 End: November 10, 2024 Macy Faith POLISHER HAND, POLISHER HAND-C Referring Provider Active Start: November 10, 2024 End: November 10, 2024 Team Status: Inactive Member Role/Relationship Status Dates Dr. Albert Maria MD Primary Care Provider Active Start: December 08, 2024 End: December 08, 2024 Macy Faith POLISHER HAND, POLISHER HAND-C Attending Provider Active Start: December 08, 2024 End: December 08, 2024 Macy Faith POLISHER HAND, POLISHER HAND-C Referring Provider Active Start: December 08, 2024 End: December 08, 2024 Team Status: Inactive Member Role/Relationship Status Dates Dr. Albert Maria MD Primary Care Provider Active Start: September 11, 2024 End: September 11, 2024 Macy Faith POLISHER HAND, POLISHER HAND-C Attending Provider Active Start: September 11, 2024 End: September 11, 2024 Macy Faith POLISHER HAND, POLISHER HAND-C Referring Provider Active Start: September 11, 2024 End: September 11, 2024 Team Status: Inactive Member Role/Relationship Status Dates Dr. Albert Maria MD Primary Care Provider Active Start: October 09, 2024 End: October 09, 2024 Macy Faith POLISHER HAND, POLISHER HAND-C Attending Provider Active Start: October 09, 2024 End: October 09, 2024 Macy Faith POLISHER HAND, POLISHER HAND-C Referring Provider Active Start: October 09, 2024 End: October 09, 2024 Team Status: Inactive Member Role/Relationship Status Dates Dr. Albert Maria MD Primary Care Provider Active Start: November 10, 2024 End: November 10, 2024 Macy Faith POLISHER HAND, POLISHER HAND-C Attending Provider Active Start: November 10, 2024 End: November 10, 2024 Macy Faith POLISHER HAND, POLISHER HAND-C Referring Provider Active Start: November 10, 2024 End: November 10, 2024 Team Status: Inactive Member Role/Relationship Status Dates Dr. Albert Maria MD Primary Care Provider Active Start: December 08, 2024 End: December 08, 2024 Macy Faith POLISHER HAND, POLISHER HAND-C Attending Provider Active Start: December 08, 2024 End: December 08, 2024 Macy Faith POLISHER HAND, POLISHER HAND-C Referring Provider Active Start: December 08, 2024 End: December 08, 2024 Team Status: Inactive Member Role/Relationship Status Dates Dr. Albert Maria MD Primary Care Provider Active Start: January 05, 2025 End: January 05, 2025 Macy Faith POLISHER HAND, POLISHER HAND-C Attending Provider Active Start: January 05, 2025 End: January 05, 2025 Macy Faith POLISHER HAND, POLISHER HAND-C Referring Provider Active Start: January 05, 2025 End: January 05, 2025 Team Status: Active Member Role/Relationship Status Dates Dr. Albert Maria MD Primary care physician Active Team Status: Inactive Member Role/Relationship Status Dates Dr. Albert Maria MD Primary care physician Active Start: November 10, 2024 End: November 10, 2024 Macy Faith NP, POLISHER HAND-C Attending physician Active Start: November 10, 2024 End: November 10, 2024 Macy Faith POLISHER HAND, POLISHER HAND-C Referring Provider Active Start: November 10, 2024 End: November 10, 2024 Team Status: Inactive Member Role/Relationship Status Dates Dr. Albert Maria MD Primary care physician Active Start: December 08, 2024 End: December 08, 2024 Macy Faith POLISHER HAND, POLISHER HAND-C Attending physician Active Start: December 08, 2024 End: December 08, 2024 Macy Faith POLISHER HAND, POLISHER HAND-C Referring Provider Active Start: December 08, 2024 End: December 08, 2024 Team Status: Inactive Member Role/Relationship Status Dates Dr. Albert Maria MD Primary care physician Active Start: January 05, 2025 End: January 05, 2025 Macy Faith NP, POLISHER HAND-C Attending physician Active Start: January 05, 2025 End: January 05, 2025 Macy Faith NP, POLISHER HAND-C Referring Provider Active Start: January 05, 2025 End: January 05, 2025 Team Status: Inactive Member Role/Relationship Status Dates Dr. Albert Maria MD Primary care physician Active Start: February 02, 2025 End: February 02, 2025 Macy Faith NP, POLISHER HAND-C Attending physician Active Start: February 02, 2025 End: February 02, 2025 Macy Faith POLISHER HAND, POLISHER HAND-C Referring Provider Active Start: February 02, 2025 End: February 02, 2025 Reason for Visit (unrecogniz ed section and content) Reason Comments Follow-up 6 mo fu , skin check Medicare Annual Wellness Visit Subsequen t Reason Comments Follow-up 6 mo rev labs Specialty Diagnoses / Procedures Referred By Contac t Referred To Contact Primary Care Diagnoses Primary hypertension Procedures Follow Up In Primary Care Albert Maria MD [facility] [place] [address] Referral ID Status Reason Start Date Expiration Date Visits Re quested Visits Authorized [id number] Closed 09/04/2022 03/03/2023 1 1 Reason Comments Medicare Annual Wellness Visit Subsequen t 6 mo fu Specialty Diagnoses / Procedures Referred By Contac t Referred To Contact Primary Care Diagnoses Primary hypertension Procedures Follow Up In Primary Care - [facility] Albert Maria MD [address] [place] [address] Referral ID Status Reason Start Date Expiration Date V isits Requested Visits Authorized [id number] Authorized 03/20/2023 03/19/2024 1 1 Specialty Diagnoses / Procedures Referred By Contac t Referred To Contact Primary Care Diagnoses Primary hypertension Severe persistent asthma without complication (Multi) Procedures Follow Up In Primary Care - Established Albert Maria MD Phone: tel: fax: Referral ID Status Reason Start Date Expiration Date V isits Requested Visits Authorized [id number] Authorized 09/18/2023 09/17/2024 1 1 Reason Comments Medicare Annual Wellness Visit Fam quintero MCW- 6 mo chk Specialty Diagnoses / Procedures Referred By Contac t Referred To Contact Primary Care Diagnoses Primary hypertension Severe persistent asthma without complication (Multi) Breast cancer screening by mammogram Procedures Follow Up In Primary Care Albert Maria MD [address] [address] Phone: tel: fax: Referral ID Status Reason Start Date Expiration Date V isits Requested Visits Authorized [id number] Authorized 03/23/2024 03/23/2025 1 1 FOR RECORDS [...] BE BASED ON THE PRIMARY CLINICAL RECORDS. [employer] provides no warranty or guarantee of the accuracy or completeness of information in this document.
== END | disposition home or self-care (01) ==
LOC: LABSPEC 15:21
PROVIDERS: PCP Family Medicine
DX: J01.90 Acute sinusitis, unspecified (principal)
CPT/HCPCS: 87070; 87077; 87186; 87205

== ENCOUNTER 2025-04-02 08:53 | Outpatient (CLI) | payer MEDICARE, BC, SELFPAY ==
[2025-04-02 09:04] VITALS: BP 140/68; PULSE 80; RESP 16; TEMP 36; O2SAT 97; BMI 36.6
== END 2025-04-02 23:59 | disposition home or self-care (01) ==
LOC: MEDOUTP 08:53
PROVIDERS: PCP Family Medicine; Referring Provider Nurse Practitioner Acute Care; Visit Provider Nurse Practitioner Acute Care
DX: J45.50 Severe persistent asthma, uncomplicated (principal)
CPT/HCPCS: 96372; J2357

== ENCOUNTER 2025-04-29 13:13 | Outpatient (CLI) | payer MEDICARE, BC, SELFPAY ==
[2025-04-29 13:15] VITALS: BP 144/75; PULSE 85; RESP 16; O2SAT 97
== END 2025-04-29 23:59 | disposition home or self-care (01) ==
LOC: MEDOUTP 13:13
PROVIDERS: PCP Family Medicine; Referring Provider Nurse Practitioner Acute Care; Visit Provider Nurse Practitioner Acute Care
DX: J45.50 Severe persistent asthma, uncomplicated (principal)
CPT/HCPCS: 96372; J2357